=== PATIENT | male | born 1965 | race Caucasian/White ===

== ENCOUNTER 2021-11-17 08:30 | Outpatient (REF) | payer OTHER, SELFPAY ==
--- NOTE | ~2021-11-17 | XR_ITS ---
EXAMINATION: XR SHOULDER, LEFT CLINICAL INFORMATION: Pain in left shoulder COMPARISON: Chest radiograph 10/10/2017 TECHNIQUE: AP external rotated, transscapular, axillary and Grashey radiographs of the left shoulder. FINDINGS: Partial visualization is made of a left pectoral atrioventricular pacer. Glenohumeral joint spacing and alignment is normal in appearance. The acromioclavicular joint is normal in appearance. Visualized left ribs and lung are normal. No dystrophic soft tissue calcifications associated with the left shoulder. XR/XR shoulder LT min 2V IMPRESSION: *Normal radiographic appearance of the left shoulder.
== END 2021-11-17 08:31 | disposition home or self-care (01) ==
LOC: HO.XRAY 08:30
PROVIDERS: PCP Family Medicine; Visit Provider Family Medicine
DX: M25.512 Pain in left shoulder (principal)
CPT/HCPCS: 73030

== ENCOUNTER 2021-12-09 15:05 | Outpatient (RCR) | payer OTHER, SELFPAY | END 2022-01-15 14:02 | disposition home or self-care (01) | LOC: HO.PT 15:05 | PROVIDERS: PCP Family Medicine; Visit Provider Family Medicine | DX: M25.512 Pain in left shoulder (principal) ==

== ENCOUNTER 2022-01-29 13:22 | Outpatient (REF) | payer OTHER, SELFPAY ==
[2022-01-29 14:10] LABS: Influenza A PCR NEGATIVE (Negative); Influenza B PCR NEGATIVE (Negative); Resp Syncy Virus RNA Qual PCR NEGATIVE (Negative); SARS COV2 PCR INHOUSE NEGATIVE (Negative)
== END 2022-01-29 13:23 | disposition home or self-care (01) ==
LOC: HO.LNP 13:22
PROVIDERS: Visit Provider Family Medicine
DX: Z20.822 Contact with and (suspected) exposure to COVID-19 (principal); B34.9 Viral infection, unspecified
CPT/HCPCS: 0241U

== ENCOUNTER 2022-11-03 12:11 | Outpatient (REF) | payer OTHER, SELFPAY ==
[2022-11-03 14:18] LABS: MANUAL DIFF FLAG NO
[2022-11-03 14:30] LABS: Basophils Absolute Auto 0.1 X10*3/uL (0.0-0.2); Eosinophils Absolute Auto 0.1 X10*3/uL (0.0-0.4); Hematocrit 43.8 % (42.0-52.0); Hemoglobin 15.5 g/dl (14.0-18.0); Imm Gran Abs Auto 0.02 X10*3/uL (0.00-0.03); Imm Gran Pct Auto 0.3 % (0.0-0.4); Lymphocytes Absolute Auto 1.9 X10*3/uL (1.2-4.9); Lymphocytes Percent Auto 26.6 % (20-40); Mean Corpuscular HGB Conc 35.4 g/dl (31.0-36.0); Mean Corpuscular Hemoglobin 32.8 pg (27.0-33.0); Mean Corpuscular Volume 92.6 fL (80.0-98.0); Mean Platelet Volume 9.1 fL (9.4-12.4); Monocytes Absolute Auto 0.6 X10*3/uL (0.1-1.2); Neutrophils Absolute Auto 4.3 x10*3/uL (2.0-8.3); Neutrophils Percent Auto 61.1 % (45-73); Platelet Count 241 X10*3/uL (160-400); Red Blood Count 4.73 X10*6/uL (4.60-5.80); Red Cell Distribution Width 12.2 % (11.0-16.0)
[2022-11-03 14:41] LABS: Estimated Average Glucose 108 mg/dL; Hemoglobin A1c % 5.4 %
[2022-11-03 15:16] LABS: Appearance Urine Clear; Color Urine Yellow; Glucose Urine UA Negative (Negative); Leukocyte Esterase Urine Negative (Negative); Nitrite Urine Negative (Negative); Specific Gravity - Urine <= 1.005 (1.005-1.025); Urine Blood Negative (Negative); Urine Ketones Negative (Negative); Urine Protein Negative (Neg-Trace)
[2022-11-03 15:35] LABS: Alanine Aminotransferase 41 U/L (0-40); Albumin Level 4.7 g/dL (3.5-5.0); Alkaline Phosphatase 91 U/L (39-117); Anion Gap 13 (12-20); Aspartate Amino Transferase 27 U/L (5-37); Bilirubin Total 0.6 mg/dL (0.0-1.0); Blood Urea Nitrogen 14 mg/dL (9-16); Calcium 9.9 mg/dL (8.4-10.2); Carbon Dioxide 24 mmol/L (22-29); Chloride 105 mmol/L (96-108); Estimated Glomerular Filt Rate > 60; Glucose Random 91 mg/dL (60-115); Potassium 4.2 mmol/L (3.3-5.1); Sodium 138 mmol/L (135-145); TSH reflex Free T4 0.71 uIU/mL (0.32-4.0); Total Protein 7.2 g/dL (6.5-8.0)
== END 2022-11-03 12:12 | disposition home or self-care (01) ==
LOC: HO.WFDLDS 12:11
PROVIDERS: Visit Provider Family Medicine
DX: Z00.00 Encounter for general adult medical examination without abnormal findings (principal); Z13.1 Encounter for screening for diabetes mellitus; M79.672 Pain in left foot; M79.671 Pain in right foot
CPT/HCPCS: 36415; 80053; 81003; 83036; 84443; 85025

== ENCOUNTER 2022-12-27 09:37 | Outpatient (REF) | payer OTHER, SELFPAY ==
--- NOTE | ~2022-12-27 | XR_ITS ---
EXAMINATION: XR SHOULDER, RIGHT CLINICAL INFORMATION: Right shoulder sprain. COMPARISON: None TECHNIQUE: Three views of the right shoulder. FINDINGS: Mild degenerative changes of the acromioclavicular joint. The bones and soft tissues otherwise appear unremarkable. No fracture appreciated. Glenohumeral and acromioclavicular alignment is anatomic with normal appearance of the glenohumeral joint space. No abnormal soft tissue calcification appreciated. Partially imaged left subclavian pulse generator device leads, the tip of one of which projects over the right atrium. XR/XR shoulder RT min 2V IMPRESSION: No acute finding.
== END 2022-12-27 09:38 | disposition home or self-care (01) ==
LOC: HO.HMGCX 09:37
PROVIDERS: PCP Family Medicine; Visit Provider Internal Medicine
DX: S43.401A Unspecified sprain of right shoulder joint, initial encounter (principal); X58.XXXA Exposure to other specified factors, initial encounter; Y93.9 Activity, unspecified; Y92.9 Unspecified place or not applicable; Y99.9 Unspecified external cause status
CPT/HCPCS: 73030

== ENCOUNTER → 2023-01-03 13:49 | Outpatient (BNVA) | payer OTHER, SELFPAY | PROVIDERS: PCP Family Medicine; Visit Provider Orthopaedic Surgery | DX: Z13.89 Encounter for screening for other disorder (principal) ==

== ENCOUNTER 2023-06-16 09:40 | Outpatient (AMB) | payer OTHER, SELFPAY ==
[2023-06-16 10:00] VITALS: BP 146/82; PULSE 60; RESP 12; TEMP 36.6; O2SAT 98; BMI 27.2
--- NOTE | 2023-06-16 10:00 | MHC.OFFWIV ---
Intake Vital Signs 06/16/23 10:00 Height 5 ft 11 in Weight 195 lb 4 oz BMI 27.2 BP 146/82 H Blood Pressure Location Rt brachial Position Sitting Respiration 12 Pulse 60 Pulse Source Pulse Oximeter Temp 98 F Temp Source Temporal Artery Scan Pulse Oximetry (%) 98 Oxygen Delivery Method Room Air Intake Visit Reasons: right sided back / shoulder pain [phone] Intake Note: Patient states the pain started a couple weeks ago while he was at work. Patient states it feels like someone has their knee in his back. 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 Patient states the pain started a couple weeks ago while he was at work. He has not been using anything for relief. [facility]LY [facility], [facility] Surgical History Deficient knowledge of valve replacement History of open reduction and internal fixation (ORIF) procedure History of pacemaker Family History Father CVD (cardiovascular disease) Myocardial infarction Mother Cancer Sister Breast cancer Son No problems noted. Daughter No problems noted. Social History Housing: House Alcohol intake: current Alcohol intake frequency: 0-2 drinks per day Patient Tobacco Use Status: Current someday Tobacco user Tobacco use type: Cigarette e-Cigarette/Vaping Use: Never Used Second Hand Smoke Exposure: No service: No Current occupational status: employed Current occupational exposures/hazards: No Cognitive needs: No Hearing needs: No Vision needs: No Review of Systems Musc Details: Shoulder week Reports back pain Physical Exam Vital Signs: Last Vital Signs Temp 98 F 06/16/23 10:00 Pulse 60 06/16/23 10:00 Resp 12 06/16/23 10:00 BP 146/82 H 06/16/23 10:00 Pulse Ox 98 06/16/23 10:00 Oxygen Delivery Method Room Air 06/16/23 10:00 BMI result Body Mass Index 27.2 Skin Other: 1 cm in diameter melanotic lesion at R thigh Assessment & Plan Assessment & Plan (1) Back pain: Code(s): M54.9 - Dorsalgia, unspecified Plan: Likely muscle sprain/strain Will give him meloxicam and a 10 day course of muscle relaxant Also encouraged ice/heat Relative rest If not improving should start physical therapy (2) Neoplasm of uncertain behavior of skin: Code(s): D48.5 - Neoplasm of uncertain behavior of skin Plan: 1 cm in diameter melanotic lesion at right thigh No other abnormal features but given its size, will refer him to Dermatology Orders: Referrals Dermatology Referral D48.5 - Neoplasm of uncertain behavior of skin Medications: New meloxicam 15 mg PO DAILY 14 tabs 0RF 14 days Refilled cyclobenzaprine 10 mg PO TID PRN 30 tabs 0RF muscle spasm 10 days Coding Level of Care Code Est Pt Level 3 (75378) Diagnoses Back pain M54.9 Neoplasm of uncertain behavior of skin D48.5
== END 2023-06-16 11:13 | disposition home or self-care (01) ==
PROVIDERS: PCP Family Medicine; Visit Provider Family Medicine
DX: M54.9 Dorsalgia, unspecified (principal); D48.5 Neoplasm of uncertain behavior of skin
CPT/HCPCS: 99213

== ENCOUNTER 2023-06-16 12:41 | Outpatient (REF) | payer OTHER, SELFPAY ==
[2023-06-16 15:39] LABS: Prostate Specific Antigen Scr 1.69 ng/mL (<0.05-4.0)
[2023-06-16 16:29] LABS: Alanine Aminotransferase 39 U/L (0-40); Albumin Level 4.4 g/dL (3.5-5.0); Alkaline Phosphatase 77 U/L (39-117); Anion Gap 16 (12-20); Aspartate Amino Transferase 23 U/L (5-37); Bilirubin Total 0.7 mg/dL (0.0-1.0); Blood Urea Nitrogen 14 mg/dL (9-16); Carbon Dioxide 20 mmol/L (22-29); Chloride 105 mmol/L (96-108); Cholesterol 234 mg/dL; Estimated Glomerular Filt Rate > 60; Glucose Fasting 110 mg/dL (60-99); HDL Cholesterol 62 mg/dL; LDL Cholesterol Calculated 146 mg/dl; Potassium 4.4 mmol/L (3.3-5.1); Sodium 137 mmol/L (135-145); Total Protein 7.3 g/dL (6.5-8.0); Triglycerides 131 mg/dL
== END 2023-06-16 12:42 | disposition home or self-care (01) ==
LOC: HO.LAB 12:41
PROVIDERS: PCP Family Medicine; Visit Provider Family Medicine
DX: Z00.00 Encounter for general adult medical examination without abnormal findings (principal); Z12.5 Encounter for screening for malignant neoplasm of prostate
CPT/HCPCS: 36415; 80053; 80061; 84153

== ENCOUNTER 2023-09-29 13:35 | Outpatient (AMB) | payer OTHER, SELFPAY ==
--- NOTE | 2023-09-29 13:44 | MHC.PC.OV ---
Vital Signs 09/29/23 13:45 Height 5 ft 11 in Weight 203 lb BMI 28.3 BP 104/68 Blood Pressure Location Lt brachial Position Sitting Respiration 13 Pulse 71 Pulse Source Pulse Oximeter Temp 97.9 F Temp Source Temporal Artery Scan Pulse Oximetry (%) 97 Oxygen Delivery Method Room Air Intake Visit Reasons: right foot swelling Intake Note: Patient reports he has right foot pain and swelling. Patient denies injury nor increased activity. Patient reports feet become extremely hot and sweaty as well. 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 He reports associated intermittent hot sensation to the right foot. His symptoms have been ongoing for the past 3 months. Ibuprofen provides minimal relief. He states that his symptoms intensify with prolonged standing. 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 He reports history of fracture of the right leg. He denies fall, injury, or trauma. Denies pain or swelling. [facility] Surgical History Deficient knowledge of valve replacement History of open reduction and internal fixation (ORIF) procedure History of pacemaker Family History Father CVD (cardiovascular disease) Myocardial infarction Mother Cancer Sister Breast cancer Son No problems noted. Daughter No problems noted. Social History Housing: House Alcohol intake: current Alcohol intake frequency: 0-2 drinks per day Patient Tobacco Use Status: Current someday Tobacco user Tobacco use type: Cigarette e-Cigarette/Vaping Use: Never Used Second Hand Smoke Exposure: No service: No Current occupational status: employed Current occupational exposures/hazards: No Cognitive needs: No Hearing needs: No Vision needs: No Questionnaire Thrive Questionnaire Date Thrive assessed: 11/03/22 CANDY-7 AMB Questionnaire CANDY-7 Date CANDY - 7 assessed: 11/03/22 Source: Developed by Drs. Coleman Huerta, Marisela Rachel, Feng Carmichael and colleagues, with an educational tree from [employer]). Review of Systems Const Details: Const Denies chills, Denies fatigue, Denies fever(s), Denies headache(s) and Denies weakness ENT Denies dizziness and Denies headache(s) Card Denies chest pain, Denies lightheadedness, Denies dyspnea and Denies other (Palpitations) Resp Denies cough, Denies dyspnea, Denies wheezing and Denies other ( shortness of breath) GI Denies abdominal pain, Denies melena, Denies hematochezia, Denies change in bowel habits, Denies dyspepsia and Denies nausea Denies hematuria and Denies dysuria Musc Reports as per HPI Skin/Breast Denies rash, Denies unusual bruising and Denies wounds Neuro Denies abnormal gait, Denies dizziness, Denies headache(s), Denies memory loss, Denies numbness, Denies Sensory deficit (Neuro), Denies tingling and Denies weakness Psych Denies anxiety, Denies depression, Denies memory loss Endo Denies cold intolerance, Denies fatigue, Denies heat intolerance, Denies polydipsia and Denies polyuria Aller/Immun Denies wheezing Physical exam (Primary Care) Vital Signs: Last Vital Signs Temp 97.9 F 09/29/23 13:45 Pulse 71 09/29/23 13:45 Resp 13 09/29/23 13:45 BP 104/68 09/29/23 13:45 Pulse Ox 97 09/29/23 13:45 Oxygen Delivery Method Room Air 09/29/23 13:45 BMI result Body Mass Index 28.3 Tobacco/Smoking Status: Tobacco use Status Tobacco use date assessed 01/21/23 09/29/23 13:54 Patient Tobacco Use Status Current someday Tobacco 09/29/23 13:54 Tobacco use type Cigarette 09/29/23 13:54 e-Cigarette/Vaping Use Never Used 09/29/23 13:54 Thrive Assessment: Date of Thrive Assessment Date Thrive assessed 11/03/22 09/29/23 13:54 Const Other: General: no acute distress and well developed Nutritional Appearance: well nourished Orientation/consciousness: patient oriented x3 HENMT Head: Yes normocephalic and Yes atraumatic Eyes General: appearance normal, both eyes and all related structures Pupils: Equal, round and reactive pupils present EOM: EOMs intact bilaterally Resp Effort & Inspection: normal respiratory effort Auscultation: clear to auscultation bilaterally Cardio Rate: regular rate Rhythm: regular rhythm Heart sounds: S1 normal heart sound present, S2 normal heart sound present, no gallops, no murmurs and no rubs GI Palpation (GI): No Abdominal aortic bruit present, Soft to palpation, nontender, No hepatosplenomegaly present and No Rebound tenderness present Auscultation: normal bowel sounds General: Yes no CVA tenderness Back/Spine/Pelvis Back: no CVA tenderness Cervical Spine: cervical ROM normal and No Cervical spine tenderness Thoracic/Lumbar Spine: thoraco-lumbar ROM normal, No pain with thoraco-lumbar ROM, No thoracic spinal tenderness and No lumbar spinal tenderness Extrem General: Yes normal to inspection, No edema and No calf tenderness Skin General: warm and dry. Normal skin color. Normal skin turgor Lesions: no lesions Rashes: no rashes Trauma: no lacerations or abrasions Wounds: no wounds Nails: normal Neuro General: patient oriented x3, gait normal and no focal neuro deficit Cranial nerves: Yes Equal, round and reactive pupils present Cognition (Neuro): normal cognition Gait exam (Neuro): Normal gait present Sensory Exam: No Sensory deficit (Neuro) Psych Appearance: grossly normal Affect: normal affect Attitude: cooperative Thought process: Normal thought process present Assessment and Plan Assessment & Plan (1) Paresthesia of right foot: Code(s): R20.2 - Paresthesia of skin Plan: Reports tingling or numbness of the 2nd to 5th toes of the right foot for the past 3 months. He reports associated intermittent hot sensation to the right foot. 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 Take as prescribed. Informed that the medication may make him drowsy and sleepy and therefore should be avoided during the day, especially if he has to work Continue to take ibuprofen as needed Advised to avoid prolonged standing Follow-up with PCP or return with new or worsening symptoms Verbalized understanding and agreed with treatment plan. Medications: New gabapentin 300 mg PO BEDTIME 30 caps 0RF 30 days Coding Level of Care Code Est Pt Level 3 (95934) Diagnoses Paresthesia of right foot R20.2
[2023-09-29 13:45] VITALS: BP 104/68; PULSE 71; RESP 13; TEMP 36.6; O2SAT 97; BMI 28.3
== END 2023-09-29 14:13 | disposition home or self-care (01) ==
PROVIDERS: PCP Family Medicine; Visit Provider Nurse Practitioner Family
DX: R20.2 Paresthesia of skin (principal)
CPT/HCPCS: 99213

== ENCOUNTER 2023-10-31 11:29 | Outpatient (AMB) | payer OTHER, SELFPAY ==
[2023-10-31 11:31] VITALS: BP 130/76; PULSE 68; TEMP 36.4; O2SAT 96; BMI 28.9
--- NOTE | 2023-10-31 11:31 | A.OFFPC_ITS ---
Vital Signs 10/31/23 11:31 Height 5 ft 11 in Weight 207 lb BMI 28.9 BP 130/76 Blood Pressure Location Lt brachial Position Sitting Pulse 68 Pulse Source Pulse Oximeter Temp 97.6 F Temp Source Oral Pulse Oximetry (%) 96 Intake Visit Reasons: Pulled back while tying his shoes this morning Intake Note: Patient pulled back while tying his shoes this morning. Allergies No Known Allergies Allergy (Verified 10/31/23 11:44) Medication List - Last Reconciled 10/31/23 by Nadir Reveles CNP lisinopril 10 mg PO DAILY Tobacco use date assessed: 10/31/23 Dental Screening Did you have a dental visit in the last 12 months?: Yes Did you have a dental problem in the last 6 months where you did not have access to dental care?: No Was dental information given to patient?: Patient has dentist HPI HPI Comments History of Present Illness Details 57-year-old male presents with complaint s of low back pain He notes that he pulled his back while tying his shoe this morning He reports dull and sharp pain which intensifies with lifting objects with his left hand. No tingling, numbness, or loss of sensation. No fall, injury, or trauma He took 600 mg of ibuprofen this morning without relief He reports history of diskectomy to his lumbar spine several years ago He notes that his work requires heavy lifting [facility] Surgical History Deficient knowledge of valve replacement History of open reduction and internal fixation (ORIF) procedure History of pacemaker Family History Father CVD (cardiovascular disease) Myocardial infarction Mother Cancer Sister Breast cancer Son No problems noted. Daughter No problems noted. Social History Housing: House Alcohol intake: current Alcohol intake frequency: 0-2 drinks per day Patient Tobacco Use Status: Current someday Tobacco user Tobacco use type: Cigarette e-Cigarette/Vaping Use: Never Used Second Hand Smoke Exposure: No service: No Current occupational status: employed Current occupational exposures/hazards: No Cognitive needs: No Hearing needs: No Vision needs: No Questionnaire Thrive Questionnaire Date Thrive assessed: 11/03/22 CANDY-7 AMB Questionnaire CANDY-7 Date CANDY - 7 assessed: 11/03/22 Source: Developed by Drs. Coleman Huerta, Marisela Rachel, Feng Carmichael and colleagues, with an educational tree from [employer]. Review of Systems Const Details: Const Denies chills, Denies fatigue, Denies fever(s), Denies headache(s) and Denies weakness ENT Denies dizziness and Denies headache(s) Card Denies chest pain, Denies lightheadedness, Denies dyspnea and Denies other (Palpitations) Resp Denies cough, Denies dyspnea, Denies wheezing and Denies other ( shortness of breath) GI Denies abdominal pain, Denies melena, Denies hematochezia, Denies change in bowel habits, Denies dyspepsia and Denies nausea Denies hematuria and Denies dysuria Musc Reports as per HPI Skin/Breast Denies rash, Denies unusual bruising and Denies wounds Neuro Denies abnormal gait, Denies dizziness, Denies headache(s), Denies memory loss, Denies numbness, Denies Sensory deficit (Neuro), Denies tingling and Denies weakness Psych Denies anxiety, Denies depression, Denies memory loss Endo Denies cold intolerance, Denies fatigue, Denies heat intolerance, Denies polydipsia and Denies polyuria Aller/Immun Denies wheezing Physical exam (Primary Care) Vital Signs: Last Vital Signs Temp 97.6 F 10/31/23 11:31 Pulse 68 10/31/23 11:31 BP 130/76 10/31/23 11:31 Pulse Ox 96 10/31/23 11:31 BMI result Body Mass Index 28.9 Tobacco/Smoking Status: Tobacco use Status Tobacco use date assessed 10/31/23 10/31/23 11:36 Patient Tobacco Use Status Current someday Tobacco 10/31/23 11:36 Tobacco use type Cigarette 10/31/23 11:36 e-Cigarette/Vaping Use Never Used 10/31/23 11:36 Thrive Assessment: Date of Thrive Assessment Date Thrive assessed 11/03/22 10/31/23 11:36 Const Other: General: no acute distress and well developed Nutritional Appearance: well nourished Orientation/consciousness: patient oriented x3 HENMT Head: Yes normocephalic and Yes atraumatic Eyes General: appearance normal, both eyes and all related structures Pupils: Equal, round and reactive pupils present EOM: EOMs intact bilaterally Resp Effort & Inspection: normal respiratory effort Auscultation: clear to auscultation bilaterally Cardio Rate: regular rate Rhythm: regular rhythm Heart sounds: S1 normal heart sound present, S2 normal heart sound present, no gallops, no murmurs and no rubs GI Palpation (GI): No Abdominal aortic bruit present, Soft to palpation, nontender, No hepatosplenomegaly present and No Rebound tenderness present Auscultation: normal bowel sounds General: Yes no CVA tenderness Back/Spine/Pelvis Back: no CVA tenderness Cervical Spine: cervical ROM normal and No Cervical spine tenderness Thoracic/Lumbar Spine: thoraco-lumbar ROM normal, No pain with thoraco-lumbar ROM, No thoracic spinal tenderness and No lumbar spinal tenderness Extrem General: Yes normal to inspection, No edema and No calf tenderness Negative straight leg raise bilaterally Skin General: warm and dry. Normal skin color. Normal skin turgor Neuro General: patient oriented x3, gait normal and no focal neuro deficit Cranial nerves: Yes Equal, round and reactive pupils present Cognition (Neuro): normal cognition Gait exam (Neuro): Normal gait present Sensory Exam: No Sensory deficit (Neuro) Psych Appearance: grossly normal Affect: normal affect Attitude: cooperative Thought process: Normal thought process present Assessment and Plan Assessment & Plan (1) Low back pain: Code(s): M54.50 - Low back pain, unspecified Qualifiers: Chronicity: acute Back pain laterality: midline Sciatica presence: without sciatica Qualified Code(s): M54.50 - Low back pain, unspecified Plan: Reports low back pain which suddenly started while tying the laces of his shoelaces this morning No point tenderness Pain is localized to the lumbar spine. Likely muscular pain, although disc deformity is possible Advised to rest and apply as 10-15 minutes on and off Naproxen and cyclobenzaprine as prescribed Work note given to return next Tuesday Follow-up with worsening or new symptoms Verbalized understanding and agreed with treatment plan Medications: New naproxen 500 mg PO BID PRN 60 tabs 1RF pain cyclobenzaprine 10 mg PO TID PRN 60 tabs 1RF muscle spasm Coding Level of Care Code Est Pt Level 3 (57110) Diagnoses Acute midline low back pain without sciatica M54.50 Chronicity: acute Back pain laterality: midline Sciatica presence: without sciatica
== END 2023-10-31 11:57 | disposition home or self-care (01) ==
PROVIDERS: PCP Family Medicine; Visit Provider Nurse Practitioner Family
DX: M54.50 Low back pain, unspecified (principal)
CPT/HCPCS: 99213

== ENCOUNTER 2024-01-31 13:34 | Outpatient (AMB) | payer OTHER, SELFPAY ==
--- NOTE | 2024-01-31 13:37 | A.OFFPC_ITS ---
Vital Signs 01/31/24 13:40 Height 5 ft 11 in Weight 201 lb BMI 28.0 BP 108/70 Blood Pressure Location Rt brachial Position Sitting Respiration 13 Pulse 69 Pulse Source Pulse Oximeter Temp 97.6 F Temp Source Temporal Artery Scan Pulse Oximetry (%) 97 Oxygen Delivery Method Room Air Intake Visit Reasons: Right foot toes swollen Type Copy Examiner Required: No Accompanied by: Self / Same As Patient Allergies No Known Allergies Allergy (Verified 01/31/24 13:51) Medication List - Last Reconciled 01/31/24 by Nadir Reveles CNP lisinopril 10 mg PO DAILY Tobacco use date assessed: 01/31/24 Dental Screening Dental Screen Date: 01/31/24 Did you have a dental visit in the last 12 months?: Yes Did you have a dental problem in the last 6 months where you did not have access to dental care?: No Was dental information given to patient?: Patient has dentist HPI HPI Comments History of Present Illness Details 58-year-old male presents with complaint s of constant tingling and numbness to the 2nd to 4th toe of his right foot. He reports associated warmth and swelling to the toes every afternoon. His symptoms progressively worsened upon waking up in the morning and improves at night. His symptoms have been ongoing for the past 7 months. 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 He denies fall, injury, or trauma.He denies pain, fever, chills, body aches, fatigue, weakness. [facility] Medical History No pertinent past medical history Surgical History History of pacemaker Deficient knowledge of valve replacement History of open reduction and internal fixation (ORIF) procedure Family History Father CVD (cardiovascular disease) Myocardial infarction Mother Cancer Sister Breast cancer Son No problems noted. Daughter No problems noted. Social History Housing: House Alcohol intake: current Alcohol intake frequency: 0-2 drinks per day Patient Tobacco Use Status: Current someday Tobacco user Tobacco use type: Cigarette e-Cigarette/Vaping Use: Never Used Second Hand Smoke Exposure: No service: No Current occupational status: employed Current occupation: [employer] Current occupational exposures/hazards: No Cognitive needs: No Hearing needs: No Vision needs: No Questionnaire Thrive Questionnaire Date Thrive assessed: 11/03/22 CANDY-7 AMB Questionnaire CANDY-7 Date CANDY - 7 assessed: 11/03/22 Source: Developed by Drs. Coleman Huerta, Marisela Rachel, Feng Carmichael and colleagues, with an educational tree from [employer]. Review of Systems Const Details: Const Denies chills, Denies fatigue, Denies fever(s), Denies headache(s) and Denies weakness ENT Denies dizziness and Denies headache(s) Card Denies chest pain, Denies lightheadedness, Denies dyspnea and Denies other (Palpitations) Resp Denies cough, Denies dyspnea, Denies wheezing and Denies other ( shortness of breath) GI Denies abdominal pain, Denies melena, Denies hematochezia, Denies change in bowel habits, Denies dyspepsia and Denies nausea Denies hematuria and Denies dysuria Musc Reports as per HPI Skin/Breast Denies rash, Denies unusual bruising and Denies wounds Neuro Denies abnormal gait, Denies dizziness, Denies headache(s), Denies memory loss, Denies numbness, Denies Sensory deficit (Neuro), Denies tingling and Denies weakness Psych Denies anxiety, Denies depression, Denies memory loss Endo Denies cold intolerance, Denies fatigue, Denies heat intolerance, Denies polydipsia and Denies polyuria Aller/Immun Denies wheezing Physical exam (Primary Care) Vital Signs: Last Vital Signs Temp 97.6 F 01/31/24 13:40 Pulse 69 01/31/24 13:40 Resp 13 01/31/24 13:40 BP 108/70 01/31/24 13:40 Pulse Ox 97 01/31/24 13:40 Oxygen Delivery Method Room Air 01/31/24 13:40 BMI result Body Mass Index 28.0 Tobacco/Smoking Status: Tobacco use Status Tobacco use date assessed 01/31/24 01/31/24 13:46 Patient Tobacco Use Status Current someday Tobacco 01/31/24 13:39 Tobacco use type Cigarette 01/31/24 13:39 e-Cigarette/Vaping Use Never Used 01/31/24 13:39 Thrive Assessment: Date of Thrive Assessment Date Thrive assessed 11/03/22 01/31/24 13:39 Const Other: General: no acute distress and well developed Nutritional Appearance: well nourished Orientation/consciousness: patient oriented x3 [facility] Head: Yes normocephalic and Yes atraumatic Eyes General: appearance normal, both eyes and all related structures Pupils: Equal, round and reactive pupils present EOM: EOMs intact bilaterally Resp Effort & Inspection: normal respiratory effort Auscultation: clear to auscultation bilaterally Cardio Rate: regular rate Rhythm: regular rhythm Heart sounds: S1 normal heart sound present, S2 normal heart sound present, no gallops, no murmurs and no rubs GI Palpation (GI): No Abdominal aortic bruit present, Soft to palpation, nontender, No hepatosplenomegaly present and No Rebound tenderness present Auscultation: normal bowel sounds General: Yes no CVA tenderness Back/Spine/Pelvis Back: no CVA tenderness Cervical Spine: cervical ROM normal and No Cervical spine tenderness Thoracic/Lumbar Spine: thoraco-lumbar ROM normal, No pain with thoraco-lumbar ROM, No thoracic spinal tenderness and No lumbar spinal tenderness Extrem General: Yes normal to inspection, No edema and No calf tenderness. +DP/PT pulse Skin General: warm and dry. Normal skin color. Normal skin turgor Neuro General: patient oriented x3, gait normal and no focal neuro deficit Cranial nerves: Yes Equal, round and reactive pupils present Cognition (Neuro): normal cognition Gait exam (Neuro): Normal gait present Sensory Exam: No Sensory deficit (Neuro) Psych Appearance: grossly normal Affect: normal affect Attitude: cooperative Thought process: Normal thought process present Results AMB Hemoglobin A1c AMB Hemoglobin A1c 5.8 % Last Edit by Verito Roman MA on 01/31/24 14:20 Assessment and Plan Assessment & Plan (1) Paresthesia of right foot: Code(s): R20.2 - Paresthesia of skin Plan: Physical exam is benign Labs ordered to check for inflammatory process or electrolyte imbalances Will also check for diabetes. He has had multiple elevated fasting blood glucose. His last in October 2022 A1c was 5.4 A1c today is 5.8%, prediabetes Naproxen 500 mg twice daily as needed and gabapentin 300 mg daily in the morning ordered. Take as prescribed Encouraged to avoid prolonged standing Warm/cold compresses encouraged Healthy diet, including avoiding high carbs encouraged Advised to get fasting blood work done and follow-up with PCP within 1 month or return sooner with worsening or new symptoms Verbalized understanding and agreed with treatment plan Orders: Orders Erythrocyte Sedimentation Rate Today R20.2 - Paresthesia of skin CRP High Sensitivity Today R20.2 - Paresthesia of skin Complete Blood Count Auto Diff Today R20.2 - Paresthesia of skin Comprehensive [place]. Panel Fast Today R20.2 - Paresthesia of skin AMB Hemoglobin A1c Today Z13.1 - Encounter for screening for diabetes mellitus Medications: Changed From gabapentin 300 mg PO BEDTIME 30 caps 0RF 30 days To gabapentin Daily in the morning 300 mg PO DAILY 30 days 30 caps 1RF Refilled naproxen 500 mg PO BID PRN 60 tabs 1RF pain Coding Level of Care Code Est Pt Level 4 (31415) Diagnoses Paresthesia of right foot R20.2
[2024-01-31 13:40] VITALS: BP 108/70; PULSE 69; RESP 13; TEMP 36.4; O2SAT 97; BMI 28.0
== END 2024-01-31 14:28 | disposition home or self-care (01) ==
PROVIDERS: PCP Family Medicine; Visit Provider Nurse Practitioner Family
DX: Z13.1 Encounter for screening for diabetes mellitus (principal); R20.2 Paresthesia of skin
CPT/HCPCS: 83036; 99214

== ENCOUNTER 2024-02-01 16:31 | Outpatient (REF) | payer OTHER, SELFPAY ==
[2024-02-01 16:49] LABS: MANUAL DIFF FLAG NO
[2024-02-01 17:28] LABS: Basophils Percent Auto 0.7 % (0-2); Eosinophils Absolute Auto 0.1 X10*3/uL (0.0-0.4); Eosinophils Percent Auto 2.2 % (0-4); Hematocrit 46.8 % (42.0-52.0); Hemoglobin 16.7 g/dl (14.0-18.0); Imm Gran Abs Auto 0.01 X10*3/uL (0.00-0.03); Imm Gran Pct Auto 0.2 % (0.0-0.4); Lymphocytes Absolute Auto 2.2 X10*3/uL (1.2-4.9); Mean Corpuscular HGB Conc 35.7 g/dl (31.0-36.0); Mean Corpuscular Hemoglobin 33.1 pg (27.0-33.0); Mean Corpuscular Volume 92.7 fL (80.0-98.0); Mean Platelet Volume 8.7 fL (9.4-12.4); Monocytes Absolute Auto 0.5 X10*3/uL (0.1-1.2); Neutrophils Absolute Auto 3.2 x10*3/uL (2.0-8.3); Neutrophils Percent Auto 52.9 % (45-73); Platelet Count 217 X10*3/uL (160-400); Red Blood Count 5.05 X10*6/uL (4.60-5.80); Red Cell Distribution Width 12.3 % (11.0-16.0)
[2024-02-01 18:07] LABS: Erythrocyte Sedimentation Rate 5 MM/HR (0-15)
[2024-02-01 18:10] LABS: Alanine Aminotransferase 43 U/L (0-40); Albumin Level 4.5 g/dL (3.5-5.0); Alkaline Phosphatase 79 U/L (39-117); Anion Gap 15 (12-20); Aspartate Amino Transferase 24 U/L (5-37); Bilirubin Total 0.7 mg/dL (0.0-1.0); Blood Urea Nitrogen 12 mg/dL (9-16); Calcium 10.1 mg/dL (8.4-10.2); Carbon Dioxide 24 mmol/L (22-29); Chloride 103 mmol/L (96-108); Estimated Glomerular Filt Rate > 60; Glucose Fasting 95 mg/dL (60-99); Potassium 3.9 mmol/L (3.3-5.1); Sodium 138 mmol/L (135-145); Total Protein 7.6 g/dL (6.5-8.0)
[2024-02-02 13:42] LABS: CRP High Sensitivity 1.3 mg/L
== END 2024-02-01 16:32 | disposition home or self-care (01) ==
LOC: HO.LAB 16:31
PROVIDERS: PCP Family Medicine; Visit Provider Nurse Practitioner Family
DX: R20.2 Paresthesia of skin (principal)
CPT/HCPCS: 36415; 80053; 85025; 85652; 86141

== ENCOUNTER 2024-04-23 10:38 | Outpatient (AMB) | payer OTHER, SELFPAY ==
[2024-04-23 10:47] VITALS: BP 138/78; PULSE 71; O2SAT 98; BMI 27.3
--- NOTE | 2024-04-23 10:47 | MHC.PC.OV ---
Vital Signs 04/23/24 10:47 Height 5 ft 11 in Weight 196 lb BMI 27.3 BP 138/78 Blood Pressure Location Lt brachial Position Sitting Pulse 71 Pulse Oximetry (%) 98 Oxygen Delivery Method Room Air Intake Visit Reasons: Sweating issues Intake Note: Patient is here for sweating issues especially of feet, starts early in the morning, and sometimes has to change his socks up to 4 times a day. Patient would like to discuss refill of gabapentin. Allergies No Known Allergies Allergy (Verified 04/23/24 10:50) Medication List - Last Reconciled 04/23/24 by Alan Dowd MD gabapentin 300 mg PO DAILY 30 days lisinopril 10 mg PO DAILY naproxen 500 mg PO BID PRN Tobacco use date assessed: 01/31/24 Dental Screening Dental Screen Date: 01/31/24 HPI Sweating issues HPI Details 58 y/o male presents today with complaints of excessive sweating. He reports sweating issues of his feet that starts early in the morning. He notes he has to change his socks up to 4 times a day. Blood pressure today 138/78. He is on lisinopril 10mg daily. [facility] Medical History No pertinent past medical history Surgical History History of pacemaker Deficient knowledge of valve replacement History of open reduction and internal fixation (ORIF) procedure Family History Father CVD (cardiovascular disease) Myocardial infarction Mother Cancer Sister Breast cancer Son No problems noted. Daughter No problems noted. Social History Housing: House Alcohol intake: current Alcohol intake frequency: 0-2 drinks per day Patient Tobacco Use Status: Current someday Tobacco user Tobacco use type: Cigarette e-Cigarette/Vaping Use: Never Used Second Hand Smoke Exposure: No service: No Current occupational status: employed Current occupation: [employer] Current occupational exposures/hazards: No Cognitive needs: No Hearing needs: No Vision needs: No Questionnaire Thrive Questionnaire Date Thrive assessed: 11/03/22 CANDY-7 AMB Questionnaire CANDY-7 Date CANDY - 7 assessed: 11/03/22 Source: Developed by Drs. Coleman Huerta, Marisela Rachel, Feng Carmichael and colleagues, with an educational tree from [employer]. Review of Systems Const Denies chills, Denies fatigue, Denies fever(s), Denies headache(s) and Denies weakness ENT Denies dizziness and Denies headache(s) Card Denies chest pain, Denies lightheadedness, Denies dyspnea and Denies other (Palpitations) Resp Denies cough, Denies dyspnea, Denies wheezing and Denies other ( shortness of breath) Musc Denies numbness and Denies tingling Neuro Denies dizziness, Denies headache(s), Denies numbness, Denies tingling, Denies paresthesias and Denies weakness Psych Denies anxiety and Denies depression Endo Denies fatigue Aller/Immun Denies wheezing Physical exam (Primary Care) Vital Signs: Last Vital Signs Pulse 71 04/23/24 10:47 BP 138/78 04/23/24 10:47 Pulse Ox 98 04/23/24 10:47 Oxygen Delivery Method Room Air 04/23/24 10:47 BMI result Body Mass Index 27.3 Tobacco/Smoking Status: Tobacco use Status Tobacco use date assessed 01/31/24 04/23/24 10:49 Patient Tobacco Use Status Current someday Tobacco 04/23/24 10:49 Tobacco use type Cigarette 04/23/24 10:49 e-Cigarette/Vaping Use Never Used 04/23/24 10:49 Thrive Assessment: Date of Thrive Assessment Date Thrive assessed 11/03/22 04/23/24 10:49 Const General: no acute distress and well developed Nutritional Appearance: well nourished Orientation/consciousness: [facility] Head: Yes normocephalic and Yes atraumatic Eyes General: appearance normal, both eyes and all related structures Pupils: Equal, round and reactive pupils present EOM: EOMs intact bilaterally Resp Effort & Inspection: normal respiratory effort Auscultation: clear to auscultation bilaterally Cardio Rate: regular rate Rhythm: regular rhythm Heart sounds: S1 normal heart sound present, S2 normal heart sound present, no gallops, no murmurs and no rubs Neuro General: patient oriented x3 and gait normal Cranial nerves: Yes Equal, round and reactive pupils present Psych Affect: normal affect Assessment and Plan Assessment & Plan (1) Excessive sweating: Code(s): R61 - Generalized hyperhidrosis Plan: Excessive?sweating?primarily?at?feet?though?patient?does?note?some?flushing Lab?work?unremarkable No?other?complaints Trial?drysol Can?trial?clonidine?or?flushing If?not?improving?will?investigate?further?and?consider?referral?to?endocrinology or?other?specialist (2) Essential hypertension: Code(s): I10 - Essential (primary) hypertension Plan: Controlled Goal?is?less?than?140/90 (3) Pre-diabetes: Code(s): R73.03 - Prediabetes Plan: Recent?A1c?in?January?was?5.8% Encouraged?diet?lower?in?sugars?and?starches Orders: Orders PT Evaluation and Treatment Today M25.511 - Pain in right shoulder Medications: New clonidine HCl 0.1 mg PO DAILY 30 days PRN 30 tabs 0RF Sweating/flushing aluminum chloride 20% (Drysol) 1 appl topical 2XW 30 days PRN 37.5 mL 2RF excessive sweating Coding Level of Care Code Est Pt Level 4 (53808) Diagnoses Excessive sweating R61 Essential hypertension I10 Pre-diabetes R73.03
== END 2024-04-23 11:30 | disposition home or self-care (01) ==
PROVIDERS: PCP Family Medicine; Visit Provider Family Medicine
DX: R61 Generalized hyperhidrosis (principal); I10 Essential (primary) hypertension; R73.03 Prediabetes
CPT/HCPCS: 99214

== ENCOUNTER 2024-07-17 10:50 | Outpatient (AMB) | payer OTHER, SELFPAY ==
--- NOTE | 2024-07-17 11:03 | AM.OFFWIN_ITS ---
Intake Vital Signs 07/17/24 11:04 07/17/24 11:22 Height 5 ft 11 in Weight 201 lb BMI 28.0 BP 158/96 H 138/90 H Blood Pressure Location Lt brachial Rt brachial Position Sitting Sitting Pulse 63 Pulse Source Pulse Oximeter Temp 98.1 F Temp Source Oral Pulse Oximetry (%) 97 Oxygen Delivery Method Room Air Intake Visit Reasons: EP- Diarrhea, body aches, chills, runny nose Intake Note: pt c/o diarrhea, body aches, chills, runny nose. Started Tuesday Patient Tobacco Use Status: Current someday Tobacco user Allergies No Known Allergies Allergy (Verified 07/17/24 11:03) Do you need a note to return to daycare/school/sports/work: Yes HPI HPI Comments History of Present Illness Details Patient is a 58-year-old male complaining of 3 days of nausea vomiting and diarrhea. He denies any bloody or black stools. He denies any measured fevers but states he does feel hot and then chills. He denies any cough, sore throat, head congestion or other upper respiratory symptoms. He states his closest co-worker was diagnosed with COVID 4 days ago. He states he is able to eat and drink although much less than normal. [facility] Medical History No pertinent past medical history Surgical History History of pacemaker Deficient knowledge of valve replacement History of open reduction and internal fixation (ORIF) procedure Family History Father CVD (cardiovascular disease) Myocardial infarction Mother Cancer Sister Breast cancer Son No problems noted. Daughter No problems noted. Social History Housing: House Alcohol intake: current Alcohol intake frequency: 0-2 drinks per day Patient Tobacco Use Status: Current someday Tobacco user Tobacco use type: Cigarette e-Cigarette/Vaping Use: Never Used Second Hand Smoke Exposure: No service: No Current occupational status: employed Current occupation: [employer] Current occupational exposures/hazards: No Cognitive needs: No Hearing needs: No Vision needs: No Review of Systems Const All systems reviewed & are unremarkable except as noted in HPI and below Physical Exam Vital Signs: Last Vital Signs Temp 98.1 F 07/17/24 11:04 Pulse 63 07/17/24 11:04 BP 158/96 H 07/17/24 11:04 Pulse Ox 97 07/17/24 11:04 Oxygen Delivery Method Room Air 07/17/24 11:04 BMI result Body Mass Index 28.0 Const General: cooperative, healthy appearing, comfortable, no acute distress and well developed Orientation/consciousness: patient oriented x3 Limitations: no limitations HEENT Head: Yes normal to inspection General nose exam: Normal external nose present and Normal nares present Face and sinus: Yes normal facial exam Eyes General: appearance normal, both eyes and all related structures Neck Neck: Yes normal visual inspection, Yes full ROM and Yes no lymphadenopathy Resp Effort & Inspection: normal respiratory effort and able to speak in complete sentences GI Inspection: Yes normal to inspection Palpation (GI): Soft to palpation and Tenderness to palpation present (GI) (Slight tenderness throughout abdomen) Skin General skin exam: no rashes or lesions noted Neuro General: patient oriented x3 Extrem General: Yes normal to inspection Assessment & Plan Assessment & Plan (1) Gastroenteritis: Code(s): K52.9 - Noninfective gastroenteritis and colitis, unspecified Plan: Likely secondary to COVID, [facility], gave red flag warning signs and when to go to the emergency department and where recommended resting and hydrating. Plan see above Orders: Orders SARS-CoV2/FLU/RSV Today J06.9 - Acute upper respiratory infection, unspecified Medications: New ondansetron 4 mg PO Q8H PRN 7 tabs 0RF nausea and vomiting Coding Level of Care Code Est Pt Level 3 (28112) Diagnoses Gastroenteritis K52.9
[2024-07-17 11:04] VITALS: BP 158/96; PULSE 63; TEMP 36.7; O2SAT 97; BMI 28.0
[2024-07-17 11:22] VITALS: BP 138/90
== END 2024-07-17 11:28 | disposition home or self-care (01) ==
PROVIDERS: PCP Family Medicine; Visit Provider Physician Assistant
DX: K52.9 Noninfective gastroenteritis and colitis, unspecified (principal)
CPT/HCPCS: 99213

== ENCOUNTER 2024-07-17 11:29 | Outpatient (REF) | payer OTHER, SELFPAY ==
[2024-07-17 14:08] LABS: Influenza A PCR NEGATIVE (Negative); Influenza B PCR NEGATIVE (Negative); Resp Syncy Virus RNA Qual PCR NEGATIVE (Negative); SARS COV2 PCR INHOUSE NEGATIVE (Negative)
== END 2024-07-17 11:30 | disposition home or self-care (01) ==
LOC: HO.LAB 11:29
PROVIDERS: Visit Provider Physician Assistant
DX: J06.9 Acute upper respiratory infection, unspecified (principal)
CPT/HCPCS: 0241U

== ENCOUNTER 2024-08-10 13:44 | Outpatient (AMB) | payer OTHER, SELFPAY ==
--- NOTE | 2024-08-10 13:48 | MHC.PC.OV ---
Vital Signs 08/10/24 13:54 Weight 197 lb BP 130/80 Blood Pressure Location Lt brachial Position Sitting Respiration 16 Pulse 73 Pulse Source Pulse Oximeter Temp 98.5 F Temp Source Oral Pulse Oximetry (%) 95 Oxygen Delivery Method Room Air Oxygen Flow Rate 95 Intake Visit Reasons: Testicle pain sick visit Intake Note: patient here c/o testicle pain [employer]oples[employer] Developer Required: No Allergies No Known Allergies Allergy (Verified 08/10/24 14:43) Tobacco use date assessed: 08/10/24 Dental Screening Dental Screen Date: 01/31/24 HPI HPI Comments History of Present Illness Details 58-year-old male presents with complaints of constant suprapubic and right testicular pain since yesterday. He notes his symptoms started gradually and progressively worsened. His pain is currently 10/10. He denies trauma or injury. He endorses frequent urination. No other urinary symptoms. No constitutional symptoms. No n/v/d. PFSH Medical History No pertinent past medical history Surgical History History of pacemaker Deficient knowledge of valve replacement History of open reduction and internal fixation (ORIF) procedure Family History Father CVD (cardiovascular disease) Myocardial infarction Mother Cancer Sister Breast cancer Son No problems noted. Daughter No problems noted. Social History Housing: House Alcohol intake: current Alcohol intake frequency: 0-2 drinks per day Patient Tobacco Use Status: Current someday Tobacco user Tobacco use type: Cigarette e-Cigarette/Vaping Use: Never Used Second Hand Smoke Exposure: No service: No Current occupational status: employed Current occupation: [employer] Work Current occupational exposures/hazards: No Cognitive needs: No Hearing needs: No Vision needs: No Questionnaire Thrive Questionnaire Date Thrive assessed: 11/03/22 CANDY-7 AMB Questionnaire CANDY-7 Date CANDY - 7 assessed: 11/03/22 Source: Developed by Drs. Coleman Huerta, Marisela Rachel, Feng Carmichael and colleagues, with an educational tree from [employer]. Review of Systems Const Details: Const Denies chills, Denies fatigue, Denies fever(s), Denies headache(s) and Denies weakness ENT Denies dizziness and Denies headache(s) Card Denies chest pain, Denies lightheadedness, Denies dyspnea and Denies other (Palpitations) Resp Denies cough, Denies dyspnea, Denies wheezing and Denies other ( shortness of breath) GI Denies abdominal pain, Denies melena, Denies hematochezia, Denies change in bowel habits, Denies dyspepsia and Denies nausea Reports as per HPI Skin/Breast Denies rash, Denies unusual bruising and Denies wounds Neuro Denies Reports abnormal gait, Denies dizziness, Denies headache(s), Denies memory loss, Denies numbness, Denies Sensory deficit (Neuro), Denies tingling and Denies weakness Endo Denies cold intolerance, Denies fatigue, Denies heat intolerance, Denies polydipsia and Denies polyuria Aller/Immun Denies wheezing Physical exam (Primary Care) Vital Signs: Last Vital Signs Temp 98.5 F 08/10/24 13:54 Pulse 73 08/10/24 13:54 Resp 16 08/10/24 13:54 BP 130/80 08/10/24 13:54 Pulse Ox 73 L 08/10/24 13:54 Oxygen Delivery Method Room Air 08/10/24 13:54 Oxygen Flow Rate 95 08/10/24 13:54 Tobacco/Smoking Status: Tobacco use Status Tobacco use date assessed 08/10/24 08/10/24 13:57 Patient Tobacco Use Status Current someday Tobacco 08/10/24 13:53 Tobacco use type Cigarette 08/10/24 13:53 e-Cigarette/Vaping Use Never Used 08/10/24 13:53 Thrive Assessment: Date of Thrive Assessment Date Thrive assessed 11/03/22 08/10/24 13:53 Const Other: General: no acute distress and well developed Nutritional Appearance: well nourished Orientation/consciousness: patient oriented x3 [facility] Head: Yes normocephalic and Yes atraumatic Eyes General: appearance normal, both eyes and all related structures Pupils: Equal, round and reactive pupils present EOM: EOMs intact bilaterally Resp Effort & Inspection: normal respiratory effort Auscultation: clear to auscultation bilaterally Cardio Rate: regular rate Rhythm: regular rhythm Heart sounds: S1 normal heart sound present, S2 normal heart sound present, no gallops, no murmurs and no rubs GI Palpation (GI): Abdomen is soft, tender suprapubic region, nondistended, hyperactive bowel sounds x4 Right testicle with significant erythema and edema, approximately the size of a tennis ball; right testicle is higher than the left and tender to palpation; grimacing; unsteady gait due to pain Back/Spine/Pelvis Back: no CVA tenderness Cervical Spine: cervical ROM normal and No Cervical spine tenderness Thoracic/Lumbar Spine: thoraco-lumbar ROM normal, No pain with thoraco-lumbar ROM, No thoracic spinal tenderness and No lumbar spinal tenderness Extrem General: Yes normal to inspection, No edema and No calf tenderness Skin General: warm and dry. Normal skin color. Normal skin turgor Neuro General: patient oriented x3, unsteady gait and no focal neuro deficit Cranial nerves: Yes Equal, round and reactive pupils present Cognition (Neuro): normal cognition Gait exam (Neuro): Normal gait present Sensory Exam: No Sensory deficit (Neuro) Psych Appearance: grossly normal Affect: normal affect Attitude: cooperative Thought process: Normal thought process present Assessment and Plan Assessment & Plan (1) Testicular pain, right: Code(s): N50.811 - Right testicular pain Plan: Patient presents with gradual onset of suprapubic pain and right testicular pain since yesterday. His symptoms progressively worsened. His pain is currently 10/10. He notes associated frequent urination. No injury or trauma. Right testicle with significant erythema and edema, approximately the size of a tennis ball; right testicle is higher than the left and tender to palpation; grimacing; unsteady gait due to pain Suprapubic tenderness to palpation Likely testicular torsion although orchitis or epididymitis is possible Patient informed that his condition is an emergency. He declined for EMS to be activated so that he can be transported via ambulance to the emergency department. He notes that he will drive himself to [facility] Report given to the office nurse to contact [facility] and give report before the patient's arrival (2) Suprapubic pain, acute: Code(s): R10.2 - Pelvic and perineal pain Plan: Plan as above Coding Level of Care Code Est Pt Level 4 (99151) Diagnoses Testicular pain, right N50.811 Suprapubic pain, acute R10.2
[2024-08-10 13:54] VITALS: BP 130/80; PULSE 73; RESP 16; TEMP 36.9; O2SAT 95
== END 2024-08-10 14:51 | disposition home or self-care (01) ==
PROVIDERS: PCP Family Medicine; Visit Provider Nurse Practitioner Family
DX: N50.811 Right testicular pain (principal); R10.2 Pelvic and perineal pain

== ENCOUNTER → 2024-08-10 13:44 | Outpatient (BNVA) | payer OTHER, SELFPAY | PROVIDERS: PCP Family Medicine; Visit Provider Nurse Practitioner Family | DX: N50.811 Right testicular pain (principal) ==

== ENCOUNTER 2024-08-10 14:37 | Emergency (ER) | payer OTHER, SELFPAY ==
--- NOTE | ~2024-08-10 | US_ITS ---
EXAMINATION: US SCROTUM CLINICAL INFORMATION: Right-sided testicular pain. COMPARISON: CT abdomen/pelvis 09/03/2015. TECHNIQUE: A sonogram of the scrotum was performed assessing abad-scale appearance and color Doppler flow. Spectral Doppler analysis of the arterial and venous flow were performed in the testes bilaterally. FINDINGS: RIGHT: Right testicle measures 5.3 x 3.5 x 3.4 cm, volume 33.2 mL. No focal testicular parenchymal lesions are visualized. Spectral Doppler analysis of the arterial and venous flow is increased in the right testis. Right epididymal head is increased in size and hyperemic. There is a small simple appearing cyst in the epididymal head measuring 0.7 cm. Moderate size complex hydrocele with multiple septations. No varicocele. Right epididymal Doppler flow is increased. LEFT: Left testicle measures 4.8 x 2.7 x 2.9 cm, volume 19 mL. No focal testicular parenchymal lesions are visualized. Spectral Doppler analysis of the arterial and venous flow is normal in the left testis. Left epididymal head is normal in size. Small simple appearing hydrocele. No varicocele. Left epididymal Doppler flow is normal. US/US scrotum doppler IMPRESSION: Findings are most consistent with right-sided epididymoorchitis with a moderate-sized complex right-sided hydrocele possible pyocele. Recommend clinical correlation and short-term follow-up imaging. Electronically signed by: Yu Truong MD 08/10/2024 04:21 PM EDT
--- NOTE | ~2024-08-10 | US_ITS ---
EXAMINATION: US SCROTUM CLINICAL INFORMATION: Right-sided testicular pain. COMPARISON: CT abdomen/pelvis 09/03/2015. TECHNIQUE: A sonogram of the scrotum was performed assessing abad-scale appearance and color Doppler flow. Spectral Doppler analysis of the arterial and venous flow were performed in the testes bilaterally. FINDINGS: RIGHT: Right testicle measures 5.3 x 3.5 x 3.4 cm, volume 33.2 mL. No focal testicular parenchymal lesions are visualized. Spectral Doppler analysis of the arterial and venous flow is increased in the right testis. Right epididymal head is increased in size and hyperemic. There is a small simple appearing cyst in the epididymal head measuring 0.7 cm. Moderate size complex hydrocele with multiple septations. No varicocele. Right epididymal Doppler flow is increased. LEFT: Left testicle measures 4.8 x 2.7 x 2.9 cm, volume 19 mL. No focal testicular parenchymal lesions are visualized. Spectral Doppler analysis of the arterial and venous flow is normal in the left testis. Left epididymal head is normal in size. Small simple appearing hydrocele. No varicocele. Left epididymal Doppler flow is normal. US/US scrotum IMPRESSION: Findings are most consistent with right-sided epididymoorchitis with a moderate-sized complex right-sided hydrocele possible pyocele. Recommend clinical correlation and short-term follow-up imaging. Electronically signed by: Yu Truong MD 08/10/2024 04:21 PM EDT
[2024-08-10 14:39] VITALS: BP 122/92; PULSE 74; RESP 17; TEMP 36.8; O2SAT 98; BMI 27.5
--- NOTE | 2024-08-10 14:42 | ED_ITS ---
HPI - Male Genitourinary General Chief complaint: Abdominal Pain Stated complaint: Abd pain Time Seen by Provider: 08/10/24 14:47 Source: patient Mode of arrival: ambulatory Limitations: no limitations History of Present Illness ED Provider: ADELFO CHAVEZ Narrative: 58 yo male with PMH of low back pain, HTN, PPM s/p syncope and sinus arrest, notes he has severe R sided testicular pain, redness, swelling, that was atraumatic. It started out of nowhere yesterday and has worsened. He states he is not sexually active. Does not have diabetes and only takes lisinopril. He states his testicle is huge the size of a grapefruit. He hasn't eaten as he doesn't feel good. Saw PCP who sent him over here. MD Complaint: testicle pain and testicle swelling Onset (ago): day(s) (1) Duration: progressively worsening Location: right testicle Radiation: right inguinal region Severity: severe Quality: other (throbbing) Relieving factors: none Exacerbating factors: palpation and movement Associated symptoms: Reports swelling and nausea/vomiting Related Data Home Medications ?Medication ?Instructions ?Recorded ?Confirmed lisinopril 10 mg tablet 10 mg PO DAILY 09/29/23 04/23/24 Previous Rx's ?Medication ?Instructions ?Recorded levofloxacin 750 mg tablet 750 mg PO DAILY #10 tabs 08/10/24 morphine 15 mg immediate release 15 mg PO Q4-6H PRN pain #18 tabs 08/10/24 tablet tamsulosin 0.4 mg capsule 0.4 mg PO DAILY 10 days #10 caps 08/10/24 Allergies Allergy/AdvReac Type Severity Reaction Status Date / Time No Known Allergies Allergy Verified 08/10/24 14:43 Review of Systems 2 Review of Systems: Constitutional : No Fever, pos Chills, No Fatigue ENT/Mouth : No sore throat, No Rhinorrhea Eyes: No Eye Pain, No Swelling, No Redness Cardiovascular : No Chest Pain, No SOB, No Dyspnea on Exertion Respiratory : No Cough, No Sputum Gastrointestinal : pos Nausea, No Vomiting, No Diarrhea, No abdominal Pain Genitourinary : No Dysuria, No Urinary Frequency, No Hematuria, pos testicular pain, pos testicular swelling Musculoskeletal : No joint pain, No Myalgias, No Joint Swelling Skin : No Skin Lesions, No rash Neuro : No Weakness, No Numbness, No Dizziness, no Headache Psych : No Anxiety/Panic, No Depression All other systems reviewed and are negative [facility] Past Medical History Attestation statement: The following information was validated with the patient. Source: old records reviewed Medical History Sinus arrest Essential hypertension Surgical History History of pacemaker Deficient knowledge of valve replacement History of open reduction and internal fixation (ORIF) procedure Family History Family History Father CVD (cardiovascular disease) Myocardial infarction Mother Cancer Sister Breast cancer Son No problems noted. Daughter No problems noted. Social History Social History Housing: House Alcohol intake: current Alcohol intake frequency: 0-2 drinks per day Patient Tobacco Use Status: Current someday Tobacco user Tobacco use type: Cigarette e-Cigarette/Vaping Use: Never Used Second Hand Smoke Exposure: No Advance Directives: No Advance Directives Information Provided: No service: No Current occupational status: employed Current occupation: [employer] Current occupational exposures/hazards: No Cognitive needs: No Hearing needs: No Vision needs: No Physical Exam 2 Vital Signs: Vital Signs: Last Vital Signs Temp 98.3 F 08/10/24 14:39 Pulse 74 08/10/24 14:39 Resp 17 08/10/24 14:39 BP 122/92 H 08/10/24 14:39 Pulse Ox 98 08/10/24 14:39 O2 Del Method Room Air 08/10/24 14:39 BMI result Body Mass Index 27.5 Appearance: Alert. Oriented X3. No acute distress. Eyes: Pupils equal, round and reactive to light. ENT: Pharynx normal. Neck: Normal inspection. Neck supple. CVS: Normal heart rate and rhythm. Pulses normal. Respiratory: No respiratory distress. Breath sounds normal. Abdomen: Soft and nontender. : R testicle red and swollen with ttp no crepitus and no abscess felt Skin: Skin warm and dry. Normal skin color. Normal skin turgor. Extremities: No lower extremity edema. No calf ttp Neuro: Oriented X 3. No motor deficit. No sensory deficit. Course Course Course Narrative: This is a Rapid Medical Examination (RME) performed by Rula Flowers PA-C in triage. Full HPI, ROS, assessment and treatment plan per primary provider in the Main ED. 58 yo male here for eval of acute onset suprapubic and right testicular pain x24 hours. admit to painful, swollen right testicle. seen at PCP this morning, sent to ED for eval. no trauma/ injury. no N/V, fevers. 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 no hx of hernia. + groaning in pain. abd distended, soft, nontender. no palpable hernia in triage. scrotal exam deferred to primary provider. Plan: labs, scrotal US. will defer further imaging to primary ED provider. Medications Administered Discontinued Medications Generic Name Dose Route Start Last Admin Trade Name Freq PRN Reason Stop Dose Admin Hydromorphone HCl 1 mg 08/10/24 14:52 08/10/24 15:10 Hydromorphone Hcl 1 Mg/Ml Syringe IVPUSH 08/10/24 14:53 1 mg ONCE ONE Administration Protocol Sodium Chloride 1,000 mls @ 999 mls/hr 08/10/24 14:53 08/10/24 15:09 Ns IV 08/10/24 15:53 999 mls/hr .Q1H1M ONE Administration Piperacillin Sod/Tazobactam 50 mls @ 100 mls/hr 08/10/24 15:34 08/10/24 16:53 Sod 3.375 gm/ Sodium Chloride IV 08/10/24 16:03 100 mls/hr ONCE ONE Administration Ondansetron HCl 4 mg 08/10/24 14:52 08/10/24 15:10 Ondansetron Hcl 4 Mg/2 Ml Vial IVPUSH 08/10/24 14:53 4 mg ONCE ONE Administration Medical Decision Making Medical Decision Making MDM Narrative: 58 yo male with PMH of low back pain, HTN, PPM s/p syncope and sinus arrest here with c/o R swollen painful testicle at this time will need basic labs, cultures, UA, US to evaluate for torsion though I suspect epididymitis/orchitis. I have ordered IV dilaudid for pain, IV zosyn and levofloxacin, pending US will consult urology if needed Differential Diagnosis Differential Diagnoses: The differential diagnosis associated with the presentation includes epididymitis, orchitis Admission/Observation Consideration of admission/observation: Escalation of care including admission/observation considered normal lactic acid, seen by urology ramo with oral antibiotics pain control flomax return for fevers Consult Healthcare Provider Management of the patient was discussed with: [employer] Operator (Dr. Bunch has seen the patient in the ED - levofloxacin 750mg daily then follow up in office also flomax return for fever) Lab Data MDM Lab Attestation statement: I reviewed the patient's lab results. 08/10/24 15:03 08/10/24 15:03 Labs: Lab Results 08/10/24 08/10/24 Range/Units 15:02 15:03 WBC 15.4 H (4.8-10.8) X10*3/uL RBC 4.63 (4.60-5.80) X10*6/uL Hgb 15.6 (14.0-18.0) g/dl Hct 42.8 (42.0-52.0) % MCV 92.4 (80.0-98.0) fL MCH 33.7 H (27.0-33.0) pg MCHC 36.4 H (31.0-36.0) g/dl RDW 12.6 (11.0-16.0) % Plt Count 178 (160-400) X10*3/uL MPV 8.4 L (9.4-12.4) fL Immature Gran % (Auto) 0.4 (0.0-0.4) % Neut % (Auto) 81.4 H (45-73) % Lymph % (Auto) 11.5 L (20-40) % [place] % (Auto) 6.2 (2-11) % Eos % (Auto) 0.2 (0-4) % Baso % (Auto) 0.3 (0-2) % Lymph # (Auto) 1.8 (1.2-4.9) X10*3/uL [place] # (Auto) 1.0 (0.1-1.2) X10*3/uL Eos # (Auto) 0.0 (0.0-0.4) X10*3/uL Baso # (Auto) 0.0 (0.0-0.2) X10*3/uL Abs Immat Gran (auto) 0.06 H (0.00-0.03) X10*3/uL Absolute Neuts (auto) 12.5 H (2.0-8.3) x10*3/uL Absolute Nucleated RBC 0.000 (0.0-0.012) X10*3/uL Nucleated RBC % (auto) 0.0 (0.0-0.2) /100WBC ESR 11 (0-15) MM/HR Sodium 135 (135-145) mmol/L Potassium 3.9 (3.3-5.1) mmol/L Chloride 105 (96-108) mmol/L Carbon Dioxide 22 (22-29) mmol/L Anion Gap 12 (12-20) BUN 9 (9-16) mg/dL Creatinine 0.85 (0.5-1.4) mg/dL Estim Creat Clear Calc 98.4 Estimated GFR > 60 Random Glucose 114 (60-115) mg/dL Lactic Acid 0.9 (0.5-2.0) mmol/L Calcium 9.8 (8.4-10.2) mg/dL Magnesium 2.1 (1.6-2.6) mg/dL Total Bilirubin 1.4 H (0.0-1.0) mg/dL AST 20 (5-37) U/L ALT 48 H (0-40) U/L Alkaline Phosphatase 72 (39-117) U/L C-Reactive Protein 15.15 H (< or = 0.50) mg/dL Total Protein 7.4 (6.5-8.0) g/dL Albumin 4.3 (3.5-5.0) g/dL Lipase 19 (8-78) U/L Independent Interpretation I performed an independent interpretation of an: Ultrasound (no torsion) Radiology Impression Discussion of test interpretation with radiology: I have reviewed the radiologist's reading. External Record Review External record reviewed: Office record Prescription Management I considered prescription management with: Pain Medication, Antibiotic and Other Critical Care Time Critical Care Time Critical Care Time: Yes Total Critical Care Time: 45 Attestation: repeat IV dilaudid for pain, IVF, consult, review of records I attest to this time spent taking care of the patient Discharge Plan Discharge Clinical Impression: Orchitis and epididymitis Patient Disposition: Home, Self-Care Instructions: Epididymo-Orchitis (ED) Additional Instructions: return for fevers, vomiting, worsening symptoms or pain take all medications you cannot exercise while on levofloxacin it can injure your tendons wear snug tight fitting underwear follow up with Dr. Bunch Prescriptions: New tamsulosin 0.4 mg capsule 0.4 mg PO DAILY 10 Days Qty: 10 0RF levofloxacin 750 mg tablet 750 mg PO DAILY Qty: 10 0RF morphine 15 mg tablet 15 mg PO Q4-6H PRN (Reason: pain) Qty: 18 0RF Rx Instructions: partial fill okay; Partial Fill upon patient request. No Action lisinopril 10 mg tablet 10 mg PO DAILY Referrals: [facility] [Provider Group] Stand Alone Forms: Work/School Release Print Language: [place]
[2024-08-10 15:08] LABS: MANUAL DIFF FLAG NO
[2024-08-10] MEDS: 0.9 % Sodium Chloride 1,000 ML 999 ML IV (15:09)
[2024-08-10 15:10] LABS: Basophils Percent Auto 0.3 % (0-2); Eosinophils Percent Auto 0.2 % (0-4); Hematocrit 42.8 % (42.0-52.0); Hemoglobin 15.6 g/dl (14.0-18.0); Imm Gran Abs Auto 0.06 X10*3/uL (0.00-0.03); Imm Gran Pct Auto 0.4 % (0.0-0.4); Lymphocytes Absolute Auto 1.8 X10*3/uL (1.2-4.9); Lymphocytes Percent Auto 11.5 % (20-40); Mean Corpuscular HGB Conc 36.4 g/dl (31.0-36.0); Mean Corpuscular Hemoglobin 33.7 pg (27.0-33.0); Mean Corpuscular Volume 92.4 fL (80.0-98.0); Mean Platelet Volume 8.4 fL (9.4-12.4); Monocytes Percent Auto 6.2 % (2-11); Neutrophils Absolute Auto 12.5 x10*3/uL (2.0-8.3); Neutrophils Percent Auto 81.4 % (45-73); Platelet Count 178 X10*3/uL (160-400); Red Blood Count 4.63 X10*6/uL (4.60-5.80); Red Cell Distribution Width 12.6 % (11.0-16.0); White Blood Count 15.4 X10*3/uL (4.8-10.8)
[2024-08-10] MEDS: HYDROmorphone HCl 1 MG/ML SYRINGE IVPUSH ×2 (15:10→16:58)
[2024-08-10] MEDS: ondansetron HCL 4 MG/2 ML VIAL IVPUSH (15:10)
[2024-08-10 15:18] LABS: Lactic Acid 0.9 mmol/L (0.5-2.0)
[2024-08-10 15:23] LABS: Alanine Aminotransferase 48 U/L (0-40); Albumin Level 4.3 g/dL (3.5-5.0); Alkaline Phosphatase 72 U/L (39-117); Anion Gap 12 (12-20); Aspartate Amino Transferase 20 U/L (5-37); Bilirubin Total 1.4 mg/dL (0.0-1.0); Blood Urea Nitrogen 9 mg/dL (9-16); C Reactive Protein 15.15 mg/dL (< or = 0.50); Calcium 9.8 mg/dL (8.4-10.2); Carbon Dioxide 22 mmol/L (22-29); Chloride 105 mmol/L (96-108); Creatinine Clr Calc Pharmacy 98.4; Estimated Glomerular Filt Rate > 60; Glucose Random 114 mg/dL (60-115); Lipase 19 U/L (8-78); Magnesium 2.1 mg/dL (1.6-2.6); Potassium 3.9 mmol/L (3.3-5.1); Sodium 135 mmol/L (135-145); Total Protein 7.4 g/dL (6.5-8.0)
[2024-08-10 15:56] LABS: Erythrocyte Sedimentation Rate 11 MM/HR (0-15)
[2024-08-10] MEDS: Piperacillin Sodium/Tazobactam 3.375 GM in 0.9 % Sodium Chloride 50 ML IV (16:53)
[2024-08-10 17:04] VITALS: BP 133/87; PULSE 74; RESP 20; TEMP 37.1; O2SAT 94
[2024-08-10] MEDS: levoFLOXacin/D5W 750 MG/150 ML PIGGYBACK 100 MG IV (17:55)
--- NOTE | 2024-08-10 18:27 | PC.NURSE ---
patient provided with apple juice and sandwich, awaiting completion of antibiotics and discharge home. patient aware of plan.
[2024-08-10 19:28] VITALS: BP 126/87; PULSE 69; RESP 18; TEMP 37.3; O2SAT 94
[2024-08-10 19:39] VITALS: BP 126/87; PULSE 69; RESP 18; TEMP 37.3; O2SAT 94
--- NOTE | 2024-08-13 08:23 | P.CNUR_ITS ---
History of Present Illness Consult details Consult date: 08/10/24 Narrative: Mike is a 58 yo male with PMH of low back pain, HTN, PPM s/p syncope and sinus arrest, being seen in the emergency room due to right testicular pain, redness, swelling, that was atraumatic. Scrotal ultrasound done -findings consistent with right testicle epididymo-orchitis no evidence of abscess. He states that prior to the testicular swelling he did notice some changes in urination with a weak stream. Denies blood in the urine. Review of Systems 2 Review of Systems: Yes all other systems are reviewed and are negative Constitutional: Constitutional: Reports no additional constitutional complaints Eyes: Eyes: Reports no additional eye complaints ENT: Reports system reviewed and no additional complaints, except as documented Cardiovascular: Cardiovascular: Reports no additional cardiovascular complaints Respiratory: Respiratory: Reports no additional respiratory complaints Gastrointestinal: Gastrointestinal: Reports no additional gastrointestinal complaints Genitourinary: Genitourinary: Reports as per HPI Musculoskeletal: Musculoskeletal: Reports no additional musculoskeletal complaints Integumentary/Breasts: Skin/Breast: Reports system reviewed and no additional complaints, except as docu Neurologic: Reports system reviewed and no additional complaints, except as documented Psychiatric: Psychiatric: Reports no additional psychiatric complaints Endocrine: Endocrine: Reports no additional endocrine complaints Hematologic/Lymphatic: Hematologic/Lymphatic: Reports no additional hematologic/lymphatic complaints Allergic/Immunologic: Allergic/Immunologic: Reports no additional allergic/immunologic complaints PMFSH Past Medical History Medical History Sinus arrest Essential hypertension Family History Family History Father CVD (cardiovascular disease) Myocardial infarction Mother Cancer Sister Breast cancer Son No problems noted. Daughter No problems noted. Surgical History Surgical History History of pacemaker Deficient knowledge of valve replacement History of open reduction and internal fixation (ORIF) procedure Social History Social History Housing: House Alcohol intake: current Alcohol intake frequency: 0-2 drinks per day Patient Tobacco Use Status: Current someday Tobacco user Tobacco use type: Cigarette e-Cigarette/Vaping Use: Never Used Second Hand Smoke Exposure: No service: No Current occupational status: employed Current occupation: [employer] Current occupational exposures/hazards: No Cognitive needs: No Hearing needs: No Vision needs: No Meds Allergies Allergy/AdvReac Type Severity Reaction Status Date / Time No Known Allergies Allergy Verified 08/13/24 13:21 Home Medications ?Medication ?Instructions ?Recorded ?Confirmed ?Last Taken ?Type lisinopril 10 mg tablet 10 mg PO DAILY 09/29/23 08/13/24 Unknown History Physical Exam 2 Vital Signs: Vital Signs: Last Vital Signs Temp 99.1 F 08/10/24 19:39 Pulse 69 08/10/24 19:39 Resp 18 08/10/24 19:39 BP 126/87 08/10/24 19:39 Pulse Ox 94 08/10/24 19:39 O2 Del Method Room Air 08/10/24 19:39 BMI result Body Mass Index 27.5 Const: General: healthy appearing, no acute distress and well developed O rientation/consciousness: patient oriented x3 HEENT: Head: Yes normocephalic and Yes atraumatic Eyes: Conjunctivae: conjunctivae normal Neck: Neck: Yes normal visual inspection Chest: Chest palpation & inspection: normal inspection of the chest Resp: Effort & Inspection: normal respiratory effort Cardio: Rate: regular rate GI: Inspection: Yes normal to inspection Palpation (GI): Soft to palpation : Other: Swelling of right hemiscrotum, with cellulitis, no fluctuance, tender to palpation. Penis: normal penis Neuro: General: patient oriented x3 Extrem: General: No pedal edema Psych: Appearance: grossly normal Affect: normal affect Results Labs 08/10/24 15:03 08/10/24 15:03 Imaging Additional studies: Date of Service: 08/10/24 US SCROTUM CLINICAL INFORMATION: Right-sided testicular pain. COMPARISON: CT abdomen/pelvis 09/03/2015. TECHNIQUE: A sonogram of the scrotum was performed assessing abad-scale appearance and color Doppler flow. Spectral Doppler analysis of the arterial and venous flow were performed in the testes bilaterally. FINDINGS: RIGHT: Right testicle measures 5.3 x 3.5 x 3.4 cm, volume 33.2 mL. No focal testicular parenchymal lesions are visualized. Spectral Doppler analysis of the arterial and venous flow is increased in the right testis. Right epididymal head is increased in size and hyperemic. There is a small simple appearing cyst in the epididymal head measuring 0.7 cm. Moderate size complex hydrocele with multiple septations. No varicocele. Right epididymal Doppler flow is increased. LEFT: Left testicle measures 4.8 x 2.7 x 2.9 cm, volume 19 mL. No focal testicular parenchymal lesions are visualized. Spectral Doppler analysis of the arterial and venous flow is normal in the left testis. Left epididymal head is normal in size. Small simple appearing hydrocele. No varicocele. Left epididymal Doppler flow is normal. IMPRESSION: Findings are most consistent with right-sided epididymoorchitis with a moderate-sized complex right-sided hydrocele possible pyocele. Recommend clinical correlation and short-term follow-up imaging. Assessment and Plan (1) Testicular pain, right: Status: Acute (2) Orchitis: Status: Acute Plan IV levaquin x one dose PO levaquin 750 mg daily, close fu as out patient Procedures Date of Service Date of Service: 08/13/24
== END 2024-08-10 19:40 | disposition home or self-care (01) ==
PROVIDERS: Emergency Medicine; Physician Assistant Medical; Emergency Provider Emergency Medicine; PCP Family Medicine
DX: N45.2 Orchitis (principal); N50.811 Right testicular pain; N45.1 Epididymitis; R11.2 Nausea with vomiting, unspecified; R10.2 Pelvic and perineal pain; Z79.899 Other long term (current) drug therapy
CPT/HCPCS: 36415; 76870; 80053; 83605; 83690; 83735; 85025; 85652; 86140; 87040; 93975; 96361; 96374; 96375; 99285; J1170; J1956; J2405; J2543

== ENCOUNTER → 2024-08-10 15:04 | Outpatient (BNV) | payer OTHER, SELFPAY | PROVIDERS: Emergency Provider Emergency Medicine; PCP Family Medicine; Visit Provider Urology | DX: N50.811 Right testicular pain (principal); N45.2 Orchitis | CPT/HCPCS: 99283 ==

== ENCOUNTER 2024-08-13 13:17 | Outpatient (AMB) | payer OTHER, SELFPAY ==
--- NOTE | 2024-08-13 13:20 | A.OFFVIS_ITS ---
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 Scrotal ultrasound was consistent with right epididymo- orchitis. He has been on Levaquin 750 mg daily. He states that the swelling has gone down and the testicle is less painful. On examination there is small improvement in evaluation, right hemiscrotum swelling, less erythema. I have discussed no heavy lifting for 1 week. Will keep him out of work for 1 week. The nurse will call the patient later this week to check on symptoms. Continue tamsulosin, Levaquin, will start naproxen 500 mg b.i.d.. Repeat scrotal ultrasound in 1 month follow-up in 6 weeks REPLACED BY [facility] Medical History Sinus arrest Essential hypertension Surgical History History of pacemaker Deficient knowledge of valve replacement History of open reduction and internal fixation (ORIF) procedure Family History Father CVD (cardiovascular disease) Myocardial infarction Mother Cancer Sister Breast cancer Son No problems noted. Daughter No problems noted. Social History Housing: House Alcohol intake: current Alcohol intake frequency: 0-2 drinks per day Patient Tobacco Use Status: Current someday Tobacco user Tobacco use type: Cigarette e-Cigarette/Vaping Use: Never Used Second Hand Smoke Exposure: No service: No Current occupational status: employed Current occupation: [employer] Work Current occupational exposures/hazards: No Cognitive needs: No Hearing needs: No Vision needs: No Review of Systems Const All systems reviewed & are unremarkable except as noted in HPI and below Reports no additional complaints Eyes Reports no additional complaints ENT Reports no additional complaints Card Reports no additional complaints Resp Reports no additional complaints GI Reports no additional complaints Reports as per HPI Musc Reports no additional complaints Skin/Breast Reports system reviewed and no additional complaints, except as documented Neuro Reports no additional complaints Psych Reports no additional complaints Endo Reports no additional complaints Jn/Lymph Reports no additional complaints Aller/Immun Reports no additional complaints Physical Exam Const General: healthy appearing, no acute distress and well developed Orientation/consciousness: patient oriented x3 HEENT Head: Yes normocephalic and Yes atraumatic Eyes Conjunctivae: conjunctivae normal Neck Neck: Yes normal visual inspection Chest Chest palpation & inspection: normal inspection of the chest Resp Effort & Inspection: normal respiratory effort Cardio Rate: regular rate GI Inspection: Yes normal to inspection Palpation (GI): Soft to palpation Other: Enlarged right hemiscrotum with erythema, tenderness to palpation Penis: normal penis Neuro General: patient oriented x3 Extrem General: No pedal edema Psych Appearance: grossly normal Affect: normal affect Results AMB Urinalysis, Automated UA Leukoctes 0 Junaid/uL Last Edit by ERICKA Barrientos on 08/13/24 13:33 UA Nitrite Negative Last Edit by ERICKA Barrientos on 08/13/24 13:33 UA Urobilinogen 0.2 mg/dL Last Edit by ERICKA Barrientos on 08/13/24 13:3 3 UA Protein 15 mg/dL Last Edit by ERICKA Barrientos on 08/13/24 13:33 UA pH 6.0 Last Edit by ERICKA Barrientos on 08/13/24 13:33 UA Blood 0 Will/uL Last Edit by ERICKA Barrientos on 08/13/24 13:33 UA Specific [place] 1.015 Last Edit by ERICKA Barrientos on 08/13/24 13: 33 UA Ketone Negative Last Edit by ERICKA Barrientos on 09/23/24 13:33 UA Bilirubin 0 mg/dL Last Edit by ERICKA Barrientos on 08/13/24 13:33 UA Glucose 0 mg/dL Last Edit by ERICKA Barrientos on 08/13/24 13:33 Results Reviewed Results Reviewed: Laboratory Last Values Urine pH (Auto) 6.0 08/13/24 13:32 Specific [place] (Auto) 1.015 08/13/24 13:32 Urine Protein (Auto) 15 mg/dL 08/13/24 13:32 Glucose (UA)(Auto) 0 mg/dL 08/13/24 13:32 Urine Ketones (Auto) Negative 08/13/24 13:32 Urine Blood (Auto) 0 Will/uL 08/13/24 13:32 Urine Nitrite (Auto) Negative 08/13/24 13:32 Urine Bilirubin (Auto) 0 mg/dL 08/13/24 13:32 Urine Urobilinogen (Auto) 0.2 mg/dL 08/13/24 13:32 Leukocyte Esterase (Auto) 0 Junaid/uL 08/13/24 13:32 Date of Service: 08/10/24 US SCROTUM CLINICAL INFORMATION: Right-sided testicular pain. COMPARISON: CT abdomen/pelvis 09/03/2015. TECHNIQUE: A sonogram of the scrotum was performed assessing abad-scale appearance and color Doppler flow. Spectral Doppler analysis of the arterial and venous flow were performed in the testes bilaterally. FINDINGS: RIGHT: Right testicle measures 5.3 x 3.5 x 3.4 cm, volume 33.2 mL. No focal testicular parenchymal lesions are visualized. Spectral Doppler analysis of the arterial and venous flow is increased in the right testis. Right epididymal head is increased in size and hyperemic. There is a small simple appearing cyst in the epididymal head measuring 0.7 cm. Moderate size complex hydrocele with multiple septations. No varicocele. Right epididymal Doppler flow is increased. LEFT: Left testicle measures 4.8 x 2.7 x 2.9 cm, volume 19 mL. No focal testicular parenchymal lesions are visualized. Spectral Doppler analysis of the arterial and venous flow is normal in the left testis. Left epididymal head is normal in size. Small simple appearing hydrocele. No varicocele. Left epididymal Doppler flow is normal. IMPRESSION: Findings are most consistent with right-sided epididymoorchitis with a moderate-sized complex right-sided hydrocele possible pyocele. Recommend clinical correlation and short-term follow-up imaging. Assessment & Plan Assessment & Plan (1) Testicular pain, right: Code(s): N50.811 - Right testicular pain Category: Medical (2) Orchitis: Code(s): N45.2 - Orchitis Category: Medical (3) BPH loc w urin obs/LUTS: Code(s): N40.1 - Benign prostatic hyperplasia with lower urinary tract symptoms Category: Medical Plan Continue tamsulosin, Levaquin, will start naproxen 500 mg b.i.d.. Repeat scrotal ultrasound in 1 month follow-up in 6 weeks Orders: Orders AMB Urinalysis Automated Today Z13.9 - Encounter for screening, unspecified Medications: New naproxen (EC-Naproxen) take with food 500 mg PO BID 20 tabs 0RF Refilled tamsulosin 0.4 mg PO DAILY 30 caps 3RF 10 days Patient Instructions: The patient had an opportunity to ask questions regarding treatment plan. The patient expressed understanding and agreement with the above treatment plan. The patient is aware they should contact our office by phone for worsening of their current condition or the appearance of new symptoms. Compliance is encouraged with any medications and followup testing that is ordered. It is a privilege to be allowed the opportunity to participate in the urologic care of your patient. If you have any questions or concerns regarding treatment for the above conditions please do not hesitate to contact me. The office telephone contact is [phone]. This note is constructed in part using voice recognition software. While every effort has been made to ensure accuracy middle school principal errors may have been i ncluded. Yours sincerely, Sangeeta Robledo MD Coding Level of Care Code Est Pt Level 4 (78043) Diagnoses Testicular pain, right N50.811 Orchitis N45.2 BPH loc w urin obs/LUTS N40.1
== END 2024-08-13 14:21 | disposition home or self-care (01) ==
PROVIDERS: PCP Family Medicine; Visit Provider Urology
DX: N50.811 Right testicular pain (principal); N45.2 Orchitis; N40.1 Benign prostatic hyperplasia with lower urinary tract symptoms; Z13.9 Encounter for screening, unspecified
CPT/HCPCS: 99214

== ENCOUNTER → 2024-08-13 13:17 | Outpatient (BNVA) | payer OTHER, SELFPAY | PROVIDERS: PCP Family Medicine; Visit Provider Urology | DX: N50.811 Right testicular pain (principal); N45.2 Orchitis; N40.1 Benign prostatic hyperplasia with lower urinary tract symptoms; N13.8 Other obstructive and reflux uropathy; Z79.899 Other long term (current) drug therapy | CPT/HCPCS: 81003 ==

== ENCOUNTER 2024-09-12 13:22 | Outpatient (AMB) | payer OTHER, SELFPAY ==
--- NOTE | 2024-09-12 13:40 | MHC.OFFWIV ---
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 No abdominal pain. No blood in his stools. No nausea or vomiting. He admits to drinking 3-4 cups of coffee daily. [facility] Medical History Sinus arrest Essential hypertension Surgical History History of pacemaker Deficient knowledge of valve replacement History of open reduction and internal fixation (ORIF) procedure Family History Father CVD (cardiovascular disease) Myocardial infarction Mother Cancer Sister Breast cancer Son No problems noted. Daughter No problems noted. Social History Housing: House Alcohol intake: current Alcohol intake frequency: 0-2 drinks per day Patient Tobacco Use Status: Current someday Tobacco user Tobacco use type: Cigarette e-Cigarette/Vaping Use: Never Used Second Hand Smoke Exposure: No service: No Current occupational status: employed Current occupation: [employer] Work Current occupational exposures/hazards: No Cognitive needs: No Hearing needs: No Vision needs: No Review of Systems Const Details: Denies chills, Denies fatigue, Denies fever(s), Denies headache(s) and Denies weakness Cardiac Denies chest pain, Denies claudication, Denies leg edema, Denies lightheadedness, Denies palpitations, Denies dyspnea, Denies dyspnea on exertion, Denies orthopnea and Denies other (Loss of consciousness) Resp Denies cough, Denies excessive phlegm production, Denies dyspnea, Denies dyspnea on exertion, Denies snoring and Denies wheezing GI Reports as per HPI Physical Exam Vital Signs: Last Vital Signs Temp 98.1 F 09/12/24 13:46 Pulse 81 09/12/24 13:46 Resp 16 09/12/24 13:46 BP 100/70 09/12/24 13:46 Pulse Ox 95 09/12/24 13:46 Oxygen Delivery Method Room Air 09/12/24 13:46 BMI result Body Mass Index 27.7 Const Other: General: comfortable and no acute distress Orientation/consciousness: patient oriented x3 Chest Chest palpation & inspection: normal inspection of the chest Resp Auscultation: clear to auscultation bilaterally Cardiac Palpation: normal PMI Heart sounds: S1 normal heart sound present, S2 normal heart sound present, no gallops, no murmur, no rubs GI Abdomen is soft, nontender, nondistended, active bowel sounds x4 Assessment & Plan Assessment & Plan (1) Loose stools: Code(s): R19.5 - Other fecal abnormalities Plan: Reports loose stools twice the past 2 days and once today. No abdominal pain. No nausea or vomiting. No bloody stool Abdomen is soft, nontender, nondistended, active bowel sounds x4 Caffeine or diet may be likely cause Encouraged to cut down on caffeine intake and monitor trigger foods Adequate hydration encouraged Note given for work Return with worsening or new symptoms Verbalized understanding and agreed with the treatment plan Coding Level of Care Code Est Pt Level 3 (23105) Diagnoses Loose stools R19.5
[2024-09-12 13:46] VITALS: BP 100/70; PULSE 81; RESP 16; TEMP 36.7; O2SAT 95; BMI 27.7
== END 2024-09-12 14:11 | disposition home or self-care (01) ==
LOC: HO.HMCWIW 13:22
PROVIDERS: PCP Family Medicine; Visit Provider Family Medicine
DX: R19.5 Other fecal abnormalities (principal)

== ENCOUNTER → 2024-09-12 13:22 | Outpatient (BNVA) | payer OTHER, SELFPAY | PROVIDERS: PCP Family Medicine; Visit Provider Family Medicine ==

== ENCOUNTER 2024-11-22 11:40 | Outpatient (AMB) | payer OTHER, SELFPAY ==
--- NOTE | 2024-11-21 20:16 | A.OFFVIS_ITS ---
Intake Visit Reasons: 6w/US Intake Note: Patient is present for 6W/US Urology Medication:TAMSULOSIN Antibiotic Allergy:NONE Blood Thinner:NONE Accountant Clerk Required: No Allergies No Known Allergies Allergy (Verified 11/22/24 11:44) Medication List - Last Reconciled 11/22/24 by Sangeeta Robledo MD lisinopril 10 mg PO DAILY tamsulosin 0.4 mg PO DAILY HPI Comments Details: 11/22/24--Mike is a 58 year old male who was treated for epididymo-orchitis with levaquin. Here for 6 week fu, he completed course of antibiotics, states scrotal swelling and pain resolved. Will continue on tamsulosin and PSA screening. Follow-up in 6 months. He states he ran out of his lisinopril and requests a refill. I have refilled a 30 day supply but he is to call the PCP's office for further refills. Review of chart: 08/13/24--Mike is a 58 yo male with PMH of low back pain, HTN, PPM s/p syncope and sinus arrest, being seen in the emergency room on 08/10/24 due to right testicular pain, redness, swelling, that was atraumatic. Scrotal ultrasound was consistent with right epididymo- orchitis. He has been on Levaquin 750 mg daily. He states that the swelling has gone down and the testicle is less painful. On examination there is small improvement in evaluation, right hemiscrotum swelling, less erythema. I have discussed no heavy lifting for 1 week. Will keep him out of work for 1 week. The nurse will call the patient later this week to check on symptoms. Continue tamsulosin, Levaquin, will start naproxen 500 mg b.i.d.. Repeat scrotal ultrasound in 1 month follow-up in 6 weeks [facility] Medical History Sinus arrest Essential hypertension Surgical History History of pacemaker Deficient knowledge of valve replacement History of open reduction and internal fixation (ORIF) procedure Family History Father CVD (cardiovascular disease) Myocardial infarction Mother Cancer Sister Breast cancer Son No problems noted. Daughter No problems noted. Social History Housing: House Alcohol intake: current Alcohol intake frequency: 0-2 drinks per day Patient Tobacco Use Status: Current someday Tobacco user Tobacco use type: Cigarette e-Cigarette/Vaping Use: Never Used Second Hand Smoke Exposure: No service: No Current occupational status: employed Current occupation: [employer] Current occupational exposures/hazards: No Cognitive needs: No Hearing needs: No Vision needs: No Review of Systems Const All systems reviewed & are unremarkable except as noted in HPI and below Reports no additional complaints Eyes Reports no additional complaints ENT Reports no additional complaints Card Reports no additional complaints Resp Reports no additional complaints GI Reports no additional complaints Reports as per HPI Musc Reports no additional complaints Skin/Breast Reports system reviewed and no additional complaints, except as documented Neuro Reports no additional complaints Psych Reports no additional complaints Endo Reports no additional complaints Jn/Lymph Reports no additional complaints Aller/Immun Reports no additional complaints Results AMB Urinalysis, Automated UA Leukoctes 0 Junaid/uL Last Edit by ERICKA Barrientos on 11/22/24 11:52 UA Nitrite Negative Last Edit by EIRCKA Barrientos on 11/22/24 11:52 UA Urobilinogen 0.2 mg/dL Last Edit by ERICKA Barrientos on 11/22/24 11:5 2 UA Protein 15 mg/dL Last Edit by ERICKA Barrientos on 11/22/24 11:52 UA pH 6.0 Last Edit by ERICKA Barrientos on 11/22/24 11:52 UA Blood 0 Will/uL Last Edit by ERICKA Barrientos on 11/22/24 11:52 UA Specific [place] 1.025 Last Edit by ERICKA Barrientos on 11/22/24 11: 52 UA Ketone Negative Last Edit by ERICKA Barrientos on 11/22/24 11:52 UA Bilirubin 0 mg/dL Last Edit by ERICKA Barrientos on 11/22/24 11:52 UA Glucose 0 mg/dL Last Edit by ERICKA Barrientos on 11/22/24 11:52 Results Reviewed Results Reviewed: Laboratory Last Values Urine pH (Auto) 6.0 11/22/24 11:52 Specific [place] (Auto) 1.025 11/22/24 11:52 Urine Protein (Auto) 15 mg/dL 11/22/24 11:52 Glucose (UA)(Auto) 0 mg/dL 11/22/24 11:52 Urine Ketones (Auto) Negative 11/22/24 11:52 Urine Blood (Auto) 0 Will/uL 11/22/24 11:52 Urine Nitrite (Auto) Negative 11/22/24 11:52 Urine Bilirubin (Auto) 0 mg/dL 11/22/24 11:52 Urine Urobilinogen (Auto) 0.2 mg/dL 11/22/24 11:52 Leukocyte Esterase (Auto) 0 Junaid/uL 11/22/24 11:52 Assessment & Plan Assessment & Plan (1) Orchitis: Comment: resolved treated with levaquin Code(s): N45.2 - Orchitis Category: Medical (2) BPH loc w urin obs/LUTS: Code(s): N40.1 - Benign prostatic hyperplasia with lower urinary tract symptoms Category: Medical Plan Continue tamsulosin, PSA screening Orders: Orders AMB Urinalysis Automated Today Z13.9 - Encounter for screening, unspecified Medications: New lisinopril 10 mg PO DAILY 30 tabs 0RF Changed From tamsulosin 0.4 mg PO DAILY 10 days 30 caps 1RF To tamsulosin 0.4 mg PO DAILY 1 cap 3RF Patient Instructions: The patient had an opportunity to ask questions regarding treatment plan. The patient expressed understanding and agreement with the above treatment plan. The patient is aware they should contact our office by phone for worsening of their current condition or the appearance of new symptoms. Compliance is encouraged with any medications and followup testing that is ordered. It is a privilege to be allowed the opportunity to participate in the urologic care of your patient. If you have any questions or concerns regarding treatment for the above conditions please do not hesitate to contact me. The office telephone contact is [phone]. This note is constructed in part using voice recognition software. While every effort has been made to ensure accuracy administrative services assistant errors may have been included. Yours sincerely, Sangeeta Robledo MD Coding Level of Care Code Est Pt Level 3 (16405) Diagnoses Orchitis N45.2 BPH loc w urin obs/LUTS N40.1
--- OUTSIDE RECORDS SUMMARY | 2024-11-22 12:51 | XMS_ITS | Data Portability ---
Author Organization [facility], , [facility] Address [address] [place] [address] Assessment No assessment recorded. Plan of Treatment Reminders Order Date Submit Date Provider Last Modified By Organization Details Last Modified Time Details Appointments None record ed. Lab None record ed. Referral None record ed. Procedures None record ed. Surgeries None record ed. Imaging None record ed. Medication Orders None record ed. Patient TargetsNo targets recorded. Patient Instructions Encounter Date Encounter Id Patient Instructions Last Modified By Organization Details Last Modified Time 10/01/2016 [id number] RTC 1 yr CEE or prn jmandile Not available 10/01/2016 14:34:40 Reason for Referral None Reported. Results Created Date Observation Date Name Description Value Unit Range Abnormal Flag Note LastModifiedBy Organization Detail LastModifiedTime Result Notes None recorded. Procedures Surgical History Date Name Laterality Status Provider Name and Address Organization Details Recorded Time Refraction completed Sharon Dennison, OD [address] [place] [address], [phone], [facility] 12/12/2020 15:44:09 8 Refraction completed Deisi Abran [facility] 10/05/2018 15:15:00 6 Refraction completed Rowena Yaaurora [facility] 10/01/2016 13:57:10 Imaging Results None recorded. Procedure Notes None recorded. Medical Equipment None Reported. Allergies No known drug allergies Medications Name Sig Start Date Stop Date Status Note LastModified by Organization Details LastModified Time atorvastatin active Not Available Not Available Not Available Vitals None Recorded Social History None recorded. Functional Status None recorded. Mental Status None recorded. Family History Nothing Reported. Medical History No medical history recorded. Past Encounters Encounter ID Performer Location Encounter Start Date Encounter Closed Date Diagnosis/Indication Diagnosis SNOMED-CT Code Diagnosis ICD10 Code [id number] Sharon Dennison, OD [facility] [address] [place] [address] 10/01/2016 13:28:22 10/01/2016 14:37:30 Nuclear senile cataract 106392522 H25.13 Presbyopia 00797878 H52. 4 Floaters i n visual field 113740861 H43.146 [id number] Sharon Dennison, OD [facility] [address] [place] [address] 10/05/2018 14:56:44 10/05/2018 15:55:53 Nuclear senile cataract 131114728 H25.13 Presbyopia 00710606 H52. 4 [id number] Sharon Dennison, OD [facility] [address] [address] 12/12/2020 14:38:07 12/15/2020 13:44:33 Presbyopia 09030123 H52.4 Nuclear se nile cataract 476267133 H25.13 Health Concerns Section Related Observation LastModified by Organization Detai ls LastModified Time None Recorded Concern Status LastModified by Organization Details LastModified Time None Recorded Advance Directives Directive None Recorded Payers Encounter Date Sequence Insurance Name Policy Number Policy Bethea Covered Member ID Bethea Member ID Guarantor Name 10/01/2016 1 [facility] Mike Newberry [id number] Mike Newberry 10/05/2018 1 [facility] [id number] Mike Newberry [id number] Mike Newberry 12/12/2020 1 [facility] [id number] Mike Newberry [id number] Mike Newberry Notes Date Note Type Note Provider Name and Address Organization Details Recorded Time 10/01/2016 text/html Comprehensive Ey e ExamReported bypatient.Quality:rochelle rred vision near without glasses Location:bilateral Context:currently wears glasses Modifying factors:wears glasses for readers only Associated Symptoms:no redness; no itching; no dryness;floaters bilateral(longstandin g, stable) Sharon Dennison, OD [address] [place] [address], [phone], [facility] 10/01/2016 14:35:04 10/05/2018 text/html CataractReported bypatient.Location:bi lateral Quality:painless Severity:moderate Onset/Timing:gradual Sharon Dennison, OD [address] [facility], [place], [address], [facility] 10/05/2018 15:44:51 12/12/2020 text/html CataractReported bypatient.Location:bi lateral Quality:painless Severity:mild Onset/Timing:gradual Context:driving at night (some glare at night, not too bad.) c/o blurry vision at near without glasses, broke glasses, also needs NVO safety glasses and NVO for reading. doing okay with distance vision [place]. Sharon Dennison, OD [address] [place] [address], [place], [phone], [facility] 12/12/2020 15:46:29
--- OUTSIDE RECORDS SUMMARY | 2024-11-22 12:51 | XMS_ITS | Continuity of Care Document ---
Author Organization [facility] Address [address] [address]- [facility] Name Relationship Address Phone ANTWAN SOTO Other Unknown Unavailab le BRITTANY, TOI former spouse Unknown Unavaila ble BRITTANY, CHRISTELLE child Unknown Unavail able Care Team Providers Care Associate Professor Of Music Name Role Phone Williams Simental DO Primary Care Physician Encounter [facility] [place] Date(s): 11/12/24 - 11/19/[address] [id number] Attending Physician: Vero Hung Admitting Physician: Vero Hung Referring Physician: Vero Hung Encounter Type: One Time OP Allergies, Adverse Reactions, Alerts No Known Allergies Immunizations Given and Recorded Vaccine Date Status Refusal Reason pneumococcal 23-valent vaccine 03/25/17 Given Medications Lipitor 10 mg oral tablet 1 tablet = 10 mg, By Mouth, Daily, # 30 tablet, 0 Refills, Maintenance, 01/13/22 6:13:00 AM EST, Partial fill upon patient request if the prescription is for a schedule II opioid drug. 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) Confirmed Active Dual chamber [facility] [place] 2210 dual chamber 2210 Accent Pacemaker Confirmed 06/22/11 Active Incomplete right bundle branch block Confirmed Active Obstructive sleep apnea Confirmed Active Sick sinus syndrome Confirmed Active Social History Social History Type Response Smoking Status Former smoker entered on: 08/02/17 Sex Sex Representation Male (finding) Patient Care team information Care Team Personnel Name: Williams Simental DO Position: Reference Physician Member Role: PCP Address: [address] [place] [address] [address] [facility] [place] [address]- Telecom: Care Team Related Persons Name: TOI SOTO Name: CHRISTELLE SOTO Insurance Providers Guarantor name: JENA SOTO Health Plan Information #: 1 Payer: [facility] Member Number: [id number] Policy Number: NA Group Number: NA Health Plan Information #: 2 P[facility]: [facility] Member Number: [id number] Policy Number: NA Group Number: NA
== END 2024-11-22 12:24 | disposition home or self-care (01) ==
PROVIDERS: PCP Family Medicine; Visit Provider Urology
DX: N45.2 Orchitis (principal); N40.1 Benign prostatic hyperplasia with lower urinary tract symptoms; Z13.9 Encounter for screening, unspecified
CPT/HCPCS: 99213

== ENCOUNTER → 2024-11-22 11:40 | Outpatient (BNVA) | payer OTHER, SELFPAY | PROVIDERS: PCP Family Medicine; Visit Provider Urology | DX: N40.1 Benign prostatic hyperplasia with lower urinary tract symptoms (principal); N13.8 Other obstructive and reflux uropathy; Z79.899 Other long term (current) drug therapy | CPT/HCPCS: 81003 ==

== ENCOUNTER 2025-01-16 10:14 | Inpatient (IN) | payer OTHER, SELFPAY ==
[2025-01-16] VITALS (7 sets, daily range): BP systolic 105–135; BP diastolic 67–86; PULSE 61–80; RESP 14–20; TEMP 36.7–37.9; O2SAT 93–96; BMI 27.7
--- NOTE | ~2025-01-16 | CT_ITS ---
EXAMINATION: CT ABDOMEN AND PELVIS WITH CONTRAST CLINICAL INFORMATION: Follow-up periappendiceal phlegmonous process/perforated appendicitis. COMPARISON: 01/16/2025 CT exam. TECHNIQUE: Multidetector volumetric images were obtained from the superior aspect of the liver through the pubic symphysis following administration 85 mL of Omnipaque 350 intravenous contrast. Sagittal and coronal reformatted images were obtained on the technologist's workstation. Oral contrast: No This CT examination was performed using dose optimization techniques as appropriate, variously including the following: *Automated exposure control *Adjustment of mA and/or kV according to patient size (this includes techniques or standardized protocols for targeted exams where dose is matched to indication/reason for exam; i.e. extremities or head) *Use of iterative reconstruction technique FINDINGS: LUNG BASES: Atrioventricular pacer leads in place. Heart size is normal. No pericardial effusion. Mild linear scarring or atelectasis in the posterior right lower lobe. Lung bases otherwise clear. There are no effusions. There is a small type I hiatus hernia. LIVER, GALLBLADDER, AND BILIARY TREE: Liver demonstrates mild diffuse fatty infiltration. There is no focal suspicious hepatic lesion. There is focal fatty sparing abutting the gallbladder fossa. Normal hepatic contour. No biliary dilatation. The gallbladder is unremarkable with no evidence of radiopaque gallstones, gallbladder wall thickening, or obvious pericholecystic inflammatory changes. PANCREAS: Unremarkable. SPLEEN: Unremarkable. ADRENAL GLANDS: Unremarkable. KIDNEYS AND URETERS: The kidneys are normal in size, shape, and attenuation. No hydronephrosis, hydroureter, or calculi seen. No perinephric stranding. BLADDER: Distended, and normal in appearance. GASTROINTESTINAL TRACT: Forming periappendiceal abscess medial to the cecum and ileocecal valve, retroperitoneal (i.e. contained within the mesentery), appearing inseparable from the distal terminal ileum, currently measuring approximately 5.7 x 6.2 x 5.0 cm (AP, TRV, CC). On the prior exam this measured 4.8 x 5.6 x 4.7 cm, minimally enlarged. It also appears more organized with thin enhancing walker currently. There is reactive thickening of the terminal ileum and cecum. There is extensive abutting fat infiltration and haziness. There are small abutting reactive appearing ileocolonic lymph nodes. There is no bowel obstruction or small bowel dilatation. Remainder of the colon demonstrates extensive diverticular disease. No additional inflammation or dilatation. No rectal abnormality. Stomach is decompressed and mildly thick-walled, likely underdistention. Duodenum appears normal. PERITONEUM: There is no free intraperitoneal air or gross ascites present. ABDOMINAL WALL: No significant hernia is identified. There are fatty inguinal canals. LYMPH NODES: None enlarged by size criteria. Reactive right lower quadrant ileocolonic nodes. VASCULAR: Moderate atheromatous calcification of the aorta and iliac vessels without aneurysm. There is no venous thrombosis. PELVIC VISCERA: The prostate is enlarged with coarse and posterior calcifications, measuring diameter of approximately 4.7 cm. OSSEOUS STRUCTURES: No suspicious lytic or blastic bone lesions. Mild spinal degenerative changes, most significant at L5-S1. There is also subtle right hip chondrocalcinosis present suggesting CPPD. CT/CT abdomen pelvis w IV con IMPRESSION: 1. Forming periappendiceal abscess medial to the cecum and ileocecal valve, containing gas and fluid, inseparable from the distal terminal ileum, measuring currently 5.7 x 6.2 x 5.0 cm. This appears more organized and slightly larger. 2. Reactive thickening of the involved distal segment of terminal ileum, as well as the base of the cecum. There is no small bowel obstruction or dilatation. 3. Fatty infiltration of the liver. 4. Mild prostate hypertrophy. 5. Small type I hiatus hernia. Electronically signed by: Pawel Ellis MD 01/18/2025 11:49 AM [facility]
--- NOTE | ~2025-01-16 | CT_ITS ---
CLINICAL HISTORY: hypoxia, elevated ddimer CT angiography of the chest with IV contrast. 3D/MIP post processing reconstructions were performed. COMPARISON: None FINDINGS: There are no intraluminal filling defects to suggest pulmonary embolism. No evidence of right heart strain. No supraclavicular or axillary lymphadenopathy. Left-sided cardiac pacemaker leads terminate within the right atrium and right ventricle. Main pulmonary artery is enlarged measuring up to 3.3 cm. This can be associated with pulmonary hypertension. Coronary artery calcifications present within the LAD. Cardiomegaly. No pericardial effusion. Moderate hiatal hernia. No mediastinal or hilar lymphadenopathy. Atelectasis along the posterior lower lobes bilaterally. Trachea and central airways are clear. Mild bronchial wall thickening. No bronchiectasis. Right middle lobe 2 mm pulmonary nodule (series 7, image 69) Left lower lobe 2 mm pulmonary nodule (series 7, image 63). Colonic diverticulosis without evidence of diverticulitis in the visualized portions. Flowing marginal osteophytes present throughout the thoracic spine. No acute fracture identified. IMPRESSION: 1. No evidence of pulmonary embolism. 2. Atelectasis along the posterior lower lobes bilaterally. 3. Moderate hiatal hernia. 4. Cardiomegaly. Enlarged main pulmonary artery can be associated with pulmonary hypertension. This document has been electronically signed by: Alexandre Merritt MD on 01/20/2025 15:34:41
--- NOTE | ~2025-01-16 | CT_ITS ---
EXAMINATION: CT ABDOMEN AND PELVIS WITH CONTRAST CLINICAL INFORMATION: Left lower quadrant abdominal pain. COMPARISON: None available. TECHNIQUE: Multidetector volumetric images were obtained from the superior aspect of the liver through the pubic symphysis following administration 85 mL of Omnipaque 350 intravenous contrast. Sagittal and coronal reformatted images were obtained on the technologist's workstation. Oral contrast: No This CT examination was performed using dose optimization techniques as appropriate, variously including the following: *Automated exposure control *Adjustment of mA and/or kV according to patient size (this includes techniques or standardized protocols for targeted exams where dose is matched to indication/reason for exam; i.e. extremities or head) *Use of iterative reconstruction technique DLP: 520 mGy centimeter. FINDINGS: LUNG BASES: No acute airspace disease or discrete pulmonary nodules. LIVER, GALLBLADDER, AND BILIARY TREE: Liver measures 17 cm. Decreased enhancement pattern. No focal mass. Portal veins, hepatic veins and intrahepatic portions of the IVC are patent. No pericholecystic fluid collection or gallbladder wall thickening. Common bile duct measures 3 mm. PANCREAS: No focal mass. No peripancreatic fluid collection. No main pancreatic ductal dilatation. SPLEEN: 10 cm. No focal lesion. ADRENAL GLANDS: No nodular lesions. KIDNEYS AND URETERS: No hydronephrosis. No gross nephrolithiasis. No focal enhancing mass. BLADDER: Fluid-filled. GASTROINTESTINAL TRACT: There is a 7.5 cm mixed fluid and gas abnormality in the medial aspect of the cecum above the 9 mm appendix and its below the thickened terminal ileum. There are numerous diverticula throughout the large intestine. There is a gas and fluid-filled nondistended large intestine. There is a cast and fluid-filled prominent distal ileal loops with a collapsed appearance of the jejunal loops. There is mesenteric edema pattern involving mostly the mesial cecum. No pneumatosis intestinalis. ABDOMINAL WALL: Small tiny fat-containing umbilical hernia. LYMPH NODES: Prominent mesenteric lymph nodes. VASCULAR: Mixed plaques throughout the abdominal aorta wall and common iliac arteries without aneurysm or dissection. Calcified plaques in the origin of the main renal arteries and the celiac trunk. PELVIC VISCERA: There are dystrophic ossifications in the prostate gland. OSSEOUS STRUCTURES: Sclerosis and vacuum phenomenon and the sacroiliac joints. Incomplete ankylosis L5-S1 with endplate sclerosis. Grade 1 retrolisthesis L2-3. Electrode leads in the right heart chambers. CT/CT abdomen pelvis w IV con IMPRESSION: 7.5 cm phlegmon versus abscess in the mesocecum concerning for a ruptured appendix and less likely ruptured diverticulum. Regional ileus. Hepatomegaly, mild and hepatic steatosis. Discussed with the emergency physician Dr. Yoshi Luciano on January 16, 2025 at 11:48 AM. Fleischner guidelines were followed. Electronically signed by: Richard Marei MD 01/16/2025 12:00 PM [facility]
--- NOTE | ~2025-01-16 | XR_ITS ---
EXAMINATION: XR ABDOMEN KUB CLINICAL INDICATION: postop ileus? COMPARISON: Correlated to CT dated January 18, 2025. TECHNIQUE: AP view of the abdomen. FINDINGS: Gas and fluid-filled distended small bowel loops. There is gas in the left hemicolon. Skin dannie overlapping the sacrum the inferior endplate of L4 and the right mid abdomen. Multilevel spondylosis. XR/XR KUB IMPRESSION: Concerning ileus and less likely mid to distal partial intermittent small bowel obstruction. Electronically signed by: Richard Marie MD 01/24/2025 08:51 AM EST
--- NOTE | ~2025-01-16 | CT_ITS ---
EXAMINATION: CT ABDOMEN AND PELVIS WITH CONTRAST CLINICAL INFORMATION: Postop ileus. COMPARISON: CT abdomen pelvis with IV contrast 01/10/2025 TECHNIQUE: Multidetector volumetric images were obtained from the superior aspect of the liver through the pubic symphysis following administration 85 mL of Omnipaque 350 intravenous contrast. Sagittal and coronal reformatted images were obtained on the technologist's workstation. Oral contrast: No This CT examination was performed using dose optimization techniques as appropriate, variously including the following: *Automated exposure control *Adjustment of mA and/or kV according to patient size (this includes techniques or standardized protocols for targeted exams where dose is matched to indication/reason for exam; i.e. extremities or head) *Use of iterative reconstruction technique DLP 642 mGy/cm. FINDINGS: LUNG BASES: There is bilateral lower lobe atelectasis and underlying pleural effusion. Single right ventricular pacer electrodes noted. LIVER, GALLBLADDER, AND BILIARY TREE: The liver is normal in size, shape, and attenuation. No focal hepatic lesion or biliary ductal dilatation is present. The gallbladder is unremarkable with no evidence of radiopaque gallstones, gallbladder wall thickening, or obvious pericholecystic inflammatory changes. PANCREAS: Unremarkable. SPLEEN: Unremarkable. ADRENAL GLANDS: Unremarkable. KIDNEYS AND URETERS: The kidneys are normal in size, shape, and attenuation. No hydronephrosis, hydroureter, or calculi seen. No perinephric stranding. BLADDER: Unremarkable. GASTROINTESTINAL TRACT: Postsurgical changes following removal of abscess and the phlegmon noted on the previous study. There fracture draining the right lower quadrant. There is a small abscess noted right lower quadrant measuring 3.9 x 2.5 x 4.8 cm, best visualized on axial image 70/3.. Small amount of fluid extends into the right paracolic gutter. There is now moderate dilatation of small bowel loops with air-fluid level suggestive of postop ileus, less likely obstruction. Diffuse colonic diverticulosis especially the sigmoid and the descending colon is noted. This remaining stool in the right colon. No free air seen. There is no free fluid either. ABDOMINAL WALL: There are surgical dannie along the right abdominal wall from intervention with postsurgical gas in fat stranding. LYMPH NODES: Normal. VASCULAR: Unremarkable. PELVIC VISCERA: The prostate gland is mildly enlarged. Scattered phleboliths in pelvis. Punctate air seen in the right inguinal canal but no evidence of hernia. OSSEOUS STRUCTURES: Degenerative changes L5-S1 disc level. No aggressive lytic or sclerotic process seen. CT/CT abdomen pelvis w IV con IMPRESSION: Interim right lower quadrant surgery with resection of phlegmon, periappendiceal abscess, likely distal ileum.. There is a fresh drain the right lower quadrant and a small loculated abscess likely residual. There are small bowel air-fluid level likely postop ileus. Colonic diverticulosis with mild stool in the right colon. Mild prostate enlargement. Fleischner guidelines were followed. Electronically signed by: Gilberto Penaloza MD 01/24/2025 02:24 PM EST
--- NOTE | 2025-01-16 10:23 | ECG_ITS ---
Test Reason : ABD PAIN Blood Pressure : */* mmHG Vent. Rate : 72 BPM Atrial Rate : 72 BPM P-R Int : 142 ms QRS Dur : 86 ms QT Int : 384 ms P-R-T Axes : 63 51 51 degrees QTcB Int : 420 ms Normal sinus rhythm Minimal voltage criteria for LVH, may be normal variant ( Sokolow-Cool ) Borderline ECG When compared with ECG of 28-Jan-2007 11:26, MANUAL COMPARISON REQUIRED PREVIOUS ECG IS INCOMPATIBLE Referred By: Libby Torrez Electronically Signed By: Valentin Biswas
--- NOTE | 2025-01-16 10:25 | ED.ABDPAIN ---
HPI - Abdominal Pain General Chief Complaint: Abdominal Pain Stated Complaint: Abd Pain Time Seen by Provider: 01/16/25 10:37 Related Data Previous Rx's ?Medication ?Instructions ?Recorded lisinopril 10 mg tablet 10 mg PO DAILY #30 tabs 11/22/24 tamsulosin 0.4 mg capsule 0.4 mg PO DAILY 90 days #90 caps 01/11/25 Allergies Allergy/AdvReac Type Severity Reaction Status Date / Time No Known Allergies Allergy Verified 01/16/25 10:28 [facility] Past Medical History Medical History (Updated 01/16/25 @ 12:19 by Tab Hunt MD) Acute phlegmonous appendicitis Sinus arrest Essential hypertension Surgical History History of pacemaker Deficient knowledge of valve replacement History of open reduction and internal fixation (ORIF) procedure Family History Family History Father CVD (cardiovascular disease) Myocardial infarction Mother Cancer Sister Breast cancer Son No problems noted. Daughter No problems noted. Social History Social History Housing: House Alcohol intake: current Alcohol intake frequency: 0-2 drinks per day Patient Tobacco Use Status: Never used Tobacco Tobacco use type: Cigarette Smoked in Last 30 Days: Yes e-Cigarette/Vaping Use: Never Used Second Hand Smoke Exposure: No Use of substances other than those prescribed or required for medical reasons: No Advance Directives: No Advance Directives Information Provided: Yes Nutrition Risks: No Nutritional Risk service: No Current occupational status: employed Current occupation: [employer] Current occupational exposures/hazards: No Cognitive needs: No Hearing needs: No Vision needs: No Physical Exam ED Vital Signs: Vital Signs - 24 hr 01/16/25 10:24 01/16/25 11:07 Temperature 98.0 F 100.2 F Pulse Rate 80 73 Respiratory Rate 16 20 Blood Pressure 116/74 130/86 Pulse Oximetry 96 95 Oxygen Delivery Method Room Air Room Air BMI result Body Mass Index 27.7 Course Course Course Narrative: 59 yo male with PMH of BPH, HTN here with c/o severe lower abdominal pain since last tuesday didn't want to be seen in [place] - he has been constipated. No n/v/d. He has no appetite. No prior surgeries but has hx of diverticulitis. He has had subj fevers and chills. At this time labs, UA and needs CT scan for further evaluation this is a RAPID medical screening exam the rest of the history and physical exam is to be done by the main provider. Medical Decision Making Lab Data 01/17/25 04:50 01/17/25 04:50 Labs: Lab Results 01/16/25 Range/Units 10:57 WBC 11.5 H (4.8-10.8) X10*3/uL RBC 4.53 L (4.60-5.80) X10*6/uL Hgb 14.8 (14.0-18.0) g/dl Hct 42.5 (42.0-52.0) % MCV 93.8 (80.0-98.0) fL MCH 32.7 (27.0-33.0) pg MCHC 34.8 (31.0-36.0) g/dl RDW 12.3 (11.0-16.0) % Plt Count 242 D (160-400) X10*3/uL MPV 8.9 L (9.4-12.4) fL Immature Gran % (Auto) 0.4 (0.0-0.4) % Neut % (Auto) 75.1 H (45-73) % Lymph % (Auto) 9.6 L (20-40) % [place] % (Auto) 13.8 H (2-11) % Eos % (Auto) 0.8 (0-4) % Baso % (Auto) 0.3 (0-2) % Lymph # (Auto) 1.1 L (1.2-4.9) X10*3/uL [place] # (Auto) 1.6 H (0.1-1.2) X10*3/uL Eos # (Auto) 0.1 (0.0-0.4) X10*3/uL Baso # (Auto) 0.0 (0.0-0.2) X10*3/uL Abs Immat Gran (auto) 0.05 H (0.00-0.03) X10*3/uL Absolute Neuts (auto) 8.6 H (2.0-8.3) x10*3/uL Absolute Nucleated RBC 0.000 (0.0-0.012) X10*3/uL Nucleated RBC % (auto) 0.0 (0.0-0.2) /100WBC Smear Tech's Comments VERIFIED Sodium 137 (135-145) mmol/L Potassium 4.7 D (3.3-5.1) mmol/L Chloride 104 (96-108) mmol/L Carbon Dioxide 23 (22-29) mmol/L Anion Gap 15 (12-20) BUN 12 (9-16) mg/dL Creatinine 0.79 (0.5-1.4) mg/dL Estim Creat Clear Calc 104.5 Estimated GFR > 60 Random Glucose 109 (60-115) mg/dL Lactic Acid 1.0 (0.5-2.0) mmol/L Calcium 9.7 (8.4-10.2) mg/dL Magnesium 2.5 (1.6-2.6) mg/dL Total Bilirubin 0.9 (0.0-1.0) mg/dL Direct Bilirubin 0.3 (0.0-0.5) mg/dL AST 38 H (5-37) U/L ALT 40 (0-40) U/L Alkaline Phosphatase 91 (39-117) U/L Troponin I High Sens 5.9 (<3.5-35.0) ng/L Total Protein 8.1 H (6.5-8.0) g/dL Albumin 4.0 (3.5-5.0) g/dL Lipase 24 (8-78) U/L Medications Administered Generic Name Dose Route Start Last Admin Trade Name Freq PRN Reason Stop Dose Admin Lactated Ringer's 1,000 mls @ 100 mls/hr 01/16/25 12:30 01/17/25 08:20 Lr IVCONT 100 mls/hr .Q10H MARKIE Administration Morphine Sulfate 4 mg 01/16/25 16:38 01/17/25 04:12 Morphine Sulfate 4 Mg/Ml Cartridge IVPUSH 4 mg Q3H PRN Administration Pain, Severe (Pain Scale 7-10) Protocol Sodium Chloride 3 ml 01/16/25 16:00 01/17/25 08:21 0.9 % Sodium Chloride Flush 3 Ml Syringe IVFLUSH Not Given QSHIFT MARKIE Discontinued Medications Generic Name Dose Route Start Last Admin Trade Name Freq PRN Reason Stop Dose Admin Hydromorphone HCl 0.5 mg 01/16/25 11:54 01/16/25 12:47 Hydromorphone Hcl 0.5 Mg/0.5 Ml Syringe IVPUSH 01/16/25 11:55 0.5 mg ONCE ONE Administration Protocol Hydromorphone HCl 1 mg 01/17/25 01:27 01/17/25 01:33 Hydromorphone Hcl 1 Mg/Ml Syringe IVPUSH 01/17/25 01:28 1 mg ONCE ONE Administration Protocol Piperacillin Sod/Tazobactam 50 mls @ 100 mls/hr 01/16/25 10:29 01/16/25 12:10 Sod 3.375 gm/ Sodium Chloride IV 01/16/25 10:58 Infused ONCE ONE Infusion Lactated Ringer's 1,000 mls @ 999 mls/hr 01/16/25 10:30 01/16/25 12:54 Lr IV 01/16/25 11:30 Infused .Q1H1M ONE Infusion Acetaminophen 1,000 mg in 100 mls @ 400 mls/hr 01/16/25 16:45 01/17/25 04:26 Ofirmev IV 01/17/25 10:59 Infused Q6H MARKIE Infusion Iohexol 100 ml 01/16/25 11:31 01/16/25 11:31 Iohexol 350 Mg/Ml 100 Ml Infus..Btl IV 01/16/25 11:32 85 ml ONCE ONE Administration Lisinopril 10 mg 01/16/25 12:26 01/16/25 12:47 Lisinopril 10 Mg Tablet PO 01/16/25 12:27 10 mg ONCE ONE Administration Protocol Morphine Sulfate 4 mg 01/16/25 10:40 01/16/25 11:09 Morphine Sulfate 4 Mg/Ml Cartridge IVPUSH 01/16/25 10:41 4 mg ONCE ONE Administration Protocol Morphine Sulfate 3 mg 01/16/25 12:23 01/16/25 15:14 Morphine Sulfate 4 Mg/Ml Cartridge IVPUSH 3 mg Q3H PRN Administration Pain, Severe (Pain Scale 7-10) Protocol Ondansetron HCl 4 mg 01/16/25 10:40 01/16/25 11:09 Ondansetron Hcl 4 Mg/2 Ml Vial IVPUSH 01/16/25 10:41 4 mg ONCE ONE Administration Discharge Plan Discharge Clinical Impression: Abscess of abdominal cavity Patient Disposition: Admitted As Inpatient Interventions: Admission Worksheet (ED) Last Done: 01/17/25 07:52
--- NOTE | 2025-01-16 10:41 | ED.ABDPAIN ---
HPI - Abdominal Pain General Chief Complaint: Abdominal Pain Stated Complaint: Abd Pain Time Seen by Provider: 01/16/25 10:37 Source: patient Mode of arrival: ambulatory Limitations: no limitations History of Present Illness HPI narrative: 59 YEARS OLD THE PATIENT PRESENTED TO EMERGENCY DEPARTMENT WITH A CHIEF COMPLAINT OF LOWER ABDOMINAL PAIN, PAIN STARTED ABOUT A WEEK AGO DENIES ANY FEVER VOMITING HE HAS A HISTORY OF DIVERTICULITIS MD elicited complaint: abdominal pain Pertinent past history: other ( DIVERTICULITIS) Onset (ago): week(s) (1) Pain Consistency: constant Location: RLQ and LLQ Severity: moderate Quality: cramping Radiation: LLQ and RLQ Migration to: no migration Exacerbating factors: nothing Relieving factors: nothing Related Data Previous Rx's ?Medication ?Instructions ?Recorded lisinopril 10 mg tablet 10 mg PO DAILY #30 tabs 11/22/24 tamsulosin 0.4 mg capsule 0.4 mg PO DAILY 90 days #90 caps 01/11/25 Allergies Allergy/AdvReac Type Severity Reaction Status Date / Time No Known Allergies Allergy Verified 01/16/25 10:28 Review of Systems Constitutional: Reports no additional constitutional complaints Reports system reviewed and no additional complaints, except as documented Musculoskeletal: Reports no additional musculoskeletal complaints PMFSH Past Medical History PMFSH Narrative: HISTORY OF DIVERTICULITIS Medical History Sinus arrest Essential hypertension Surgical History History of pacemaker Deficient knowledge of valve replacement History of open reduction and internal fixation (ORIF) procedure Family History Family History Father CVD (cardiovascular disease) Myocardial infarction Mother Cancer Sister Breast cancer Son No problems noted. Daughter No problems noted. Social History Social History Housing: House Alcohol intake: current Alcohol intake frequency: 0-2 drinks per day Patient Tobacco Use Status: Current someday Tobacco user Tobacco use type: Cigarette Smoked in Last 30 Days: Yes e-Cigarette/Vaping Use: Never Used Second Hand Smoke Exposure: No Use of substances other than those prescribed or required for medical reasons: No Advance Directives: No Advance Directives Information Provided: Yes service: No Current occupational status: employed Current occupation: [employer] Current occupational exposures/hazards: No Cognitive needs: No Hearing needs: No Vision needs: No Physical Exam ED Vital Signs: Vital Signs - 24 hr 01/16/25 10:24 01/16/25 11:07 Temperature 98.0 F 100.2 F Pulse Rate 80 73 Respiratory Rate 16 20 Blood Pressure 116/74 130/86 Pulse Oximetry 96 95 Oxygen Delivery Method Room Air Room Air BMI result Body Mass Index 27.7 NO ACUTE DISTRESS Const Nutritional Appearance: average body habitus Orientation/consciousness: patient oriented x3 HENMT Head: Yes normal to inspection Face and sinus: Yes normal facial exam Mouth: Normal oral and palatal mucosa present Throat: Yes posterior oropharynx normal Neck Neck: Yes normal visual inspection Resp Effort & Inspection: normal respiratory effort Auscultation: clear to auscultation bilaterally Cardio Jugular venous distension: no JVD Rate: regular rate Rhythm: regular rhythm GI Other: TENDERNESS IN THE LEFT LOWER QUADRANT AND LOWER QUADRANT Palpation (GI): Soft to palpation, not firm and nontender Skin General skin exam: no rashes or lesions noted Lesions: no lesions Rashes: no rashes Neuro General: patient oriented x3 Course Reevaluation(s) Reevaluation #1: patient was seen in the emergency department by Dr. Hunt, CT scan showed a possible perforated diverticulitis versus perforated appendicitis, antibiotic were ordered Time: 12:15 Medical Decision Making Medical Decision Making [facility] Narrative: PATIENT PRESENTED WITH LOWER ABDOMINAL PAIN WE WILL OBTAIN LABS CT ADMINISTER ANALGESIA ANTIEMETIC Differential Diagnosis Differential Diagnoses: The differential diagnosis associated with the presentation includes DIVERTICULITIS/COLITIS/ PERFORATED BOWEL Admission/Observation Consideration of admission/observation: Escalation of care including admission/observation considered Lab Data [facility] Lab Attestation statement: I reviewed the patient's lab results. 01/16/25 10:57 01/16/25 10:57 Labs: Lab Results 01/16/25 Range/Units 10:57 WBC 11.5 H (4.8-10.8) X10*3/uL RBC 4.53 L (4.60-5.80) X10*6/uL Hgb 14.8 (14.0-18.0) g/dl Hct 42.5 (42.0-52.0) % MCV 93.8 (80.0-98.0) fL MCH 32.7 (27.0-33.0) pg MCHC 34.8 (31.0-36.0) g/dl RDW 12.3 (11.0-16.0) % Plt Count 242 D (160-400) X10*3/uL MPV 8.9 L (9.4-12.4) fL Immature Gran % (Auto) 0.4 (0.0-0.4) % Neut % (Auto) 75.1 H (45-73) % Lymph % (Auto) 9.6 L (20-40) % [place] % (Auto) 13.8 H (2-11) % Eos % (Auto) 0.8 (0-4) % Baso % (Auto) 0.3 (0-2) % Lymph # (Auto) 1.1 L (1.2-4.9) X10*3/uL [place] # (Auto) 1.6 H (0.1-1.2) X10*3/uL Eos # (Auto) 0.1 (0.0-0.4) X10*3/uL Baso # (Auto) 0.0 (0.0-0.2) X10*3/uL Abs Immat Gran (auto) 0.05 H (0.00-0.03) X10*3/uL Absolute Neuts (auto) 8.6 H (2.0-8.3) x10*3/uL Absolute Nucleated RBC 0.000 (0.0-0.012) X10*3/uL Nucleated RBC % (auto) 0.0 (0.0-0.2) /100WBC Smear Tech's Comments VERIFIED Sodium 137 (135-145) mmol/L Potassium 4.7 D (3.3-5.1) mmol/L Chloride 104 (96-108) mmol/L Carbon Dioxide 23 (22-29) mmol/L Anion Gap 15 (12-20) BUN 12 (9-16) mg/dL Creatinine 0.79 (0.5-1.4) mg/dL Estim Creat Clear Calc 104.5 Estimated GFR > 60 Random Glucose 109 (60-115) mg/dL Lactic Acid 1.0 (0.5-2.0) mmol/L Calcium 9.7 (8.4-10.2) mg/dL Magnesium 2.5 (1.6-2.6) mg/dL Total Bilirubin 0.9 (0.0-1.0) mg/dL Direct Bilirubin 0.3 (0.0-0.5) mg/dL AST 38 H (5-37) U/L ALT 40 (0-40) U/L Alkaline Phosphatase 91 (39-117) U/L Troponin I High Sens 5.9 (<3.5-35.0) ng/L Total Protein 8.1 H (6.5-8.0) g/dL Albumin 4.0 (3.5-5.0) g/dL Lipase 24 (8-78) U/L Independent Interpretation I performed an independent interpretation of an: CT Scan Radiology Impression Discussion of test interpretation with radiology: I have reviewed the radiologist's reading. 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 OSSEOUS STRUCTURES: Sclerosis and vacuum phenomenon and the sacroiliac joints. Incomplete ankylosis L5-S1 with endplate sclerosis. Grade 1 retrolisthesis L2-3. Electrode leads in the right heart chambers. CT/CT abdomen pelvis w IV con IMPRESSION: 7.5 cm phlegmon versus abscess in the mesocecum concerning for a ruptured appendix and less likely ruptured diverticulum. Regional ileus. Hepatomegaly, mild and hepatic steatosis. Discussed with the emergency physician Dr. Yoshi Luciano on January 16, 2025 at 11:48 AM. Fleischner guidelines were followed. Electronically signed by: Richard Marie MD 01/16/2025 12:00 PM [facility] Medications Administered Discontinued Medications Generic Name Dose Route Start Last Admin Trade Name Freq PRN Reason Stop Dose Admin Piperacillin Sod/Tazobactam 50 mls @ 100 mls/hr 01/16/25 10:29 01/16/25 11:34 Sod 3.375 gm/ Sodium Chloride IV 01/16/25 10:58 100 mls/hr ONCE ONE Administration Lactated Ringer's 1,000 mls @ 999 mls/hr 01/16/25 10:30 01/16/25 11:09 Lr IV 01/16/25 11:30 999 mls/hr .Q1H1M ONE Administration Iohexol 100 ml 01/16/25 11:31 01/16/25 11:31 Iohexol 350 Mg/Ml 100 Ml Infus..Btl IV 01/16/25 11:32 85 ml ONCE ONE Administration Morphine Sulfate 4 mg 01/16/25 10:40 01/16/25 11:09 Morphine Sulfate 4 Mg/Ml Cartridge IVPUSH 01/16/25 10:41 4 mg ONCE ONE Administration Protocol Ondansetron HCl 4 mg 01/16/25 10:40 01/16/25 11:09 Ondansetron Hcl 4 Mg/2 Ml Vial IVPUSH 01/16/25 10:41 4 mg ONCE ONE Administration Discharge Plan Discharge Clinical Impression: Abscess of abdominal cavity Patient Disposition: Admitted As Inpatient Print Language: Frisian
--- NOTE | 2025-01-16 11:00 | PC.NURSE ---
pt is alert and oriented, skin pwd, respirations even and unlabored, pt reports lower abd pain x2 days, hypoactive bowel sounds in all 4 quadrants very tender on the right lower and left lower, denies nausea, was constipated few days ago
[2025-01-16 11:08] LABS: Basophils Percent Auto 0.3 % (0-2); Eosinophils Absolute Auto 0.1 X10*3/uL (0.0-0.4); Eosinophils Percent Auto 0.8 % (0-4); Hematocrit 42.5 % (42.0-52.0); Hemoglobin 14.8 g/dl (14.0-18.0); Imm Gran Abs Auto 0.05 X10*3/uL (0.00-0.03); Imm Gran Pct Auto 0.4 % (0.0-0.4); Lymphocytes Absolute Auto 1.1 X10*3/uL (1.2-4.9); Lymphocytes Percent Auto 9.6 % (20-40); MANUAL DIFF FLAG SCAN; Mean Corpuscular HGB Conc 34.8 g/dl (31.0-36.0); Mean Corpuscular Hemoglobin 32.7 pg (27.0-33.0); Mean Corpuscular Volume 93.8 fL (80.0-98.0); Mean Platelet Volume 8.9 fL (9.4-12.4); Monocytes Absolute Auto 1.6 X10*3/uL (0.1-1.2); Monocytes Percent Auto 13.8 % (2-11); Neutrophils Absolute Auto 8.6 x10*3/uL (2.0-8.3); Neutrophils Percent Auto 75.1 % (45-73); Platelet Count 242 X10*3/uL (160-400); Red Blood Count 4.53 X10*6/uL (4.60-5.80); Red Cell Distribution Width 12.3 % (11.0-16.0); SCAN SMEAR FLAG 1; White Blood Count 11.5 X10*3/uL (4.8-10.8)
[2025-01-16] MEDS: Morphine Sulfate 4 MG/ML CARTRIDGE IVPUSH ×2 (11:09→21:46)
[2025-01-16] MEDS: ondansetron HCL 4 MG/2 ML VIAL IVPUSH (11:09)
[2025-01-16] MEDS: Lactated Ringers 1,000 ML 999 ML IV (11:09)
[2025-01-16 11:22] LABS: Alanine Aminotransferase 40 U/L (0-40); Alkaline Phosphatase 91 U/L (39-117); Anion Gap 15 (12-20); Aspartate Amino Transferase 38 U/L (5-37); Bilirubin Direct 0.3 mg/dL (0.0-0.5); Bilirubin Total 0.9 mg/dL (0.0-1.0); Blood Urea Nitrogen 12 mg/dL (9-16); Calcium 9.7 mg/dL (8.4-10.2); Carbon Dioxide 23 mmol/L (22-29); Chloride 104 mmol/L (96-108); Creatinine Clr Calc Pharmacy 104.5; Estimated Glomerular Filt Rate > 60; Glucose Random 109 mg/dL (60-115); Lipase 24 U/L (8-78); Magnesium 2.5 mg/dL (1.6-2.6); Potassium 4.7 mmol/L (3.3-5.1); Sodium 137 mmol/L (135-145); Total Protein 8.1 g/dL (6.5-8.0)
[2025-01-16 11:25] LABS: SLIDE REVIEW VERIFIED
[2025-01-16 11:27] LABS: Troponin-I High Sensitivity 5.9 ng/L (<3.5-35.0)
[2025-01-16] MEDS: iohexoL 350 MG/ML 100 ML INFUS..BTL IV (11:31)
[2025-01-16] MEDS: Piperacillin Sodium/Tazobactam 3.375 GM in 0.9 % Sodium Chloride 50 ML IV (11:34)
--- NOTE | 2025-01-16 12:15 | PM.HPGS ---
History of Present Illness History of Present Illness Date of Service: 01/18/25 Chief complaint: Phlegmon in the right lower quadrant Narrative: Mike Newberry is a 59 year old male here in the ED for abdominal pain. He describes having lower abdominal pain and right lower quadrant pain for over a week now. He said he was in [place] when this started. He was there to visit a newly born granddaughter. He never saw a doctor there as he was planning to come back here to be re-evaluated and did not want to miss his flight. He says that the pain has been constant for the past week . He flew in last night and came to the emergency room this morning. He said he does not have any fever but did have some chills 5 days ago. He has not been eating much for the past several days now. He does have bowel movements. He denies any vomiting. He has a history of heart surgery as a 1-year-old. He also has a pacemaker in place. Review of Systems Constitutional: Constitutional: Denies chills and Denies fever(s) Cardiovascular: Cardiovascular: Denies chest pain, Denies dyspnea and Denies dyspnea on exertion Respiratory: Respiratory: Denies cough, Denies dyspnea and Denies dyspnea on exertion Gastrointestinal: Gastrointestinal: Denies hematochezia and Denies change in bowel habits Genitourinary: Genitourinary: Denies hematuria and Denies difficulty urinating Musculoskeletal: Musculoskeletal: Denies back pain and Denies limited range of motion Neurologic: Denies focal weakness and Denies convulsions Psychiatric: Psychiatric: Denies depression and Denies mood swings PMFSH Past Medical History Medical History (Updated 01/16/25 @ 12:19 by Tab Hunt MD) Acute phlegmonous appendicitis Sinus arrest Essential hypertension Family History Family History Father CVD (cardiovascular disease) Myocardial infarction Mother Cancer Sister Breast cancer Son No problems noted. Daughter No problems noted. Surgical History Surgical History History of pacemaker Deficient knowledge of valve replacement History of open reduction and internal fixation (ORIF) procedure Social History Social History Household Members: None Housing: House Do you presently have visiting nurse or other home services: No Alcohol intake: current Alcohol intake frequency: 0-2 drinks per day Patient Tobacco Use Status: Current someday Tobacco user Tobacco use type: Cigarette e-Cigarette/Vaping Use: Never Used Second Hand Smoke Exposure: No Substance Use Type: Marijuana service: No Current occupational status: employed Current occupation: [employer] Current occupational exposures/hazards: No Cognitive needs: No Hearing needs: No Vision needs: No Meds Allergies Allergy/AdvReac Type Severity Reaction Status Date / Time No Known Allergies Allergy Verified 01/16/25 10:28 Physical Exam Vital Signs: Vital Signs: Last Vital Signs Temp 100.2 F 01/16/25 11:07 Pulse 73 01/16/25 11:07 Resp 20 01/16/25 11:07 BP 130/86 01/16/25 11:07 Pulse Ox 95 01/16/25 11:07 O2 Del Method Room Air 01/16/25 11:07 BMI result Body Mass Index 27.7 Const: General: comfortable and no acute distress Orientation/consciousness: patient oriented x3 Neck: Neck: Yes no lymphadenopathy Resp: Auscultation: clear to auscultation bilaterally Cardio: Rhythm: regular rhythm GI: Other: Tender mostly in the right lower quadrant Palpation (GI): Soft to palpation, not firm, Tenderness to palpation present (GI), no guarding and not rigid Neuro: General: patient oriented x3 Results Results Labs: Short CBC 01/16/25 Range/Units 10:57 WBC 11.5 H (4.8-10.8) X10*3/uL Hgb 14.8 (14.0-18.0) g/dl Hct 42.5 (42.0-52.0) % Plt Count 242 D (160-400) X10*3/uL BMP 01/16/25 10:57 Sodium 137 Potassium 4.7 D Chloride 104 Carbon Dioxide 23 BUN 12 Creatinine 0.79 Calcium 9.7 Liver Function 01/16/25 Range/Units 10:57 Total Bilirubin 0.9 (0.0-1.0) mg/dL Direct Bilirubin 0.3 (0.0-0.5) mg/dL AST 38 H (5-37) U/L ALT 40 (0-40) U/L Alkaline Phosphatase 91 (39-117) U/L Albumin 4.0 (3.5-5.0) g/dL CT/CT abdomen pelvis w IV con IMPRESSION: 7.5 cm phlegmon versus abscess in the mesocecum concerning for a ruptured appendix and less likely ruptured diverticulum. Regional ileus. Hepatomegaly, mild and hepatic steatosis. Discussed with the emergency physician Dr. Yoshi Luciano on January 16, 2025 at 11:[address] scan report/results: report reviewed and image reviewed CT scan - pelvis: report reviewed and image reviewed Assessment and Plan (1) Acute phlegmonous appendicitis: Status: Acute He has had abdominal pain for over a week now. I have reviewed his CAT scan and this shows a large phlegmonous process adjacent to the cecum likely from perforated appendicitis. There seems to be very little drainable fluid at this time His WBCs 11. This has significant tenderness but his exam is otherwise benign. I told him that he will be admitted for IV antibiotics. We will follow him closely with serial exams. I explained to him that the he may require resection of the right colon if this does not improve. We may repeat his CT scan down the line as well He is hemodynamically stable and does not appear to be septic. I have consulted the interventional radiologist as well. I will consult the hospitalist in view of his pacemaker. Quality Stroke Does the patient have a stroke diagnosis?: No VTE Prior VTE?: No VTE Risk Level:: Medical - moderate - high VTE Device Contraindication: N/A - Device Ordered VTE Drug Contraindication: N/A - Med Ordered Procedures Date of Service Date of Service: 01/18/25
[2025-01-16] MEDS: lisinopriL 10 MG TABLET PO (12:47)
[2025-01-16] MEDS: HYDROmorphone HCl 0.5 MG/0.5 ML SYRINGE IVPUSH (12:47)
[2025-01-16] MEDS: Lactated Ringers 1,000 ML 100 ML IVCONT ×2 (12:52→23:01)
--- NOTE | 2025-01-16 13:08 | PHA.MEDREC ---
Addendum entered by Lucian Lambert RPh 01/16/25 13:21: Med rec was reviewed by SCHUYLER. Original Note: Pharmacy Consult ? Medication Reconciliation Pharmacy has completed the medication reconciliation. Spoke with patient and he confirmed he is taking Tamsulosin 0.4mg tabs once a day and he stated he was still taking Lisionpril 10mg tabs once a day but ran out of those a few weeks ago and never went to refill them. He confirmed he took the Tamsulosin yesterday.
--- NOTE | 2025-01-16 13:39 | P.CONHOSP_ITS ---
History of Present Illness Data of Consult Service Date: 01/16/25 Primary Care Provider: Alan Dowd MD HPI 59-year-old man admitted to ER with abdominal pain for over 1 week while he was on vacation. He denied fever, nausea, vomiting, diarrhea. Did report chills and poor appetite. Abdominal CT showed large phlegmonous process adjacent to the cecum likely from perforated appendicitis with very little drainable fluid. He was admitted by general surgery for possible surgical procedure of phlegmonous appendicitis. Review of Systems 2 Review of Systems: Denies any recent fever chills or decrease in appetite respiratory denies any shortness of breath or cough cardiovascular denied chest pain gastrointestinal denies any dysphagia abdominal pain nausea vomiting or diarrhea genitourinary denies any dysuria frequency or hematuria musculoskeletal denies any joint pain or swelling neuropsych denies any weakness or seizures all other systems reviewed are negative [facility] Medical History (Updated 01/16/25 @ 12:19 by Tab Hunt MD) Acute phlegmonous appendicitis Sinus arrest Essential hypertension Family History Father CVD (cardiovascular disease) Myocardial infarction Mother Cancer Sister Breast cancer Son No problems noted. Daughter No problems noted. Surgical History History of pacemaker Deficient knowledge of valve replacement History of open reduction and internal fixation (ORIF) procedure Social History Housing: House Alcohol intake: current Alcohol intake frequency: 0-2 drinks per day Patient Tobacco Use Status: Current someday Tobacco user Tobacco use type: Cigarette Smoked in Last 30 Days: Yes e-Cigarette/Vaping Use: Never Used Second Hand Smoke Exposure: No Use of substances other than those prescribed or required for medical reasons: No Advance Directives: No Advance Directives Information Provided: Yes service: No Current occupational status: employed Current occupation: [employer] Current occupational exposures/hazards: No Cognitive needs: No Hearing needs: No Vision needs: No Meds Allergies Allergy/AdvReac Type Severity Reaction Status Date / Time No Known Allergies Allergy Verified 01/16/25 10:28 Active Medications: Current Medications Acetaminophen (Acetaminophen 325 Mg Tablet) 650 mg PO Q6H PRN PRN Reason: Pain, Mild 1-3,fever,headache Calcium Carbonate (Calcium Carbonate 750 Mg Tab.Chew) 750 mg PO Q4H PRN PRN Reason: Heartburn Heparin Sodium (Porcine) (Heparin Sodium,Porcine 5,000 Unit/Ml Vial) 5,000 unit SUBCUT Q8H [facility] Lactated Ringer's (Lr) 1,000 mls @ 100 mls/hr IVCONT .Q10H [facility] Last Admin: 01/16/25 12:52 Dose: 100 mls/hr Lisinopril (Lisinopril 10 Mg Tablet) 10 mg PO DAILY [facility]; Protocol Melatonin (Melatonin 3 Mg Tablet) 6 mg PO BEDTIME PRN PRN Reason: Insomnia Morphine Sulfate (Morphine Sulfate 4 Mg/Ml Cartridge) 3 mg IVPUSH Q3H PRN; Protocol PRN Reason: Pain, Severe (Pain Scale 7-10) Ondansetron HCl (Ondansetron Hcl 4 Mg/2 Ml Vial) 4 mg IVPUSH Q6H PRN PRN Reason: nausea Sodium Chloride (0.9 % Sodium Chloride Flush 3 Ml Syringe) 3 ml IVFLUSH QSHIFT [facility] Tamsulosin HCl (Tamsulosin Hcl 0.4 Mg Capsule) 0.4 mg PO DAILY [facility] Physical Exam 2 Vital Signs and Narrative: Vital Signs: Last Vital Signs Temp 100.2 F 01/16/25 11:07 Pulse 73 01/16/25 11:07 Resp 20 01/16/25 11:07 BP 130/86 01/16/25 11:07 Pulse Ox 95 01/16/25 11:07 O2 Del Method Room Air 01/16/25 11:07 BMI result Body Mass Index 27.7 Appearing in no acute distress head is normocephalic atraumatic eyes pupils are PERRLA sclera is anicteric mouth throat mucous membranes are intact and moist neck is supple no lymphadenopathy, no JVD noted lung sounds are clear to auscultation heart regular rate rhythm, clear S1, S2 positive bowel sounds, abdomen is soft, nontender neuro patient is alert x3, no focal deficits Results Labs 01/16/25 10:57 01/16/25 10:57 Labs: Laboratory Results - last 24 hr 01/16/25 10:57 MCV 93.8 MCH 32.7 MCHC 34.8 RDW 12.3 Plt Count 242 D MPV 8.9 L Immature Gran % (Auto) 0.4 Neut % (Auto) 75.1 H Lymph % (Auto) 9.6 L [place] % (Auto) 13.8 H Eos % (Auto) 0.8 Baso % (Auto) 0.3 Lymph # (Auto) 1.1 L [place] # (Auto) 1.6 H Eos # (Auto) 0.1 Baso # (Auto) 0.0 Abs Immat Gran (auto) 0.05 H Absolute Neuts (auto) 8.6 H Absolute Nucleated RBC 0.000 Nucleated RBC % (auto) 0.0 Smear Tech's Comments VERIFIED Anion Gap 15 Estim Creat Clear Calc 104.5 Estimated GFR > 60 Random Glucose 109 Lactic Acid 1.0 Calcium 9.7 Magnesium 2.5 Total Bilirubin 0.9 Direct Bilirubin 0.3 AST 38 H ALT 40 Alkaline Phosphatase 91 Total Protein 8.1 H Albumin 4.0 Lipase 24 Imaging Radiologist's Impressions: Impressions Abdomen/Pelvis CT 01/16/25 11:26 IMPRESSION: 7.5 cm phlegmon versus abscess in the mesocecum concerning for a ruptured appendix and less likely ruptured diverticulum. Regional ileus. Hepatomegaly, mild and hepatic steatosis. Discussed with the emergency physician Dr. Yoshi Luciano on January 16, 2025 at 11:48 AM. Fleischner guidelines were followed. Electronically signed by: Richard Marie MD 01/16/2025 12:00 PM [facility] Assessment and Plan (1) Acute phlegmonous appendicitis: Status: Acute Plan 59-year-old man admitted by general surgery for lower abdominal pain Phlegmon CT abdomen showing large phlegmon to right lower quadrant, RR provider unable to access Management as per surgical team Pain management Hypertension Continue lisinopril BPH Continue tamsulosin History of pacemaker placement DVT prophylaxis with heparin Full code
--- OUTSIDE RECORDS SUMMARY | 2025-01-16 13:46 | XMS_ITS | Data Portability ---
Author Organization [facility], , [facility] Address [address] [place] [address] Assessment No assessment recorded. Plan of Treatment [...] By Organization Details Last Modified Time 10/01/2016 [id number] RTC 1 yr CEE or prn [email or web address] Not available 10/01/2016 14:34:40 Reason for Referral None Reported. Results Created Date Observation Date Name Description Value Unit Range Abnormal Flag Note LastModifiedBy Organization Detail LastModifiedTime Result Notes None recorded. Procedures Surgical History Date Name Laterality Status Provider Name and Address Organization Details Recorded Time Refraction completed Sharon Dennison, [address], [address], [facility] 12/12/2020 15:44:09 8 Refraction completed Deisi Osullivan [facility] 10/05/2018 15:15:00 6 Refraction completed Rowena Yaaurora [facility] 10/01/2016 13:57:10 Imaging Results None recorded. Procedure [...] Diagnosis/Indication Diagnosis SNOMED-CT Code Diagnosis ICD10 Code Diagnosis Note [id number] Sharon Dennison, [facility], [address] [address] 10/01/2016 13:28:22 10/01/2016 14:37:30 Nuclear senile cataract 763935943 H25.13 mild OU, pt ed, monitor q1-2 yrs. Presbyopia [id number] H52. 4 Floaters i n visual field 902011320 H43.393 pt ed on floaters. RTC DIVINA if increase in floaters or if flashes or loss of vision. [id number] Sharon Dennison, OD [facility], [facility] [address] [place] [address] 10/05/2018 14:56:44 10/05/2018 15:55:53 Nuclear senile cataract [id number] H25.13 mild OU, pt ed, monitor q1-2 yrs. Presbyopia [id number] H52. 4 [id number] Sharon Dennison, OD [facility], [address] [address] 12/12/2020 14:38:07 12/15/2020 13:44:33 Presbyopia 44407178 H52.4 Nuclear se nile cataract [id number] H25.13 mild OU, c/w glare at night, pt reports not too bothersome . I recommende d wearing prescripti on glasses while driving, but patient does not want to. pt ed, monitor q1-2 yrs. Health Concerns Section Related Observation LastModified by Organization Detai ls LastModified Time None Recorded Concern Status LastModified by Organization Details LastModified Time None Recorded Advance Directives Directive None Recorded Payers Encounter Date Sequence Insurance Name Policy Number Policy Bethea Covered Member ID Bethea Member ID Guarantor Name 10/01/2016 1 [facility] Mike Newberry [id number] Mike Newberry 10/05/2018 1 [facility] [id number] Mike Newberry [id number] Mike Newberry 12/12/2020 1 [facility] [id number] Mike Newberry [id number] Mike Jasienowski Notes Date Note Type Note Provider Name and Address Organization Details Recorded Time 10/01/2016 text/html Comprehensive Ey e ExamReported bypatient.Quality:rochelle rred vision near without glasses Location:bilateral Context:currently wears glasses Modifying factors:wears glasses for readers only Associated Symptoms:no redness; no itching; no dryness;floaters bilateral(longstandin g, stable) Sharon Dennison, OD [address] [place], [address], [facility] 10/01/2016 14:35:04 10/05/2018 text/html CataractReported bypatient.Location:bi lateral Quality:painless Severity:moderate Onset/Timing:gradual Sharon Dennison, OD [address] [place], [address], [facility] 10/05/2018 15:44:51 12/12/2020 text/html CataractReported bypatient.Location:bi lateral Quality:painless Severity:mild Onset/Timing:gradual Context:driving at night (some glare at night, not too bad.) c/o blurry vision at near without glasses, broke glasses, also needs NVO safety glasses and NVO for reading. doing okay with distance vision [place]. Sharon Dennison, OD [address] [place], [address], [facility] 12/12/2020 15:46:29
--- NOTE | 2025-01-16 14:25 | PM.EVENT ---
Event Note Date of Service: 01/16/25 Event Note: Ct abdomen/pelvis reviewed with Dr. Hunt. There is a large phlegmon in the RLQ with some fluid and gas medially that likely represents an organizing abscess. At this time, the collection is not accessible for percutaneous drainage. Recommend repeat CT scan in 72 hr to assess for further abscess formation that may be amenable to percutaneous drainage. Imaging reviewed with Dr. Patrick who agrees with plan. Time Spent With Patient Time: Total time managing care of this patient today ____ minutes.
[2025-01-16] MEDS: Morphine Sulfate 4 MG/ML CARTRIDGE 3 MG IVPUSH (15:14)
[2025-01-16 15:28] LABS: Color Urine Yellow
[2025-01-16 15:29] LABS: Appearance Urine Clear; Glucose Urine UA Negative (Negative); Leukocyte Esterase Urine Negative (Negative); Nitrite Urine Negative (Negative); Specific Gravity - Urine >= 1.030 (1.005-1.025); UMIC TRIGGER UACC YES; Urine Blood Negative (Negative); Urine Ketones 15 mg/dL (Negative); Urine Protein 30 (1+) mg/dL (Neg-Trace)
[2025-01-16 15:33] LABS: Bacteria Urine None Seen (None Seen); Hyaline Casts Urine 0-2 /LPF (0-2); RBC Urine 0-2 /HPF (0-2); Squamous Epithelial Cell Urine 0-2 /HPF (0-2); WBC Urine 0-5 /HPF (0-5)
--- NOTE | 2025-01-16 16:38 | PM.EVENT ---
Event Note Date of Service: 01/17/25 Event Note: Seen on follow-up rounds He complains of pain in the right lower quadrant Stable vital signs Does not appear toxic Tender in the right lower quadrant but soft and no peritoneal signs Continue IV antibiotics He is okay to have ice chips I told him that if he continues to have significant pain and tenderness with no improvement, he may benefit from resection We will re-evaluate in the morning Pain management for now Time Spent With Patient Time: Total time managing care of this patient today ____ minutes.
[2025-01-16] MEDS: Acetaminophen 1,000 MG/100 ML PIGGYBACK 400 MG IV ×2 (18:09→23:01)
--- NOTE | 2025-01-16 22:00 | PC.NURSE ---
pt ambulatory to bathroom with steady gait. pt medicated per jan for 7/10 abdominal pain.
--- NOTE | 2025-01-16 23:59 | PC.NURSE ---
pt placed into hospital bed for comfort at this time
[2025-01-17] VITALS (9 sets, daily range): BP systolic 122–140; BP diastolic 73–84; PULSE 61–67; RESP 12–18; TEMP 36.6–37.4; O2SAT 94–97; BMI 28.0
[2025-01-17] MEDS: HYDROmorphone HCl 1 MG/ML SYRINGE IVPUSH (01:33)
[2025-01-17] MEDS: Acetaminophen 1,000 MG/100 ML PIGGYBACK 400 MG IV ×2 (04:11→10:53)
[2025-01-17] MEDS: Morphine Sulfate 4 MG/ML CARTRIDGE IVPUSH ×5 (04:12→20:32)
[2025-01-17 04:57] LABS: Hematocrit 38.4 % (42.0-52.0); Hemoglobin 13.6 g/dl (14.0-18.0); Mean Corpuscular HGB Conc 35.4 g/dl (31.0-36.0); Mean Corpuscular Hemoglobin 32.9 pg (27.0-33.0); Mean Platelet Volume 8.6 fL (9.4-12.4); Platelet Count 210 X10*3/uL (160-400); Red Blood Count 4.13 X10*6/uL (4.60-5.80); Red Cell Distribution Width 12.4 % (11.0-16.0); White Blood Count 10.1 X10*3/uL (4.8-10.8)
[2025-01-17 05:11] LABS: Anion Gap 13 (12-20); Blood Urea Nitrogen 11 mg/dL (9-16); Calcium 8.8 mg/dL (8.4-10.2); Carbon Dioxide 22 mmol/L (22-29); Chloride 105 mmol/L (96-108); Estimated Glomerular Filt Rate > 60; Glucose Random 92 mg/dL (60-115); Potassium 4.4 mmol/L (3.3-5.1); Sodium 136 mmol/L (135-145)
--- NOTE | 2025-01-17 06:12 | PC.NURSE ---
pt awake at this time, stating 5/10 abdominal pain,provider aware. pt given urinal at this time.
--- NOTE | 2025-01-17 08:09 | PM.PNGS ---
Subjective Subjective Date of Service: 01/17/25 Interval history: He says he feels a little better compared to yesterday Does get pain medications No fever No nausea or vomiting Physical Exam Vital Signs: Vital Signs: Last Vital Signs Temp 98.3 F 01/17/25 06:07 Pulse 61 01/17/25 06:07 Resp 16 01/17/25 06:07 BP 135/84 01/17/25 06:07 Pulse Ox 97 01/17/25 06:07 O2 Del Method Room Air 01/17/25 06:07 BMI result Body Mass Index 27.7 Const: General: no acute distress Resp: Effort & Inspection: normal respiratory effort Cardio: Rate: regular rate GI: Palpation (GI): Soft to palpation, not firm, Tenderness to palpation present (GI) (Tender on the right lower quadrant) and no guarding Objective Data Active Medications Acetaminophen (Acetaminophen 325 Mg Tablet) 650 mg PO Q6H PRN PRN Reason: Pain, Mild 1-3,fever,headache Calcium Carbonate (Calcium Carbonate 750 Mg Tab.Chew) 750 mg PO Q4H PRN PRN Reason: Heartburn Heparin Sodium (Porcine) (Heparin Sodium,Porcine 5,000 Unit/Ml Vial) 5,000 unit SUBCUT Q8H MARKIE Lactated Ringer's (Lr) 1,000 mls @ 100 mls/hr IVCONT .Q10H [facility] Last Admin: 01/16/25 23:01 Dose: 100 mls/hr Documented By: SHERIF Acetaminophen (Ofirmev) 1,000 mg in 100 mls @ 400 mls/hr IV Q6H MARKIE Stop: 01/17/25 10:59 Last Infusion: 01/17/25 04:26 Dose: Infused Documented By: SHERIF Lisinopril (Lisinopril 10 Mg Tablet) 10 mg PO DAILY [facility]; Protocol Melatonin (Melatonin 3 Mg Tablet) 6 mg PO BEDTIME PRN PRN Reason: Insomnia Morphine Sulfate (Morphine Sulfate 4 Mg/Ml Cartridge) 4 mg IVPUSH Q3H PRN; Protocol PRN Reason: Pain, Severe (Pain Scale 7-10) Last Admin: 01/17/25 04:12 Dose: 4 mg Documented By: SHERIF Ondansetron HCl (Ondansetron Hcl 4 Mg/2 Ml Vial) 4 mg IVPUSH Q6H PRN PRN Reason: nausea Sodium Chloride (0.9 % Sodium Chloride Flush 3 Ml Syringe) 3 ml IVFLUSH QSHIFT [facility] Last Admin: 01/17/25 00:01 Dose: Not Given Documented By: SHERIF Non-Admin Reason: IV Running Tamsulosin HCl (Tamsulosin Hcl 0.4 Mg Capsule) 0.4 mg PO DAILY [facility] Labs 01/17/25 04:50 01/17/25 04:50 Labs: Laboratory Results - last 24 hr 01/16/25 01/16/25 01/16/25 10:57 14:09 15:17 MCV 93.8 MCH 32.7 MCHC 34.8 RDW 12.3 Plt Count 242 D MPV 8.9 L Immature Gran % (Auto) 0.4 Neut % (Auto) 75.1 H Lymph % (Auto) 9.6 L [place] % (Auto) 13.8 H Eos % (Auto) 0.8 Baso % (Auto) 0.3 Lymph # (Auto) 1.1 L [place] # (Auto) 1.6 H Eos # (Auto) 0.1 Baso # (Auto) 0.0 Abs Immat Gran (auto) 0.05 H Absolute Neuts (auto) 8.6 H Absolute Nucleated RBC 0.000 Nucleated RBC % (auto) 0.0 Smear Tech's Comments VERIFIED Anion Gap 15 Estim Creat Clear Calc 104.5 Estimated GFR > 60 Random Glucose 109 Lactic Acid 1.0 Calcium 9.7 Magnesium 2.5 Total Bilirubin 0.9 Direct Bilirubin 0.3 AST 38 H ALT 40 Alkaline Phosphatase 91 Total Protein 8.1 H Albumin 4.0 Lipase 24 Urine Color Yellow Urine Appearance Clear Urine pH 8.0 Ur Specific [place] >= 1.030 H Urine Protein 30 (1+) H Urine Glucose (UA) Negative Urine Ketones 15 Urine Blood Negative Urine Nitrite Negative Ur Leukocyte Esterase Negative Urine RBC 0-2 Urine WBC 0-5 Ur Squamous Epith Cells 0-2 Urine Bacteria None Seen Hyaline Casts 0-2 Blood Type B Positive Antibody Screen NEGATIVE 01/17/25 04:50 MCV 93.0 MCH 32.9 MCHC 35.4 RDW 12.4 Plt Count 210 MPV 8.6 L Immature Gran % (Auto) Neut % (Auto) Lymph % (Auto) [place] % (Auto) Eos % (Auto) Baso % (Auto) Lymph # (Auto) [place] # (Auto) Eos # (Auto) Baso # (Auto) Abs Immat Gran (auto) Absolute Neuts (auto) Absolute Nucleated RBC 0.000 Nucleated RBC % (auto) 0.0 Smear Tech's Comments Anion Gap 13 Estim Creat Clear Calc 118.0 Estimated GFR > 60 Random Glucose 92 Lactic Acid Calcium 8.8 D Magnesium Total Bilirubin Direct Bilirubin AST ALT Alkaline Phosphatase Total Protein Albumin Lipase Urine Color Urine Appearance Urine pH Ur Specific [place] Urine Protein Urine Glucose (UA) Urine Ketones Urine Blood Urine Nitrite Ur Leukocyte Esterase Urine RBC Urine WBC Ur Squamous Epith Cells Urine Bacteria Hyaline Casts Blood Type Antibody Screen Procedures Date of Service Date of Service: 01/17/25 Progress Note: A&P Assessment and plan (1) Acute phlegmonous appendicitis: Status: Acute Assessment and Plan: He has had pain for over a week WBC down He remains tender although states that he feels better compared to yesterday Abdomen remained soft and benign No fever We will hold off on surgical intervention for now and re-evaluate tomorrow Continue IV antibiotics Nontoxic looking Time Spent With Patient Time: Total time managing care of this patient today ____ minutes. Quality Stroke Does the patient have a stroke diagnosis?: No VTE Prior VTE?: No VTE Risk Level:: Medical - moderate - high VTE Device Contraindication: N/A - Device Ordered VTE Drug Contraindication: N/A - Med Ordered
[2025-01-17] MEDS: Lactated Ringers 1,000 ML 100 ML IVCONT ×2 (08:20→18:31)
[2025-01-17] MEDS: lisinopriL 10 MG TABLET PO (09:42)
[2025-01-17] MEDS: Tamsulosin HCL 0.4 MG CAPSULE PO (09:42)
[2025-01-17] MEDS: Piperacillin Sodium/Tazobactam 3.375 GM in 0.9 % Sodium Chloride 50 ML IV ×3 (10:47→21:35)
--- NOTE | 2025-01-17 15:03 | PM.EVENT ---
Event Note Date of Service: 01/17/25 Event Note: Seen on afternoon rounds He states he still has pain but this seems to have improved significantly since this morning He describes pain down to about 4.5/10 on the right lower quadrant No fever reported He denies any nausea or vomiting Abdomen is soft and benign He looks well and is not toxic looking We will continue with IV antibiotics for now Re-evaluate in the morning He understands that at some point, if we do not feel that he is improving significantly, he may require resection the phlegmonous cecum. Time Spent With Patient Time: Total time managing care of this patient today ____ minutes.
[2025-01-17] MEDS: Heparin Sodium,Porcine 5,000 UNIT/ML VIAL 5000 UNIT SUBCUT ×2 (15:12→21:35)
[2025-01-17] MEDS: 0.9 % Sodium Chloride Flush 3 ML SYRINGE IVFLUSH ×2 (15:13→21:36)
--- NOTE | 2025-01-17 16:22 | MHC.CM.PN ---
PT REPORTS HE LIVES ALONE AND IS INDEPENDENT WITH CARE HE HAS NO DME AND NO SERVICES COPY OF HCP REQUESTED PCP; KIRK KEENE DCP: HOME NO SERVICES VIA SELF TRANSPORT
--- NOTE | 2025-01-17 18:29 | PC.NURSE ---
Patient is taking Morphine for pain q 3 hrs but reporting his pain is getting worse,Dr. Cano notified.
--- NOTE | 2025-01-17 18:49 | PC.NURSE ---
FRANKLIN Parsons will evaluate patient regarding worsening pain
[2025-01-17] MEDS: Melatonin 3 MG TABLET 6 MG PO (21:42)
[2025-01-18] VITALS (23 sets, daily range): BP systolic 103–147; BP diastolic 65–97; PULSE 62–82; RESP 10–20; TEMP 36.1–37.2; O2SAT 2–100
[2025-01-18] MEDS: Morphine Sulfate 4 MG/ML CARTRIDGE IVPUSH ×6 (03:20→23:55)
[2025-01-18] MEDS: Lactated Ringers 1,000 ML 100 ML IVCONT (03:21)
[2025-01-18] MEDS: Piperacillin Sodium/Tazobactam 3.375 GM in 0.9 % Sodium Chloride 50 ML IV ×4 (03:21→21:48)
[2025-01-18] MEDS: Heparin Sodium,Porcine 5,000 UNIT/ML VIAL 5000 UNIT SUBCUT (06:00)
[2025-01-18 07:18] LABS: Hematocrit 37.6 % (42.0-52.0); Hemoglobin 13.3 g/dl (14.0-18.0); Mean Corpuscular HGB Conc 35.4 g/dl (31.0-36.0); Mean Corpuscular Hemoglobin 33.1 pg (27.0-33.0); Mean Corpuscular Volume 93.5 fL (80.0-98.0); Mean Platelet Volume 8.7 fL (9.4-12.4); Platelet Count 233 X10*3/uL (160-400); Red Blood Count 4.02 X10*6/uL (4.60-5.80); White Blood Count 8.3 X10*3/uL (4.8-10.8)
[2025-01-18 07:29] LABS: Anion Gap 13 (12-20); Blood Urea Nitrogen 10 mg/dL (9-16); Calcium 9.2 mg/dL (8.4-10.2); Carbon Dioxide 22 mmol/L (22-29); Chloride 104 mmol/L (96-108); Creatinine Clr Calc Pharmacy 122.7; Estimated Glomerular Filt Rate > 60; Glucose Random 84 mg/dL (60-115); Potassium 4.3 mmol/L (3.3-5.1); Sodium 135 mmol/L (135-145)
[2025-01-18] MEDS: Tamsulosin HCL 0.4 MG CAPSULE PO (07:34)
[2025-01-18] MEDS: lisinopriL 10 MG TABLET PO (07:34)
[2025-01-18] MEDS: 0.9 % Sodium Chloride Flush 3 ML SYRINGE IVFLUSH ×2 (07:35→18:28)
--- NOTE | 2025-01-18 08:32 | PM.PNGS ---
Subjective Subjective Date of Service: 01/18/25 Interval history: States he feels better this morning No fever Denies nausea or vomiting Less pain Physical Exam Vital Signs: Vital Signs: Last Vital Signs Temp 97.7 F 01/18/25 07:30 Pulse 62 01/18/25 07:30 Resp 16 01/18/25 07:30 BP 147/92 H 01/18/25 07:30 Pulse Ox 94 01/18/25 07:30 O2 Del Method Room Air 01/18/25 07:30 BMI result Body Mass Index 28.0 Const: General: comfortable and no acute distress Resp: Effort & Inspection: normal respiratory effort Cardio: Rate: regular rate GI: Palpation (GI): Soft to palpation, not firm, Tenderness to palpation present (GI) (Some tenderness right lower quadrant although this seems improved) and no guarding Objective Data Active Medications Acetaminophen (Acetaminophen 325 Mg Tablet) 650 mg PO Q6H PRN PRN Reason: Pain, Mild 1-3,fever,headache Calcium Carbonate (Calcium Carbonate 750 Mg Tab.Chew) 750 mg PO Q4H PRN PRN Reason: Heartburn Heparin Sodium (Porcine) (Heparin Sodium,Porcine 5,000 Unit/Ml Vial) 5,000 unit SUBCUT Q8H [facility] Last Admin: 01/18/25 06:00 Dose: 5,000 unit Documented By: LUTHER Lactated Ringer's (Lr) 1,000 mls @ 100 mls/hr IVCONT .Q10H [facility] Last Admin: 01/18/25 03:21 Dose: 100 mls/hr Documented By: LUTHER Piperacillin Sod/Tazobactam (Sod 3.375 gm/ Sodium Chloride) 50 mls @ 100 mls/hr IV Q6H [facility] Last Infusion: 01/18/25 03:55 Dose: Infused Documented By: LUTHER Lisinopril (Lisinopril 10 Mg Tablet) 10 mg PO DAILY [facility]; Protocol Last Admin: 01/18/25 07:34 Dose: 10 mg Documented By: CROW Melatonin (Melatonin 3 Mg Tablet) 6 mg PO BEDTIME PRN PRN Reason: Insomnia Last Admin: 01/17/25 21:42 Dose: 6 mg Documented By: LUTHER Morphine Sulfate (Morphine Sulfate 4 Mg/Ml Cartridge) 4 mg IVPUSH Q2H PRN; Protocol PRN Reason: Pain, Severe (Pain Scale 7-10) Last Admin: 01/18/25 07:33 Dose: 4 mg Documented By: CROW Ondansetron HCl (Ondansetron Hcl 4 Mg/2 Ml Vial) 4 mg IVPUSH Q6H PRN PRN Reason: nausea Sodium Chloride (0.9 % Sodium Chloride Flush 3 Ml Syringe) 3 ml IVFLUSH QSHIFT [facility] Last Admin: 01/18/25 07:35 Dose: 3 ml Documented By: CROW Tamsulosin HCl (Tamsulosin Hcl 0.4 Mg Capsule) 0.4 mg PO DAILY [facility] Last Admin: 01/18/25 07:34 Dose: 0.4 mg Documented By: CROW Labs 01/18/25 06:53 01/18/25 06:53 Labs: Laboratory Results - last 24 hr 01/18/25 06:53 MCV 93.5 MCH 33.1 H MCHC 35.4 RDW 12.0 Plt Count 233 MPV 8.7 L Absolute Nucleated RBC 0.000 Nucleated RBC % (auto) 0.0 Anion Gap 13 Estim Creat Clear Calc 122.7 Estimated GFR > 60 Random Glucose 84 Calcium 9.2 Microbiology Microbiology Results: Microbiology 01/16/25 11:22 Blood Culture - Preliminary Blood - Venous No growth after 24 hours. 01/16/25 10:57 Blood Culture - Preliminary Blood - Venous No growth after 24 hours. Procedures Date of Service Date of Service: 01/18/25 Progress Note: A&P Assessment and plan (1) Acute phlegmonous appendicitis: Status: Acute Assessment and Plan: Clinically improved Abdomen remained soft, benign, less tender No fever WBC down Repeat CT scan today to see if there is any drainable abscess Looks well overall Time Spent With Patient Time: Total time managing care of this patient today ____ minutes. Quality Stroke Does the patient have a stroke diagnosis?: No VTE Prior VTE?: No VTE Risk Level:: Medical - moderate - high VTE Device Contraindication: N/A - Device Ordered VTE Drug Contraindication: N/A - Med Ordered
[2025-01-18] MEDS: iohexoL 350 MG/ML 100 ML INFUS..BTL 85 ML IV (10:59)
--- NOTE | 2025-01-18 11:31 | P.EN_ITS ---
Event Note Date of Service: 01/18/25 Event Note: CT scan delayed but has got done I have reviewed this - phlegmonous mass and abscess appears to be bigger Not drainable according to IR The patient does state that he still has periods of severe pain and had been asking for IV pain meds last night chips screen tender on right lower quadrant I told him that because of this overall history including a CT scan images, it may be best to proceed with right colon resection to remove this phlegmon I explained the technique of hand assisted laparoscopic right colon resection possible open I reviewed with him the risks including but not limited to bleeding, infections, staple line leak, injury to other organs including the urinary tract, blood clots, pneumonia, postop pain, ileus as well as benefits and alternatives He understands and agrees to proceed I have left a message with his daughter Elda [phone] Time Spent With Patient Time: Total time managing care of this patient today ____ minutes.
[2025-01-18] MEDS: Lactated Ringers 1,000 ML 80 ML IVCONT (12:22)
--- NOTE | 2025-01-18 13:05 | P.CONAN_ITS ---
HPI - Anesthesia Eval Consult details Narrative: 59yo male patient for hand-assisted laparoscopic right colon resection, possible open PMFSH Active Problems Active Problems: All Active Problems Acute phlegmonous appendicitis (Acute) Abscess of abdominal cavity (Acute) Loose stools (Acute) BPH loc w urin obs/LUTS (Acute) Orchitis (Acute) Suprapubic pain, acute (Acute) Testicular pain, right (Acute) Right shoulder pain (Acute) Pre-diabetes (Acute) Excessive sweating (Acute) Low back pain (Acute) Paresthesia of right foot (Acute) Neoplasm of uncertain behavior of skin (Acute) Shoulder pain (Acute) Back pain (Acute) Biceps tendon rupture (Acute) Sprain of right shoulder (Acute) Athlete's foot (Acute) Encounter for screening examination for intermediate hyperglycemia and diabetes mellitus (Acute) Foot pain, bilateral (Acute) Buttock pain (Acute) Right low back pain (Acute) Left shoulder pain (Acute) Gastroenteritis (Acute) Chambers's neuroma (Acute) YOSEF. Occasionally uses CPAP H/o pacemaker insertion 2011. Battery change and lead change since Past Medical History Medical History Acute phlegmonous appendicitis Sinus arrest Essential hypertension Family History Family History Father CVD (cardiovascular disease) Myocardial infarction Mother Cancer Sister Breast cancer Son No problems noted. Daughter No problems noted. Family history of problems with anesthesia: No Surgical History Surgical History (Updated 01/18/25 @ 13:20 by Carlota Leiva MD) History of pacemaker Deficient knowledge of valve replacement History of open reduction and internal fixation (ORIF) procedure History of Problems with Anesthesia: No Social History Social History Household Members: None Housing: House Are you a primary youth care worker to a significant other at home: No Do you presently have visiting nurse or other home services: No Alcohol intake: current Alcohol intake frequency: holidays/special occasions only Patient Tobacco Use Status: Current someday Tobacco user Tobacco use type: Cigarette e-Cigarette/Vaping Use: Never Used Second Hand Smoke Exposure: No Substance Use Type: Marijuana service: No Current occupational status: employed Current occupation: [employer] Current occupational exposures/hazards: No Cognitive needs: No Hearing needs: No Vision needs: No Meds Allergies Allergy/AdvReac Type Severity Reaction Status Date / Time No Known Allergies Allergy Verified 01/16/25 10:28 Active Medications: Current Medications Acetaminophen (Acetaminophen 325 Mg Tablet) 650 mg PO Q6H PRN PRN Reason: Pain, Mild 1-3,fever,headache Calcium Carbonate (Calcium Carbonate 750 Mg Tab.Chew) 750 mg PO Q4H PRN PRN Reason: Heartburn Heparin Sodium (Porcine) (Heparin Sodium,Porcine 5,000 Unit/Ml Vial) 5,000 unit SUBCUT Q8H [facility] Last Admin: 01/18/25 12:00 Dose: Not Given Piperacillin Sod/Tazobactam (Sod 3.375 gm/ Sodium Chloride) 50 mls @ 100 mls/hr IV Q6H [facility] Last Infusion: 01/18/25 12:00 Dose: Infused Lactated Ringer's (Lr) 1,000 mls @ 80 mls/hr IVCONT .[id number] [facility] Last Admin: 01/18/25 12:22 Dose: 80 mls/hr Lisinopril (Lisinopril 10 Mg Tablet) 10 mg PO DAILY [facility]; Protocol Last Admin: 01/18/25 07:34 Dose: 10 mg Melatonin (Melatonin 3 Mg Tablet) 6 mg PO BEDTIME PRN PRN Reason: Insomnia Last Admin: 01/17/25 21:42 Dose: 6 mg Morphine Sulfate (Morphine Sulfate 4 Mg/Ml Cartridge) 4 mg IVPUSH Q2H PRN; Protocol PRN Reason: Pain, Severe (Pain Scale 7-10) Last Admin: 01/18/25 11:05 Dose: 4 mg Ondansetron HCl (Ondansetron Hcl 4 Mg/2 Ml Vial) 4 mg IVPUSH Q6H PRN PRN Reason: nausea Sodium Chloride (0.9 % Sodium Chloride Flush 3 Ml Syringe) 3 ml IVFLUSH QSHIFT [facility] Last Admin: 01/18/25 07:35 Dose: 3 ml Tamsulosin HCl (Tamsulosin Hcl 0.4 Mg Capsule) 0.4 mg PO DAILY [facility] Last Admin: 01/18/25 07:34 Dose: 0.4 mg Exam Height,Weight and Vital Signs: Height 5 ft 11 in Weight 91.2 kg Last Vital Signs Temp 98.9 F 01/18/25 12:13 Pulse 64 01/18/25 12:13 Resp 16 01/18/25 12:13 BP 133/97 H 01/18/25 12:13 Pulse Ox 96 01/18/25 12:13 O2 Del Method Room Air 01/18/25 12:13 Pertinent Lab Results Pertinent Lab Results: Laboratory Tests 01/16/25 01/16/25 01/16/25 10:57 14:09 15:17 WBC 11.5 H RBC 4.53 L Hgb 14.8 Hct 42.5 MCV 93.8 MCH 32.7 MCHC 34.8 RDW 12.3 Plt Count 242 D MPV 8.9 L Immature Gran % (Auto) 0.4 Neut % (Auto) 75.1 H Lymph % (Auto) 9.6 L [place] % (Auto) 13.8 H Eos % (Auto) 0.8 Baso % (Auto) 0.3 Lymph # (Auto) 1.1 L [place] # (Auto) 1.6 H Eos # (Auto) 0.1 Baso # (Auto) 0.0 Abs Immat Gran (auto) 0.05 H Absolute Neuts (auto) 8.6 H Absolute Nucleated RBC 0.000 Nucleated RBC % (auto) 0.0 Smear Tech's Comments VERIFIED Sodium 137 Potassium 4.7 D Chloride 104 Carbon Dioxide 23 Anion Gap 15 BUN 12 Creatinine 0.79 Estim Creat Clear Calc 104.5 Estimated GFR > 60 Random Glucose 109 Lactic Acid 1.0 Calcium 9.7 Magnesium 2.5 Total Bilirubin 0.9 Direct Bilirubin 0.3 AST 38 H ALT 40 Alkaline Phosphatase 91 Troponin I High Sens 5.9 Total Protein 8.1 H Albumin 4.0 Lipase 24 Urine Color Yellow Urine Appearance Clear Urine pH 8.0 Ur Specific [place] >= 1.030 H Urine Protein 30 (1+) H Urine Glucose (UA) Negative Urine Ketones 15 Urine Blood Negative Urine Nitrite Negative Ur Leukocyte Esterase Negative Urine RBC 0-2 Urine WBC 0-5 Ur Squamous Epith Cells 0-2 Urine Bacteria None Seen Hyaline Casts 0-2 Blood Type B Positive Antibody Screen NEGATIVE 01/17/25 01/18/25 04:50 06:53 WBC 10.1 8.3 RBC 4.13 L 4.02 L Hgb 13.6 L 13.3 L Hct 38.4 L 37.6 L MCV 93.0 93.5 MCH 32.9 33.1 H MCHC 35.4 35.4 RDW 12.4 12.0 Plt Count 210 233 MPV 8.6 L 8.7 L Immature Gran % (Auto) Neut % (Auto) Lymph % (Auto) [place] % (Auto) Eos % (Auto) Baso % (Auto) Lymph # (Auto) [place] # (Auto) Eos # (Auto) Baso # (Auto) Abs Immat Gran (auto) Absolute Neuts (auto) Absolute Nucleated RBC 0.000 0.000 Nucleated RBC % (auto) 0.0 0.0 Smear Tech's Comments Sodium 136 135 Potassium 4.4 4.3 Chloride 105 104 Carbon Dioxide 22 22 Anion Gap 13 13 BUN 11 10 Creatinine 0.70 0.73 Estim Creat Clear Calc 118.0 122.7 Estimated GFR > 60 > 60 Random Glucose 92 84 Lactic Acid Calcium 8.8 D 9.2 Magnesium Total Bilirubin Direct Bilirubin AST ALT Alkaline Phosphatase Troponin I High Sens Total Protein Albumin Lipase Urine Color Urine Appearance Urine pH Ur Specific [place] Urine Protein Urine Glucose (UA) Urine Ketones Urine Blood Urine Nitrite Ur Leukocyte Esterase Urine RBC Urine WBC Ur Squamous Epith Cells Urine Bacteria Hyaline Casts Blood Type Antibody Screen Airway Mallampati Class: III TM Dist: >3cm Neck ROM: Full Loose/Missing/Broken Teeth: No (Denies broken, loose, missing teeth) Heart: RRR Lungs: CTAB Assessment and Plan Assessment Anesthesia Assessment: Anesthesia Plan Discussed and Chart Reviewed Final Anesthetic Review Family History of Problems with Anesthesia: No History of Problems with Anesthesia: No NPO: Yes ASA Class: III and Emergency Final Preanesthetic Review: No Changes in Pt Med Stat, Meds/Allgs Chart Reviewed, Consent Obtained/Reviewed and Anes Risks/Benef Reviewed Patient Risk: Intermediate Procedure Risk: Intermediate Assessment/Block/Sedation in SS: Assess/Block/Sedation- Anesthetic Plan Anesthetic Plan: GA Disposition: Standard PACU and Inp. Admit - Standard Bed
--- NOTE | 2025-01-18 15:23 | MHC.CM.PN ---
pt remains acute is a surgical pt no dcat this time
--- NOTE | 2025-01-18 15:38 | W.PM.OPN ---
Operative Note Operative Note Date of Service: 01/18/25 Narrative: Preop diagnosis: Phlegmon and abscess, near the cecum likely from perforated appendicitis Postop diagnosis: The same Procedure: Hand assisted laparoscopic limited right colon resection Surgeon: Tab Hunt MD assistant financial accountant: FRANKLIN Peña The patient is a 59-year-old male who was admitted because of the large phlegmon and abscess in the area of the cecum. He had pain for over a week while in [place] and did not want to be seen there. The area of the abscess was not amenable to drainage as discussed with IR. He was on IV antibiotics but follow-up CT scan today showed no improvement at all. He also had significant tenderness and was asking for higher doses of narcotics. Despite improvement he had his WBC, I told him it may be best to proceed with resection in view of his persistent symptoms and the large phlegmon and abscess. He understood the technique of the planned procedure and had given consent. He was brought to the operating room. He was placed supine under general anesthesia via endotracheal tube. A Bowling catheter was inserted. The abdomen was prepped and draped in the usual sterile fashion. A surgical time-out was done. The patient was receiving scheduled IV antibiotics. I made a short periumbilical incision in the midline with a blade 15. This was carried down through the full-thickness of the skin subcutaneous fat with electrocautery down to the fascia. The fascia incised. The peritoneum was entered. The Hugo wound retractor was positioned. The GelPort was attached to this along with the insufflating port. We insufflated with a pressure of 15 mm Hg. We used the 10 mm 30 degree scope and with laparoscopic visualization I inserted a 5/12 mm port in the epigastric area as well as in the left upper quadrant. I removed the insufflating port. I inserted my hand into the abdomen through the GelPort. The patient was placed in a [id number] position to reflect the bowel loops away from the right side. Immediately, we noted this large phlegmonous area of the cecum in the proximal right colon. I proceeded to therefore gently divide the ligamentous attachments along the distal right colon with the LigaSure. I proceeded to then mobilize the hepatic flexure by dividing the hepatocolic ligaments with the LigaSure as well. Note of a lot of omental fat adherent to this hepatic flexure which we had to divide with the LigaSure. I mobilize the right colon until I was able to visualize the duodenum. I then made more attention to the cecal area. The cecum as well as the proximal right colon was very indurated with note of poor planes within the mesentery as well as in the retrocecal side. There was a lot of inflammatory changes in the mesentery. This was a large phlegmonous process and I could identify the cecum. While mobilizing the cecum to achieve better definition, entered a large abscess cavity which appeared to be retrocecal and in the mesentery. The appendix could not be identified at this time. Pus was drained and suctioned out. I therefore decided it was best to resect this cecum because of this large phlegmonous process. This allowed me to see the mesentery in the cecum better. I was able to visualize therefore the terminal ileum and followed the mesentery all the way to the distal right colon. I created a mesenteric window in the terminal ileum and divided this with a SINGH 60 mm stapler intracorporeally. We attempted to then bring up cecum, terminal ileum as well as the proximal right colon through the incision but this could not be achieved because of what seemed to be in adequate mobilization. I therefore reinserted the ports and laparoscopic examination of the distal right colon was done. We had to mobilize more of this by dividing additional attachments to the fracture as well as to the omentum. I then created a mesenteric window at the proximal right colon and used the Endo-SINGH 60 mm stapler to divide this. We had to do this this twice as the right colon was very wide. I then proceeded to divide the attached mesentery laparoscopically using the LigaSure until was able to see the pedicle. I divided more of the mesentery proximal and distal to thin out the pedicle. I then used the vascular stapler to divide the ileocolic pedicle. I then was able to bring out this entire specimen through the incision I brought up the ileal stump as well as the right colon stump through the incision. I aligned the anti mesenteric border. I opened up the apex of the staple line. I positioned each arm of the SINGH 60 mm stapler through the lumen and positioned this at the anti mesenteric border. I fired the stapler to create our [id number] anastomosis, making sure that there were no bowel loops or mesentery caught by the staplers. I completed the anastomosis by closing the enterotomy with the TA 60 mm stapler. I applied seromuscular sutures on the crotch of the staple line with a Polysorb 3-0 to release any tension I examined the staple lines and these all appeared to be intact. The lumen appeared to be patent. The anastomotic side did not appear ischemic at all. I therefore replaced this back into the peritoneal cavity I examined laparoscopically and irrigated copiously. Once it appeared that we had good hemostasis, I examined all 4 quadrants. There was no evidence of any bowel injury. I position the omentum to overlie the area of the anastomosis. I positioned a TINO 10 drain along the right gutter and this was brought out through a stab incision in the right lower quadrant. This was secured to the skin with nylon 3-0 anchoring sutures. After irrigation, I suctioned out the irrigant fluid. I closed the fascia with a running Maxon 1 stitch. I examined the fascial closure laparoscopically and this appeared intact without any bowel caught by the sutures I therefore removed all the ports I irrigated all incisions and closed all incisions with skin dannie. All incisions were infiltrated with Marcaine 0.5% for postop analgesia. Dressings were applied. The procedure was completed The patient tolerated the procedure well. There were no immediate complications. Initial and final counts of sponges and instruments were correct. Estimated blood loss was about 100 cc. The patient was extubated without difficulty and transferred to recovery room with stable vital signs. I re-attempted to bring out this cecum through the incision and this time we were able to achieve this with adequate length. I expose the
[2025-01-18] MEDS: fentaNYL citrate/PF 100 MCG/2 ML VIAL 25 MCG IVPUSH (16:00)
[2025-01-18] MEDS: fentaNYL citrate/PF 100 MCG/2 ML VIAL 50 MCG IVPUSH (16:09)
[2025-01-18] MEDS: HYDROmorphone HCl 1 MG/ML SYRINGE IVPUSH (16:19)
--- NOTE | 2025-01-18 16:36 | PM.EVENT ---
Event Note Date of Service: 01/18/25 Event Note: Seen postop Underwent limited right colon resection for phlegmonous appendicitis (?) Stable vital signs Adequate pain control Good urine output Pain management TINO drain in place Labs ordered for the morning Family updated - daughter Elda [phone] Discussed with the hospitalist service Time Spent With Patient Time: Total time managing care of this patient today ____ minutes.
[2025-01-18] MEDS: HYDROmorphone HCl 0.5 MG/0.5 ML SYRINGE 1 MG IVPUSH ×3 (16:40→17:25)
[2025-01-18] MEDS: Ketamine HCl/NS 50 MG/5 ML SYRINGE 10 MG IVPUSH ×2 (16:52→17:04)
[2025-01-18] MEDS: Acetaminophen 1,000 MG/100 ML PIGGYBACK 400 MG IV (19:59)
[2025-01-18] MEDS: Lactated Ringers 1,000 ML 125 ML IVCONT (20:02)
[2025-01-18] MEDS: Melatonin 3 MG TABLET 6 MG PO (21:47)
[2025-01-19] MEDS: Acetaminophen 1,000 MG/100 ML PIGGYBACK 400 MG IV ×3 (01:55→15:10)
[2025-01-19] MEDS: Morphine Sulfate 4 MG/ML CARTRIDGE IVPUSH ×2 (02:55→05:55)
[2025-01-19 03:24] VITALS: BP 118/70; PULSE 71; RESP 18; TEMP 36.5; O2SAT 96
[2025-01-19] MEDS: Lactated Ringers 1,000 ML 125 ML IVCONT (03:43)
[2025-01-19] MEDS: Piperacillin Sodium/Tazobactam 3.375 GM in 0.9 % Sodium Chloride 50 ML IV ×4 (03:43→21:36)
[2025-01-19] MEDS: Heparin Sodium,Porcine 5,000 UNIT/ML VIAL 5000 UNIT SUBCUT ×3 (05:55→21:37)
[2025-01-19 07:05] VITALS: BP 125/83; PULSE 73; RESP 16; TEMP 36.8; O2SAT 95
[2025-01-19 07:06] LABS: Hematocrit 38.9 % (42.0-52.0); Mean Corpuscular Volume 91.7 fL (80.0-98.0); Mean Platelet Volume 8.8 fL (9.4-12.4); Platelet Count 266 X10*3/uL (160-400); Red Blood Count 4.24 X10*6/uL (4.60-5.80); Red Cell Distribution Width 12.2 % (11.0-16.0); White Blood Count 8.7 X10*3/uL (4.8-10.8)
[2025-01-19 07:11] LABS: Anion Gap 14 (12-20); Blood Urea Nitrogen 9 mg/dL (9-16); Carbon Dioxide 22 mmol/L (22-29); Chloride 103 mmol/L (96-108); Creatinine Clr Calc Pharmacy 137.8; Estimated Glomerular Filt Rate > 60; Glucose Random 143 mg/dL (60-115); Potassium 4.6 mmol/L (3.3-5.1); Sodium 134 mmol/L (135-145)
--- NOTE | 2025-01-19 07:45 | PM.PNGS ---
Subjective Subjective Date of Service: 01/19/25 Interval history: Reported severe incisional pain overnight not improved with morphine. He was switch this morning to Dilaudid which seems to be helping. Pain is still 06/30. Reviewed the OR findings with the patient. Physical Exam Vital Signs: Vital Signs: Last Vital Signs Temp 98.2 F 01/19/25 07:05 Pulse 73 01/19/25 07:05 Resp 16 01/19/25 07:05 BP 125/83 01/19/25 07:05 Pulse Ox 95 01/19/25 07:05 O2 Del Method Nasal Cannula 01/19/25 07:05 O2 Flow Rate 2 01/19/25 07:05 BMI result Body Mass Index 28.0 Const: General: tired appearing Nutritional Appearance: well nourished Orientation/consciousness: patient oriented x3 Resp: Effort & Inspection: normal respiratory effort Auscultation: clear to auscultation bilaterally GI: Other: Dressings clean, dry, and intact, appropriate incisional tenderness Skin: Other: Warm, dry, no rashes Neuro: General: patient oriented x3 Extrem: Other: No pedal edema Objective Data Active Medications Acetaminophen (Acetaminophen 325 Mg Tablet) 650 mg PO Q6H PRN PRN Reason: Pain, Mild 1-3,fever,headache Albuterol Sulfate (Albuterol Sulfate (0.083%) 2.5 Mg/3 Ml Vial.Neb) 2.5 mg INHALE ONCE PRN PRN Reason: Shortness of Breath/Wheezing Calcium Carbonate (Calcium Carbonate 750 Mg Tab.Chew) 750 mg PO Q4H PRN PRN Reason: Heartburn Heparin Sodium (Porcine) (Heparin Sodium,Porcine 5,000 Unit/Ml Vial) 5,000 unit SUBCUT Q8H [facility] Last Admin: 01/19/25 05:55 Dose: 5,000 unit Documented By: NICOLE Hydromorphone HCl (Hydromorphone Hcl 0.5 Mg/0.5 Ml Syringe) 0.5 mg IVPUSH Q3H PRN; Protocol PRN Reason: Pain, Severe (Pain Scale 7-10) Piperacillin Sod/Tazobactam (Sod 3.375 gm/ Sodium Chloride) 50 mls @ 100 mls/hr IV Q6H [facility] Last Infusion: 01/19/25 04:20 Dose: Infused Documented By: NICOLE Lactated Ringer's (Lr) 1,000 mls @ 125 mls/hr IVCONT .Q8H [facility] Last Admin: 01/19/25 03:43 Dose: 125 mls/hr Documented By: NICOLE Acetaminophen (Ofirmev) 1,000 mg in 100 mls @ 400 mls/hr IV Q6H [facility] Stop: 01/19/25 14:14 Last Infusion: 01/19/25 02:12 Dose: Infused Documented By: NICOLE Lisinopril (Lisinopril 10 Mg Tablet) 10 mg PO DAILY [facility]; Protocol Last Admin: 01/18/25 07:34 Dose: 10 mg Documented By: CROW Melatonin (Melatonin 3 Mg Tablet) 6 mg PO BEDTIME PRN PRN Reason: Insomnia Last Admin: 01/18/25 21:47 Dose: 6 mg Documented By: NICOLE Naloxone HCl (Naloxone Hcl 0.4 Mg/Ml Vial) 0.04 mg IVPUSH Q5M PRN PRN Reason: Excessive sedation or RR < 8 Ondansetron HCl (Ondansetron Hcl 4 Mg/2 Ml Vial) 4 mg IVPUSH Q6H PRN PRN Reason: nausea Oxycodone HCl (Oxycodone Hcl Immed Release 5 Mg Tablet) 10 mg PO Q4H PRN PRN Reason: Pain, Moderate(Pain Scale 4-6) Sodium Chloride (0.9 % Sodium Chloride Flush 3 Ml Syringe) 3 ml IVFLUSH QSHIFT [facility] Last Admin: 01/19/25 00:06 Dose: Not Given Documented By: NICOLE Non-Admin Reason: IV Running Tamsulosin HCl (Tamsulosin Hcl 0.4 Mg Capsule) 0.4 mg PO DAILY [facility] Last Admin: 01/18/25 07:34 Dose: 0.4 mg Documented By: CROW Labs 01/19/25 06:39 01/19/25 06:39 Labs: Laboratory Results - last 24 hr 01/19/25 06:39 MCV 91.7 MCH 33.0 MCHC 36.0 RDW 12.2 Plt Count 266 MPV 8.8 L Absolute Nucleated RBC 0.000 Nucleated RBC % (auto) 0.0 Anion Gap 14 Estim Creat Clear Calc 137.8 Estimated GFR > 60 Random Glucose 143 H Calcium 9.0 Microbiology Microbiology Results: Microbiology 01/16/25 11:22 Blood Culture - Preliminary Blood - Venous No growth after 48 hours. 01/16/25 10:57 Blood Culture - Preliminary Blood - Venous No growth after 48 hours. Procedures Date of Service Date of Service: 01/19/25 Progress Note: A&P Assessment and plan (1) Acute phlegmonous appendicitis: Status: Acute (2) Abscess of abdominal cavity: Status: Acute Plan Pod 1 following hand assisted laparoscopic limited right colon resection for a phlegmon and abscess near the cecum likely from perforated appendicitis. Patient mainly complains of incisional pain this morning which seems to be improved with the medication change. Exam reveals patient's dressings are clean and intact. Laboratories revealed normal WBC and stable H&H. Encouraged out of bed, ambulation, incentive spirometry. We will continue clear liquid diet today. Continue IV antibiotics. Time Spent With Patient Time: Total time managing care of this patient today ____ minutes. Quality Stroke Does the patient have a stroke diagnosis?: No VTE Prior VTE?: No VTE Risk Level:: Medical - moderate - high VTE Device Contraindication: N/A - Device Ordered VTE Drug Contraindication: N/A - Med Ordered
[2025-01-19] MEDS: HYDROmorphone HCl 0.5 MG/0.5 ML SYRINGE IVPUSH ×5 (07:49→22:48)
[2025-01-19] MEDS: Tamsulosin HCL 0.4 MG CAPSULE PO (07:49)
[2025-01-19] MEDS: lisinopriL 10 MG TABLET PO (07:49)
[2025-01-19] MEDS: 0.9 % Sodium Chloride Flush 3 ML SYRINGE IVFLUSH ×3 (07:55→19:45)
[2025-01-19] MEDS: oxyCODONE HCl Immed Release 5 MG TABLET 10 MG PO ×2 (08:29→13:29)
--- NOTE | 2025-01-19 09:34 | PC.NURSE ---
Indwelling urinary catheter removed at 0920. Device intact, ximena-care provided, patient tolerated well. Patient due to void by 1520. Patient voided in urinal at 0925 for 150mL of light colton urine. Additional 150mL drained from knott bag after removal. Large abdominal dressing present- bladder scan able to be obtained. PVR of 25mL. Output documented in I&O.
--- NOTE | 2025-01-19 10:42 | PC.NURSE ---
IV Zosyn infusion accidentally charted as completed with a waste amount in JAN. Action undone in order history flowsheet. IV infusion continuing as ordered. Pharmacy made aware.
[2025-01-19 12:00] VITALS: BP 134/88; PULSE 77; RESP 18; TEMP 36.9; O2SAT 91
--- NOTE | 2025-01-19 12:07 | HO.POSTANES ---
Post Anesthesia Evaluation Post Anesthesia Evaluation Date of Service: 01/19/25 Vital Signs: Vital Signs Temp Pulse Resp BP Pulse Ox O2 Del Method O2 Flow Rate 01/19/25 07:05 98.2 F 73 16 125/83 95 Nasal Cannula 2 01/19/25 03:24 97.7 F 71 18 118/70 96 Nasal Cannula 2 Anesthesia: General Endotracheal-GETA Mental Status: Awake Pain Control: Satisfactory Nausea/Vomiting: None Hydration: Adequate Anesthesia-Related Issues: No Anes. Related Issues
[2025-01-19] MEDS: ondansetron HCL 4 MG/2 ML VIAL IVPUSH ×2 (13:51→20:00)
--- NOTE | 2025-01-19 15:02 | HO.PM.IMPN ---
Subjective Subjective Date of Service: 01/19/25 Review of Systems Follow up Colon resection Physical Exam Vital Signs: Vital Signs: Last Vital Signs Temp 98.5 F 01/19/25 12:00 Pulse 77 01/19/25 12:00 Resp 18 01/19/25 12:00 BP 134/88 01/19/25 12:00 Pulse Ox 91 L 01/19/25 12:00 O2 Del Method Room Air 01/19/25 12:00 O2 Flow Rate 2 01/19/25 07:05 BMI result Body Mass Index 28.0 Appearing in no acute distress head is normocephalic atraumatic eyes pupils are PERRLA sclera is anicteric mouth throat mucous membranes are intact and moist neck is supple no lymphadenopathy, no JVD noted lung sounds are clear to auscultation heart regular rate rhythm, clear S1, S2 positive bowel sounds neuro patient is alert x3, no focal deficits Objective Data Active Medications Acetaminophen (Acetaminophen 325 Mg Tablet) 650 mg PO Q6H PRN PRN Reason: Pain, Mild 1-3,fever,headache Albuterol Sulfate (Albuterol Sulfate (0.083%) 2.5 Mg/3 Ml Vial.Neb) 2.5 mg INHALE ONCE PRN PRN Reason: Shortness of Breath/Wheezing Calcium Carbonate (Calcium Carbonate 750 Mg Tab.Chew) 750 mg PO Q4H PRN PRN Reason: Heartburn Heparin Sodium (Porcine) (Heparin Sodium,Porcine 5,000 Unit/Ml Vial) 5,000 unit SUBCUT Q8H [facility] Last Admin: 01/19/25 05:55 Dose: 5,000 unit Documented By: NICOLE Hydromorphone HCl (Hydromorphone Hcl 0.5 Mg/0.5 Ml Syringe) 0.5 mg IVPUSH Q3H PRN; Protocol PRN Reason: Pain, Severe (Pain Scale 7-10) Last Admin: 01/19/25 13:55 Dose: 0.5 mg Documented By: TWIN Piperacillin Sod/Tazobactam (Sod 3.375 gm/ Sodium Chloride) 50 mls @ 100 mls/hr IV Q6H [facility] Last Infusion: 01/19/25 11:21 Dose: Infused Documented By: BOBBY Lisinopril (Lisinopril 10 Mg Tablet) 10 mg PO DAILY [facility]; Protocol Last Admin: 01/19/25 07:49 Dose: 10 mg Documented By: BOBBY Melatonin (Melatonin 3 Mg Tablet) 6 mg PO BEDTIME PRN PRN Reason: Insomnia Last Admin: 01/18/25 21:47 Dose: 6 mg Documented By: ODRISKay Naloxone HCl (Naloxone Hcl 0.4 Mg/Ml Vial) 0.04 mg IVPUSH Q5M PRN PRN Reason: Excessive sedation or RR < 8 Ondansetron HCl (Ondansetron Hcl 4 Mg/2 Ml Vial) 4 mg IVPUSH Q6H PRN PRN Reason: nausea Last Admin: 01/19/25 13:51 Dose: 4 mg Documented By: TWIN Oxycodone HCl (Oxycodone Hcl Immed Release 5 Mg Tablet) 10 mg PO Q4H PRN PRN Reason: Pain, Moderate(Pain Scale 4-6) Last Admin: 01/19/25 13:29 Dose: 10 mg Documented By: BOBBY Sodium Chloride (0.9 % Sodium Chloride Flush 3 Ml Syringe) 3 ml IVFLUSH QSHIFT [facility] Last Admin: 01/19/25 07:55 Dose: 3 ml Documented By: BOBBY Tamsulosin HCl (Tamsulosin Hcl 0.4 Mg Capsule) 0.4 mg PO DAILY [facility] Last Admin: 01/19/25 07:49 Dose: 0.4 mg Documented By: BOBBY Labs 01/19/25 06:39 01/19/25 06:39 Labs: Laboratory Results - last 24 hr 01/19/25 06:39 MCV 91.7 MCH 33.0 MCHC 36.0 RDW 12.2 Plt Count 266 MPV 8.8 L Absolute Nucleated RBC 0.000 Nucleated RBC % (auto) 0.0 Anion Gap 14 Estim Creat Clear Calc 137.8 Estimated GFR > 60 Random Glucose 143 H Calcium 9.0 Microbiology Microbiology Results: Microbiology 01/16/25 11:22 Blood Culture - Preliminary Blood - Venous No growth after 48 hours. 01/16/25 10:57 Blood Culture - Preliminary Blood - Venous No growth after 48 hours. Assessment and Plan (1) Acute phlegmonous appendicitis: Status: Acute Plan 59-year-old man admitted by general surgery for lower abdominal pain POD #1 Colon resection 01/18 Hand assisted laparoscopic limited right colon resection clear diet pain management Phlegmon CT abdomen showing large phlegmon to right lower quadrant, RR provider unable to access Management as per surgical team Pain management Hypertension stable BP Continue lisinopril BPH Continue tamsulosin History of pacemaker placement DVT prophylaxis with heparin Full code Quality Stroke Does the patient have a stroke diagnosis?: No VTE Prior VTE?: No VTE Risk Level:: Medical - moderate - high VTE Device Contraindication: N/A - Device Ordered VTE Drug Contraindication: N/A - Med Ordered
--- NOTE | 2025-01-19 15:03 | PC.NURSE ---
Daughter Elda Newberry phone number [phone]. Daughter not currently listed in patient contacts. Patient verbalized permission to release information to this contact.
[2025-01-19 15:17] VITALS: BP 143/92; PULSE 90; RESP 18; TEMP 36.2; O2SAT 93
[2025-01-19 19:30] VITALS: BP 146/96; PULSE 92; RESP 17; TEMP 36.4; O2SAT 94
[2025-01-19] MEDS: Melatonin 3 MG TABLET 6 MG PO (20:00)
[2025-01-19 23:21] VITALS: BP 134/91; PULSE 94; RESP 18; TEMP 36.4; O2SAT 94
[2025-01-20] VITALS (7 sets, daily range): BP systolic 92–158; BP diastolic 58–88; PULSE 83–113; RESP 16–18; TEMP 36.7–37.1; O2SAT 92–94
--- NOTE | 2025-01-20 | ECG_ITS ---
Test Reason : tachycardia Blood Pressure : */* mmHG Vent. Rate : 104 BPM Atrial Rate : 104 BPM P-R Int : 138 ms QRS Dur : 84 ms QT Int : 318 ms P-R-T Axes : 61 57 90 degrees QTcB Int : 418 ms Sinus tachycardia Nonspecific T wave abnormality Abnormal ECG When compared with ECG of 16-Jan-2025 10:58, Nonspecific T wave abnormality now evident in Inferior leads Nonspecific T wave abnormality now evident in Lateral leads Referred By: Erum Beatty Electronically Signed By: ALIS VANCE MD
[2025-01-20] MEDS: HYDROmorphone HCl 0.5 MG/0.5 ML SYRINGE IVPUSH ×2 (02:02→04:58)
[2025-01-20] MEDS: Piperacillin Sodium/Tazobactam 3.375 GM in 0.9 % Sodium Chloride 50 ML IV ×4 (03:51→22:32)
[2025-01-20] MEDS: Heparin Sodium,Porcine 5,000 UNIT/ML VIAL 5000 UNIT SUBCUT ×3 (04:58→22:32)
[2025-01-20] MEDS: ondansetron HCL 4 MG/2 ML VIAL IVPUSH ×2 (08:49→21:43)
[2025-01-20] MEDS: Dextrose 5 % and Lactated Ring 1,000 ML 100 ML IVCONT ×2 (08:52→19:41)
--- NOTE | 2025-01-20 08:59 | PM.PNGS ---
Subjective Subjective Date of Service: 01/20/25 Interval history: Patient had an episode of vomiting this morning. Appears very agitated and requesting transfer to another hospital. He is unable to verbalize why he wishes transfer. In the end he agrees to stay here. Physical Exam Vital Signs: Vital Signs: Last Vital Signs Temp 98.4 F 01/20/25 08:51 Pulse 113 H 01/20/25 08:51 Resp 18 01/20/25 08:51 BP 128/88 01/20/25 08:51 Pulse Ox 93 01/20/25 08:51 O2 Del Method Nasal Cannula 01/20/25 08:51 O2 Flow Rate 3.0 01/20/25 08:51 BMI result Body Mass Index 28.0 Const: General: anxious Nutritional Appearance: average body habitus Resp: Other: Normal respirations, no respiratory distress GI: Other: Incision dressings clean and intact Extrem: General: No edema Objective Data Active Medications Acetaminophen (Acetaminophen 325 Mg Tablet) 650 mg PO Q6H PRN PRN Reason: Pain, Mild 1-3,fever,headache Albuterol Sulfate (Albuterol Sulfate (0.083%) 2.5 Mg/3 Ml Vial.Neb) 2.5 mg INHALE ONCE PRN PRN Reason: Shortness of Breath/Wheezing Calcium Carbonate (Calcium Carbonate 750 Mg Tab.Chew) 750 mg PO Q4H PRN PRN Reason: Heartburn Heparin Sodium (Porcine) (Heparin Sodium,Porcine 5,000 Unit/Ml Vial) 5,000 unit SUBCUT Q8H [facility] Last Admin: 01/20/25 04:58 Dose: 5,000 unit Documented By: NICOLE Hydromorphone HCl (Hydromorphone Hcl 0.5 Mg/0.5 Ml Syringe) 0.5 mg IVPUSH Q3H PRN; Protocol PRN Reason: Pain, Severe (Pain Scale 7-10) Last Admin: 01/20/25 04:58 Dose: 0.5 mg Documented By: NICOLE Piperacillin Sod/Tazobactam (Sod 3.375 gm/ Sodium Chloride) 50 mls @ 100 mls/hr IV Q6H [facility] Last Infusion: 01/20/25 04:21 Dose: Infused Documented By: NICOLE Dextrose/Lactated Ringer's (D5lr) 1,000 mls @ 100 mls/hr IVCONT .Q10H [facility] Last Admin: 01/20/25 08:52 Dose: 100 mls/hr Documented By: BOBBY Lisinopril (Lisinopril 10 Mg Tablet) 10 mg PO DAILY [facility]; Protocol Last Admin: 01/19/25 07:49 Dose: 10 mg Documented By: BOBBY Melatonin (Melatonin 3 Mg Tablet) 6 mg PO BEDTIME PRN PRN Reason: Insomnia Last Admin: 01/19/25 20:00 Dose: 6 mg Documented By: ODRISKay Naloxone HCl (Naloxone Hcl 0.4 Mg/Ml Vial) 0.04 mg IVPUSH Q5M PRN PRN Reason: Excessive sedation or RR < 8 Ondansetron HCl (Ondansetron Hcl 4 Mg/2 Ml Vial) 4 mg IVPUSH Q6H PRN PRN Reason: nausea Last Admin: 01/20/25 08:49 Dose: 4 mg Documented By: BOBBY Oxycodone HCl (Oxycodone Hcl Immed Release 5 Mg Tablet) 10 mg PO Q4H PRN PRN Reason: Pain, Moderate(Pain Scale 4-6) Last Admin: 01/19/25 13:29 Dose: 10 mg Documented By: BOBBY Sodium Chloride (0.9 % Sodium Chloride Flush 3 Ml Syringe) 3 ml IVFLUSH QSHIFT [facility] Last Admin: 01/20/25 08:13 Dose: Not Given Documented By: BOBBY Non-Admin Reason: Previously Administered Tamsulosin HCl (Tamsulosin Hcl 0.4 Mg Capsule) 0.4 mg PO DAILY [facility] Last Admin: 01/19/25 07:49 Dose: 0.4 mg Documented By: BOBBY Labs 01/19/25 06:39 01/19/25 06:39 Procedures Date of Service Date of Service: 01/20/25 Progress Note: A&P Assessment and plan (1) Acute phlegmonous appendicitis: Status: Acute Plan 59-year-old male patient with phlegmonous appendicitis with abscess status post limited right colectomy, postoperative day 2. Patient had an episode of vomiting this morning therefore will back off on the liquid and restart the IV fluids. Patient appeared more agitated this morning, discussed with hospitalist team. Assured patient that there can be episodes of nausea and vomiting after this type of surgery. He expressed understanding but does appear upset. We will continue to monitor. Time Spent With Patient Time: Total time managing care of this patient today ____ minutes. Quality Stroke Does the patient have a stroke diagnosis?: No VTE Prior VTE?: No VTE Risk Level:: Medical - moderate - high VTE Device Contraindication: N/A - Device Ordered VTE Drug Contraindication: N/A - Med Ordered
[2025-01-20 09:23] LABS: Ammonia 57 umol/L (13-55)
[2025-01-20 09:29] LABS: Anion Gap 13 (12-20); Blood Urea Nitrogen 23 mg/dL (9-16); Calcium 9.3 mg/dL (8.4-10.2); Carbon Dioxide 26 mmol/L (22-29); Chloride 101 mmol/L (96-108); Creatinine Clr Calc Pharmacy 122.7; Estimated Glomerular Filt Rate > 60; Glucose Random 179 mg/dL (60-115); Potassium 4.4 mmol/L (3.3-5.1); Sodium 136 mmol/L (135-145)
[2025-01-20] MEDS: lisinopriL 10 MG TABLET PO (09:42)
[2025-01-20] MEDS: Tamsulosin HCL 0.4 MG CAPSULE PO (09:42)
[2025-01-20] MEDS: Acetaminophen 325 MG TABLET 650 MG PO ×3 (10:31→22:30)
[2025-01-20 10:40] LABS: Appearance Urine Clear; Color Urine Dark Yellow; Glucose Urine UA Negative (Negative); Leukocyte Esterase Urine Negative (Negative); Nitrite Urine Negative (Negative); Specific Gravity - Urine >= 1.030 (1.005-1.025); UMIC TRIGGER UACC YES; Urine Blood Trace (Negative); Urine Ketones 15 mg/dL (Negative); Urine Protein 100 (2+) mg/dL (Neg-Trace)
[2025-01-20 10:44] LABS: Bacteria Urine None Seen (None Seen); Hyaline Casts Urine 0-2 /LPF (0-2); RBC Urine 0-2 /HPF (0-2); Squamous Epithelial Cell Urine 0-2 /HPF (0-2); WBC Urine 0-5 /HPF (0-5)
--- NOTE | 2025-01-20 12:00 | PC.NURSE ---
Patient reports continued nausea with vomiting overnight. Coffee ground emesis noted in phil-bag during morning assessment. Nausea present upon assessment without vomiting. Dr. Abel Harrington notified and met with patient at bedside. Diet changed to NPO with ice chips and sips of clear liquids, and IV fluid infusion initiated. Anti-emetic medication administered with +effect. See MAR for details. No further nausea reported. No further emesis present. Patient tolerating ice chips and sips of water without issue. Per Dr. Harrington, morning coffee ground emesis may be old blood, plan is to continue monitoring at this time.
[2025-01-20] MEDS: LORazepam 2 MG/ML VIAL 1 MG IVPUSH ×2 (12:18→16:32)
[2025-01-20 12:30] LABS: D Dimer High Sensitivity 3633 NG/ML
--- NOTE | 2025-01-20 13:19 | P.PNIM_ITS ---
Subjective Subjective Date of Service: 01/20/25 Review of Systems Follow up Colon resection consultation Physical Exam 2 Vital Signs: Vital Signs: Last Vital Signs Temp 98.0 F 01/20/25 11:54 Pulse 97 01/20/25 12:54 Resp 16 01/20/25 12:54 BP 92/58 L 01/20/25 12:54 Pulse Ox 94 01/20/25 12:54 O2 Del Method Room Air 01/20/25 12:54 O2 Flow Rate 3.0 01/20/25 08:51 BMI result Body Mass Index 28.0 Appearing in no acute distress lung sounds are clear to auscultation heart regular rate rhythm, clear S1, S2 positive bowel sounds, abdomen is soft, nontender neuro patient is alert x3, no focal deficits Objective Data Active Medications Acetaminophen (Acetaminophen 325 Mg Tablet) 650 mg PO Q6H PRN PRN Reason: Pain, Mild 1-3,fever,headache Last Admin: 01/20/25 10:31 Dose: 650 mg Documented By: BOBBY Albuterol Sulfate (Albuterol Sulfate (0.083%) 2.5 Mg/3 Ml Vial.Neb) 2.5 mg INHALE ONCE PRN PRN Reason: Shortness of Breath/Wheezing Calcium Carbonate (Calcium Carbonate 750 Mg Tab.Chew) 750 mg PO Q4H PRN PRN Reason: Heartburn Heparin Sodium (Porcine) (Heparin Sodium,Porcine 5,000 Unit/Ml Vial) 5,000 unit SUBCUT Q8H [facility] Last Admin: 01/20/25 04:58 Dose: 5,000 unit Documented By: NICOLE Hydromorphone HCl (Hydromorphone Hcl 0.5 Mg/0.5 Ml Syringe) 0.5 mg IVPUSH Q3H PRN; Protocol PRN Reason: Pain, Severe (Pain Scale 7-10) Last Admin: 01/20/25 04:58 Dose: 0.5 mg Documented By: NICOLE Piperacillin Sod/Tazobactam (Sod 3.375 gm/ Sodium Chloride) 50 mls @ 100 mls/hr IV Q6H [facility] Last Infusion: 01/20/25 11:06 Dose: Infused Documented By: BOBBY Dextrose/Lactated Ringer's (D5lr) 1,000 mls @ 100 mls/hr IVCONT .Q10H [facility] Last Admin: 01/20/25 08:52 Dose: 100 mls/hr Documented By: BOBBY Lisinopril (Lisinopril 10 Mg Tablet) 10 mg PO DAILY [facility]; Protocol Last Admin: 01/20/25 09:42 Dose: 10 mg Documented By: BOBBY Lorazepam (Lorazepam 2 Mg/Ml Vial) 1 mg IVPUSH Q4H PRN PRN Reason: anxiety/restlessness Last Admin: 01/20/25 12:18 Dose: 1 mg Documented By: BOBBY Melatonin (Melatonin 3 Mg Tablet) 6 mg PO BEDTIME PRN PRN Reason: Insomnia Last Admin: 01/19/25 20:00 Dose: 6 mg Documented By: ODRISKay Naloxone HCl (Naloxone Hcl 0.4 Mg/Ml Vial) 0.04 mg IVPUSH Q5M PRN PRN Reason: Excessive sedation or RR < 8 Ondansetron HCl (Ondansetron Hcl 4 Mg/2 Ml Vial) 4 mg IVPUSH Q6H PRN PRN Reason: nausea Last Admin: 01/20/25 08:49 Dose: 4 mg Documented By: BOBBY Oxycodone HCl (Oxycodone Hcl Immed Release 5 Mg Tablet) 10 mg PO Q4H PRN PRN Reason: Pain, Moderate(Pain Scale 4-6) Last Admin: 01/19/25 13:29 Dose: 10 mg Documented By: BOBBY Sodium Chloride (0.9 % Sodium Chloride Flush 3 Ml Syringe) 3 ml IVFLUSH QSHIFT [facility] Last Admin: 01/20/25 08:13 Dose: Not Given Documented By: BOBBY Non-Admin Reason: Previously Administered Tamsulosin HCl (Tamsulosin Hcl 0.4 Mg Capsule) 0.4 mg PO DAILY [facility] Last Admin: 01/20/25 09:42 Dose: 0.4 mg Documented By: BOBBY Labs 01/19/25 06:39 01/20/25 08:58 Labs: Laboratory Results - last 24 hr 01/20/25 01/20/25 01/20/25 08:58 09:48 12:16 D-Dimer High Sensitivty 3633 Anion Gap 13 Estim Creat Clear Calc 122.7 Estimated GFR > 60 Random Glucose 179 H Calcium 9.3 Ammonia 57 H Urine Color Dark Yellow Urine Appearance Clear Urine pH 6.0 Ur Specific [place] >= 1.030 H Urine Protein 100 (2+) H Urine Glucose (UA) Negative Urine Ketones 15 Urine Blood Trace H Urine Nitrite Negative Ur Leukocyte Esterase Negative Urine RBC 0-2 Urine WBC 0-5 Ur Squamous Epith Cells 0-2 Urine Bacteria None Seen Hyaline Casts 0-2 Assessment and Plan (1) Acute phlegmonous appendicitis: Status: Acute Plan 59-year-old man admitted by general surgery for lower abdominal pain Tachycardia ST on EKG elevated ddimer check CTA to r/o PE in light of recent surgery Anxiety/delirium no hx of dementia ua neg, normal ammonia possible hospital delirium with some anxiety lorazepam has helped POD #2 Colon resection 2/ Hand assisted laparoscopic limited right colon resection had vomiting for surgeon made NPO pain management Phlegmon CT abdomen showing large phlegmon to right lower quadrant, RR provider unable to access Management as per surgical team Pain management Hypertension stable BP Continue lisinopril BPH Continue tamsulosin History of pacemaker placement DVT prophylaxis with heparin Full code Quality Stroke Does the patient have a stroke diagnosis?: No VTE Prior VTE?: No VTE Risk Level:: Medical - moderate - high VTE Device Contraindication: N/A - Device Ordered VTE Drug Contraindication: N/A - Med Ordered
--- NOTE | 2025-01-20 14:16 | PC.NURSE ---
IV contrast signed, in chart, Number 18G IV slightly above the wrist
[2025-01-20] MEDS: iohexoL 350 MG/ML 100 ML INFUS..BTL IV (14:48)
[2025-01-20] MEDS: 0.9 % Sodium Chloride Flush 3 ML SYRINGE IVFLUSH (16:27)
[2025-01-20] MEDS: Melatonin 3 MG TABLET 6 MG PO (22:43)
[2025-01-21] VITALS (8 sets, daily range): BP systolic 96–150; BP diastolic 68–96; PULSE 84–94; RESP 12–18; TEMP 36.2–36.6; O2SAT 92–96; BMI 28.0
[2025-01-21] MEDS: LORazepam 2 MG/ML VIAL 1 MG IVPUSH ×2 (02:27→22:41)
[2025-01-21] MEDS: Piperacillin Sodium/Tazobactam 3.375 GM in 0.9 % Sodium Chloride 50 ML IV ×4 (05:00→21:31)
[2025-01-21] MEDS: Heparin Sodium,Porcine 5,000 UNIT/ML VIAL 5000 UNIT SUBCUT ×3 (05:03→21:16)
[2025-01-21] MEDS: lisinopriL 10 MG TABLET PO (07:18)
[2025-01-21] MEDS: oxyCODONE HCl Immed Release 5 MG TABLET 10 MG PO ×2 (07:18→11:02)
[2025-01-21] MEDS: Dextrose 5 % and Lactated Ring 1,000 ML 100 ML IVCONT ×2 (07:18→17:19)
[2025-01-21] MEDS: Tamsulosin HCL 0.4 MG CAPSULE PO (07:19)
--- NOTE | 2025-01-21 07:55 | PM.PNGS ---
Subjective Subjective Date of Service: 01/22/25 Interval history: States that he has had no significant pain Says he has not been asking for narcotic pain medications Has been burping a lot Says he has had a little bit of flatus Physical Exam Vital Signs: Vital Signs: Last Vital Signs Temp 97.9 F 01/21/25 07:54 Pulse 87 01/21/25 07:54 Resp 18 01/21/25 07:54 BP 118/79 01/21/25 07:54 Pulse Ox 93 01/21/25 07:54 O2 Del Method Room Air 01/21/25 07:54 O2 Flow Rate 3.0 01/20/25 08:51 BMI result Body Mass Index 28.0 Const: General: no acute distress Resp: Effort & Inspection: normal respiratory effort GI: Other: Distended but soft, incisions clean and dry, TINO drain very scanty Objective Data Active Medications Acetaminophen (Acetaminophen 325 Mg Tablet) 650 mg PO Q6H PRN PRN Reason: Pain, Mild 1-3,fever,headache Last Admin: 01/20/25 22:30 Dose: 650 mg Documented By: ROB Albuterol Sulfate (Albuterol Sulfate (0.083%) 2.5 Mg/3 Ml Vial.Neb) 2.5 mg INHALE ONCE PRN PRN Reason: Shortness of Breath/Wheezing Calcium Carbonate (Calcium Carbonate 750 Mg Tab.Chew) 750 mg PO Q4H PRN PRN Reason: Heartburn Heparin Sodium (Porcine) (Heparin Sodium,Porcine 5,000 Unit/Ml Vial) 5,000 unit SUBCUT Q8H [facility] Last Admin: 01/21/25 05:03 Dose: 5,000 unit Documented By: YOSELIN Hydromorphone HCl (Hydromorphone Hcl 0.5 Mg/0.5 Ml Syringe) 0.5 mg IVPUSH Q3H PRN; Protocol PRN Reason: Pain, Severe (Pain Scale 7-10) Last Admin: 01/20/25 04:58 Dose: 0.5 mg Documented By: NICOLE Piperacillin Sod/Tazobactam (Sod 3.375 gm/ Sodium Chloride) 50 mls @ 100 mls/hr IV Q6H [facility] Last Infusion: 01/21/25 06:50 Dose: Infused Documented By: YOSELIN Dextrose/Lactated Ringer's (D5lr) 1,000 mls @ 100 mls/hr IVCONT .Q10H [facility] Last Admin: 01/21/25 07:18 Dose: 100 mls/hr Documented By: PARVIZ Lisinopril (Lisinopril 10 Mg Tablet) 10 mg PO DAILY [facility]; Protocol Last Admin: 01/21/25 07:18 Dose: 10 mg Documented By: PARVIZ Lorazepam (Lorazepam 2 Mg/Ml Vial) 1 mg IVPUSH Q4H PRN PRN Reason: anxiety/restlessness Last Admin: 01/21/25 02:27 Dose: 1 mg Documented By: YOSELIN Melatonin (Melatonin 3 Mg Tablet) 6 mg PO BEDTIME PRN PRN Reason: Insomnia Last Admin: 01/20/25 22:43 Dose: 6 mg Documented By: ROB Naloxone HCl (Naloxone Hcl 0.4 Mg/Ml Vial) 0.04 mg IVPUSH Q5M PRN PRN Reason: Excessive sedation or RR < 8 Ondansetron HCl (Ondansetron Hcl 4 Mg/2 Ml Vial) 4 mg IVPUSH Q6H PRN PRN Reason: nausea Last Admin: 01/20/25 21:43 Dose: 4 mg Documented By: ROB Oxycodone HCl (Oxycodone Hcl Immed Release 5 Mg Tablet) 10 mg PO Q4H PRN PRN Reason: Pain, Moderate(Pain Scale 4-6) Last Admin: 01/21/25 07:18 Dose: 10 mg Documented By: PARVIZ Sodium Chloride (0.9 % Sodium Chloride Flush 3 Ml Syringe) 3 ml IVFLUSH QSHIFT [facility] Last Admin: 01/21/25 07:19 Dose: Not Given Documented By: PARVIZ Non-Admin Reason: IV Running Tamsulosin HCl (Tamsulosin Hcl 0.4 Mg Capsule) 0.4 mg PO DAILY [facility] Last Admin: 01/21/25 07:19 Dose: 0.4 mg Documented By: PARVIZ Labs 01/19/25 06:39 01/22/25 05:56 Labs: Laboratory Results - last 24 hr 01/20/25 01/20/25 01/20/25 08:58 09:48 12:16 D-Dimer High Sensitivty 3633 Anion Gap 13 Estim Creat Clear Calc 122.7 Estimated GFR > 60 Random Glucose 179 H Calcium 9.3 Ammonia 57 H Urine Color Dark Yellow Urine Appearance Clear Urine pH 6.0 Ur Specific [place] >= 1.030 H Urine Protein 100 (2+) H Urine Glucose (UA) Negative Urine Ketones 15 Urine Blood Trace H Urine Nitrite Negative Ur Leukocyte Esterase Negative Urine RBC 0-2 Urine WBC 0-5 Ur Squamous Epith Cells 0-2 Urine Bacteria None Seen Hyaline Casts 0-2 Procedures Date of Service Date of Service: 01/22/25 Progress Note: A&P Assessment and plan (1) Acute phlegmonous appendicitis: Status: Acute Assessment and Plan: Status post limited right colon resection Feels better However, distended although soft Would keep on ice chips and sips only for now Encouraged ambulation Await full return of GI function Looks well overall Continue IV fluids Time Spent With Patient Time: Total time managing care of this patient today ____ minutes. Quality Stroke Does the patient have a stroke diagnosis?: No VTE Prior VTE?: No VTE Risk Level:: Medical - moderate - high VTE Device Contraindication: N/A - Device Ordered VTE Drug Contraindication: N/A - Med Ordered
[2025-01-21] MEDS: Acetaminophen 325 MG TABLET 650 MG PO ×3 (09:13→21:17)
[2025-01-21] MEDS: Docusate Sodium 100 MG CAPSULE PO ×2 (11:02→19:51)
--- NOTE | 2025-01-21 12:11 | MHC.CLN ---
NUTRITION NPO WITH LIMITED PO INTAKE X 6 DAYS. PER PROVIDER, START PPN. RECOMMEND PPN AT 40 ML PER HOUR TO PROVIDE 41 G PROTEIN, 96 G DEXTROSE, 490 KCALS. REPLETE LYTES NEEDED. CHECK LABS/TRIGLYCERIDES. FOLLOW FOR PPN TOLERANCE AND DIET ADVANCEMENT. SEE CLINICAL NUTRITION ASSESSMENT 01/21/25.
[2025-01-21 13:56] LABS: Triglycerides 173 mg/dL (<150)
[2025-01-21 13:59] LABS: Anion Gap 9 (12-20); Blood Urea Nitrogen 18 mg/dL (9-16); Calcium 8.6 mg/dL (8.4-10.2); Carbon Dioxide 26 mmol/L (22-29); Chloride 109 mmol/L (96-108); Creatinine Clr Calc Pharmacy 146.8; Estimated Glomerular Filt Rate > 60; Glucose Random 144 mg/dL (60-115); Potassium 4.1 mmol/L (3.3-5.1); Sodium 140 mmol/L (135-145)
--- NOTE | 2025-01-21 14:52 | PM.EVENT ---
Event Note Date of Service: 01/21/25 Event Note: Seen on afternoon rounds He has been ambulating a lot Feels comfortable Denies any nausea Passing more flatus Abdomen distended but much softer He looks well We will retry on clear liquids Continue to ambulate more Time Spent With Patient Time: Total time managing care of this patient today ____ minutes.
[2025-01-21] MEDS: 0.9 % Sodium Chloride Flush 3 ML SYRINGE IVFLUSH ×2 (15:18→22:33)
--- NOTE | 2025-01-21 18:39 | PC.NURSE ---
Assumed care at 1400, patient alert and oriented, RA sat's above 96%, VSS. Patient c/o abdominal pain, requesting only Tylenol , does not want to take any other pain meds. Voiding in urinal, no BM, patient's diet advanced to clear liquids. Abdomen distended and tender, TINO drain to RUQ draining small amount of red fluid, emptied for 40ml at 1800.
[2025-01-21] MEDS: Melatonin 3 MG TABLET 6 MG PO (19:50)
[2025-01-21] MEDS: Parenteral Nutrition 960 ML 40 ML IV (19:51)
[2025-01-21] MEDS: HYDROmorphone HCl 0.5 MG/0.5 ML SYRINGE IVPUSH (22:29)
[2025-01-22] MEDS: Acetaminophen 325 MG TABLET 650 MG PO (03:27)
[2025-01-22] MEDS: Piperacillin Sodium/Tazobactam 3.375 GM in 0.9 % Sodium Chloride 50 ML IV ×4 (03:29→22:23)
[2025-01-22 03:44] VITALS: BP 117/76; PULSE 89; RESP 18; TEMP 36.3; O2SAT 94
[2025-01-22] MEDS: Dextrose 5 % and Lactated Ring 1,000 ML 100 ML IVCONT (03:57)
[2025-01-22] MEDS: Throat Lozenge, Medicated LOZENGE 1 LOZENGE MUCOUS MEM ×4 (05:58→19:11)
[2025-01-22] MEDS: Heparin Sodium,Porcine 5,000 UNIT/ML VIAL 5000 UNIT SUBCUT ×3 (06:00→22:23)
[2025-01-22] MEDS: HYDROmorphone HCl 0.5 MG/0.5 ML SYRINGE IVPUSH ×5 (06:14→22:32)
[2025-01-22] MEDS: ondansetron HCL 4 MG/2 ML VIAL IVPUSH (06:14)
--- NOTE | 2025-01-22 06:54 | PC.NURSE ---
pt reports that he vomited into his water cup, appears to be black (coffee ground) emesis estimated to be 50ml, mixed into cup of water, Pt's umbilical dannie appears to have some redness around it and a bit warmth to touch marked with skin marker. [place] drain dressing intact and has drained about 100ml over the night. Afebrile at 97.6 orally, HR: 89 BP: 117/66, RR; 18: O2: 94 RA, Dr. Fong made aware, no new orders at this time.
[2025-01-22 07:22] VITALS: BP 129/80; PULSE 78; RESP 18; TEMP 36.2; O2SAT 96
[2025-01-22 07:23] LABS: Albumin Level 2.6 g/dL (3.5-5.0); Anion Gap 9 (12-20); Blood Urea Nitrogen 21 mg/dL (9-16); Calcium 8.5 mg/dL (8.4-10.2); Carbon Dioxide 25 mmol/L (22-29); Chloride 110 mmol/L (96-108); Creatinine Clr Calc Pharmacy 144.5; Estimated Glomerular Filt Rate > 60; Glucose Fasting 136 mg/dL (60-99); Magnesium 2.3 mg/dL (1.6-2.6); Phosphorus 2.5 mg/dL (2.7-4.5); Potassium 4.4 mmol/L (3.3-5.1); Sodium 140 mmol/L (135-145)
--- NOTE | 2025-01-22 07:32 | P.PNGS_ITS ---
Subjective Subjective Date of Service: 01/22/25 Interval history: Feels well this morning As per nursing staff, how when episode of small emesis last night of clear liquid Patient says he is okay this morning Passing flatus Physical Exam 2 Vital Signs: Vital Signs: Last Vital Signs Temp 97.1 F 01/22/25 07:22 Pulse 78 01/22/25 07:22 Resp 18 01/22/25 07:22 BP 129/80 01/22/25 07:22 Pulse Ox 96 01/22/25 07:22 O2 Del Method Room Air 01/22/25 03:44 O2 Flow Rate 3.0 01/20/25 08:51 BMI result Body Mass Index 28.0 Const: General: comfortable and no acute distress Resp: Effort & Inspection: normal respiratory effort Cardio: Rate: regular rate GI: Other: Mildly distended but soft Palpation (GI): Soft to palpation, not firm, nontender and no guarding Objective Data Active Medications Acetaminophen (Acetaminophen 325 Mg Tablet) 650 mg PO Q6H PRN PRN Reason: Pain, Mild 1-3,fever,headache Last Admin: 01/22/25 03:27 Dose: 650 mg Documented By: MARY Albuterol Sulfate (Albuterol Sulfate (0.083%) 2.5 Mg/3 Ml Vial.Neb) 2.5 mg INHALE ONCE PRN PRN Reason: Shortness of Breath/Wheezing Benzocaine (Throat Lozenge, Medicated Lozenge) 1 lozenge MUCOUS MEM Q2H PRN PRN Reason: Sore Throat Last Admin: 01/22/25 05:58 Dose: 1 lozenge Documented By: MARY Calcium Carbonate (Calcium Carbonate 750 Mg Tab.Chew) 750 mg PO Q4H PRN PRN Reason: Heartburn Docusate Sodium (Docusate Sodium 100 Mg Capsule) 100 mg PO BID [facility] Last Admin: 01/21/25 19:51 Dose: 100 mg Documented By: MARY Heparin Sodium (Porcine) (Heparin Sodium,Porcine 5,000 Unit/Ml Vial) 5,000 unit SUBCUT Q8H [facility] Last Admin: 01/22/25 06:00 Dose: 5,000 unit Documented By: MARY Hydromorphone HCl (Hydromorphone Hcl 0.5 Mg/0.5 Ml Syringe) 0.5 mg IVPUSH Q3H PRN; Protocol PRN Reason: Pain, Severe (Pain Scale 7-10) Last Admin: 01/22/25 06:14 Dose: 0.5 mg Documented By: MARY Piperacillin Sod/Tazobactam (Sod 3.375 gm/ Sodium Chloride) 50 mls @ 100 mls/hr IV Q6H [facility] Last Infusion: 01/22/25 03:58 Dose: Infused Documented By: MARY Dextrose/Lactated Ringer's (D5lr) 1,000 mls @ 100 mls/hr IVCONT .Q10H [facility] Last Admin: 01/22/25 03:57 Dose: 100 mls/hr Documented By: MARY Nutrition (Parenteral) (Parenteral Nutrition) 960 mls @ 40 mls/hr IV .Q24H [facility]; Protocol Stop: 01/22/25 20:59 Last Admin: 01/21/25 19:51 Dose: 40 mls/hr Documented By: MARY Lisinopril (Lisinopril 10 Mg Tablet) 10 mg PO DAILY [facility]; Protocol Last Admin: 01/21/25 07:18 Dose: 10 mg Documented By: PARVIZ Lorazepam (Lorazepam 2 Mg/Ml Vial) 1 mg IVPUSH Q4H PRN PRN Reason: anxiety/restlessness Last Admin: 01/21/25 22:41 Dose: 1 mg Documented By: MARY Melatonin (Melatonin 3 Mg Tablet) 6 mg PO BEDTIME PRN PRN Reason: Insomnia Last Admin: 01/21/25 19:50 Dose: 6 mg Documented By: MARY Comments: early per pt request Naloxone HCl (Naloxone Hcl 0.4 Mg/Ml Vial) 0.04 mg IVPUSH Q5M PRN PRN Reason: Excessive sedation or RR < 8 Ondansetron HCl (Ondansetron Hcl 4 Mg/2 Ml Vial) 4 mg IVPUSH Q6H PRN PRN Reason: nausea Last Admin: 01/22/25 06:14 Dose: 4 mg Documented By: MARY Oxycodone HCl (Oxycodone Hcl Immed Release 5 Mg Tablet) 10 mg PO Q4H PRN PRN Reason: Pain, Moderate(Pain Scale 4-6) Last Admin: 01/21/25 11:02 Dose: 10 mg Documented By: PARVIZ Pharmacy Consult (Consult Rx Parenteral Nutrition Ordering) 1 each MISCELLANE DAILY PRN PRN Reason: Consult order Sodium Chloride (0.9 % Sodium Chloride Flush 3 Ml Syringe) 3 ml IVFLUSH QSHIFT [facility] Last Admin: 01/21/25 22:33 Dose: 3 ml Documented By: MARY Tamsulosin HCl (Tamsulosin Hcl 0.4 Mg Capsule) 0.4 mg PO DAILY [facility] Last Admin: 01/21/25 07:19 Dose: 0.4 mg Documented By: PARVIZ Labs 01/19/25 06:39 01/22/25 05:56 Labs: Laboratory Results - last 24 hr 01/21/25 01/22/25 13:21 05:56 Anion Gap 9 L 9 L Estim Creat Clear Calc 146.8 144.5 Estimated GFR > 60 > 60 Random Glucose 144 H Fasting Glucose 136 H Calcium 8.6 D 8.5 Phosphorus 2.5 L Magnesium 2.3 Albumin 2.6 L Triglycerides 173 H Microbiology Microbiology Results: Microbiology 01/16/25 11:22 Blood Culture - Final Blood - Venous No growth after 5 days. 01/16/25 10:57 Blood Culture - Final Blood - Venous No growth after 5 days. Procedures Date of Service Date of Service: 01/22/25 Progress Note: A&P Assessment and plan (1) Acute phlegmonous appendicitis: Status: Acute Assessment and Plan: Status post limited right colon resection Clinically doing well Had small episode of emesis last will therefore clear on clear liquids Encouraged ambulation Abdomen is soft and benign although mildly distended Looks well Started on PPN - lytes okay this morning Await full return of GI functions Time Spent With Patient Time: Total time managing care of this patient today ____ minutes. Quality Stroke Does the patient have a stroke diagnosis?: No VTE Prior VTE?: No VTE Risk Level:: Medical - moderate - high VTE Device Contraindication: N/A - Device Ordered VTE Drug Contraindication: N/A - Med Ordered
[2025-01-22] MEDS: Tamsulosin HCL 0.4 MG CAPSULE PO (09:05)
[2025-01-22] MEDS: lisinopriL 10 MG TABLET PO (09:05)
[2025-01-22] MEDS: Docusate Sodium 100 MG CAPSULE PO ×2 (09:05→20:05)
--- NOTE | 2025-01-22 10:32 | MHC.CLN ---
F/U DIET ADVANCED TO CLEAR LIQUIDS REVIEWED LABS DISCUSSED WITH PHARMACY RECOMMEND INCREASING PPN TO 60 ML PER HOUR TO PROVIDE 734KCALS, 61G PROTEIN, 144G DEXTROSE REPLETE LYTES NEEDED. REPEAT TRIGS
[2025-01-22 11:07] LABS: Triglycerides 143 mg/dL (<150)
[2025-01-22 12:00] VITALS: BP 127/83; PULSE 93; RESP 16; TEMP 36.4; O2SAT 95
[2025-01-22] MEDS: Calcium Carbonate 750 MG TAB.CHEW PO (13:09)
[2025-01-22] MEDS: LORazepam 2 MG/ML VIAL 1 MG IVPUSH ×2 (13:15→18:08)
--- NOTE | 2025-01-22 15:03 | PM.EVENT ---
Event Note Date of Service: 01/23/25 Event Note: Seen afternoon rounds He has been ambulating Says he feels much better this afternoon No nausea or vomiting Passing good amounts of flatus Abdomen is soft, mildly distended, no guarding, no rebound He says he wants to try advancing diet I will start him on full liquids Continue to ambulate Looks well clinically Time Spent With Patient Time: Total time managing care of this patient today ____ minutes.
[2025-01-22 15:14] VITALS: BP 125/74; PULSE 68; RESP 20; TEMP 36.5; O2SAT 94
--- NOTE | 2025-01-22 16:34 | HO.WOUND ---
Wound consult: Initial 59yr old Male admitted 01/16/25 - Surgery performed by Dr. Hunt on 01/18/25. Wound consult placed for Redness around incision - Spoke to direct care nurse - Dr. Hunt aware of midline erythema and recent serous oozing. Will defer topical recommendations to Luis Hunt at this time.
[2025-01-22] MEDS: oxyCODONE HCl Immed Release 5 MG TABLET 10 MG PO (19:20)
[2025-01-22 19:27] VITALS: BP 126/77; PULSE 92; RESP 20; TEMP 36; O2SAT 95
[2025-01-22] MEDS: Melatonin 3 MG TABLET 6 MG PO (20:05)
[2025-01-22] MEDS: 0.9 % Sodium Chloride Flush 3 ML SYRINGE IVFLUSH (20:06)
[2025-01-22] MEDS: Parenteral Nutrition 1,440 ML 60 ML IV (20:56)
[2025-01-22 23:24] VITALS: BP 112/66; PULSE 88; RESP 16; TEMP 36.3; O2SAT 95
[2025-01-23] MEDS: HYDROmorphone HCl 0.5 MG/0.5 ML SYRINGE IVPUSH ×2 (02:34→06:25)
[2025-01-23 03:16] VITALS: BP 116/69; PULSE 85; RESP 16; TEMP 36.5; O2SAT 94
[2025-01-23] MEDS: Piperacillin Sodium/Tazobactam 3.375 GM in 0.9 % Sodium Chloride 50 ML IV ×4 (03:49→21:57)
[2025-01-23] MEDS: Heparin Sodium,Porcine 5,000 UNIT/ML VIAL 5000 UNIT SUBCUT ×3 (06:19→21:57)
[2025-01-23 07:14] VITALS: BP 112/74; PULSE 77; RESP 16; TEMP 37.2; O2SAT 96
[2025-01-23 07:15] LABS: Albumin Level 2.6 g/dL (3.5-5.0); Anion Gap 10 (12-20); Blood Urea Nitrogen 15 mg/dL (9-16); Calcium 8.7 mg/dL (8.4-10.2); Carbon Dioxide 25 mmol/L (22-29); Chloride 106 mmol/L (96-108); Creatinine Clr Calc Pharmacy 146.8; Estimated Glomerular Filt Rate > 60; Glucose Fasting 121 mg/dL (60-99); Magnesium 2.1 mg/dL (1.6-2.6); Phosphorus 3.7 mg/dL (2.7-4.5); Potassium 4.2 mmol/L (3.3-5.1); Sodium 137 mmol/L (135-145)
--- NOTE | 2025-01-23 07:59 | P.PNGS_ITS ---
Subjective Subjective Date of Service: 01/23/25 Interval history: Has hiccups Passing flatus although he says this is not a lot Says he comfortable with this morning but as per nursing staff did ask for narcotics overnight No vomiting Physical Exam 2 Vital Signs: Vital Signs: Last Vital Signs Temp 98.9 F 01/23/25 07:14 Pulse 77 01/23/25 07:14 Resp 16 01/23/25 07:14 BP 112/74 01/23/25 07:14 Pulse Ox 96 01/23/25 07:14 O2 Del Method Room Air 01/23/25 07:14 O2 Flow Rate 3.0 01/20/25 08:51 BMI result Body Mass Index 28.0 Const: Other: Was sleeping, anxious when awoken General: comfortable and no acute distress Resp: Effort & Inspection: normal respiratory effort Cardio: Rate: regular rate GI: Other: Distended but soft , incision with some redness on the lower part scanty drainage TINO drain very scanty serosanguineous output Palpation (GI): Soft to palpation, not firm and no guarding Objective Data Active Medications Acetaminophen (Acetaminophen 325 Mg Tablet) 650 mg PO Q6H PRN PRN Reason: Pain, Mild 1-3,fever,headache Last Admin: 01/22/25 03:27 Dose: 650 mg Documented By: MARY Albuterol Sulfate (Albuterol Sulfate (0.083%) 2.5 Mg/3 Ml Vial.Neb) 2.5 mg INHALE ONCE PRN PRN Reason: Shortness of Breath/Wheezing Benzocaine (Throat Lozenge, Medicated Lozenge) 1 lozenge MUCOUS MEM Q2H PRN PRN Reason: Sore Throat Last Admin: 01/22/25 19:11 Dose: 1 lozenge Documented By: NICOLE Calcium Carbonate (Calcium Carbonate 750 Mg Tab.Chew) 750 mg PO Q4H PRN PRN Reason: Heartburn Last Admin: 01/22/25 13:09 Dose: 750 mg Documented By: ANDREIA Docusate Sodium (Docusate Sodium 100 Mg Capsule) 100 mg PO BID [facility] Last Admin: 01/22/25 20:05 Dose: 100 mg Documented By: NICOLE Heparin Sodium (Porcine) (Heparin Sodium,Porcine 5,000 Unit/Ml Vial) 5,000 unit SUBCUT Q8H [facility] Last Admin: 01/23/25 06:19 Dose: 5,000 unit Documented By: NICOLE Hydromorphone HCl (Hydromorphone Hcl 0.5 Mg/0.5 Ml Syringe) 0.5 mg IVPUSH Q3H PRN; Protocol PRN Reason: Pain, Severe (Pain Scale 7-10) Last Admin: 01/23/25 06:25 Dose: 0.5 mg Documented By: NICOLE Piperacillin Sod/Tazobactam (Sod 3.375 gm/ Sodium Chloride) 50 mls @ 100 mls/hr IV Q6H [facility] Last Infusion: 01/23/25 04:24 Dose: Infused Documented By: NICOLE Nutrition (Parenteral) (Parenteral Nutrition) 1,440 mls @ 60 mls/hr IV .Q24H [facility]; Protocol Stop: 01/23/25 20:59 Last Admin: 01/22/25 20:56 Dose: 60 mls/hr Documented By: NICOLE Lisinopril (Lisinopril 10 Mg Tablet) 10 mg PO DAILY [facility]; Protocol Last Admin: 01/22/25 09:05 Dose: 10 mg Documented By: ANDREIA Lorazepam (Lorazepam 2 Mg/Ml Vial) 1 mg IVPUSH Q4H PRN PRN Reason: anxiety/restlessness Last Admin: 01/22/25 18:08 Dose: 1 mg Documented By: ANDREIA Melatonin (Melatonin 3 Mg Tablet) 6 mg PO BEDTIME PRN PRN Reason: Insomnia Last Admin: 01/22/25 20:05 Dose: 6 mg Documented By: NICOLE Naloxone HCl (Naloxone Hcl 0.4 Mg/Ml Vial) 0.04 mg IVPUSH Q5M PRN PRN Reason: Excessive sedation or RR < 8 Ondansetron HCl (Ondansetron Hcl 4 Mg/2 Ml Vial) 4 mg IVPUSH Q6H PRN PRN Reason: nausea Last Admin: 01/22/25 06:14 Dose: 4 mg Documented By: MARY Oxycodone HCl (Oxycodone Hcl Immed Release 5 Mg Tablet) 10 mg PO Q4H PRN PRN Reason: Pain, Moderate(Pain Scale 4-6) Last Admin: 01/22/25 19:20 Dose: 10 mg Documented By: NICOLE Pharmacy Consult (Consult Rx Parenteral Nutrition Ordering) 1 each MISCELLANE DAILY PRN PRN Reason: Consult order Sodium Chloride (0.9 % Sodium Chloride Flush 3 Ml Syringe) 3 ml IVFLUSH QSHIFT [facility] Last Admin: 01/22/25 20:06 Dose: 3 ml Documented By: NICOLE Tamsulosin HCl (Tamsulosin Hcl 0.4 Mg Capsule) 0.4 mg PO DAILY [facility] Last Admin: 01/22/25 09:05 Dose: 0.4 mg Documented By: ANDREIA Labs 01/19/25 06:39 01/23/25 05:56 Labs: Laboratory Results - last 24 hr 01/22/25 01/23/25 05:56 05:56 Hold Purple Top SEE NOTE Anion Gap 10 L Estim Creat Clear Calc 146.8 Estimated GFR > 60 Fasting Glucose 121 H Calcium 8.7 Phosphorus 3.7 Magnesium 2.1 Albumin 2.6 L Triglycerides 143 Procedures Date of Service Date of Service: 01/23/25 Progress Note: A&P Assessment and plan (1) Acute phlegmonous appendicitis: Status: Acute Assessment and Plan: Status post limited right colon resection Still having hiccups We will give promethazine Will put back on clear liquids until flatus more consistent Abdomen remains very soft and benign Encouraged more ambulation Try to avoid narcotics Stable vital sign on PPN Time Spent With Patient Time: Total time managing care of this patient today ____ minutes. Quality Stroke Does the patient have a stroke diagnosis?: No VTE Prior VTE?: No VTE Risk Level:: Medical - moderate - high VTE Device Contraindication: N/A - Device Ordered VTE Drug Contraindication: N/A - Med Ordered
[2025-01-23] MEDS: Tamsulosin HCL 0.4 MG CAPSULE PO (08:15)
[2025-01-23] MEDS: Docusate Sodium 100 MG CAPSULE PO ×2 (08:15→20:05)
[2025-01-23] MEDS: lisinopriL 10 MG TABLET PO (08:15)
[2025-01-23] MEDS: Acetaminophen 1,000 MG/100 ML PIGGYBACK 400 MG IV ×3 (08:15→20:05)
[2025-01-23] MEDS: 0.9 % Sodium Chloride Flush 3 ML SYRINGE IVFLUSH ×3 (08:16→20:11)
[2025-01-23] MEDS: LORazepam 2 MG/ML VIAL 1 MG IVPUSH ×3 (09:26→21:57)
--- NOTE | 2025-01-23 10:53 | MHC.CLN ---
F/U PO INTAKE VARIABLE WITH CLEARS RANGING FROM 0-100% DIET RX: CLEAR LIQUIDS REVIEWED LABS-UNREMARKABLE DISCUSSED WITH PHARMACY RECOMMEND INCREASING PPN TO MAX GOAL RATE 80ML/HR WITH 98G LIPIDS TO PROVIDE 1959 TOTAL KCALS (25KCALS/KG), 82G PROTEIN (1.0G/KG), 192G DEXTROSE REPLETE LYTES NEEDED WILL DECREASE PPN PO INTAKE IMPROVES
[2025-01-23] MEDS: oxyCODONE HCl Immed Release 5 MG TABLET 10 MG PO ×3 (11:15→20:05)
[2025-01-23 11:35] VITALS: BP 115/58; PULSE 86; RESP 16; TEMP 37.2; O2SAT 95
--- NOTE | 2025-01-23 14:40 | PM.EVENT ---
Event Note Date of Service: 01/23/25 Event Note: Feels much better this afternoon Says he is passing more flatus Denies significant pain Abdomen is soft and benign I had released to dannie on the lower part of his incision earlier because of some drainage consistent with subcutaneous fat necrosis Continue more ambulation Hope to advance diet tomorrow Doing well clinically Time Spent With Patient Time: Total time managing care of this patient today ____ minutes.
[2025-01-23 15:10] VITALS: BP 120/83; PULSE 86; RESP 20; TEMP 36.4; O2SAT 95
[2025-01-23 19:17] VITALS: BP 120/75; PULSE 90; RESP 20; TEMP 36.4; O2SAT 95
[2025-01-23] MEDS: Promethazine HCL 25 MG TABLET PO (20:05)
[2025-01-23] MEDS: Throat Lozenge, Medicated LOZENGE 1 LOZENGE MUCOUS MEM (20:14)
[2025-01-23] MEDS: Parenteral Nutrition 1,920 ML 80 ML IV (21:46)
[2025-01-23 23:19] VITALS: BP 112/76; PULSE 84; RESP 16; TEMP 36.8; O2SAT 96
[2025-01-24] VITALS (9 sets, daily range): BP systolic 104–129; BP diastolic 66–84; PULSE 80–89; RESP 16–25; TEMP 36.4–37.2; O2SAT 93–96
[2025-01-24] MEDS: oxyCODONE HCl Immed Release 5 MG TABLET 10 MG PO ×3 (00:21→14:47)
[2025-01-24] MEDS: Acetaminophen 1,000 MG/100 ML PIGGYBACK 400 MG IV ×3 (02:02→18:01)
[2025-01-24] MEDS: Piperacillin Sodium/Tazobactam 3.375 GM in 0.9 % Sodium Chloride 50 ML IV ×4 (03:55→21:27)
[2025-01-24] MEDS: Heparin Sodium,Porcine 5,000 UNIT/ML VIAL 5000 UNIT SUBCUT ×3 (06:00→21:26)
[2025-01-24 06:56] LABS: Albumin Level 2.7 g/dL (3.5-5.0); Anion Gap 10 (12-20); Blood Urea Nitrogen 13 mg/dL (9-16); Calcium 8.5 mg/dL (8.4-10.2); Carbon Dioxide 25 mmol/L (22-29); Chloride 103 mmol/L (96-108); Creatinine Clr Calc Pharmacy 139.9; Estimated Glomerular Filt Rate > 60; Glucose Fasting 122 mg/dL (60-99); Magnesium 2.2 mg/dL (1.6-2.6); Phosphorus 3.7 mg/dL (2.7-4.5); Potassium 4.1 mmol/L (3.3-5.1); Sodium 134 mmol/L (135-145)
[2025-01-24] MEDS: Acetaminophen 325 MG TABLET 650 MG PO (07:31)
[2025-01-24] MEDS: Tamsulosin HCL 0.4 MG CAPSULE PO (07:32)
[2025-01-24] MEDS: Promethazine HCL 25 MG TABLET PO (07:32)
[2025-01-24] MEDS: lisinopriL 10 MG TABLET PO (07:32)
[2025-01-24] MEDS: Docusate Sodium 100 MG CAPSULE PO ×2 (07:32→21:26)
[2025-01-24] MEDS: LORazepam 2 MG/ML VIAL 1 MG IVPUSH ×2 (07:33→12:50)
[2025-01-24] MEDS: 0.9 % Sodium Chloride Flush 3 ML SYRINGE IVFLUSH ×2 (07:33→14:51)
--- NOTE | 2025-01-24 07:38 | PM.PNGS ---
Subjective Subjective Date of Service: 01/24/25 <Nkechi Peña PA-C - Last Filed: 01/24/25 07:43> 01/24/25 <Tab Hunt MD - Last Filed: 01/24/25 15:03> Interval history: [place] well yesterday afternoon/night however has hiccuping this morning. Reports passing continuous flatus overnight. <Nkechi Peña PA-C - Last Filed: 01/24/25 07:43> Physical Exam Vital Signs: Vital Signs: Last Vital Signs Temp 98.4 F 01/24/25 03:34 Pulse 83 01/24/25 03:34 Resp 16 01/24/25 03:34 BP 114/69 01/24/25 03:34 Pulse Ox 94 01/24/25 03:34 O2 Del Method Room Air 01/24/25 03:34 O2 Flow Rate 3.0 01/20/25 08:51 BMI result Body Mass Index 28.0 <Nkechi Peña PA-C - Last Filed: 01/24/25 07:43> Const: General: alert <Nkechi Peña PA-C - Last Filed: 01/24/25 07:43> Orientation/consciousness: patient oriented x3 <LEONOR Calderón Last Filed: 01/24/25 07:43> Resp: Effort & Inspection: normal respiratory effort <LEONOR Calderón Last Filed: 01/24/25 07:43> GI: Other: TINO with serosanguineous drainage <Nkechi Peña PA-C - Last Filed: 01/24/25 07:43> Inspection: Yes distended and Yes incision (clean, small wound opening at inferior aspect with serosanguineous drainage) <LEONOR Calderón Last Filed: 01/24/25 07:43> Palpation (GI): Soft to palpation, Tenderness to palpation present (GI) (mild incisional, drain site ) and no guarding <LEONOR Calderón Last Filed: 01/24/25 07:43> Percussion: Yes tympanic to percussion <LEONOR Calderón Last Filed: 01/24/25 07:43> Skin: General skin exam: no rashes or lesions noted <Nkechi Peña PA-C - Last Filed: 01/24/25 07:43> Neuro: General: patient oriented x3 and moves all extremities <Nkechi Peña PA-C - Last Filed: 01/24/25 07:43> Objective Data Active Medications Acetaminophen (Acetaminophen 325 Mg Tablet) 650 mg PO Q6H PRN PRN Reason: Pain, Mild 1-3,fever,headache Last Admin: 01/24/25 07:31 Dose: 650 mg Documented By: ANDREIA Albuterol Sulfate (Albuterol Sulfate (0.083%) 2.5 Mg/3 Ml Vial.Neb) 2.5 mg INHALE ONCE PRN PRN Reason: Shortness of Breath/Wheezing Benzocaine (Throat Lozenge, Medicated Lozenge) 1 lozenge MUCOUS MEM Q2H PRN PRN Reason: Sore Throat Last Admin: 01/23/25 20:14 Dose: 1 lozenge Documented By: NICOLE Calcium Carbonate (Calcium Carbonate 750 Mg Tab.Chew) 750 mg PO Q4H PRN PRN Reason: Heartburn Last Admin: 01/22/25 13:09 Dose: 750 mg Documented By: ANDREIA Docusate Sodium (Docusate Sodium 100 Mg Capsule) 100 mg PO BID [facility] Last Admin: 01/24/25 07:32 Dose: 100 mg Documented By: ANDREIA Heparin Sodium (Porcine) (Heparin Sodium,Porcine 5,000 Unit/Ml Vial) 5,000 unit SUBCUT Q8H [facility] Last Admin: 01/24/25 06:00 Dose: 5,000 unit Documented By: NICOLE Piperacillin Sod/Tazobactam (Sod 3.375 gm/ Sodium Chloride) 50 mls @ 100 mls/hr IV Q6H [facility] Last Infusion: 01/24/25 04:25 Dose: Infused Documented By: NICOLE Nutrition (Parenteral) (Parenteral Nutrition) 1,920 mls @ 80 mls/hr IV .Q24H [facility]; Protocol Stop: 01/24/25 20:59 Last Admin: 01/23/25 21:46 Dose: 80 mls/hr Documented By: HO.ODRISM Nutrition (Parenteral) (Parenteral Nutrition) 1,920 mls @ 80 mls/hr IV .Q24H [facility]; Protocol Stop: 01/25/25 20:59 Lisinopril (Lisinopril 10 Mg Tablet) 10 mg PO DAILY [facility]; Protocol Last Admin: 01/24/25 07:32 Dose: 10 mg Documented By: ANDREIA Lorazepam (Lorazepam 2 Mg/Ml Vial) 1 mg IVPUSH Q4H PRN PRN Reason: anxiety/restlessness Last Admin: 01/24/25 07:33 Dose: 1 mg Documented By: ANDREIA Melatonin (Melatonin 3 Mg Tablet) 6 mg PO BEDTIME PRN PRN Reason: Insomnia Last Admin: 01/22/25 20:05 Dose: 6 mg Documented By: NICOLE Naloxone HCl (Naloxone Hcl 0.4 Mg/Ml Vial) 0.04 mg IVPUSH Q5M PRN PRN Reason: Excessive sedation or RR < 8 Ondansetron HCl (Ondansetron Hcl 4 Mg/2 Ml Vial) 4 mg IVPUSH Q6H PRN PRN Reason: nausea Last Admin: 01/22/25 06:14 Dose: 4 mg Documented By: MARY Oxycodone HCl (Oxycodone Hcl Immed Release 5 Mg Tablet) 10 mg PO Q4H PRN PRN Reason: Pain, Moderate(Pain Scale 4-6) Last Admin: 01/24/25 00:21 Dose: 10 mg Documented By: NICOLE Pharmacy Consult (Consult Rx Parenteral Nutrition Ordering) 1 each MISCELLANE DAILY PRN PRN Reason: Consult order Promethazine HCl (Promethazine Hcl 25 Mg Tablet) 25 mg PO Q8H PRN PRN Reason: Hiccups Last Admin: 01/24/25 07:32 Dose: 25 mg Documented By: ANDREIA Sodium Chloride (0.9 % Sodium Chloride Flush 3 Ml Syringe) [facility] Last Admin: 01/24/25 07:33 Dose: 3 ml Documented By: ANDREIA Tamsulosin HCl (Tamsulosin Hcl 0.4 Mg Capsule) 0.4 mg PO DAILY [facility] Last Admin: 01/24/25 07:32 Dose: 0.4 mg Documented By: ANDREIA Peña PA-C - Last Filed: 01/24/25 07:43> Labs CBC & Chem 7: 01/19/25 06:39 01/24/25 05:29 <Nkechi Peña PA-C - Last Filed: 01/24/25 07:43> Labs: Laboratory Results - last 24 hr 01/24/25 05:29 Anion Gap 10 L Estim Creat Clear Calc 139.9 Estimated GFR > 60 Fasting Glucose 122 H Calcium 8.5 Phosphorus 3.7 Magnesium 2.2 Albumin 2.7 L <Nkechi Peña PA-C - Last Filed: 01/24/25 07:43> Procedures Date of Service Date of Service: 01/24/25 <Nkechi Peña PA-C - Last Filed: 01/24/25 07:43> 01/24/25 <Tab Hunt MD - Last Filed: 01/24/25 15:03> Progress Note: A&P Assessment and plan (1) Acute phlegmonous appendicitis: Status: Acute <Nkechi Peña PA-C - Last Filed: 01/24/25 07:43> (2) S/P right colectomy: Status: Acute <Nkechi Peña PA-C - Last Filed: 01/24/25 07:43> Assessment and Plan: States he had a good night However appears to be coping Passing good amounts of flatus Abdomen soft although with some distention Check KUB Tolerating liquids and has had no nausea or vomiting Hope to advance diet later Seen and examined independently <Tab Hunt MD - Last Filed: 01/24/25 15:03> Assessment and Plan: POD #6 s/p hand assisted laparoscopic limited right colon resection. Intermittently with hiccups and distention but passing flatus. VSS. Abd is distended this morning and tympanitic. Will obtain KUB to assess. ?Reglan ATC as prokinetic. Again educated to avoid narcotics, increase activity and ambulation. Cont clear liquids for now, IV abx, PPN. <LEONOR Calderón Last Filed: 01/24/25 07:43> Time Spent With Patient Time: Total time managing care of this patient today ____ minutes. <Nkechi Peña PA-C - Last Filed: 01/24/25 07:43> Quality Stroke Does the patient have a stroke diagnosis?: No <Nkechi Peña PA-C - Last Filed: 01/24/25 07:43> VTE Prior VTE?: No <Nkechi Peña PA-C - Last Filed: 01/24/25 07:43> VTE Risk Level:: Medical - moderate - high <LEONOR Calderón Last Filed: 01/24/25 07:43> VTE Device Contraindication: N/A - Device Ordered <Nkechi Peña PA-C - Last Filed: 01/24/25 07:43> VTE Drug Contraindication: N/A - Med Ordered <LEONOR Calderón Last Filed: 01/24/25 07:43>
[2025-01-24] MEDS: Calcium Carbonate 750 MG TAB.CHEW PO (10:28)
[2025-01-24] MEDS: ondansetron HCL 4 MG/2 ML VIAL IVPUSH (10:28)
--- NOTE | 2025-01-24 10:36 | MHC.CLN ---
F/U PO INTAKE IMPROVING WITH CLEARS DIET RX: CLEAR LIQUIDS REVIEWED LABS-WATCH NA DISCUSSED WITH PHARMACY CONTINUE PPN AT MAX GOAL RATE 80ML/HR WITH 98G LIPIDS PROVIDES 1959 TOTAL KCALS (25KCALS/KG), 82G PROTEIN (1.0G/KG), 192G DEXTROSE REPLETE LYTES NEEDED WILL DECREASE PPN PO INTAKE IMPROVES
[2025-01-24] MEDS: iohexoL 350 MG/ML 100 ML INFUS..BTL 85 ML IV (13:52)
--- NOTE | 2025-01-24 15:02 | PM.EVENT ---
Event Note Date of Service: 01/24/25 Event Note: Seen multiple times today I had order for a CT scan in view of his delayed return of GI function I have reviewed the images - suggestive of ileus, no obstruction, small residual abscess in the area of the phlegmon , drain in place I explained to him the findings Encouraged to continue to ambulate We will keep on clear liquids Continue IV antibiotics He says he uses CPAP at home - I have discussed this with respiratory [facility], try to avoid narcotic Time Spent With Patient Time: Total time managing care of this patient today ____ minutes.
[2025-01-24] MEDS: Melatonin 3 MG TABLET 6 MG PO (21:26)
[2025-01-24] MEDS: Parenteral Nutrition 1,920 ML 80 ML IV (21:27)
[2025-01-25] VITALS (7 sets, daily range): BP systolic 105–116; BP diastolic 60–75; PULSE 79–100; RESP 16–21; TEMP 36–37.8; O2SAT 93–95
[2025-01-25] MEDS: Acetaminophen 1,000 MG/100 ML PIGGYBACK 400 MG IV ×2 (00:13→06:35)
[2025-01-25] MEDS: 0.9 % Sodium Chloride Flush 3 ML SYRINGE IVFLUSH ×2 (00:17→20:42)
[2025-01-25] MEDS: Piperacillin Sodium/Tazobactam 3.375 GM in 0.9 % Sodium Chloride 50 ML IV ×4 (03:29→20:41)
[2025-01-25] MEDS: Promethazine HCL 25 MG TABLET PO ×2 (04:07→14:56)
[2025-01-25] MEDS: LORazepam 2 MG/ML VIAL 1 MG IVPUSH ×2 (05:23→22:01)
[2025-01-25] MEDS: Heparin Sodium,Porcine 5,000 UNIT/ML VIAL 5000 UNIT SUBCUT ×3 (05:24→20:41)
--- NOTE | 2025-01-25 07:20 | P.PNGS_ITS ---
Subjective Subjective Date of Service: 01/25/25 Interval history: Says he feels well this morning Had a good night - started on CPAP Passing good amounts of flatus Denies pain No nausea or vomiting Physical Exam 2 Vital Signs: Vital Signs: Last Vital Signs Temp 96.8 F 01/25/25 02:29 Pulse 79 01/25/25 02:29 Resp 18 01/25/25 02:29 BP 116/64 01/25/25 02:29 Pulse Ox 95 01/25/25 02:29 O2 Del Method Room Air 01/25/25 02:29 O2 Flow Rate 3.0 01/20/25 08:51 BMI result Body Mass Index 28.0 Const: General: comfortable and no acute distress Resp: Effort & Inspection: normal respiratory effort Cardio: Rate: regular rate GI: Other: Lower most part of the incision with some scanty drainage Palpation (GI): Soft to palpation, not firm, nontender and no guarding Objective Data Active Medications Acetaminophen (Acetaminophen 325 Mg Tablet) 650 mg PO Q6H PRN PRN Reason: Pain, Mild 1-3,fever,headache Last Admin: 01/24/25 07:31 Dose: 650 mg Documented By: ANDREIA Albuterol Sulfate (Albuterol Sulfate (0.083%) 2.5 Mg/3 Ml Vial.Neb) 2.5 mg INHALE ONCE PRN PRN Reason: Shortness of Breath/Wheezing Benzocaine (Throat Lozenge, Medicated Lozenge) 1 lozenge MUCOUS MEM Q2H PRN PRN Reason: Sore Throat Last Admin: 01/23/25 20:14 Dose: 1 lozenge Documented By: ODRISM Calcium Carbonate (Calcium Carbonate 750 Mg Tab.Chew) 750 mg PO Q4H PRN PRN Reason: Heartburn Last Admin: 01/24/25 10:28 Dose: 750 mg Documented By: ANDREIA Docusate Sodium (Docusate Sodium 100 Mg Capsule) 100 mg PO BID [facility] Last Admin: 01/24/25 21:26 Dose: 100 mg Documented By: LEOBARDO Heparin Sodium (Porcine) (Heparin Sodium,Porcine 5,000 Unit/Ml Vial) 5,000 unit SUBCUT Q8H [facility] Last Admin: 01/25/25 05:24 Dose: 5,000 unit Documented By: LEOBARDO Piperacillin Sod/Tazobactam (Sod 3.375 gm/ Sodium Chloride) 50 mls @ 100 mls/hr IV Q6H [facility] Last Infusion: 01/25/25 04:04 Dose: Infused Documented By: LEOBARDO Nutrition (Parenteral) (Parenteral Nutrition) 1,920 mls @ 80 mls/hr IV .Q24H [facility]; Protocol Stop: 01/25/25 20:59 Last Admin: 01/24/25 21:27 Dose: 80 mls/hr Documented By: LEOBARDO Lisinopril (Lisinopril 10 Mg Tablet) 10 mg PO DAILY [facility]; Protocol Last Admin: 01/24/25 07:32 Dose: 10 mg Documented By: ANDREIA Lorazepam (Lorazepam 2 Mg/Ml Vial) 1 mg IVPUSH Q4H PRN PRN Reason: anxiety/restlessness Last Admin: 01/25/25 05:23 Dose: 1 mg Documented By: LEOBARDO Melatonin (Melatonin 3 Mg Tablet) 6 mg PO BEDTIME PRN PRN Reason: Insomnia Last Admin: 01/24/25 21:26 Dose: 6 mg Documented By: LEOBARDO Naloxone HCl (Naloxone Hcl 0.4 Mg/Ml Vial) 0.04 mg IVPUSH Q5M PRN PRN Reason: Excessive sedation or RR < 8 Ondansetron HCl (Ondansetron Hcl 4 Mg/2 Ml Vial) 4 mg IVPUSH Q6H PRN PRN Reason: nausea Last Admin: 01/24/25 10:28 Dose: 4 mg Documented By: ANDREIA Oxycodone HCl (Oxycodone Hcl Immed Release 5 Mg Tablet) 10 mg PO Q4H PRN PRN Reason: Pain, Moderate(Pain Scale 4-6) Last Admin: 01/24/25 14:47 Dose: 10 mg Documented By: ANDREIA Pharmacy Consult (Consult Rx Parenteral Nutrition Ordering) 1 each MISCELLANE DAILY PRN PRN Reason: Consult order Promethazine HCl (Promethazine Hcl 25 Mg Tablet) 25 mg PO Q8H PRN PRN Reason: Hiccups Last Admin: 01/25/25 04:07 Dose: 25 mg Documented By: LEOBARDO Sodium Chloride (0.9 % Sodium Chloride Flush 3 Ml Syringe) [facility] Last Admin: 01/25/25 00:17 Dose: 3 ml Documented By: LEOBARDO Tamsulosin HCl (Tamsulosin Hcl 0.4 Mg Capsule) 0.4 mg PO DAILY [facility] Last Admin: 01/24/25 07:32 Dose: 0.4 mg Documented By: ANDREIA Labs 01/19/25 06:39 01/25/25 07:54 Procedures Date of Service Date of Service: 01/25/25 Progress Note: A&P Assessment and plan (1) Acute phlegmonous appendicitis: Status: Acute Assessment and Plan: Status post limited right colon resection CT done yesterday - likely ileus with small bowel dilatation, question of small residual abscess next to drain TINO drain with scanty serosanguineous output Feels better this morning Abdomen is soft and benign He states he is ready to try regular food Ambulate Clinically looks well Time Spent With Patient Time: Total time managing care of this patient today ____ minutes. Quality Stroke Does the patient have a stroke diagnosis?: No VTE Prior VTE?: No VTE Risk Level:: Medical - moderate - high VTE Device Contraindication: N/A - Device Ordered VTE Drug Contraindication: N/A - Med Ordered
[2025-01-25] MEDS: oxyCODONE HCl Immed Release 5 MG TABLET 10 MG PO ×4 (07:53→22:08)
[2025-01-25] MEDS: Tamsulosin HCL 0.4 MG CAPSULE PO (07:54)
[2025-01-25] MEDS: lisinopriL 10 MG TABLET PO (07:54)
[2025-01-25] MEDS: Docusate Sodium 100 MG CAPSULE PO (07:54)
[2025-01-25 09:00] LABS: Albumin Level 2.7 g/dL (3.5-5.0); Anion Gap 10 (12-20); Blood Urea Nitrogen 12 mg/dL (9-16); Calcium 8.4 mg/dL (8.4-10.2); Carbon Dioxide 24 mmol/L (22-29); Chloride 105 mmol/L (96-108); Creatinine Clr Calc Pharmacy 129.8; Estimated Glomerular Filt Rate > 60; Glucose Fasting 130 mg/dL (60-99); Magnesium 2.3 mg/dL (1.6-2.6); Phosphorus 3.4 mg/dL (2.7-4.5); Potassium 4.3 mmol/L (3.3-5.1); Sodium 135 mmol/L (135-145)
--- NOTE | 2025-01-25 10:57 | MHC.CLN ---
F/U DIET ADVANCED THIS MORNING TO REGULAR, BLAND. REVIEWED LABS. COMMUNICATED WITH PHARMACY. CONTINUE PPN AT MAX GOAL RATE 80ML/HR WITH 98G LIPIDS PROVIDES 1959 TOTAL KCALS (25KCALS/KG), 82G PROTEIN (1.0G/KG), 192G DEXTROSE. REPLETE LYTES NEEDED. WILL DECREASE PPN PO INTAKE IMPROVES.
[2025-01-25] MEDS: ondansetron HCL 4 MG/2 ML VIAL IVPUSH (11:00)
[2025-01-25] MEDS: Acetaminophen 325 MG TABLET 650 MG PO ×2 (14:28→20:39)
--- NOTE | 2025-01-25 14:42 | PM.EVENT ---
Event Note Date of Service: 01/28/25 Event Note: seen on afternoon rounds says he has tolerated regular diet today passing good amounts of flatus says he had to BMs TINO drain with thin serosanguineous output, scanty I therefore removed the TINO drain I changed the dressing on the lowermost part of the incision - he has drainage on this area along with subcutaneous fat necrosis encouraged to ambulate he says that he does not take narcotics anymore I told him that if he continues to tolerate his diet well, he may be able to go home over the weekend he looks well overall although he does appear to have low threshold for pain path report shows likely created appendicitis, benign, without signs of malignancy Time Spent With Patient Time: Total time managing care of this patient today ____ minutes.
--- NOTE | 2025-01-25 14:59 | MHC.CM.PN ---
per surgical note pts will start on a reg diet and ambulate dc plan remins home n/s
--- NOTE | 2025-01-25 15:00 | MHC.CM.PN ---
nancie crouch pt is hypoxic and not medically stable for dc plan remains home
[2025-01-25] MEDS: Calcium Carbonate 750 MG TAB.CHEW PO (16:53)
[2025-01-25] MEDS: Parenteral Nutrition 1,920 ML 80 ML IV (20:42)
[2025-01-26] VITALS (7 sets, daily range): BP systolic 108–121; BP diastolic 61–73; PULSE 74–85; RESP 16–20; TEMP 36.4–37.4; O2SAT 95–98
[2025-01-26] MEDS: HYDROmorphone HCl 0.5 MG/0.5 ML SYRINGE IVPUSH (00:16)
--- NOTE | 2025-01-26 00:49 | PC.NURSE ---
Patient reported increase of pain in RLQ where TINO drain was. Drain was removed yesterday, dressing is intact and dry. Mid abdominal incision with visible dannie and dressing to lower portion with some drainage. Abdomen is distended, hypoactive BS. Patient has been ambulating in hallway earlier and had a large BM on previous shift. Has been taking Tylenol and Oxycodone for pain but at midnight pain was already 7/10 , patient asking for pain meds and Oxycodone not due until 0200. Dr Fregoso telephone appointment clerk and notified. Ordered one dose of Dilaudid , patient medicated and asleep at this time. CPAP on, also patient medicated earlier with Ativan for anxiety with good effect. Will continue to monitor.
[2025-01-26] MEDS: Piperacillin Sodium/Tazobactam 3.375 GM in 0.9 % Sodium Chloride 50 ML IV ×4 (03:56→21:08)
[2025-01-26] MEDS: Acetaminophen 325 MG TABLET 650 MG PO ×3 (05:29→18:33)
[2025-01-26] MEDS: Heparin Sodium,Porcine 5,000 UNIT/ML VIAL 5000 UNIT SUBCUT ×3 (05:30→21:07)
[2025-01-26 07:04] LABS: Albumin Level 2.8 g/dL (3.5-5.0); Anion Gap 10 (12-20); Blood Urea Nitrogen 12 mg/dL (9-16); Calcium 8.6 mg/dL (8.4-10.2); Carbon Dioxide 22 mmol/L (22-29); Chloride 104 mmol/L (96-108); Creatinine Clr Calc Pharmacy 137.8; Estimated Glomerular Filt Rate > 60; Glucose Fasting 131 mg/dL (60-99); Magnesium 2.2 mg/dL (1.6-2.6); Phosphorus 3.1 mg/dL (2.7-4.5); Potassium 4.4 mmol/L (3.3-5.1); Sodium 132 mmol/L (135-145)
[2025-01-26] MEDS: Tamsulosin HCL 0.4 MG CAPSULE PO (08:41)
[2025-01-26] MEDS: lisinopriL 10 MG TABLET PO (08:41)
--- NOTE | 2025-01-26 12:33 | P.PNGS_ITS ---
Subjective Subjective Date of Service: 01/26/25 Interval history: Patient feeling good said he ate full breakfast walking around passing gas and stool. His abdomen those moderately distended Physical Exam 2 Vital Signs: Vital Signs: Last Vital Signs Temp 98.5 F 01/26/25 12:00 Pulse 80 01/26/25 12:00 Resp 16 01/26/25 12:00 BP 115/72 01/26/25 12:00 Pulse Ox 98 01/26/25 12:00 O2 Del Method Room Air 01/26/25 12:00 O2 Flow Rate 3.0 01/20/25 08:51 BMI result Body Mass Index 28.0 Const: General: cooperative, healthy appearing, comfortable and no acute distress Orientation/consciousness: patient oriented x3 Resp: Auscultation: clear to auscultation bilaterally Cardio: Rate: regular rate Rhythm: regular rhythm GI: Other: Abdomen is distended and his bowel sounds sounds little more sluggish with some higher pitch sounds. Midline incision area is less erythematous and the inferior aspect still has some drainage of some foul smelling material which was probed and cleaned out little bit covered back up. Generally not very tender abdomen Neuro: General: patient oriented x3 Objective Data Active Medications Acetaminophen (Acetaminophen 325 Mg Tablet) 650 mg PO Q6H PRN PRN Reason: Pain, Mild 1-3,fever,headache Last Admin: 01/26/25 05:29 Dose: 650 mg Documented By: LEOBARDO Benzocaine (Throat Lozenge, Medicated Lozenge) 1 lozenge MUCOUS MEM Q2H PRN PRN Reason: Sore Throat Last Admin: 01/23/25 20:14 Dose: 1 lozenge Documented By: NICOLE Calcium Carbonate (Calcium Carbonate 750 Mg Tab.Chew) 750 mg PO Q4H PRN PRN Reason: Heartburn Last Admin: 01/25/25 16:53 Dose: 750 mg Documented By: KI Docusate Sodium (Docusate Sodium 100 Mg Capsule) 100 mg PO BID [facility] Last Admin: 01/26/25 08:42 Dose: Not Given Documented By: TOMY Non-Admin Reason: Patient Refused Heparin Sodium (Porcine) (Heparin Sodium,Porcine 5,000 Unit/Ml Vial) 5,000 unit SUBCUT Q8H [facility] Last Admin: 01/26/25 05:30 Dose: 5,000 unit Documented By: LEOBARDO Piperacillin Sod/Tazobactam (Sod 3.375 gm/ Sodium Chloride) 50 mls @ 100 mls/hr IV Q6H [facility] Last Infusion: 01/26/25 10:10 Dose: Infused Documented By: JUNE Nutrition (Parenteral) (Parenteral Nutrition) 1,920 mls @ 80 mls/hr IV .Q24H [facility]; Protocol Stop: 01/26/25 20:59 Last Admin: 01/25/25 20:42 Dose: 80 mls/hr Documented By: LEOBARDO Nutrition (Parenteral) (Parenteral Nutrition) 1,920 mls @ 80 mls/hr IV .Q24H [facility]; Protocol Stop: 01/27/25 20:59 Lisinopril (Lisinopril 10 Mg Tablet) 10 mg PO DAILY [facility]; Protocol Last Admin: 01/26/25 08:41 Dose: 10 mg Documented By: TOMY Lorazepam (Lorazepam 2 Mg/Ml Vial) 1 mg IVPUSH Q4H PRN PRN Reason: Anxiety Melatonin (Melatonin 3 Mg Tablet) 6 mg PO BEDTIME PRN PRN Reason: Insomnia Last Admin: 01/24/25 21:26 Dose: 6 mg Documented By: LEOBARDO Naloxone HCl (Naloxone Hcl 0.4 Mg/Ml Vial) 0.04 mg IVPUSH Q5M PRN PRN Reason: Excessive sedation or RR < 8 Ondansetron HCl (Ondansetron Hcl 4 Mg/2 Ml Vial) 4 mg IVPUSH Q6H PRN PRN Reason: nausea Last Admin: 01/25/25 11:00 Dose: 4 mg Documented By: KI Oxycodone HCl (Oxycodone Hcl Immed Release 5 Mg Tablet) 10 mg PO Q4H PRN PRN Reason: Pain, Moderate(Pain Scale 4-6) Last Admin: 01/25/25 22:08 Dose: 10 mg Documented By: LEOBARDO Pharmacy Consult (Consult Rx Parenteral Nutrition Ordering) 1 each MISCELLANE DAILY PRN PRN Reason: Consult order Promethazine HCl (Promethazine Hcl 25 Mg Tablet) 25 mg PO Q8H PRN PRN Reason: Hiccups Last Admin: 01/25/25 14:56 Dose: 25 mg Documented By: KI Sodium Chloride (0.9 % Sodium Chloride Flush 3 Ml Syringe) 3 ml IVFLUSH QSHIFT [facility] Last Admin: 01/26/25 08:45 Dose: Not Given Documented By: TOMY Non-Admin Reason: IV Running Tamsulosin HCl (Tamsulosin Hcl 0.4 Mg Capsule) 0.4 mg PO DAILY [facility] Last Admin: 01/26/25 08:41 Dose: 0.4 mg Documented By: TOMY Labs 01/19/25 06:39 01/26/25 06:37 Labs: Laboratory Results - last 24 hr 01/26/25 06:37 Anion Gap 10 L Estim Creat Clear Calc 137.8 Estimated GFR > 60 Fasting Glucose 131 H Calcium 8.6 Phosphorus 3.1 Magnesium 2.2 Albumin 2.8 L Procedures Date of Service Date of Service: 01/26/25 Progress Note: A&P Assessment and plan (1) Acute phlegmonous appendicitis: Status: Acute Assessment and Plan: Patient is a week status post right limited colectomy for acute phlegmon as appendicitis doing well. Generally afebrile white count is normal draining a little bit of material from the midline but less erythema surrounding. Little concerned about potential advancement of diet to quickly and ileus worsening. So far doing okay. I have encouraged him to continue with p.o. diet but the slow it down a little bit. He is going to try. He has been doing well with walking and moving around. Continue with IV antibiotics. Time Spent With Patient Time: Total time managing care of this patient today ____ minutes. Quality Stroke Does the patient have a stroke diagnosis?: No VTE Prior VTE?: No VTE Risk Level:: Medical - moderate - high VTE Device Contraindication: N/A - Device Ordered VTE Drug Contraindication: N/A - Med Ordered
[2025-01-26] MEDS: oxyCODONE HCl Immed Release 5 MG TABLET 10 MG PO ×2 (14:34→19:40)
[2025-01-26] MEDS: 0.9 % Sodium Chloride Flush 3 ML SYRINGE IVFLUSH ×2 (14:37→21:08)
[2025-01-26] MEDS: Docusate Sodium 100 MG CAPSULE PO (21:08)
[2025-01-26] MEDS: Parenteral Nutrition 1,920 ML 80 ML IV (21:08)
[2025-01-26] MEDS: LORazepam 2 MG/ML VIAL 1 MG IVPUSH (21:08)
[2025-01-27] VITALS (9 sets, daily range): BP systolic 93–120; BP diastolic 50–69; PULSE 76–88; RESP 16–20; TEMP 36.5–37.6; O2SAT 94–98
[2025-01-27] MEDS: Acetaminophen 325 MG TABLET 650 MG PO ×4 (00:49→20:16)
[2025-01-27] MEDS: Piperacillin Sodium/Tazobactam 3.375 GM in 0.9 % Sodium Chloride 50 ML IV ×4 (04:12→22:22)
[2025-01-27] MEDS: oxyCODONE HCl Immed Release 5 MG TABLET 10 MG PO ×4 (04:18→22:12)
[2025-01-27] MEDS: Heparin Sodium,Porcine 5,000 UNIT/ML VIAL 5000 UNIT SUBCUT ×3 (05:40→22:12)
[2025-01-27 08:00] LABS: Albumin Level 2.8 g/dL (3.5-5.0); Anion Gap 12 (12-20); Blood Urea Nitrogen 13 mg/dL (9-16); Calcium 8.7 mg/dL (8.4-10.2); Carbon Dioxide 22 mmol/L (22-29); Chloride 105 mmol/L (96-108); Creatinine Clr Calc Pharmacy 137.8; Estimated Glomerular Filt Rate > 60; Glucose Fasting 124 mg/dL (60-99); Magnesium 2.3 mg/dL (1.6-2.6); Phosphorus 3.3 mg/dL (2.7-4.5); Potassium 4.8 mmol/L (3.3-5.1); Sodium 134 mmol/L (135-145)
[2025-01-27] MEDS: Docusate Sodium 100 MG CAPSULE PO ×2 (08:07→20:17)
[2025-01-27] MEDS: Tamsulosin HCL 0.4 MG CAPSULE PO (08:07)
[2025-01-27] MEDS: 0.9 % Sodium Chloride Flush 3 ML SYRINGE IVFLUSH ×2 (08:08→15:49)
[2025-01-27] MEDS: lisinopriL 10 MG TABLET PO (08:11)
--- NOTE | 2025-01-27 14:55 | PM.PNGS ---
Subjective Subjective Date of Service: 01/27/25 Interval history: Patient feeling a little uncomfortable he has had a bowel movement yesterday and today he says he is passing some gas but he is eating more regular diet and feeling a little bloated. Physical Exam Vital Signs: Vital Signs: Last Vital Signs Temp 98.8 F 01/27/25 11:38 Pulse 76 01/27/25 11:38 Resp 16 01/27/25 11:38 BP 108/62 01/27/25 11:38 Pulse Ox 98 01/27/25 11:38 O2 Del Method Room Air 01/27/25 11:38 O2 Flow Rate 3.0 01/20/25 08:51 BMI result Body Mass Index 28.0 Const: General: cooperative, healthy appearing, comfortable and no acute distress GI: Other: Abdomen is distended a little tight some hypoactive bowel sounds which are little more worrisome to me. Still draining some purulent material from the lower midline dressing Objective Data Active Medications Acetaminophen (Acetaminophen 325 Mg Tablet) 650 mg PO Q6H PRN PRN Reason: Pain, Mild 1-3,fever,headache Last Admin: 01/27/25 14:00 Dose: 650 mg Documented By: JUNE Benzocaine (Throat Lozenge, Medicated Lozenge) 1 lozenge MUCOUS MEM Q2H PRN PRN Reason: Sore Throat Last Admin: 01/23/25 20:14 Dose: 1 lozenge Documented By: NICOLE Calcium Carbonate (Calcium Carbonate 750 Mg Tab.Chew) 750 mg PO Q4H PRN PRN Reason: Heartburn Last Admin: 01/25/25 16:53 Dose: 750 mg Documented By: KI Docusate Sodium (Docusate Sodium 100 Mg Capsule) 100 mg PO BID [facility] Last Admin: 01/27/25 08:07 Dose: 100 mg Documented By: JUNE Heparin Sodium (Porcine) (Heparin Sodium,Porcine 5,000 Unit/Ml Vial) 5,000 unit SUBCUT Q8H [facility] Last Admin: 01/27/25 14:00 Dose: 5,000 unit Documented By: JUNE Piperacillin Sod/Tazobactam (Sod 3.375 gm/ Sodium Chloride) 50 mls @ 100 mls/hr IV Q6H [facility] Last Infusion: 01/27/25 11:04 Dose: Infused Documented By: JUNE Nutrition (Parenteral) (Parenteral Nutrition) 1,920 mls @ 80 mls/hr IV .Q24H [facility]; Protocol Stop: 01/28/25 20:59 Lisinopril (Lisinopril 10 Mg Tablet) 10 mg PO DAILY [facility]; Protocol Last Admin: 01/27/25 08:11 Dose: 10 mg Documented By: JUNE Lorazepam (Lorazepam 2 Mg/Ml Vial) 1 mg IVPUSH Q4H PRN PRN Reason: Anxiety Last Admin: 01/26/25 21:08 Dose: 1 mg Documented By: LEOBARDO Melatonin (Melatonin 3 Mg Tablet) 6 mg PO BEDTIME PRN PRN Reason: Insomnia Last Admin: 01/24/25 21:26 Dose: 6 mg Documented By: LEOBARDO Naloxone HCl (Naloxone Hcl 0.4 Mg/Ml Vial) 0.04 mg IVPUSH Q5M PRN PRN Reason: Excessive sedation or RR < 8 Ondansetron HCl (Ondansetron Hcl 4 Mg/2 Ml Vial) 4 mg IVPUSH Q6H PRN PRN Reason: nausea Last Admin: 01/25/25 11:00 Dose: 4 mg Documented By: KI Oxycodone HCl (Oxycodone Hcl Immed Release 5 Mg Tablet) 10 mg PO Q4H PRN PRN Reason: Pain, Moderate(Pain Scale 4-6) Last Admin: 01/27/25 11:07 Dose: 10 mg Documented By: JUNE Pharmacy Consult (Consult Rx Parenteral Nutrition Ordering) 1 each MISCELLANE DAILY PRN PRN Reason: Consult order Promethazine HCl (Promethazine Hcl 25 Mg Tablet) 25 mg PO Q8H PRN PRN Reason: Hiccups Last Admin: 01/25/25 14:56 Dose: 25 mg Documented By: KI Sodium Chloride (0.9 % Sodium Chloride Flush 3 Ml Syringe) 3 ml IVFLUSH QSHIFT [facility] Last Admin: 01/27/25 08:08 Dose: 3 ml Documented By: JUNE Tamsulosin HCl (Tamsulosin Hcl 0.4 Mg Capsule) 0.4 mg PO DAILY [facility] Last Admin: 01/27/25 08:07 Dose: 0.4 mg Documented By: JUNE Labs 01/19/25 06:39 01/27/25 07:26 Labs: Laboratory Results - last 24 hr 01/27/25 07:26 Anion Gap 12 Estim Creat Clear Calc 137.8 Estimated GFR > 60 Fasting Glucose 124 H Calcium 8.7 Phosphorus 3.3 Magnesium 2.3 Albumin 2.8 L Procedures Date of Service Date of Service: 01/27/25 Progress Note: A&P Assessment and plan (1) S/P right colectomy: Status: Acute Assessment and Plan: Overall doing better from the right colectomy in regards to tolerating p.o. diet passing some gas and stool but his exam is still worrisome to me so would prefer to keep him here for at least another day. I talked to him about going slow with a p.o. diet eating solid food but multiple smaller meals versus 3 larger meals. Continue with the Zosyn for the midline drainage can stop the parenteral nutrition encouraged to ambulate p.o. pain meds as needed Time Spent With Patient Time: Total time managing care of this patient today ____ minutes. Quality Stroke Does the patient have a stroke diagnosis?: No VTE Prior VTE?: No VTE Risk Level:: Medical - moderate - high VTE Device Contraindication: N/A - Device Ordered VTE Drug Contraindication: N/A - Med Ordered
[2025-01-27] MEDS: LORazepam 2 MG/ML VIAL 1 MG IVPUSH ×2 (17:08→22:18)
[2025-01-27] MEDS: Melatonin 3 MG TABLET 6 MG PO (20:17)
[2025-01-28 01:03] VITALS: BP 102/65
[2025-01-28 04:00] VITALS: BP 116/64; PULSE 86; RESP 18; TEMP 37.6; O2SAT 94
[2025-01-28] MEDS: Heparin Sodium,Porcine 5,000 UNIT/ML VIAL 5000 UNIT SUBCUT (05:05)
[2025-01-28] MEDS: Piperacillin Sodium/Tazobactam 3.375 GM in 0.9 % Sodium Chloride 50 ML IV (05:08)
[2025-01-28] MEDS: oxyCODONE HCl Immed Release 5 MG TABLET 10 MG PO (06:05)
[2025-01-28 06:47] LABS: Albumin Level 2.8 g/dL (3.5-5.0); Anion Gap 11 (12-20); Blood Urea Nitrogen 14 mg/dL (9-16); Calcium 8.7 mg/dL (8.4-10.2); Carbon Dioxide 23 mmol/L (22-29); Chloride 104 mmol/L (96-108); Creatinine Clr Calc Pharmacy 131.7; Estimated Glomerular Filt Rate > 60; Glucose Fasting 104 mg/dL (60-99); Magnesium 2.1 mg/dL (1.6-2.6); Phosphorus 3.1 mg/dL (2.7-4.5); Potassium 4.4 mmol/L (3.3-5.1); Sodium 134 mmol/L (135-145)
[2025-01-28 07:31] VITALS: BP 105/63; PULSE 78; RESP 16; TEMP 37.6; O2SAT 94
[2025-01-28] MEDS: Docusate Sodium 100 MG CAPSULE PO (08:03)
[2025-01-28] MEDS: lisinopriL 10 MG TABLET PO (08:03)
[2025-01-28] MEDS: Tamsulosin HCL 0.4 MG CAPSULE PO (08:03)
[2025-01-28] MEDS: 0.9 % Sodium Chloride Flush 3 ML SYRINGE IVFLUSH (08:03)
--- NOTE | 2025-01-28 08:06 | P.PNGS_ITS ---
Subjective Subjective Date of Service: 01/28/25 Interval history: He feels well Tolerating diet Passing good flatus and BMs No nausea or vomiting States he is ready to be discharged Physical Exam 2 Vital Signs: Vital Signs: Last Vital Signs Temp 99.6 F 01/28/25 07:31 Pulse 78 01/28/25 07:31 Resp 16 01/28/25 07:31 BP 105/63 01/28/25 07:31 Pulse Ox 94 01/28/25 07:31 O2 Del Method Room Air 01/28/25 07:31 O2 Flow Rate 3.0 01/20/25 08:51 BMI result Body Mass Index 28.0 Const: General: comfortable and no acute distress Resp: Effort & Inspection: normal respiratory effort GI: Other: Incisions well healing, drainage from the lower part of the midline incision is much less Palpation (GI): Soft to palpation, not firm, nontender and no guarding Objective Data Active Medications Acetaminophen (Acetaminophen 325 Mg Tablet) 650 mg PO Q6H PRN PRN Reason: Pain, Mild 1-3,fever,headache Last Admin: 01/27/25 20:16 Dose: 650 mg Documented By: MARCIE Comments: per pt request for 03/30 pain Benzocaine (Throat Lozenge, Medicated Lozenge) 1 lozenge MUCOUS MEM Q2H PRN PRN Reason: Sore Throat Last Admin: 01/23/25 20:14 Dose: 1 lozenge Documented By: NICOLE Calcium Carbonate (Calcium Carbonate 750 Mg Tab.Chew) 750 mg PO Q4H PRN PRN Reason: Heartburn Last Admin: 01/25/25 16:53 Dose: 750 mg Documented By: KI Docusate Sodium (Docusate Sodium 100 Mg Capsule) 100 mg PO BID [facility] Last Admin: 01/28/25 08:03 Dose: 100 mg Documented By: JUNE Heparin Sodium (Porcine) (Heparin Sodium,Porcine 5,000 Unit/Ml Vial) 5,000 unit SUBCUT Q8H [facility] Last Admin: 01/28/25 05:05 Dose: 5,000 unit Documented By: MARCIE Piperacillin Sod/Tazobactam (Sod 3.375 gm/ Sodium Chloride) 50 mls @ 100 mls/hr IV Q6H [facility] Last Infusion: 01/28/25 05:39 Dose: Infused Documented By: MARCIE Lisinopril (Lisinopril 10 Mg Tablet) 10 mg PO DAILY [facility]; Protocol Last Admin: 01/28/25 08:03 Dose: 10 mg Documented By: JUNE Lorazepam (Lorazepam 2 Mg/Ml Vial) 1 mg IVPUSH Q4H PRN PRN Reason: Anxiety Last Admin: 01/27/25 22:18 Dose: 1 mg Documented By: MARCIE Comments: pt feels anxious Melatonin (Melatonin 3 Mg Tablet) 6 mg PO BEDTIME PRN PRN Reason: Insomnia Last Admin: 01/27/25 20:17 Dose: 6 mg Documented By: MARCIE Naloxone HCl (Naloxone Hcl 0.4 Mg/Ml Vial) 0.04 mg IVPUSH Q5M PRN PRN Reason: Excessive sedation or RR < 8 Ondansetron HCl (Ondansetron Hcl 4 Mg/2 Ml Vial) 4 mg IVPUSH Q6H PRN PRN Reason: nausea Last Admin: 01/25/25 11:00 Dose: 4 mg Documented By: KI Oxycodone HCl (Oxycodone Hcl Immed Release 5 Mg Tablet) 10 mg PO Q6H PRN PRN Reason: Pain, Moderate(Pain Scale 4-6) Last Admin: 01/28/25 06:05 Dose: 10 mg Documented By: PARVIZ Pharmacy Consult (Consult Rx Parenteral Nutrition Ordering) 1 each MISCELLANE DAILY PRN PRN Reason: Consult order Promethazine HCl (Promethazine Hcl 25 Mg Tablet) 25 mg PO Q8H PRN PRN Reason: Hiccups Last Admin: 01/25/25 14:56 Dose: 25 mg Documented By: KI Sodium Chloride (0.9 % Sodium Chloride Flush 3 Ml Syringe) 3 ml IVFLUSH QSHIFT [facility] Last Admin: 01/28/25 08:03 Dose: 3 ml Documented By: JUNE Tamsulosin HCl (Tamsulosin Hcl 0.4 Mg Capsule) 0.4 mg PO DAILY [facility] Last Admin: 01/28/25 08:03 Dose: 0.4 mg Documented By: JUNE Labs 01/19/25 06:39 01/28/25 06:21 Labs: Laboratory Results - last 24 hr 01/28/25 06:21 Anion Gap 11 L Estim Creat Clear Calc 131.7 Estimated GFR > 60 Fasting Glucose 104 H Calcium 8.7 Phosphorus 3.1 Magnesium 2.1 Albumin 2.8 L Procedures Date of Service Date of Service: 01/28/25 Progress Note: A&P Assessment and plan (1) Acute phlegmonous appendicitis: Status: Acute Assessment and Plan: Doing much better Good GI functions Abdomen is soft and benign Incision healing well Dressings changed Okay to DC home Instructed on dressing changes We will see in the office for a follow-up Path report suggests perforated appendicitis with phlegmon and abscess Time Spent With Patient Time: Total time managing care of this patient today ____ minutes. Quality Stroke Does the patient have a stroke diagnosis?: No VTE Prior VTE?: No VTE Risk Level:: Medical - moderate - high VTE Device Contraindication: N/A - Device Ordered VTE Drug Contraindication: N/A - Med Ordered
[2025-01-28] MEDS: Acetaminophen 325 MG TABLET 650 MG PO (08:13)
--- NOTE | 2025-01-28 09:07 | MHC.CM.PN ---
pt dcd home self care
[2025-01-28 10:12] VITALS: BP 107/61; PULSE 83; RESP 18; TEMP 37.2; O2SAT 94
--- NOTE | 2025-02-04 12:23 | PM.DS ---
DS: Providers Provider Date of Service: 01/28/25 Date of admission: 01/16/25 12:43 Date of discharge: 01/28/25 Primary care physician: Alan Dowd MD Consults: 01/16/25 12:24 Consult to Hospitalist Routine Comment: Consulting Provider: [facility] Reason For Exam: pacemaker 01/22/25 04:01 Consult to Wound Care Routine Reason for consultation: redness to umbilical dannie DS: Diagnosis Discharge Diagnosis (1) Acute phlegmonous appendicitis: Status: Acute DS: Summary Hospital Course Hospital Course: 59-year-old male with BPH, chronic back pain, prediabetic, admitted on 01/16/2025 because of right lower quadrant pain. His CAT scan had shown a large phlegmonous mass consistent with a perforated appendicitis. He was admitted for IV antibiotics. He had this low-grade intensity pain. However, a follow-up CT scan on January 18, 2025 did not show any improvement of the large phlegmonous mass along with what appeared to be a non drainable abscess. He therefore underwent hand assisted laparoscopic limited resection of the right colon. Intraoperatively, there was note of a large phlegmonous mass along with an abscess. He was transferred to the [facility] surge unit postoperatively. He was kept on IV antibiotics. He remained afebrile. However he had periods of some abdominal distention consistent with delayed return of GI function. I had him started on peripheral parenteral nutrition. He did not require an NG tube placement. He continued to have passage of flatus. However, his periodic distention lingerede for several days. He never really had any significant vomiting. He had a follow up CT scan on January 24, which suggested ileus. Eventually, he was able to tolerate advancement of diet. He was tolerating regular food and did not have any significant fever or chills. He had consistent passage of flatus. He would BMs as well so he was discharged on January 28, 2025. He had an area of drainage on the lower part of the incision and I had released to dannie on this part to allow adequate drainage. Time Attestation Discharge Coordination Time (in mins): 30 min Quality: Safe Use of Opioids Does Pt have an Active Cancer Diagnosis on the Problem List?: No Quality: Stroke Does the patient have a stroke diagnosis?: No Physical Exam Vital Signs: Vital Signs: Last Vital Signs Temp 98.9 F 01/28/25 10:12 Pulse 83 01/28/25 10:12 Resp 18 01/28/25 10:12 BP 107/61 01/28/25 10:12 Pulse Ox 94 01/28/25 10:12 O2 Del Method Room Air 01/28/25 10:12 O2 Flow Rate 3.0 01/20/25 08:51 BMI result Body Mass Index 28.0 Const: General: comfortable and no acute distress Orientation/consciousness: patient oriented x3 Neck: Neck: Yes no lymphadenopathy Resp: Auscultation: clear to auscultation bilaterally Cardio: Rhythm: regular rhythm GI: Other: Incision healing well, with scanty drainage on the lower most part Palpation (GI): Soft to palpation, nontender and no guarding Neuro: General: patient oriented x3 DS: Data Data Completed and Pending Completed studies during hospitalization [Text1]: Pending at discharge 01/18/25 15:03 Surgical [PTH] Routine Discharge Plan Discharge Anticipated Discharge Date/Time: 01/24/25 15:51 Patient Disposition: Home, Self-Care Discharge Diagnosis: s/p right colon resection for perforated appendicitis with abscess/phlegmon Referrals: Alan Dowd MD [Primary Care Provider] - 1 Week Tab Hunt MD [Physician] - 1 Week Discharge Medications: New oxycodone 5 mg tablet 5 mg PO Q4H PRN (Reason: pain (scale score 7-10)) Qty: 26 0RF Rx Instructions: Partial Fill upon patient request. docusate sodium [Colace] 100 mg capsule 100 mg PO BID Qty: 30 0RF Continued tamsulosin 0.4 mg capsule 0.4 mg PO DAILY 90 Days Qty: 90 1RF lisinopril 10 mg tablet 10 mg PO DAILY Qty: 30 0RF No Action amoxicillin-pot clavulanate 875-125 mg tablet 1 tab PO BID Qty: 6 0RF Discharge Orders: Discharge Order (Routine); Ordered 01/28/25 Ordered By: aTb Hunt Diet: Advance to usual diet Activity on Discharge: No heavy lifting Stand Alone Forms: Patient Portal Discharge page, Work/School Release Print Language: Polish Activity Restrictions/Additional Instructions: Okay to apply dry dressings daily to lower most part of midline incision with gauze or large Band-Aid If the incision area is tender, you may apply an ice pack for short intervals (No more than 20 minutes on, followed by at least 20 minutes off). Do not apply heat. Do not use creams, lotions, or topical antibiotics. These can cause infection or allergic reaction. Ok to shower. You have dannie closing your incision and these will be removed approximately 10-14 days after surgery. Keep incision covered while area remains open and draining. NO HEAVY LIFTING (>10lbs) or strenuous activity. Follow up in office. ([phone]) Call Your Doctor If: -Your temperature exceeds 101.5? F -You experience excessive pain or swelling -You have an unexpected reaction to medication -You have excessive bleeding -You experience continued vomiting/nausea -Your incision begins to separate -Your incision shows signs of infection such as increased redness, swelling, or heat Care Plan Goals: Return to baseline health and resume normal activities following recovery period. Health Concerns: perforated appendicitis with large abscess Plan of Treatment: s/p right colon resection IV transitioned to oral antibiotics F/u in office in 1 week Assessment: Doing well post op. Patient Instructions: Bowel Resection (DC) Discharge Date/Time: 01/28/25 10:50
== END 2025-01-28 10:50 | disposition home or self-care (01) | DRG 330 ==
LOC: HO.ED 12:14 → HO.EDOVER 12:44 → HO.S3 01-17 07:31
PROVIDERS: Emergency Medicine; Nurse Practitioner Acute Care; Student in an Organized Health Care Education/Training Program; Admitting Provider Surgery; Emergency Provider Emergency Medicine; PCP Family Medicine; Visit Provider Surgery
PROC: 0DTE0ZZ Resection of Large Intestine, Open Approach (ICD-10-PCS; principal; 2025-01-18 13:20)
DX: K35.33 Acute appendicitis with perforation, localized peritonitis, and gangrene, with abscess (principal); F05 Delirium due to known physiological condition; K56.7 Ileus, unspecified; I10 Essential (primary) hypertension; F41.9 Anxiety disorder, unspecified; N40.0 Benign prostatic hyperplasia without lower urinary tract symptoms; Z95.0 Presence of cardiac pacemaker; F17.210 Nicotine dependence, cigarettes, uncomplicated; Z71.6 Tobacco abuse counseling; Z79.899 Other long term (current) drug therapy
CPT/HCPCS: 36415; 71275; 74018; 74177; 80048; 80076; 81001; 82040; 82140; 83605; 83690; 83735; 84100; 84478; 84484; 85025; 85027; 85379; 86850; 86900; 86901; 87040; 88307; 93005; 94660; 99285; J0131; J1100; J1171; J1644; J2003; J2060; J2270; J2371; J2405; J2543; J2704; J2795; J3010; J7120; Q9967

== ENCOUNTER → 2025-01-16 10:23 | Outpatient (BNV) | payer OTHER, SELFPAY | PROVIDERS: Admitting Provider Surgery; Emergency Provider Emergency Medicine; PCP Family Medicine; Visit Provider Internal Medicine Cardiovascular Disease | DX: R10.9 Unspecified abdominal pain (principal) | CPT/HCPCS: 93010 ==

== ENCOUNTER → 2025-01-16 10:27 | Outpatient (BNV) | payer OTHER, SELFPAY | PROVIDERS: Admitting Provider Surgery; Emergency Provider Emergency Medicine; PCP Family Medicine; Visit Provider Radiology Diagnostic Radiology | DX: K35.32 Acute appendicitis with perforation, localized peritonitis, and gangrene, without abscess (principal); K76.0 Fatty (change of) liver, not elsewhere classified; N40.2 Nodular prostate without lower urinary tract symptoms | CPT/HCPCS: 74177 ==

== ENCOUNTER 2025-01-16 12:43 | Outpatient (BNV) | payer OTHER, SELFPAY | END 2025-01-20 11:37 | PROVIDERS: Admitting Provider Surgery; Emergency Provider Emergency Medicine; PCP Family Medicine; Visit Provider Internal Medicine Cardiovascular Disease | DX: R00.0 Tachycardia, unspecified (principal) | CPT/HCPCS: 93010 ==

== ENCOUNTER 2025-01-16 12:43 | Outpatient (BNV) | payer OTHER, SELFPAY | END 2025-01-20 14:35 | PROVIDERS: Admitting Provider Surgery; Emergency Provider Emergency Medicine; PCP Family Medicine; Visit Provider Radiology Diagnostic Radiology | DX: J98.11 Atelectasis (principal); R91.1 Solitary pulmonary nodule; I51.7 Cardiomegaly | CPT/HCPCS: 71275 ==

== ENCOUNTER 2025-01-16 12:43 | Outpatient (BNV) | payer OTHER, SELFPAY | END 2025-01-18 08:00 | PROVIDERS: Admitting Provider Surgery; Emergency Provider Emergency Medicine; PCP Family Medicine; Visit Provider Radiology Diagnostic Radiology | DX: K35.33 Acute appendicitis with perforation, localized peritonitis, and gangrene, with abscess (principal) | CPT/HCPCS: 74177 ==

== ENCOUNTER 2025-01-16 12:43 | Outpatient (BNV) | payer OTHER, SELFPAY | END 2025-01-24 08:00 | PROVIDERS: Admitting Provider Surgery; Emergency Provider Emergency Medicine; PCP Family Medicine; Visit Provider Radiology Diagnostic Radiology | DX: K65.1 Peritoneal abscess (principal); R14.0 Abdominal distension (gaseous) | CPT/HCPCS: 74018; 74177 ==

== ENCOUNTER → 2025-01-16 12:43 | Outpatient (BNV) | payer OTHER, SELFPAY | PROVIDERS: Admitting Provider Surgery; Emergency Provider Emergency Medicine; PCP Family Medicine; Visit Provider Nurse Practitioner Acute Care | DX: K35.890 Other acute appendicitis without perforation or gangrene (principal) | CPT/HCPCS: 99222 ==

== ENCOUNTER → 2025-01-16 12:43 | Outpatient (BNV) | payer OTHER, SELFPAY | PROVIDERS: Admitting Provider Surgery; Emergency Provider Emergency Medicine; PCP Family Medicine; Visit Provider Surgery | DX: K35.32 Acute appendicitis with perforation, localized peritonitis, and gangrene, without abscess (principal); Z90.49 Acquired absence of other specified parts of digestive tract | CPT/HCPCS: 44204; 99024; 99222; 99232; 99499 ==

== ENCOUNTER 2025-02-04 10:49 | Outpatient (AMB) | payer OTHER, SELFPAY ==
--- NOTE | 2025-02-04 11:13 | A.OFFPC_ITS ---
Vital Signs 02/04/25 11:18 Height 5 ft 11 in Weight 192 lb 4 oz BMI 26.8 BP 110/68 Blood Pressure Location Rt brachial Position Sitting Respiration 14 Pulse 68 Pulse Source Pulse Oximeter Temp 98.1 F Temp Source Oral Pulse Oximetry (%) 97 Oxygen Delivery Method Room Air Intake Visit Reasons: HDF from [facility] on 01/28 diagnosed for Appendix Intake Note: patient is schedule for a tcm follow up with pcp from admission for appendectomy at [facility] patient also states he has radha having night sweats constantly to the point that he is changing is shirt multiple times through out the night. Customer Professional Required: No Allergies No Known Allergies Allergy (Verified 02/04/25 11:16) Medication List - Last Reconciled 02/04/25 by Alan Dowd MD amoxicillin-pot clavulanate 875-125 mg 1 tab PO BID docusate sodium (Colace) 100 mg PO BID lisinopril 10 mg PO DAILY oxycodone 5 mg PO Q4H PRN tamsulosin 0.4 mg PO DAILY 90 days Tobacco use date assessed: 08/10/24 Dental Screening Dental Screen Date: 01/31/24 HPI HDF from [facility] on 01/28 diagnosed for Appendix HPI Details 59 y/o male presents to f/u hospital dis charge visit for appendectomy. Patient?had?had?abdominal?pain?starting?in?mid?December. With?to?ED?01/16?and?CT?and?exam?were?consistent?with?abscess?or?appendicitis. He notes he has an appt. with his surgeon this week Tuesday. He reports night sweats/chills to the point where he feels he has to change his shirt multiple times throughout the night. Eating/drinking normally. He is stooling/passing gas. TCM TCM Information Date of Discharge 01/28/25 Discharged From [facility] Interactive Contact Date (Reference documentation from this date) 02/04/25 HPI Comments History of Present Illness Details Documentation assistance for Alan Dowd MD, was provided by Jona Tan,? Medical Billing Supervisor on 02/04/2025 at 11:30 AM EST. I, Dr. Dowd, have read, observed, and verified documentation. [facility] Medical History Acute phlegmonous appendicitis Sinus arrest Essential hypertension Surgical History (Updated 02/04/25 @ 11:36 by Jona Tan) S/P right colectomy (~01/18/25) History of pacemaker Deficient knowledge of valve replacement History of open reduction and internal fixation (ORIF) procedure Family History Father CVD (cardiovascular disease) Myocardial infarction Mother Cancer Sister Breast cancer Son No problems noted. Daughter No problems noted. Social History Household Members: None Housing: House Are you a primary geriatric care manager to a significant other at home: No Do you presently have visiting nurse or other home services: No Alcohol intake: current Alcohol intake frequency: holidays/special occasions only Comment: counts correct Patient Tobacco Use Status: Current someday Tobacco user Tobacco use type: Cigarette e-Cigarette/Vaping Use: Never Used Second Hand Smoke Exposure: No Substance Use Type: Marijuana service: No Current occupational status: employed Current occupation: [employer] Current occupational exposures/hazards: No Cognitive needs: No Hearing needs: No Vision needs: No Questionnaire PHQ-9 Over the last 2 weeks, how often have you been bothered by any of the following problems? 1. Little interest or pleasure in doing things: not at all 2. Feeling down, depressed, or hopeless: more than half the days 3. Trouble falling or staying asleep, or sleeping too much: nearly every day 4. Feeling tired or having little energy: more than half the days 5. Poor appetite or overeating: more than half the days 6. Feeling bad about yourself - or that you are a failure or have let yourself or your family down: not at all 7. Trouble concentrating on things, such as reading the newspaper or watching television: not at all 8. Moving or speaking so slowly that other people could have noticed. Or the opposite - being so fidgety or restless that you have been moving around a lot more than usual: not at all 9. Thoughts that you would be better off or of hurting yourself in some way: not at all Total score: 9 Source: Developed by Drs. Coleman LMarisela Herring Kurt Kroenke and colleagues, with an educational tree from [employer]. Thrive Questionnaire Date Thrive assessed: 01/17/25 I am a: Patient What is your living situation today?: I have a steady place to live Within the past 12 months, did the food you bought not last and you didn't have the money to get more?: I choose not to answer this question Within the past 12 months, did you worry whether your food would run out before you got money to buy more?: Sometimes True Do you have trouble paying for medicines?: I choose not to answer this question Do you have trouble getting transportation to medical appointments?: No Do you have trouble paying your heating and electricity bill?: I choose not to answer this question Do you have trouble taking care of your child, family member or friend?: No Do you have trouble with day-to-day activities such as bathing, preparing meals, shopping, managing finances, etc.?: No Are you currently unemployed and looking for a job?: Yes Are you interested in more education?: I choose not to answer this question Please select the resources that you would like help with: None Currently or been in a relationship where the following occur: I choose not to answer THRIVE Score: 1 AUDIT C Alcohol Use Questionnaire (AUDIT-C) 1. How often do you have a drink containing alcohol?: 2-3 times a week 2. How many drinks containing alcohol do you have on a typical day when you are drinking?: 1 or 2 3. How often do you have six or more drinks on one occasion?: Never Total Score: 3 CANDY-7 AMB Questionnaire CANDY-7 Date CANDY - 7 assessed: 11/03/22 Feeling nervous, anxious, or on edge: 2 = More than half the days Not being able to stop or control worryin = More than half the days Worrying too much about different things: 2 = More than half the days Trouble relaxin = More than half the days Being so restless that it is hard to sit still: 0 = Not at all Becoming easily annoyed or irritable: 0 = Not at all Feeling afraid as if something awful might happen: 0 = Not at all Total CANDY-7 score (0-4 normal; 5-9 mild; 10-14 moderate; 15-21 severe): 8 Source: Developed by Drs. Coleman Huerta, Marisela Rachel, Feng Carmichael and colleagues, with an educational tree from [employer]. Review of Systems Const Denies chills, Denies fatigue, Denies fever(s), Denies headache(s), Reports night sweats and Denies weakness ENT Denies dizziness and Denies headache(s) Card Denies dyspnea Resp Denies cough, Denies dyspnea, Denies wheezing and Denies other (shortness of breath) Musc Denies numbness and Denies tingling Neuro Denies dizziness, Denies headache(s), Denies numbness, Denies tingling and Denies weakness Psych Denies anxiety and Denies depression Endo Denies fatigue Aller/Immun Denies wheezing Physical exam (Primary Care) Vital Signs: Last Vital Signs Temp 98.1 F 02/04/25 11:18 Pulse 68 02/04/25 11:18 Resp 14 02/04/25 11:18 BP 110/68 02/04/25 11:18 Pulse Ox 97 02/04/25 11:18 Oxygen Delivery Method Room Air 02/04/25 11:18 BMI result Body Mass Index 26.8 Tobacco/Smoking Status: Tobacco use Status Tobacco use date assessed 08/10/24 02/04/25 11:20 Patient Tobacco Use Status Current someday Tobacco 02/04/25 11:20 Tobacco use type Cigarette 02/04/25 11:20 e-Cigarette/Vaping Use Never Used 02/04/25 11:20 PHQ-9: PHQ-9 Score PHQ-9: Total score 9 02/04/25 11:33 Thrive Assessment: Date of Thrive Assessment Date Thrive assessed 01/17/25 02/04/25 11:20 Currently or been in a relationship where the following occur: I choose not to answer Const General: well developed; No acute distress Nutritional Appearance: well nourished Orientation/consciousness: patient oriented x3 HENMT Head: Yes normocephalic and Yes atraumatic Eyes General: appearance normal, both eyes and all related structures Pupils: Equal, round and reactive pupils present EOM: EOMs intact bilaterally Resp Effort & Inspection: normal respiratory effort Neuro General: patient oriented x3 and gait normal Cranial nerves: Yes Equal, round and reactive pupils present Psych Affect: normal affect Coding Level of Care Code Est Pt Level 3 (56579) Diagnoses Status post appendectomy Z90.49 Assessment & Plan Assessment & Plan (1) Status post appendectomy: Code(s): Z90.49 - Acquired absence of other specified parts of digestive tract Category: Surgical Plan Patient?had?had?abdominal?pain?starting?in?mid?December. With?to?ED?02/13?and?CT?and?exam?were?consistent?with?abscess?or?appendicitis Also had local ileus Was?started?antibiotics Patient?underwent appendectomy and began to improve. Currently?patient?is?eating?and?drinking?normally.??He?is?stooling?and?passing?g as. Abdomen?mildly?distended?but?no?rebound?tenderness Mild?drainage?at?wound?bandage, without?surrounding?erythema. Patient?notes?so?sweats?the?last?2?days. Will?check?CMP?and?CBC Sending?a?script?for?Augmentin?patient?advised?to?Check?temperatures. If?temperature?rising?or?increase?pain?or?decrease?in?appetite?or?bowel?function s,?start?antibiotic?follow-up?with?surgeon?as?recommended. Go?to?ED?for?severe pain her?new,?concerning?problems. Orders: Orders Complete Blood Count Auto Diff Today Z00.00 - Encounter for general adult medical examination without abnormal findings, Z90.49 - Acquired absence of other specified parts of digestive tract Comprehensive Met. Panel Today Z90.49 - Acquired absence of other specified parts of digestive tract Medications: Refilled amoxicillin-pot clavulanate 875-125 mg 1 tab PO BID 6 tabs 0RF Z90.49 - Acquired absence of other specified parts of digestive tract
[2025-02-04 11:18] VITALS: BP 110/68; PULSE 68; RESP 14; TEMP 36.7; O2SAT 97; BMI 26.8
--- OUTSIDE RECORDS SUMMARY | 2025-02-04 12:26 | XMS_ITS | Data Portability ---
Author Organization [facility], , [facility] Address [address] [place] [address] Assessment No assessment recorded. Plan of Treatment [...] By Organization Details Last Modified Time 10/01/2016 [id number] RTC 1 yr CEE or prn jmandile Not available 10/01/2016 14:34:40 Reason for Referral None Reported. Results Created Date Observation Date Name Description Value Unit Range Abnormal Flag Note LastModifiedBy Organization Detail LastModifiedTime Result Notes None recorded. Procedures Surgical History Date Name Laterality Status Provider Name and Address Organization Details Recorded Time Refraction completed Sharon Dennison, [address], [address], [facility] 12/12/2020 15:44:09 8 Refraction completed Deisi Osullivan [facility] 10/05/2018 15:15:00 6 Refraction completed Rowena Yaaurora [facility] 10/01/2016 13:57:10 Imaging Results None [...] SNOMED-CT Code Diagnosis ICD10 Code Diagnosis Note [id number] Sharon Dennison, OD [facility], [address] [address] 10/01/2016 13:28:22 10/01/2016 14:37:30 Nuclear senile cataract 515824398 H25.13 mild OU, pt ed, monitor q1-2 yrs. Presbyopia [id number] H52. 4 Floaters i n visual field 266911605 H43.393 pt ed on floaters. RTC DIVINA if increase in floaters or if flashes or loss of vision. [id number] Sharon Dennison, OD [facility], [facility] [address] [place] [address] 10/05/2018 14:56:44 10/05/2018 15:55:53 Nuclear senile cataract [id number] H25.13 mild OU, pt ed, monitor q1-2 yrs. Presbyopia [id number] H52. 4 [id number] Sharon Dennison, OD [facility], [address] [address] 12/12/2020 14:38:07 12/15/2020 13:44:33 Presbyopia 92893554 H52.4 Nuclear se nile cataract [id number] H25.13 mild OU, c/w glare at night, [...] Guarantor Name 10/01/2016 1 [facility] Mike Newberry [id number] Mike Newberry 10/05/2018 1 [facility] [id number] Mike Newberry [id number] Mike Newberry 12/12/2020 1 [facility] [id number] Mike Newberry [id number] Mike Newberry Notes Date Note Type Note Provider Name and Address Organization Details Recorded Time 10/01/2016 text/html Comprehensive Ey e ExamReported bypatient.Quality:rochelle rred vision near without glasses Location:bilateral Context:currently wears glasses Modifying factors:wears glasses for readers only Associated Symptoms:no redness; no itching; no dryness;floaters bilateral(longstandin g, stable) Sharon Dennison, OD [address] [place] [address], [address], [facility] 10/01/2016 14:35:04 10/05/2018 text/html CataractReported bypatient.Location:bi lateral Quality:painless Severity:moderate Onset/Timing:gradual Sharon Dennison, OD [address] [place], [address], [facility] 10/05/2018 15:44:51 12/12/2020 text/html CataractReported bypatient.Location:bi lateral Quality:painless Severity:mild Onset/Timing:gradual Context:driving at night (some glare at night, not too bad.) c/o blurry vision at near without glasses, broke glasses, also needs NVO safety glasses and NVO for reading. doing okay with distance vision [place]. Sharon Dennison, OD [address] [place], [address], [facility] 12/12/2020 15:46:29
== END 2025-02-04 11:57 | disposition home or self-care (01) ==
PROVIDERS: PCP Family Medicine; Visit Provider Family Medicine
DX: Z90.49 Acquired absence of other specified parts of digestive tract (principal)

== ENCOUNTER 2025-02-05 09:40 | Outpatient (AMB) | payer OTHER, SELFPAY ==
[2025-02-05 09:55] VITALS: BMI 26.8
--- NOTE | 2025-02-05 09:55 | A.OFFVIS_ITS ---
Vital Signs 02/05/25 09:55 Height 5 ft 11 in Weight 192 lb 3.995 oz BMI 26.8 Intake Visit Reasons: s/p Abscess of abdominal cavity Intake Note: This patient presents for post-op assessment status post Hand assisted laparoscopic limited right colon resection. Pt c/o; reports good appetite, reports night sweats, reports overall he feels well. 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 He had undergone limited right colon resection, laparoscopic hand assisted, last 01/18/2025 because of phlegmonous appendicitis. He tolerated procedure well. He was discharged on postop day number 10 as he had delayed return of GI function He continues to do well at home. He has good oral intake. He has good bowel movements. He denies significant pain. [facility] Medical History Acute phlegmonous appendicitis Sinus arrest Essential hypertension Surgical History S/P right colectomy (~01/18/25) History of pacemaker Deficient knowledge of valve replacement History of open reduction and internal fixation (ORIF) procedure Family History Father CVD (cardiovascular disease) Myocardial infarction Mother Cancer Sister Breast cancer Son No problems noted. Daughter No problems noted. Social History Household Members: None Housing: House Are you a primary pulmonary care nurse to a significant other at home: No Do you presently have visiting nurse or other home services: No Alcohol intake: current Alcohol intake frequency: holidays/special occasions only Comment: counts correct Patient Tobacco Use Status: Current someday Tobacco user Tobacco use type: Cigarette e-Cigarette/Vaping Use: Never Used Second Hand Smoke Exposure: No Substance Use Type: Marijuana service: No Current occupational status: employed Current occupation: [employer] Current occupational exposures/hazards: No Cognitive needs: No Hearing needs: No Vision needs: No Review of Systems Const Denies chills and Denies fever(s) Card Denies chest pain, Denies dyspnea and Denies dyspnea on exertion Resp Denies cough, Denies dyspnea and Denies dyspnea on exertion GI Denies hematochezia and Denies change in bowel habits Denies hematuria and Denies difficulty urinating Musc Denies back pain and Denies limited range of motion Neuro Denies focal weakness and Denies convulsions Psych Denies depression and Denies mood swings Physical Exam Vital Signs: BMI result Body Mass Index 26.8 Const General: comfortable and no acute distress Resp Effort & Inspection: normal respiratory effort GI Other: Incisions well healing, dannie in place, no evidence of infection, 1 small area of hypergranulation on the lower most margin of the midline incision Palpation (GI): Soft to palpation, not firm and nontender Assessment & Plan Assessment & Plan (1) S/P right colectomy: Onset Date: ~01/18/25 Comment: Hand assisted laparoscopic limited right colon resection-Dr. Gilbert MD FACS Code(s): Z90.49 - Acquired absence of other specified parts of digestive tract Category: Surgical Plan: He is doing very well. He has good GI functions. Incisions are well healing . I removed all his skin dannie His path report shows findings consistent with phlegmonous appendicitis with abscess I advised him to avoid lifting anything more than 20 lb for at least 3 more weeks. I will see him in the office then. Coding Level of Care Code Global (40532) Diagnoses S/P right colectomy Z90.49
== END 2025-02-05 10:32 | disposition home or self-care (01) ==
LOC: HO.HGS 09:40
PROVIDERS: PCP Family Medicine; Visit Provider Surgery
DX: Z90.49 Acquired absence of other specified parts of digestive tract (principal)
CPT/HCPCS: 99024

== ENCOUNTER → 2025-02-05 09:40 | Outpatient (BNVA) | payer OTHER, SELFPAY | PROVIDERS: PCP Family Medicine; Visit Provider Surgery ==

== ENCOUNTER 2025-02-12 13:44 | Outpatient (AMB) | payer OTHER, SELFPAY ==
--- NOTE | 2025-02-12 13:59 | A.OFFPC_ITS ---
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 He notes symptoms started after his most recent surgery, s/p R colectomy. Denies any other weakness. [facility] Medical History Acute phlegmonous appendicitis Sinus arrest Essential hypertension Surgical History S/P right colectomy (~01/18/25) History of pacemaker Deficient knowledge of valve replacement History of open reduction and internal fixation (ORIF) procedure Family History Father CVD (cardiovascular disease) Myocardial infarction Mother Cancer Sister Breast cancer Son No problems noted. Daughter No problems noted. Social History Household Members: None Housing: House Are you a primary career development coordinator to a significant other at home: No Do you presently have visiting nurse or other home services: No Alcohol intake: current Alcohol intake frequency: holidays/special occasions only Comment: counts correct Patient Tobacco Use Status: Current someday Tobacco user Tobacco use type: Cigarette e-Cigarette/Vaping Use: Never Used Second Hand Smoke Exposure: No Substance Use Type: Marijuana service: No Current occupational status: employed Current occupation: [employer] Work Current occupational exposures/hazards: No Cognitive needs: No Hearing needs: No Vision needs: No Questionnaire Thrive Questionnaire Date Thrive assessed: 02/04/25 I am a: Patient What is your living situation today?: I have a steady place to live Within the past 12 months, did the food you bought not last and you didn't have the money to get more?: I choose not to answer this question Within the past 12 months, did you worry whether your food would run out before you got money to buy more?: Sometimes True Do you have trouble paying for medicines?: I choose not to answer this question Do you have trouble getting transportation to medical appointments?: No Do you have trouble paying your heating and electricity bill?: I choose not to answer this question Do you have trouble taking care of your child, family member or friend?: No Do you have trouble with day-to-day activities such as bathing, preparing meals, shopping, managing finances, etc.?: No Are you currently unemployed and looking for a job?: Yes Are you interested in more education?: I choose not to answer this question Please select the resources that you would like help with: None Currently or been in a relationship where the following occur: I choose not to answer THRIVE Score: 1 CANDY-7 AMB Questionnaire CANDY-7 Date CANDY - 7 assessed: 11/03/22 Source: Developed by Drs. Coleman Huerta, Marisela Rachel, Feng Carmichael and colleagues, with an educational tree from [email or web address]. Review of Systems Const Denies chills, Denies fatigue, Denies fever(s), Denies headache(s) and Denies weakness ENT Denies dizziness and Denies headache(s) Card Denies dyspnea Resp Denies cough, Denies dyspnea, Denies wheezing and Denies other (shortness of breath) Musc Denies numbness and Denies tingling Neuro Denies dizziness, Denies headache(s), Denies numbness, Denies tingling and Denies weakness Psych Denies anxiety and Denies depression Endo Denies fatigue Aller/Immun Denies wheezing Physical exam (Primary Care) Vital Signs: Last Vital Signs Temp 99.1 F 02/12/25 14:03 Pulse 75 02/12/25 14:03 Resp 14 02/12/25 14:03 BP 96/60 02/12/25 14:03 Pulse Ox 97 02/12/25 14:03 Oxygen Delivery Method Room Air 02/12/25 14:03 BMI result Body Mass Index 26.3 Tobacco/Smoking Status: Tobacco use Status Tobacco use date assessed 08/10/24 02/12/25 14:01 Patient Tobacco Use Status Current someday Tobacco 02/12/25 14:01 Tobacco use type Cigarette 02/12/25 14:01 e-Cigarette/Vaping Use Never Used 02/12/25 14:01 Thrive Assessment: Date of Thrive Assessment Date Thrive assessed 02/04/25 02/12/25 14:01 Currently or been in a relationship where the following occur: I choose not to answer Const General: well developed; No acute distress Nutritional Appearance: well nourished Orientation/consciousness: patient oriented x3 [facility] Head: Yes normocephalic and Yes atraumatic Eyes General: appearance normal, both eyes and all related structures Pupils: Equal, round and reactive pupils present EOM: EOMs intact bilaterally Resp Effort & Inspection: normal respiratory effort Neuro Other: CN 2-12 intact General: patient oriented x3 and gait normal Cranial nerves: Yes Equal, round and reactive pupils present Psych Affect: normal affect Coding Level of Care Code Est Pt Level 3 (65106) Diagnoses Left arm numbness R20.0 S/P right colectomy Z90.49 Assessment & Plan Assessment & Plan (1) Left arm numbness: Code(s): R20.0 - Anesthesia of skin Category: Medical Plan: Patient?has?left?arm?and?hand?numbness?in radial?nerve?distribution extend ing?into?left?hand's 5th,?4th?and?part?of?3rd?finger. Patient?notes?that?this?has?been ongoing?since?his?surgery He?has?had?no?facial?weakness,?speech?changes?or?changes?in?cognition. Is?cranial?nerves?2-12?are?intact?and he?has?no?other?focal?neurologic?deficits. 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 Will?refer?to?Neurology?to?rule?out?other?causes. (2) S/P right colectomy: Onset Date: ~01/18/25 Comment: Hand assisted laparoscopic limited right colon resection-Dr. Gilbert MD FACS Code(s): Z90.49 - Acquired absence of other specified parts of digestive tract Category: Surgical Plan: S/p?ileocecal?ectomy?after?acute?appendicitis No?new?complaints?regarding?this. Eating?and?stooling?normally Orders: Referrals Neurology Referral R20.0 - Anesthesia of skin Medications: New mecobalamin (vitamin B12) place tablet under tongue and allow to dissolve for at least30 secs before swallowing 1,000 mcg sublingual DAILY 90 days 90 tabs 3RF
[2025-02-12 14:03] VITALS: BP 96/60; PULSE 75; RESP 14; TEMP 37.3; O2SAT 97; BMI 26.3
--- OUTSIDE RECORDS SUMMARY | 2025-02-12 17:02 | XMS_ITS | Data Portability ---
Author Organization [facility], , [facility] Address [address] [place] [address] Assessment No assessment recorded. Plan of Treatment [...] By Organization Details Last Modified Time 10/01/2016 [id number] RTC 1 yr CEE or prn jmandile Not available 10/01/2016 14:34:40 Reason for Referral None Reported. Results Created Date Observation Date Name Description Value Unit Range Abnormal Flag Note LastModifiedBy Organization Detail LastModifiedTime Result Notes None recorded. Procedures Surgical History Date Name Laterality Status Provider Name and Address Organization Details Recorded Time Refraction completed Sharon Dennison, [address], [address], [facility] 12/12/2020 15:44:09 8 Refraction completed Deisi Osullivan [facility] 10/05/2018 15:15:00 6 Refraction completed Rowena Yaaurora [facility] 10/01/2016 13:57:10 Imaging Results None recorded. Procedure [...] SNOMED-CT Code Diagnosis ICD10 Code Diagnosis Note [id number] Shraon Dennison, OD [facility], [address] [address] 10/01/2016 13:28:22 10/01/2016 14:37:30 Nuclear senile cataract [id number] H25.13 mild OU, pt ed, monitor q1-2 yrs. Presbyopia 34173619 H52. 4 Floaters i n visual field 871130230 H43.393 pt ed on floaters. RTC DIVINA if increase in floaters or if flashes or loss of vision. [id number] Sharon Dennison, OD [facility], [facility] [address] [place] [address] 10/05/2018 14:56:44 10/05/2018 15:55:53 Nuclear senile cataract 985296173 H25.13 mild OU, pt ed, monitor q1-2 yrs. Presbyopia 16937809 H52. 4 [id number] Sharon Dennison, OD [facility], [address] [address] 12/12/2020 14:38:07 12/15/2020 13:44:33 Presbyopia 99792777 H52.4 Nuclear se nile cataract 724595887 H25.13 mild OU, c/w glare at night, [...] Bethea Member ID Guarantor Name 10/01/2016 1 [facility] Mike Newberry [id number] Mike Newberry 10/05/2018 1 [facility] [id number] Mike Newberry [id number] Mike Newberry 12/12/2020 1 [facility] [id number] Mike Newberry [id number] Mike Newberry Notes Date Note Type Note Provider Name and Address Organization Details Recorded Time 10/01/2016 text/html Comprehensive Ey e ExamReported bypatient.Quality:rochelle rred vision near without glasses Location:bilateral Context:currently wears glasses Modifying factors:wears glasses for readers only Associated Symptoms:no redness; no itching; no dryness;floaters bilateral(longstandin g, stable) Sharon Dennison, OD [address] [place] [address], [address], [facility] 10/01/2016 14:35:04 10/05/2018 text/html CataractReported bypatient.Location:bi lateral Quality:painless Severity:moderate Onset/Timing:gradual Sharon Dennison, OD [address] [place], [address], [facility] 10/05/2018 15:44:51 12/12/2020 text/html CataractReported bypatient.Location:bi lateral Quality:painless Severity:mild Onset/Timing:gradual Context:driving at night (some glare at night, not too bad.) c/o blurry vision at near without glasses, broke glasses, also needs NVO safety glasses and NVO for reading. doing okay with distance vision [place]. Sharon Dennison, OD [address] [place], [address], [facility] 12/12/2020 15:46:29
== END 2025-02-12 14:25 | disposition home or self-care (01) ==
LOC: HO.HMCFM 13:45
PROVIDERS: PCP Family Medicine; Visit Provider Family Medicine
DX: R20.0 Anesthesia of skin (principal); Z90.49 Acquired absence of other specified parts of digestive tract

== ENCOUNTER → 2025-02-12 13:44 | Outpatient (BNVA) | payer OTHER, SELFPAY | PROVIDERS: PCP Family Medicine; Visit Provider Family Medicine ==

== ENCOUNTER 2025-02-28 13:45 | Outpatient (AMB) | payer OTHER, SELFPAY ==
--- NOTE | 2025-02-28 14:05 | A.OFFVIS_ITS ---
Vital Signs 02/28/25 14:11 Height 5 ft 11 in Weight 198 lb BMI 27.6 BP 129/86 Blood Pressure Location Rt brachial Position Sitting Pulse 72 Intake Visit Reasons: 2 wks follow up, abscess of abdominal cavity Intake Note: Patient here for 2wk s/p right colectomy. Reports incisions healing well. Patient c/o: no longer taking rx pain meds. Vb Developer Required: No Accompanied by: Self / Same As Patient Allergies No Known Allergies Allergy (Verified 02/28/25 14:11) HPI HPI 2 wks follow up, abscess of abdominal cavity: Details: He is here for follow-up after right colon resection last January 18, 2025 for a phlegmon. He continues to do well. He denies GI complaints. He had has good bowel movements. [facility] Medical History Acute phlegmonous appendicitis Sinus arrest Essential hypertension Surgical History S/P right colectomy (~01/18/25) History of pacemaker Deficient knowledge of valve replacement History of open reduction and internal fixation (ORIF) procedure Family History Father CVD (cardiovascular disease) Myocardial infarction Mother Cancer Sister Breast cancer Son No problems noted. Daughter No problems noted. Social History Household Members: None Housing: House Are you a primary resident care aide to a significant other at home: No Do you presently have visiting nurse or other home services: No Alcohol intake: current Alcohol intake frequency: holidays/special occasions only Comment: counts correct Patient Tobacco Use Status: Current someday Tobacco user Tobacco use type: Cigarette e-Cigarette/Vaping Use: Never Used Second Hand Smoke Exposure: No Substance Use Type: Marijuana service: No Current occupational status: employed Current occupation: [employer] Work Current occupational exposures/hazards: No Cognitive needs: No Hearing needs: No Vision needs: No Review of Systems Const Denies chills and Denies fever(s) Card Denies chest pain Resp Denies cough GI Denies abdominal pain Physical Exam Vital Signs: Last Vital Signs Pulse 72 02/28/25 14:11 BP 129/86 02/28/25 14:11 BMI result Body Mass Index 27.6 Assessment & Plan Assessment & Plan (1) S/P right colectomy: Onset Date: ~01/18/25 Comment: Hand assisted laparoscopic limited right colon resection-Dr. Gilbert MD FACS Code(s): Z90.49 - Acquired absence of other specified parts of digestive tract Category: Surgical Plan: He continues to do well. All incisions are well healed. There were no incisional hernias. He is cleared to return to work without restrictions. He can follow up on a p.r.n. basis. Coding Level of Care Code Global (14543) Diagnoses S/P right colectomy Z90.49
[2025-02-28 14:11] VITALS: BP 129/86; PULSE 72; BMI 27.6
== END 2025-02-28 14:28 | disposition home or self-care (01) ==
LOC: HO.HGS 13:46
PROVIDERS: PCP Family Medicine; Visit Provider Surgery
DX: Z90.49 Acquired absence of other specified parts of digestive tract (principal)
CPT/HCPCS: 99024

== ENCOUNTER 2025-03-29 10:10 | Outpatient (REF) | payer OTHER, SELFPAY ==
--- NOTE | ~2025-03-29 | XR_ITS ---
EXAMINATION: XR LUMBOSACRAL SPINE CLINICAL INFORMATION: M54.16 - Radiculopathy, lumbar region COMPARISON: None available. TECHNIQUE: Three views of the lumbosacral spine. FINDINGS: Endplate sclerosis decreased intervertebral disc height and likely incomplete ankylosis L5-S1. Marginal osteophyte formation and syndesmophyte formation at L2-3. No acute cortical disruption or malalignment. No lytic or blastic lesions. Vascular calcifications, aorta. XR/XR lumbar spine 2-3V IMPRESSION: Multilevel spondylosis more pronounced at L5-S1 and L2-3. Electronically signed by: Richard Marie MD 03/29/2025 12:00 PM EDT
== END 2025-03-29 10:11 | disposition home or self-care (01) ==
LOC: HO.HMGCX 10:10
PROVIDERS: PCP Family Medicine; Visit Provider Internal Medicine
DX: M54.16 Radiculopathy, lumbar region (principal)
CPT/HCPCS: 72100

== ENCOUNTER 2025-03-29 10:10 | Outpatient (AMB) | payer OTHER, SELFPAY ==
--- NOTE | 2025-03-29 10:37 | AM.OFFWIN_ITS ---
Intake Vital Signs 03/29/25 10:40 Height 5 ft 11 in Weight 198 lb BMI 27.6 BP 136/80 Blood Pressure Location Lt brachial Position Sitting Pulse 89 Pulse Source Pulse Oximeter Temp 98.0 F Temp Source Oral Pulse Oximetry (%) 97 Intake Visit Reasons: EP Threw back out Patient Tobacco Use Status: Current someday Tobacco user Allergies No Known Allergies Allergy (Verified 03/29/25 10:40) Medication List - Last Reconciled 03/29/25 by Kayy Madrid MD lisinopril 10 mg PO DAILY mecobalamin (vitamin B12) 1,000 mcg sublingual DAILY 90 days tamsulosin 0.4 mg PO DAILY 90 days Do you need a note to return to daycare/school/sports/work: No HPI EP Threw back out HPI Details History - The patient is a 59-year-old male pres enting with back pain. - The back pain onset occurred when the patient coughed while in the shower, which led to acute back strain reported two days prior to this visit. - The pain is located in the right lower back region. - The patient has been applying patches for pain management, which have resulted in slight improvement, though not substantial relief. - The pain does not radiate down the leg , but it does radiate to right hip in the back - The patient reports no bowel or bladde r issues since the onset of pain. 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 Problem List - lumbar radiculitis right Patient Instructions - Take prescribed medication with food, 12 hours apart, to help with inflammation and pain. - Use a muscle relaxer at night due to i ts sedative effects. - Wear a back belt for support. When li fting heavy at work - Undergo a back X-ray as ordered to fur ther assess back pain. - production support developer prescribed medications from [facility]. - Rest and avoid heavy lifting until the pain subsides. Your lumbar spine x-ray shows multilevel arthritic changes Review of Systems - General: No fever no chills - Neurological: No headaches no dizziness - Ear nose throat: No sore throat no hearing difficulty no ear pain - Cardiovascular: No syncope, no chest pain, no palpitations - Gastrointestinal: No nausea vomiting or diarrhea Physical Exam General: No acute distress HEENT: No acute findings Neck: Supple Respiratory system: Able to talk in full sentences Gastrointestinal: No pain Back exam negative for pain with percussion over lumbar spine, straight leg slightly positive right side Extremities: Stiffness in both legs AGRICULTURAL SPECIALIST: Alert awake oriented x3 motor sensory intact Skin: Normal turgor PFSH Medical History Acute phlegmonous appendicitis Sinus arrest Essential hypertension Surgical History S/P right colectomy (~01/18/25) History of pacemaker Deficient knowledge of valve replacement History of open reduction and internal fixation (ORIF) procedure Family History Father CVD (cardiovascular disease) Myocardial infarction Mother Cancer Sister Breast cancer Son No problems noted. Daughter No problems noted. Social History Household Members: None Housing: House Are you a primary career center director to a significant other at home: No Do you presently have visiting nurse or other home services: No Alcohol intake: current Alcohol intake frequency: holidays/special occasions only Comment: counts correct Patient Tobacco Use Status: Current someday Tobacco user Tobacco use type: Cigarette e-Cigarette/Vaping Use: Never Used Second Hand Smoke Exposure: No Substance Use Type: Marijuana service: No Current occupational status: employed Current occupation: [employer] Work Current occupational exposures/hazards: No Cognitive needs: No Hearing needs: No Vision needs: No Physical Exam Vital Signs: Last Vital Signs Temp 98.0 F 03/29/25 10:40 Pulse 89 03/29/25 10:40 BP 136/80 03/29/25 10:40 Pulse Ox 97 03/29/25 10:40 BMI result Body Mass Index 27.6 Assessment & Plan Assessment & Plan (1) Right lumbar radiculitis: Code(s): M54.16 - Radiculopathy, lumbar region Plan History - The patient is a 59-year-old male presenting with back pain. - The back pain onset occurred when the patient coughed while in the shower, which led to acute back strain reported two days prior to this visit. - The pain is located in the right lower back region. - The patient has been applying patches for pain management, which have resulted in slight improvement, though not substantial relief. - The pain does not radiate down the leg , but it does radiate to right hip in the back - The patient reports no bowel or bladder issues since the onset of pain. 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 Problem List - lumbar radiculitis right Patient Instructions - Take prescribed medication with food, 12 hours apart, to help with inflammation and pain. - Use a muscle relaxer at night due to its sedative effects. - Wear a back belt for support. When lifting heavy at work - Undergo a back X-ray as ordered to further assess back pain. - production support developer prescribed medications from the pharmacy. - Rest and avoid heavy lifting until the pain subsides. Your lumbar spine x-ray shows multilevel arthritic changes Orders: Orders XR lumbar spine 2-3V Today M54.16 - Radiculopathy, lumbar region Medications: New diclofenac sodium 75 mg PO BID 10 days 20 tabs 0RF pain cyclobenzaprine 10 mg PO BEDTIME PRN 10 tabs 0RF muscle spasm Coding Level of Care Code Est Pt Level 3 (40998) Diagnoses Right lumbar radiculitis M54.16
[2025-03-29 10:40] VITALS: BP 136/80; PULSE 89; TEMP 36.7; O2SAT 97; BMI 27.6
== END 2025-03-29 10:50 | disposition home or self-care (01) ==
PROVIDERS: PCP Family Medicine; Visit Provider Internal Medicine
DX: M54.16 Radiculopathy, lumbar region (principal)

== ENCOUNTER → 2025-03-29 11:05 | Outpatient (BNV) | payer OTHER, SELFPAY | PROVIDERS: PCP Family Medicine; Visit Provider Radiology Diagnostic Radiology | DX: M47.817 Spondylosis without myelopathy or radiculopathy, lumbosacral region (principal) | CPT/HCPCS: 72100 ==

== ENCOUNTER 2025-04-29 12:24 | Outpatient (REF) | payer OTHER, SELFPAY ==
[2025-04-29 12:39] LABS: MANUAL DIFF FLAG NO
[2025-04-29 13:11] LABS: Basophils Absolute Auto 0.1 X10*3/uL (0.0-0.2); Basophils Percent Auto 1.1 % (0-2); Eosinophils Absolute Auto 0.1 X10*3/uL (0.0-0.4); Eosinophils Percent Auto 2.4 % (0-4); Hematocrit 40.9 % (42.0-52.0); Hemoglobin 13.6 g/dl (14.0-18.0); Imm Gran Abs Auto 0.01 X10*3/uL (0.00-0.03); Imm Gran Pct Auto 0.2 % (0.0-0.4); Lymphocytes Absolute Auto 1.6 X10*3/uL (1.2-4.9); Lymphocytes Percent Auto 29.7 % (20-40); Mean Corpuscular HGB Conc 33.3 g/dl (31.0-36.0); Mean Corpuscular Hemoglobin 29.2 pg (27.0-33.0); Mean Corpuscular Volume 87.8 fL (80.0-98.0); Mean Platelet Volume 8.9 fL (9.4-12.4); Monocytes Absolute Auto 0.4 X10*3/uL (0.1-1.2); Monocytes Percent Auto 7.7 % (2-11); Neutrophils Absolute Auto 3.2 x10*3/uL (2.0-8.3); Neutrophils Percent Auto 58.9 % (45-73); Platelet Count 256 X10*3/uL (160-400); Red Blood Count 4.66 X10*6/uL (4.60-5.80); White Blood Count 5.5 X10*3/uL (4.8-10.8)
[2025-04-29 13:33] LABS: Alanine Aminotransferase 23 U/L (0-40); Albumin Level 4.4 g/dL (3.5-5.0); Alkaline Phosphatase 81 U/L (39-117); Anion Gap 13 (12-20); Aspartate Amino Transferase 19 U/L (5-37); Bilirubin Total 0.3 mg/dL (0.0-1.0); Blood Urea Nitrogen 9 mg/dL (9-16); Calcium 9.4 mg/dL (8.4-10.2); Carbon Dioxide 22 mmol/L (22-29); Chloride 105 mmol/L (96-108); Estimated Glomerular Filt Rate > 60; Glucose Random 190 mg/dL (60-115); Potassium 3.4 mmol/L (3.3-5.1); Sodium 137 mmol/L (135-145)
== END 2025-04-29 12:25 | disposition home or self-care (01) ==
LOC: HO.LAB 12:24
PROVIDERS: PCP Family Medicine; Visit Provider Family Medicine
DX: Z00.00 Encounter for general adult medical examination without abnormal findings (principal); Z90.49 Acquired absence of other specified parts of digestive tract
CPT/HCPCS: 36415; 80053; 85025

== ENCOUNTER 2025-04-30 09:16 | Outpatient (AMB) | payer OTHER, SELFPAY ==
--- NOTE | 2025-04-30 09:31 | MHC.PC.OV ---
Vital Signs 04/30/25 09:35 Height 5 ft 11 in Weight 200 lb BMI 27.9 BP 130/70 Blood Pressure Location Rt brachial Position Sitting Respiration 14 Pulse 61 Pulse Source Pulse Oximeter Temp 98.1 F Temp Source Oral Pulse Oximetry (%) 96 Oxygen Delivery Method Room Air Intake Visit Reasons: bilateral burning swelling legs Intake Note: bilateral feet swelling and sweating Guest Service Supervisor Required: No Allergies No Known Allergies Allergy (Verified 04/30/25 09:34) Medication List - Last Reconciled 04/30/25 by Alan Dowd MD aluminum chloride 20% (Drysol) 1 appl topical 2XW PRN 30 days diclofenac sodium 75 mg PO BID 10 days lisinopril 10 mg PO DAILY mecobalamin (vitamin B12) 1,000 mcg sublingual DAILY 90 days tamsulosin 0.4 mg PO DAILY 90 days Tobacco use date assessed: 08/10/24 Dental Screening Dental Screen Date: 01/31/24 HPI bilateral burning swelling legs HPI Details 59 y/o male presents today with complaints of bilateral burning of lower extremities. Pt also reports excessive sweating of his feet, bilateral. Reports ongoing L arm numbness. [facility] Medical History Acute phlegmonous appendicitis Sinus arrest Essential hypertension Surgical History S/P right colectomy (~01/18/25) History of pacemaker Deficient knowledge of valve replacement History of open reduction and internal fixation (ORIF) procedure Family History Father CVD (cardiovascular disease) Myocardial infarction Mother Cancer Sister Breast cancer Son No problems noted. Daughter No problems noted. Social History Household Members: None Housing: House Are you a primary hiv/aids care nurse to a significant other at home: No Do you presently have visiting nurse or other home services: No Alcohol intake: current Alcohol intake frequency: holidays/special occasions only Comment: counts correct Patient Tobacco Use Status: Current someday Tobacco user Tobacco use type: Cigarette e-Cigarette/Vaping Use: Never Used Second Hand Smoke Exposure: No Substance Use Type: Marijuana service: No Current occupational status: employed Current occupation: [employer] Work Current occupational exposures/hazards: No Cognitive needs: No Hearing needs: No Vision needs: No Questionnaire Thrive Questionnaire Date Thrive assessed: 02/04/25 I am a: Patient What is your living situation today?: I have a steady place to live Within the past 12 months, did the food you bought not last and you didn't have the money to get more?: I choose not to answer this question Within the past 12 months, did you worry whether your food would run out before you got money to buy more?: Sometimes True Do you have trouble paying for medicines?: I choose not to answer this question Do you have trouble getting transportation to medical appointments?: No Do you have trouble paying your heating and electricity bill?: I choose not to answer this question Do you have trouble taking care of your child, family member or friend?: No Do you have trouble with day-to-day activities such as bathing, preparing meals, shopping, managing finances, etc.?: No Are you currently unemployed and looking for a job?: Yes Are you interested in more education?: I choose not to answer this question Please select the resources that you would like help with: None Currently or been in a relationship where the following occur: I choose not to answer THRIVE Score: 1 CANDY-7 AMB Questionnaire CANDY-7 Date CANDY - 7 assessed: 11/03/22 Source: Developed by Drs. Coleman Huerta, Marisela Rachel, Feng Carmichael and colleagues, with an educational tree from [employer]. Review of Systems Const Denies chills, Denies fatigue, Denies fever(s), Denies headache(s) and Denies weakness ENT Denies dizziness and Denies headache(s) Card Denies chest pain, Denies lightheadedness, Denies dyspnea and Denies other (Palpitations) Resp Denies cough, Denies dyspnea, Denies wheezing and Denies other ( shortness of breath) Musc Denies numbness and Denies tingling Neuro Denies dizziness, Denies headache(s), Denies numbness, Denies tingling, Denies paresthesias and Denies weakness Psych Denies anxiety and Denies depression Endo Denies fatigue Aller/Immun Denies wheezing Physical exam (Primary Care) Vital Signs: Last Vital Signs Temp 98.1 F 04/30/25 09:35 Pulse 61 04/30/25 09:35 Resp 14 04/30/25 09:35 BP 130/70 04/30/25 09:35 Pulse Ox 96 04/30/25 09:35 Oxygen Delivery Method Room Air 04/30/25 09:35 BMI result Body Mass Index 27.9 Tobacco/Smoking Status: Tobacco use Status Tobacco use date assessed 08/10/24 04/30/25 09:32 Patient Tobacco Use Status Current someday Tobacco 04/30/25 09:32 Tobacco use type Cigarette 04/30/25 09:32 e-Cigarette/Vaping Use Never Used 04/30/25 09:32 Thrive Assessment: Date of Thrive Assessment Date Thrive assessed 02/04/25 04/30/25 09:32 Currently or been in a relationship where the following occur: I choose not to answer Const General: no acute distress and well developed Nutritional Appearance: well nourished Orientation/consciousness: patient oriented x3 HENMT Head: Yes normocephalic and Yes atraumatic Eyes General: appearance normal, both eyes and all related structures Pupils: Equal, round and reactive pupils present EOM: EOMs intact bilaterally Resp Effort & Inspection: normal respiratory effort Auscultation: clear to auscultation bilaterally Cardio Rate: regular rate Rhythm: regular rhythm Heart sounds: S1 normal heart sound present, S2 normal heart sound present, no gallops, no murmurs and no rubs Neuro General: patient oriented x3 and gait normal Cranial nerves: Yes Equal, round and reactive pupils present Psych Affect: normal affect Coding Level of Care Code Est Pt Level 4 (36539) Diagnoses Paresthesia of bilateral legs R20.2 Left arm numbness R20.0 Excessive sweating R61 Swelling of lower extremity M79.89 Assessment & Plan Assessment & Plan (1) Paresthesia of bilateral legs: Code(s): R20.2 - Paresthesia of skin Category: Medical (2) Left arm numbness: Code(s): R20.0 - Anesthesia of skin Category: Medical (3) Excessive sweating: Code(s): R61 - Generalized hyperhidrosis Category: Medical (4) Swelling of lower extremity: Code(s): M79.89 - Other specified soft tissue disorders Category: Medical Plan Profuse?sweating?bilateral?feet He?can?try?Drysol?and?I?advised?he?changes?socks twice?a?day Referred?to?Podiatry Can?also?try?some?gabapentin - make?sure?you?know?this?makes?you?feel?before?you?operate?machinery Still?has?ongoing?left?arm?and?hand?numbness?in?ulnar?distribution?including?left?5th?4th?and?part?of?3rd?finger He?has?an?appointment?with?Neurology?in?June Orders: Referrals Podiatry Referral R61 - Generalized hyperhidrosis Medications: New aluminum chloride 20% (Drysol) 1 appl topical 2XW 30 days PRN 37.5 mL 1RF excessive sweating gabapentin 100 mg PO DAILY 30 days 30 caps 2RF
[2025-04-30 09:35] VITALS: BP 130/70; PULSE 61; RESP 14; TEMP 36.7; O2SAT 96; BMI 27.9
== END 2025-04-30 10:20 | disposition home or self-care (01) ==
LOC: HO.HMCFM 09:17
PROVIDERS: PCP Family Medicine; Visit Provider Family Medicine
DX: R20.2 Paresthesia of skin (principal); R20.0 Anesthesia of skin; R61 Generalized hyperhidrosis; M79.89 Other specified soft tissue disorders

== ENCOUNTER → 2025-04-30 09:16 | Outpatient (BNVA) | payer OTHER, SELFPAY | PROVIDERS: PCP Family Medicine; Visit Provider Family Medicine | DX: Z13.89 Encounter for screening for other disorder (principal) ==

== ENCOUNTER 2025-06-12 12:49 | Outpatient (REF) | payer OTHER, SELFPAY ==
--- OUTSIDE RECORDS SUMMARY | 2025-06-12 13:10 | XMS_ITS | Clinical Summary ---
Author Organization [facility] Address [address] [place] [id number] Phone Care Team Providers Care Marine Driller Name Role Phone Alan Dowd MD Primary Care Provider Allergies No known active allergies Medications lisinopril (PRINIVIL,ZESTRI L) 20 MG tablet Take 20 mg by mouth daily. 11/18/2020 Active Active Problems Problem Noted Date Diagnosed Date Fatty liver, alcoholic 12/25/2022 Incomplete right bundle branch block 12/25/2022 Obstructive sleep apnea 12/25/2022 Sick sinus syndrome 12/25/2022 Pes cavus 12/05/2020 Neuroma of left lower extremity 12/05/2020 Electrocardiography findings indicative of cardiac pacemaker activity 06/22/2011 Immunizations Immunization Administration Dates Next Due Tdap 03/13/2024,06/20/2018 Social History Tobacco Use Types Packs/Day Years Used Date Smoking Tobacco: Former Smokeless Tobacco: Never Alcohol Use Standard Drinks/Week Comments Yes 0 (1 standard drink = 0.6 oz pur e alcohol) 1 beer per day Education Answer Date Recorded Are you interested in more education? Not on betzy e 03/18/2023 Are you concerned about learning? Not on file 03/18/2023 No 03/18/2023 No 03/18/2023 Digital Access Answer Date Recorded No 04/16/2023 No 04/16/2023 Reliable internet access at home? Not on file 04/16/2023 Device with a working camera? Not on file Intimate Partner Violence Answer Date R ecorded Are you denied basic needs s uch as food, clothing, or medical care? No 10/02/2023 In the past 12 months have y ou been in a relationship with a person who hurts, threatens, or tries to control you? No 10/02/2023 Are you denied basic needs s uch as food, clothing, or medical care? No 10/02/2023 In the past 12 months have y ou been in a relationship with a person who hurts, threatens, or tries to control you? No 10/02/2023 Sex and Gender Information Value Date Recorded Sex Assigned at Male 06/20/2018 6:12 PM EDT Legal Sex Male 9:43 PM EDT Gender Identity Male 06/20/2018 6:12 PM EDT Sexual Orientation Not on file Last Filed Vital Signs Vital Sign Reading Time Taken Comments Blood Pressure 128/77 03/22/2024 2:47 PM EDT Pulse 69 03/22/2024 2:47 PM EDT Temperature 36.6 C (97.8 F) 03/22/2024 2:47 PM EDT Respiratory Rate 17 03/22/2024 2:47 PM EDT Oxygen Saturation 97% 03/22/2024 2:47 PM EDT Inhaled Oxygen Concentration - - Weight 95.3 kg (210 lb) 03/22/2024 2:47 PM EDT Height 180.3 cm (5' 11 ) 03/22/2024 2:47 PM EDT Body Mass Index 29.29 03/22/2024 2:47 PM EDT Plan of Treatment Health Maintenance Due Date Last Done Comments CREATININE LEVEL 1965 LIPID PANEL 1965 POTASSIUM LEVEL 1965 DEPRESSION SCREENING 1975 SMOKING Hx and SMOKELESS TOBACCO SCREENING 1976 HEPATITIS C SCREENING 1981 HIV ONE-TIME SCREENING (18-6 5 YEARS) 1981 HEPATITIS A VACCINES (1 of 2 - Risk 2-dose series) 1982 SCREENING FOR DIABETES 1998 COLOGUARD 2008 FIT TEST 2008 FOBT 2008 SIGMOIDOSCOPY 2008 VIRTUAL COLONOSCOPY 2008 ZOSTER VACCINES (1 of 2) 2013 PNEUMOCOCCAL VACCINES (50+ years) (2 of 2 - PCV) 03/25/2018 03/25/2017 RSV VACCINE (1 - Risk 60-74 years 1-dose series) 2023 COVID-19 VACCINE (3 2023-2 5 season) 2024 04/08/2021, 03/11/2021 COLONOSCOPY 09/22/2028 09/22/2018 COLORECTAL CANCER SCREENING 09/22/2028 Adult Td,Tdap Booster 03/13/2034 03/13/2024 , 06/20/2018, 03/01/2017 HIB VACCINES Aged Out No longer eligi ble based on patient's age to complete this topic MENINGOCOCCAL VACCINES (ACWY) Aged Out No longer eligible based on patient's age to complete this topic MENINGOCOCCAL VACCINES (B) Aged Out N o longer eligible based on patient's age to complete this topic Medical Devices Implanted Type Area Spin Table Operator Device Identifier Shelf Expiration Date Model / Serial / Lot Pacemaker Description:Left chest Procedures Procedure Name Priority Date/Time Associated Diagnosis Comments ENDOSCOPY, COLON 09/22/2018 8:18 AM EDT from Last 3 Months or Most Recently Relevant to Health Maintenance Results * ENDOSCOPY, COLON (09/22/2018 8:18 AM EDT) Narrative Transcriptions Lyndsey Lewis MD - 09/22/2018 8:18 AM EDT Patient Name: Mike Rohith Attending MD:: LYNDSEY LEWIS MD Procedure Date: 09/22/2018 8:18 AM Date of : 1965 Age: 52 Admit Type: Outpatient Gender: Male Room: [place] [address] Referring MD: Williams Simental MD Exam Type: Colonoscopy Indications: Screening for colorectal malignant neoplasm, Last colonoscopy: May 2008 Medications: Propofol per Anesthesia Procedure: Informed consent was obtained from the patient after discussion of the indications, limitations,alternatives, benefits, and risks of the procedure. Risksspecifically discussed include but are not limited to medication reactions, missed lesions, bleeding, perforation, orthe need for emergent surgery. Throughout the procedure, the patient's blood pressure, pulse, end-tidal CO2, and oxygen saturations were monitored continuously. The Olympus pediatric variable colonoscope [id number] was introduced through the anus and advanced to the terminal ileum, with identification of the appendiceal orifice and IC valve. The terminal ileum, ileocecalvalve, appendiceal orifice, and rectum were photographed. The colonoscopy was performed without difficulty. Thepatient tolerated the procedure well. The quality of the bowel preparation was good. The bowel preparation used was GoLYTELY. Complications: No immediate complications. Estimated blood loss:None. Findings: The digital rectal exam was normal. Pertinent negatives include normal prostate (size, shape, andconsistency). External hemorrhoids were found during perianal exam.The hemorrhoids were small. The retroflexed view of the distal rectum and analverge was normal and showed no anal or rectalabnormalities. Multiple medium-mouthed diverticula were found in the entire colon. Retroflexion in the right colon was performed. A 10 mm polyp was found at the base of the ileocecal valve. The polyp was pedunculated with a very shortstalk. The polyp was removed with a hot snare. Resection and retrieval were complete. The terminal ileum appeared normal. Impression: - External hemorrhoids. - The distal rectum and anal verge are normal on retroflexion view. - Moderate diverticulosis in the entire examinedcolon. - One 10 mm polyp at the ileocecal valve, removed witha hot snare. Resected and retrieved. - The examined portion of the ileum was normal. Recommendation: - No aspirin, ibuprofen, naproxen, or othernon-steroidal anti-inflammatory drugs for 2 weeks after polypremoval. - If the pathology report reveals adenomatous tissue,then repeat the colonoscopy for surveillance in 3 years. LYNDSEY LEWIS MD 09/22/2018 8:51:23 AM This report has been signed electronically. Number of Addenda: 0 Note Initiated On: 09/22/2018 8:18 AM Procedure Code(s): --- Professional --- 09446, Colonoscopy, flexible; with removal of tumor(s), polyp(s), or other lesion(s) by snare technique --- Technical --- 52568, Colonoscopy, flexible; with removal of tumor(s), polyp(s), or other lesion(s) by snare technique Diagnosis Code(s): --- Professional --- Z12.11, Encounter for screening for malignant neoplasm of colon K64.4, Residual hemorrhoidal skin tags D12.0, Benign neoplasm of cecum K57.30, Diverticulosis of large intestine without perforation orabscess without bleeding --- Technical --- Z12.11, Encounter for screening for malignant neoplasm of colon K64.4, Residual hemorrhoidal skin tags D12.0, Benign neoplasm of cecum K57.30, Diverticulosis of large intestine without perforation orabscess without bleeding CPT copyright 2016 [employer]. All rights reserved. The codes documented in this report are preliminary and upon electric vehicle electrician reviewmay be revised to meet current compliance requirements. [address] [place] [address] Williams Simental DO GI PROCEDURE ORDERABLES Fi nal Result from Last 3 Months or Most Recently Relevant to Health Maintenance Insurance [employer] PPO CIGNA PPO CIG[employer] PPO CIGNA PPO [employer]IG[employer] PPO [employer] PPO WORKERS COMPENSATION Care Teams Marine Driller Relationship Specialty Start Date End Date Alan Dowd MD [address] [place] [address] PCP - General 12/31/19 Additional Source Comments The information contained in this document represents components of the legal health record. It is not the complete legal health record.[facility]
[2025-06-12 14:50] LABS: Prostate Specific Antigen 2.07 ng/mL (<0.05-4.0)
== END 2025-06-12 12:50 | disposition home or self-care (01) ==
LOC: HO.LAB 12:49
PROVIDERS: PCP Family Medicine; Visit Provider Urology
DX: N40.1 Benign prostatic hyperplasia with lower urinary tract symptoms (principal)
CPT/HCPCS: 36415; 84153

== ENCOUNTER 2025-06-13 14:58 | Outpatient (AMB) | payer OTHER, SELFPAY ==
--- NOTE | 2025-06-13 15:04 | A.OFFPC_ITS ---
Vital Signs 06/13/25 15:09 Height 5 ft 11 in Weight 200 lb 6 oz BMI 27.9 BP 118/76 Blood Pressure Location Lt brachial Position Sitting Respiration 12 Pulse 74 Pulse Source Pulse Oximeter Temp 98.7 F Temp Source Oral Pulse Oximetry (%) 96 Oxygen Delivery Method Room Air Intake Visit Reasons: not feeling well for 2days Intake Note: Stomach ache and diarrhea since Tuesday. Had appendix out in December 2024. Requesting refill on Lisionopril Concrete Grinder Operator Required: No Allergies No Known Allergies Allergy (Verified 06/13/25 15:05) Medication List - Last Reconciled 06/13/25 by Leighann Stone PA-C aluminum chloride 20% (Drysol) 1 appl topical 2XW PRN 30 days gabapentin 100 mg PO DAILY 30 days lisinopril 10 mg PO DAILY mecobalamin (vitamin B12) 1,000 mcg sublingual DAILY 90 days tamsulosin 0.4 mg PO DAILY 90 days Tobacco use date assessed: 08/10/24 Dental Screening Dental Screen Date: 06/13/25 Did you have a dental visit in the last 12 months?: Yes Did you have a dental problem in the last 6 months where you did not have access to dental care?: No Was dental information given to patient?: Patient has dentist HPI not feeling well for 2days HPI Details Patient is a 59-year-old male with a significant past medical history of prediabetes, htn and BPH presenting today for an acute problem visit. He states that on Tuesday he developed nausea, vomiting and diarrhea. He also felt a little achy but that has since resolved. He states his main issue now is the diarrhea. He has had diarrhea for the last few days but today feels better. He has not had a normal bowel movement and states that it is just liquid. No recent travel or known sick contacts. He has taken antibiotics but believes it was about 6 months ago or less. No fever or chills. No abdominal pain but does get diffuse cramping that improves with bowel movements. He states that the diarrhea was awful for a few days and it was many times a day in the last 24 hours he has only gone a couple times. He just ate a burger on his way over here and that was ok. No difficulty drinking water. CV: Blood pressure today in the office is 118 over 76. He is on lisinopril 10 mg. Requests a refill today. [facility] Medical History (Updated 06/13/25 @ 16:49 by Leighann Stone PA-C) Acute phlegmonous appendicitis Sinus arrest Essential hypertension Surgical History (Updated 06/13/25 @ 15:09 by Monica Emery CMA) History of appendectomy S/P right colectomy (~01/18/25) History of pacemaker Deficient knowledge of valve replacement History of open reduction and internal fixation (ORIF) procedure Family History Father CVD (cardiovascular disease) Myocardial infarction Mother Cancer Sister Breast cancer Son No problems noted. Daughter No problems noted. Social History (Updated 06/13/25 @ 15:09 by Monica Emery CMA) Household Members: None Housing: House Are you a primary geriatric care manager to a significant other at home: No Do you presently have visiting nurse or other home services: No Alcohol intake: current Alcohol intake frequency: holidays/special occasions only Comment: counts correct Patient Tobacco Use Status: Current someday Tobacco user Tobacco use type: Cigarette Cigarettes Per Day: 1 Years Smoked: 2 e-Cigarette/Vaping Use: Never Used Second Hand Smoke Exposure: No Substance Use Type: Marijuana service: No Current occupational status: employed Current occupation: [employer] Current occupational exposures/hazards: No Cognitive needs: No Hearing needs: No Vision needs: No Questionnaire Thrive Questionnaire Date Thrive assessed: 02/04/25 I am a: Patient What is your living situation today?: I have a steady place to live Within the past 12 months, did the food you bought not last and you didn't have the money to get more?: I choose not to answer this question Within the past 12 months, did you worry whether your food would run out before you got money to buy more?: Sometimes True Do you have trouble paying for medicines?: I choose not to answer this question Do you have trouble getting transportation to medical appointments?: No Do you have trouble paying your heating and electricity bill?: I choose not to answer this question Do you have trouble taking care of your child, family member or friend?: No Do you have trouble with day-to-day activities such as bathing, preparing meals, shopping, managing finances, etc.?: No Are you currently unemployed and looking for a job?: Yes Are you interested in more education?: I choose not to answer this question Please select the resources that you would like help with: None Currently or been in a relationship where the following occur: I choose not to answer THRIVE Score: 1 AUDIT C Alcohol Use Questionnaire (AUDIT-C) 1. How often do you have a drink containing alcohol?: 2-3 times a week 2. How many drinks containing alcohol do you have on a typical day when you are drinking?: 1 or 2 3. How often do you have six or more drinks on one occasion?: Never Total Score: 3 CANDY-7 AMB Questionnaire CANDY-7 Date CANDY - 7 assessed: 11/03/22 Source: Developed by Drs. Coleman Huerta, Marisela Rachel, Feng Carmichael and colleagues, with an educational tree from [employer]. Physical exam (Primary Care) Tobacco/Smoking Status: Tobacco use Status Tobacco use date assessed 08/10/24 06/13/25 15:07 Patient Tobacco Use Status Current someday Tobacco 06/13/25 15:09 Tobacco use type Cigarette 06/13/25 15:09 e-Cigarette/Vaping Use Never Used 06/13/25 15:09 Thrive Assessment: Date of Thrive Assessment Date Thrive assessed 02/04/25 06/13/25 15:07 Currently or been in a relationship where the following occur: I choose not to answer Const Orientation/consciousness: patient oriented x3 HENMT Ears: hearing grossly normal bilaterally Neck Thyroid: Thyroid normal Lymphatic: no lymphadenopathy noted Resp Auscultation: clear to auscultation bilaterally Cardio Rate: regular rate Rhythm: regular rhythm Heart sounds: S1 normal heart sound present and S2 normal heart sound present GI Inspection: Yes normal to inspection Palpation (GI): Soft to palpation and Other GI palpation findings present (nontender, no cva tenderness) Auscultation: normoactive bowel sounds Rectal Exam - Male: Yes deferred Skin General skin exam: no rashes or lesions noted Neuro General: patient oriented x3, gait normal and no focal motor deficits Coding Level of Care Code Est Pt Level 4 (75700) Complex EM visit Add On G2211 Diagnoses Nausea, vomiting and diarrhea R11.2; R19.7 HTN (hypertension) I10 Pre-diabetes R73.03 Assessment & Plan Assessment & Plan (1) Nausea, vomiting and diarrhea: Code(s): R11.2 - Nausea with vomiting, unspecified; R19.7 - Diarrhea, unspecified Category: Medical Plan: labs ordered abdominal exam is benign. Stool studies ordered Advised very bland diet and slowly advance the diet (2) HTN (hypertension): Code(s): I10 - Essential (primary) hypertension Category: Medical Plan: WNL. Continue current regimen (3) Pre-diabetes: Code(s): R73.03 - Prediabetes Category: Medical Plan: A1c ordered Orders: Orders Complete Blood Count Auto Diff Today R11.2 - Nausea with vomiting, unspecified, R19.7 - Diarrhea, unspecified Comprehensive Met. Panel Today R11.2 - Nausea with vomiting, unspecified, R19.7 - Diarrhea, unspecified Hemoglobin A1c Today R11.2 - Nausea with vomiting, unspecified, R19.7 - Diarrhea, unspecified, R73.01 - Impaired fasting glucose OBSX3 Today R11.2 - Nausea with vomiting, unspecified, R19.7 - Diarrhea, unspecified CDiff Gene PCR Today R11.2 - Nausea with vomiting, unspecified, R19.7 - Diarrhea, unspecified
--- OUTSIDE RECORDS SUMMARY | 2025-06-13 15:05 | XMS_ITS | Clinical Summary ---
Author Organization [facility] Address [address] [place] [address] Phone Care Team Providers Care Prepared Foods Associate Name Role Phone Alan Dowd MD Primary [...] this topic Medical Devices Implanted Type Area Plant Assigner Device Identifier Shelf Expiration Date Model / [...] 54 Admit Type: Outpatient Gender: Male Room: [place] [address] Referring MD: Williams Simental MD Exam Type: [...] 8:18 AM Procedure Code(s): --- Professional --- 72019, Colonoscopy, flexible; with removal of tumor(s), polyp(s), or other lesion(s) by snare technique --- Technical --- 69128, Colonoscopy, flexible; with removal of tumor(s), polyp(s), [...] perforation orabscess without bleeding CPT copyright 2016 [employer]. All rights reserved. The codes documented in this report are preliminary and upon wind turbine service technician reviewmay be revised to meet current compliance requirements. [address] [place] [address] Williams Simental DO GI PROCEDURE ORDERABLES Fi nal Result from Last 3 Months or Most Recently Relevant to Health Maintenance Insurance CIGNA PPO CIGNA PPO CIGNA PPO CIGNA PPO CIGNA PPO CIGNA PPO WORKERS COMPENSATION Care Teams Prepared Foods Associate Relationship Specialty Start Date End Date Alan Dowd MD [address] [place] [address] PCP - General 12/31/19 Additional Source Comments The information contained in this document represents components of the legal health record. It is not the complete legal health record.[facility]
[2025-06-13 15:09] VITALS: BP 118/76; PULSE 74; RESP 12; TEMP 37.1; O2SAT 96; BMI 27.9
== END 2025-06-13 15:26 | disposition home or self-care (01) ==
LOC: HO.HMCFM 14:58
PROVIDERS: PCP Family Medicine; Visit Provider Physician Assistant
DX: R11.2 Nausea with vomiting, unspecified (principal); R19.7 Diarrhea, unspecified; I10 Essential (primary) hypertension; R73.03 Prediabetes

== ENCOUNTER 2025-06-13 15:44 | Outpatient (REF) | payer OTHER, SELFPAY ==
[2025-06-13 17:32] LABS: MANUAL DIFF FLAG NO
[2025-06-13 17:55] LABS: Hematocrit 39.8 % (42.0-52.0); Hemoglobin 13.7 g/dl (14.0-18.0); Imm Gran Abs Auto 0.02 X10*3/uL (0.00-0.03); Imm Gran Pct Auto 0.4 % (0.0-0.4); Lymphocytes Absolute Auto 2.1 X10*3/uL (1.2-4.9); Mean Corpuscular HGB Conc 34.4 g/dl (31.0-36.0); Mean Corpuscular Hemoglobin 29.8 pg (27.0-33.0); Mean Corpuscular Volume 86.5 fL (80.0-98.0); NRBC Abs Auto 0.000 X10*3/uL (0.0-0.012); NRBC Pct Auto 0.0 /100WBC (0.0-0.2); Platelet Count 208 X10*3/uL (160-400); Red Blood Count 4.60 X10*6/uL (4.60-5.80); White Blood Count 5.4 X10*3/uL (4.8-10.8)
[2025-06-13 17:58] LABS: Alanine Aminotransferase 56 U/L (0-40); Albumin Level 4.5 g/dL (3.5-5.0); Alkaline Phosphatase 78 U/L (39-117); Anion Gap 10 (12-20); Aspartate Amino Transferase 27 U/L (5-37); Blood Urea Nitrogen 8 mg/dL (9-16); Calcium 9.2 mg/dL (8.4-10.2); Carbon Dioxide 25 mmol/L (22-29); Chloride 107 mmol/L (96-108); Estimated Glomerular Filt Rate > 60; Potassium 3.3 mmol/L (3.3-5.1); Sodium 139 mmol/L (135-145); Total Protein 7.2 g/dL (6.5-8.0)
[2025-06-13 17:59] LABS: Hemoglobin A1C 137.8221 umol/L; Total Hemoglobin (HGBA1C) 3549.7267 umol/L
[2025-06-14 19:59] LABS: OBS Int Ctl Valid YES; OBS1 NEGATIVE (NEGATIVE)
[2025-06-14 20:29] LABS: CDiff Gene PCR NEGATIVE (Negative)
== END 2025-06-13 15:45 | disposition home or self-care (01) ==
LOC: HO.WFDLDS 15:44
PROVIDERS: Visit Provider Physician Assistant
DX: R11.2 Nausea with vomiting, unspecified (principal); R19.7 Diarrhea, unspecified; R73.01 Impaired fasting glucose
CPT/HCPCS: 36415; 80053; 82272; 83036; 85025; 87493

== ENCOUNTER 2025-06-19 15:57 | Outpatient (AMB) | payer OTHER, SELFPAY ==
--- OUTSIDE RECORDS SUMMARY | 2025-06-15 23:59 | XMS_ITS | Continuity of Care Document ---
Author Organization [facility] Address [address] [address]- Care Team Providers Care Statistical Methods Professor Name Role Phone Williams Simental DO Primary Care Physician [place] [facility] [place] [facility] [place]16/[place] - 06/15/[address] [address] Attending Physician: Alaina Madera Admitting Physician: Alaina Madera Referring Physician: Alaina Madera Encounter Type: Triage Allergies, Adverse Reactions, Alerts No Known Allergies [...] Position: Reference Physician Member Role: PCP Address: [address] [facility] [place] [address]- [place] Telecom: Care Team Related Persons Name: TOI SOTO Name: CHRISTELLE SOTO Insurance Providers Guarantor name: JENA BRITTANY Health Plan Information #: 1 [facility] Payer Identifier: SARITHA Member Number: [id number] Group Number: [id number] Subscriber Identifier: [id number] Relationship to Subscriber: self Coverage Type: Commercial Managed Care - PPO Coverage Verification Date: Telecom: NA Address: NA
--- NOTE | 2025-06-19 15:57 | A.OFFVIS_ITS ---
Intake Visit Reasons: 6m/PSA Intake Note: Patient is present for 6m/PSA * 06/12 PSA:2.07 Urology Medication:TAMSULOSIN Antibiotic Allergy:NONE Blood Thinner:NONE Hydrogen Operator Required: No Allergies No Known Allergies Allergy (Verified 08/01/25 09:03) Medication List - Last Reconciled 06/19/25 by Sangeeta Robledo MD aluminum chloride 20% (Drysol) 1 appl topical 2XW PRN 30 days gabapentin 100 mg PO DAILY 30 days lisinopril 10 mg PO DAILY mecobalamin (vitamin B12) 1,000 mcg sublingual DAILY 90 days tamsulosin 0.4 mg PO DAILY 90 days HPI Comments Details: 06/19/25--Telehealth FU -- PSA screening, on tamsulosin for BPH. 06/12 PSA:2.07 ng/mL. 11/22/24--Mike is a 58 year old male who was treated for epididymo-orchitis with levaquin. Here for 6 week fu, he completed course of antibiotics, states scrotal swelling and pain resolved. Will continue on tamsulosin and PSA screening. Follow-up in 6 months. He states he ran out of his lisinopril and requests a refill. I have refilled a 30 day supply but he is to call the PCP's office for further refills. Review of chart: 08/13/24--Mike is a 58 yo male with PMH of low back pain, HTN, PPM s/p syncope and sinus arrest, being seen in the emergency room on 08/10/24 due to right testicular pain, redness, swelling, that was atraumatic. Scrotal ultrasound was consistent with right epididymo- orchitis. He has been on Levaquin 750 mg daily. He states that the swelling has gone down and the testicle is less painful. On examination there is small improvement in evaluation, right hemiscrotum swelling, less erythema. I have discussed no heavy lifting for 1 week. Will keep him out of work for 1 week. The nurse will call the patient later this week to check on symptoms. Continue tamsulosin, Levaquin, will start naproxen 500 mg b.i.d.. Repeat scrotal ultrasound in 1 month follow-up in 6 weeks [facility] Medical History (Updated 07/15/25 @ 12:13 by FRANKLIN Hercules) Diarrhea Elevated LFTs Mild anemia Obstructive sleep apnea hypopnea, moderate Obstructive sleep apnea hypopnea, mild Numbness of left hand Acute phlegmonous appendicitis Sinus arrest Essential hypertension Surgical History History of appendectomy S/P right colectomy (~01/18/25) History of pacemaker Deficient knowledge of valve replacement History of open reduction and internal fixation (ORIF) procedure Family History Father CVD (cardiovascular disease) Myocardial infarction Mother Cancer Sister Breast cancer Son No problems noted. Daughter No problems noted. Social History (Updated 08/01/25 @ 09:04 by Angela Mercado MA) Household Members: None Housing: House Are you a primary career development engineer to a significant other at home: No Do you presently have visiting nurse or other home services: No Alcohol intake: current Alcohol intake frequency: holidays/special occasions only Comment: counts correct Patient Tobacco Use Status: Current someday Tobacco user Tobacco use type: Cigarette Cigarettes Per Day: 1 Years Smoked: 2 Packs per year/per ci.10 e-Cigarette/Vaping Use: Never Used Second Hand Smoke Exposure: No Use of substances other than those prescribed or required for medical reasons: Yes Substance Use Type: Marijuana service: No Current occupational status: employed Current occupation: [employer] Work Current occupational exposures/hazards: No Cognitive needs: No Hearing needs: No Vision needs: No Review of Systems Const All systems reviewed & are unremarkable except as noted in HPI and below Reports no additional complaints Eyes Reports no additional complaints ENT Reports no additional complaints Card Reports no additional complaints Resp Reports no additional complaints GI Reports no additional complaints Reports as per HPI Musc Reports no additional complaints Skin/Breast Reports system reviewed and no additional complaints, except as documented Neuro Reports no additional complaints Psych Reports no additional complaints Endo Reports no additional complaints Jn/Lymph Reports no additional complaints Aller/Immun Reports no additional complaints Telehealth Telehealth Telehealth Platform: Doximity Location of provider rendering services: practice address Location of patient: address on file Telehealth method: video Patient verbally consented to treatment: Yes Patient verbally consented to billing insurance company: Yes Patient informed of any privacy concerns related to visit: Yes Results Reviewed Results Reviewed: Date of Service: 08/10/24 US SCROTUM CLINICAL INFORMATION: Right-sided testicular pain. COMPARISON: CT abdomen/pelvis 09/03/2015. TECHNIQUE: A sonogram of the scrotum was performed assessing abad-scale appearance and color Doppler flow. Spectral Doppler analysis of the arterial and venous flow were performed in the testes bilaterally. FINDINGS: RIGHT: Right testicle measures 5.3 x 3.5 x 3.4 cm, volume 33.2 mL. No focal testicular parenchymal lesions are visualized. Spectral Doppler analysis of the arterial and venous flow is increased in the right testis. Right epididymal head is increased in size and hyperemic. There is a small simple appearing cyst in the epididymal head measuring 0.7 cm. Moderate size complex hydrocele with multiple septations. No varicocele. Right epididymal Doppler flow is increased. LEFT: Left testicle measures 4.8 x 2.7 x 2.9 cm, volume 19 mL. No focal testicular parenchymal lesions are visualized. Spectral Doppler analysis of the arterial and venous flow is normal in the left testis. Left epididymal head is normal in size. Small simple appearing hydrocele. No varicocele. Left epididymal Doppler flow is normal. IMPRESSION: Findings are most consistent with right-sided epididymoorchitis with a moderate-sized complex right-sided hydrocele possible pyocele. Recommend clinical correlation and short-term follow-up imaging. Assessment & Plan Assessment & Plan (1) BPH loc w urin obs/LUTS: Code(s): N40.1 - Benign prostatic hyperplasia with lower urinary tract symptoms Category: Medical Plan Continue tamsulosin, PSA screening Medications: Refilled tamsulosin 0.4 mg PO DAILY 90 caps 3RF 90 days Patient Instructions: The patient had an opportunity to ask questions regarding treatment plan. The patient expressed understanding and agreement with the above treatment plan. The patient is aware they should contact our office by phone for worsening of their current condition or the appearance of new symptoms. Compliance is encouraged with any medications and followup testing that is ordered. It is a privilege to be allowed the opportunity to participate in the urologic care of your patient. If you have any questions or concerns regarding treatment for the above conditions please do not hesitate to contact me. The office telephone contact is [phone]. This note is constructed in part using voice recognition software. While every effort has been made to ensure accuracy blasting coal miner errors may have been included. Yours sincerely, Sangeeta Robledo MD Coding Level of Care Code Est Pt Level 3 (35175) Diagnoses BPH loc w urin obs/LUTS N40.1
--- OUTSIDE RECORDS SUMMARY | 2025-06-19 16:25 | XMS_ITS | Clinical Summary ---
Author Organization [facility] Address [address] [place] [address] Phone Care Team Providers Care Continuing Education Dean Name Role Phone Alan Dowd MD Primary [...] this topic Medical Devices Implanted Type Area Equipment Engineering Technician Device Identifier Shelf Expiration Date Model / [...] 54 Admit Type: Outpatient Gender: Male Room: [place] [address] Referring MD: Williams Simental MD Exam Type: [...] 8:18 AM Procedure Code(s): --- Professional --- 21830, Colonoscopy, flexible; with removal of tumor(s), polyp(s), or other lesion(s) by snare technique --- Technical --- 13492, Colonoscopy, flexible; with removal of tumor(s), polyp(s), [...] perforation orabscess without bleeding CPT copyright 2016 [employer]. All rights reserved. The codes documented in this report are preliminary and upon county auditor reviewmay be revised to meet current compliance requirements. [address] [place] [address] Williams Simental DO GI PROCEDURE ORDERABLES Fi nal Result from Last 3 Months or Most Recently Relevant to Health Maintenance Insurance CIGNA PPO CIGNA PPO CIGNA PPO CIGNA PPO CIGNA PPO CIGNA PPO WORKERS COMPENSATION Care Teams Continuing Education Dean Relationship Specialty Start Date End Date Alan Dowd MD [address] [place] [address] PCP - General 12/31/19 Additional Source Comments The information contained in this document represents components of the legal health record. It is not the complete legal health record.[facility]
== END 2025-06-19 16:33 | disposition home or self-care (01) ==
LOC: HO.HUSH 15:57
PROVIDERS: PCP Family Medicine; Visit Provider Urology
DX: N40.1 Benign prostatic hyperplasia with lower urinary tract symptoms (principal)
CPT/HCPCS: 99213

== ENCOUNTER 2025-07-11 14:18 | Outpatient (AMB) | payer OTHER, SELFPAY ==
--- NOTE | 2025-07-11 14:21 | MHC.OFFVIS ---
Vital Signs 07/11/25 14:22 Height 5 ft 11 in Weight 212 lb 8 oz BMI 29.6 BP 118/76 Blood Pressure Location Rt brachial Position Sitting Pulse 77 Pulse Source Pulse Oximeter Pulse Oximetry (%) 95 Oxygen Delivery Method Room Air Intake Visit Reasons: INP-Anesthesia of skin Intake Note: Anesthesia of skin Resource Conservation Manager Required: No Accompanied by: Self / Same As Patient Allergies No Known Allergies Allergy (Verified 07/11/25 14:24) Medication List - Last Reconciled 07/11/25 by Meka Restrepo MD gabapentin 100 mg PO DAILY 30 days lisinopril 10 mg PO DAILY mecobalamin (vitamin B12) 1,000 mcg sublingual DAILY 90 days tamsulosin 0.4 mg PO DAILY 90 days HPI Comments Details: 59y/o male comes for evaluation of numbness in the left 4th and 5th fingers and further managemnt of sleep apnea. He had a right colon resection in Dec 2024 - 1 week after the surgery he started having numbness in his left 4th 5th fingers and the ulnar side of the forearm. He had some tingling but no pain. He had mild weakness. the numbness lambert simproved since then and now just has finger numbness. No neck pain or back pain He was diagnosed with sleep apnea in 2019 AHI 17 Supine AHI 30 an doxygen ric was 66. He is on CPAP but unable to use it consistently .He wants to try the new tretamnet for sleep apnea. he rpeorts not being able to sleep with CPAP. [facility] Medical History (Updated 07/11/25 @ 14:46 by Meka Restrepo MD) Obstructive sleep apnea hypopnea, moderate Obstructive sleep apnea hypopnea, mild Numbness of left hand Acute phlegmonous appendicitis Sinus arrest Essential hypertension Surgical History History of appendectomy S/P right colectomy (~01/18/25) History of pacemaker Deficient knowledge of valve replacement History of open reduction and internal fixation (ORIF) procedure Family History Father CVD (cardiovascular disease) Myocardial infarction Mother Cancer Sister Breast cancer Son No problems noted. Daughter No problems noted. Social History Household Members: None Housing: House Are you a primary rn coronary care unit to a significant other at home: No Do you presently have visiting nurse or other home services: No Alcohol intake: current Alcohol intake frequency: holidays/special occasions only Comment: counts correct Patient Tobacco Use Status: Current someday Tobacco user Tobacco use type: Cigarette Cigarettes Per Day: 1 Years Smoked: 2 e-Cigarette/Vaping Use: Never Used Second Hand Smoke Exposure: No Substance Use Type: Marijuana service: No Current occupational status: employed Current occupation: [employer] Current occupational exposures/hazards: No Cognitive needs: No Hearing needs: No Vision needs: No Physical Exam Vital Signs: Last Vital Signs Pulse 77 07/11/25 14:22 BP 118/76 07/11/25 14:22 Pulse Ox 95 07/11/25 14:22 Oxygen Delivery Method Room Air 07/11/25 14:22 BMI result Body Mass Index 29.6 Const General: cooperative, healthy appearing, comfortable and no acute distress Nutritional Appearance: average body habitus Orientation/consciousness: patient oriented x3 Eyes Pupils: Equal, round and reactive pupils present Neuro General: patient oriented x3, gait normal, tone normal, moves all extremities and no focal motor deficits Cranial nerves: Yes Equal, round and reactive pupils present, Yes Bilaterally intact EOM present, Yes Nystagmus not present, Yes Normal facial strength present, Yes Midline tongue present, Yes Normal gag reflex present, Yes Symmetric palate elevation present and Yes Ability to bilaterally elevate shoulders present Cognition (Neuro): normal cognition Gait exam (Neuro): Normal gait present Motor exam (neuro): 5/5 motor strength present throughout and Normal motor muscle tone present throughout Deep tendon reflexes (DTR's): Right triceps reflex intensity grade: 1+, Left triceps reflex intensity grade: 1+, Rt Biceps (C5, C6): 1+, Left biceps reflex intensity grade: 1+, Right brachioradialis reflex intensity grade: 1+, Left brachioradialis reflex intensity grade: 1+, Right patellar reflex intensity grade: 1+ and Left patellar reflex intensity grade: 1+ Coordination: [id number] test normal Assessment & Plan Assessment & Plan (1) Numbness of left hand: Code(s): R20.0 - Anesthesia of skin Category: Medical (2) Obstructive sleep apnea hypopnea, moderate: Code(s): G47.33 - Obstructive sleep apnea (adult) (pediatric) Category: Medical Plan EMG NCS - Left UE Elbow sleeve Home sleep test to reevalaute sleep apnea- Maybe a candidate for INSPIRE Orders: Orders NE nerve conduction velocity Today R20.0 - Anesthesia of skin RT home sleep study Today G47.33 - Obstructive sleep apnea (adult) (pediatric) NE electromyogram (EMG) Today R20.0 - Anesthesia of skin Coding Level of Care Code New Pt Level 4 (46277) Complex EM visit Add On G2211 Diagnoses Numbness of left hand R20.0 Obstructive sleep apnea hypopnea, moderate G47.33
[2025-07-11 14:22] VITALS: BP 118/76; PULSE 77; O2SAT 95; BMI 29.6
--- OUTSIDE RECORDS SUMMARY | 2025-07-11 14:27 | XMS_ITS | Clinical Summary ---
Author Organization [facility] Address [address] [facility] [facility] [address] [place] [address] Phone Care Team Providers Care Cash Van Salesperson Name Role Phone Alan Dowd MD Primary [...] this topic Medical Devices Implanted Type Area Fish Bin Tender Device Identifier Shelf Expiration Date Model / [...] 54 Admit Type: Outpatient Gender: Male Room: [place] [address] Referring MD: Williams Simental MD Exam Type: [...] 8:18 AM Procedure Code(s): --- Professional --- 28340, Colonoscopy, flexible; with removal of tumor(s), polyp(s), or other lesion(s) by snare technique --- Technical --- 35116, Colonoscopy, flexible; with removal of tumor(s), polyp(s), [...] perforation orabscess without bleeding CPT copyright 2016 [employer]. All rights reserved. The codes documented in this report are preliminary and upon fur finisher seamstress reviewmay be revised to meet current compliance requirements. [address] [place] [address] Williams Simental DO GI PROCEDURE ORDERABLES Fi nal Result from Last 3 Months or Most Recently Relevant to Health Maintenance Insurance CIGNA PPO CIGNA PPO CIGNA PPO CIGNA PPO CIGNA PPO CIGNA PPO Member Subscriber Plan / Payer (Ef fective 2023-Present) Name:Mike Soto Relation to Subscriber:Self Name:Mike Soto Payer ID:[id number] ([facility]) Type:PPO Address: [id number] [place], [place] [id number] [employer]ENS[employer] Care Teams Cash Van Salesperson Relationship Specialty Start Date End Date Alan Dowd MD [address] [place] [address] PCP - General 12/31/19 Additional Source Comments The information contained in this document represents components of the legal health record. It is not the complete legal health record.[facility]
== END 2025-07-11 14:54 | disposition home or self-care (01) ==
LOC: HO.HSMS 14:19
PROVIDERS: PCP Family Medicine; Visit Provider Psychiatry & Neurology Neurology
DX: R20.0 Anesthesia of skin (principal); G47.33 Obstructive sleep apnea (adult) (pediatric)
CPT/HCPCS: 99204

== ENCOUNTER 2025-07-15 11:34 | Outpatient (REF) | payer OTHER, SELFPAY ==
[2025-07-15 17:28] LABS: MANUAL DIFF FLAG NO
[2025-07-15 17:31] LABS: Hematocrit 43.5 % (42.0-52.0); Hemoglobin 14.6 g/dl (14.0-18.0); Imm Gran Abs Auto 0.02 X10*3/uL (0.00-0.03); Imm Gran Pct Auto 0.5 % (0.0-0.4); Lymphocytes Absolute Auto 1.3 X10*3/uL (1.2-4.9); Mean Corpuscular HGB Conc 33.6 g/dl (31.0-36.0); Mean Corpuscular Hemoglobin 30.8 pg (27.0-33.0); Mean Corpuscular Volume 91.8 fL (80.0-98.0); NRBC Abs Auto 0.000 X10*3/uL (0.0-0.012); NRBC Pct Auto 0.0 /100WBC (0.0-0.2); Platelet Count 201 X10*3/uL (160-400); Red Blood Count 4.74 X10*6/uL (4.60-5.80); White Blood Count 4.3 X10*3/uL (4.8-10.8)
[2025-07-15 17:52] LABS: Alanine Aminotransferase 37 U/L (0-40); Albumin Level 4.7 g/dL (3.5-5.0); Alkaline Phosphatase 77 U/L (39-117); Amylase 55 U/L (28-100); Anion Gap 13 (12-20); Aspartate Amino Transferase 34 U/L (5-37); Blood Urea Nitrogen 9 mg/dL (9-16); Calcium 9.8 mg/dL (8.4-10.2); Carbon Dioxide 24 mmol/L (22-29); Chloride 106 mmol/L (96-108); Estimated Glomerular Filt Rate > 60; Iron 161 mcg/dL (45-160); Lipase 22 U/L (8-78); Percent Iron Saturation 39 % (15-50); Potassium 3.8 mmol/L (3.3-5.1); Sodium 139 mmol/L (135-145); Total Iron Binding Capacity 408 mcg/dL (228-428); Total Protein 7.3 g/dL (6.5-8.0); Unsaturated Iron Binding 247 ug/dL
[2025-07-15 18:16] LABS: Ferritin 63 ng/mL (20-250)
[2025-07-15 18:27] LABS: Vitamin B12 1121 pg/mL (200-900)
[2025-07-16 04:26] LABS: Hepatitis A Antibody IgM 0.34 Index (0-0.79); ~Hepatitis A Antibody IgM Nonreactive (Nonreactive)
[2025-07-16 04:31] LABS: HBS Num1 53.61 mIU/mL (0-7.99); HBc Num1 0.13 S/CO (0.00-0.79); HBsAGNum1 0.42 S/CO (0.00-0.99); Hepatitis A Antibody IgM 0.35 Index (0-0.79); Hepatitis B Surface Antigen Negative (Negative); ~HepC Num1 0.12 S/CO (0.00-0.79); ~Hepatitis A Antibody IgM Nonreactive (Nonreactive); ~Hepatitis B Surface Antibody REACTIVE (Nonreactive); ~Hepatitis C Antibody Nonreactive (Nonreactive)
[2025-07-17 17:58] LABS: Immunoglobulin A 104 mg/dL (70-320)
== END 2025-07-15 11:35 | disposition home or self-care (01) ==
LOC: HO.WFDLDS 11:34
PROVIDERS: PCP Family Medicine; Visit Provider Physician Assistant Medical
DX: R79.89 Other specified abnormal findings of blood chemistry (principal); R19.7 Diarrhea, unspecified; D64.9 Anemia, unspecified; R11.2 Nausea with vomiting, unspecified; Z91.89 Other specified personal risk factors, not elsewhere classified
CPT/HCPCS: 36415; 80053; 82150; 82607; 82728; 82784; 83540; 83690; 84443; 85025; 85652; 86364; 86704; 86706; 86709; 86803; 87340; 96127

== ENCOUNTER 2025-07-15 11:34 | Outpatient (AMB) | payer OTHER, SELFPAY ==
--- NOTE | 2025-07-15 11:40 | MHC.PC.OV ---
Vital Signs 07/15/25 11:47 Height 5 ft 11 in Weight 205 lb 4 oz BMI 28.6 BP 118/88 Blood Pressure Location Rt brachial Position Sitting Respiration 12 Pulse 64 Pulse Source Pulse Oximeter Temp 98.2 F Temp Source Temporal Artery Scan Pulse Oximetry (%) 95 Oxygen Delivery Method Room Air Intake Visit Reasons: not feeling well for the past 4 days Intake Note: Mike presents in the office today for a sick visit. He has not been feeling well for the past 4 days. Stomach is bloated with a bit of diarrhea and no appetite. Patient states he is depressed. PHQ-9/CANDY-7 completed. Needs a note for work. Was out on Thursday 07/12 and today 07/15. Allergies No Known Allergies Allergy (Verified 07/15/25 11:44) Medication List - Last Reconciled 07/15/25 by FRANKLIN Hercules gabapentin 100 mg PO DAILY 30 days lisinopril 10 mg PO DAILY mecobalamin (vitamin B12) 1,000 mcg sublingual DAILY 90 days tamsulosin 0.4 mg PO DAILY 90 days Tobacco use date assessed: 07/15/25 Dental Screening Dental Screen Date: 07/15/25 Did you have a dental visit in the last 12 months?: Yes Did you have a dental problem in the last 6 months where you did not have access to dental care?: No Was dental information given to patient?: Patient has dentist HPI HPI Comments History of Present Illness Details 59 year old male presents for evaluation for GI symptoms. He endorses symptoms for the past 4 days, but he's been seen several times within the past year for similar events. Endorses nonbloody diarrhea or loose stools twice daily, abdominal bloating and mildly decreased appetite. Patient had appendectomy this year in December. Denies abdominal pain, weight loss, fevers, chills, nausea, vomiting. Denies alcohol abuse. He has not noticed certain food triggers. He had labs in May which demonstrated mild anemia, mild LFT elevation, negative occult blood stool test. No recent medication changes. Patient unsure when he last had colonoscopy. He thinks it was at [facility]. Denies family history of GI disorders and cancer. Endorses mild depression. PHq9 positive. Not interested in treatment currently. ROS: Constitutional: No unexplained weight loss, fever, chills, fatigue or night sweats. Respiratory: No shortness of breath Cardiovascular: No chest pain Gastrointestinal: see HPI Genitourinary: No dysuria, hematuria, urinary frequency. Neurologic: No headache, dizziness Hematologic/Lymphatics: No bleeding or bruising. No painful lymph nodes. Skin: No rash Physical exam: Constitutional: Alert, in no distress. Neck: Supple, Full range of motion. No lymphadenopathy. No palpable thyroid masses. Respiratory: Clear to auscultation. Cardiovascular: S1 S2 regular. No murmurs. Gastrointestinal: Abdomen soft, non-tender, non-distended. Normal bowel sounds. No palpable masses. No rebound or guarding. : no CVA tenderness Skin: No rashes [facility] Medical History (Updated 07/15/25 @ 12:13 by FRANKLIN Hercules) Diarrhea Elevated LFTs Mild anemia Obstructive sleep apnea hypopnea, moderate Obstructive sleep apnea hypopnea, mild Numbness of left hand Acute phlegmonous appendicitis Sinus arrest Essential hypertension Surgical History History of appendectomy S/P right colectomy (~01/18/25) History of pacemaker Deficient knowledge of valve replacement History of open reduction and internal fixation (ORIF) procedure Family History Father CVD (cardiovascular disease) Myocardial infarction Mother Cancer Sister Breast cancer Son No problems noted. Daughter No problems noted. Social History Household Members: None Housing: House Are you a primary director of health care marketing to a significant other at home: No Do you presently have visiting nurse or other home services: No Alcohol intake: current Alcohol intake frequency: holidays/special occasions only Comment: counts correct Patient Tobacco Use Status: Current someday Tobacco user Tobacco use type: Cigarette Cigarettes Per Day: 1 Years Smoked: 2 e-Cigarette/Vaping Use: Never Used Second Hand Smoke Exposure: No Substance Use Type: Marijuana service: No Current occupational status: employed Current occupation: [employer] Current occupational exposures/hazards: No Cognitive needs: No Hearing needs: No Vision needs: No Questionnaire PHQ-9 Over the last 2 weeks, how often have you been bothered by any of the following problems? 1. Little interest or pleasure in doing things: several days 2. Feeling down, depressed, or hopeless: nearly every day 3. Trouble falling or staying asleep, or sleeping too much: several days 4. Feeling tired or having little energy: nearly every day 5. Poor appetite or overeating: nearly every day 6. Feeling bad about yourself - or that you are a failure or have let yourself or your family down: not at all 7. Trouble concentrating on things, such as reading the newspaper or watching television: not at all 8. Moving or speaking so slowly that other people could have noticed. Or the opposite - being so fidgety or restless that you have been moving around a lot more than usual: not at all 9. Thoughts that you would be better off or of hurting yourself in some way: not at all Total score: 11 Depression Screening Interpretation: Positive Depression Screening Follow-up: Declines treatment Depression Screening Done: Yes 83363 - PHQ-9 Billing: Yes Source: Developed by Drs. Coleman Huerta, Marisela Rachel, Feng Carmichael and colleagues, with an educational tree from [employer]. Thrive Questionnaire Date Thrive assessed: 02/04/25 I am a: Patient What is your living situation today?: I have a steady place to live Within the past 12 months, did the food you bought not last and you didn't have the money to get more?: I choose not to answer this question Within the past 12 months, did you worry whether your food would run out before you got money to buy more?: Sometimes True Do you have trouble paying for medicines?: I choose not to answer this question Do you have trouble getting transportation to medical appointments?: No Do you have trouble paying your heating and electricity bill?: I choose not to answer this question Do you have trouble taking care of your child, family member or friend?: No Do you have trouble with day-to-day activities such as bathing, preparing meals, shopping, managing finances, etc.?: No Are you currently unemployed and looking for a job?: Yes Are you interested in more education?: I choose not to answer this question Please select the resources that you would like help with: None Currently or been in a relationship where the following occur: I choose not to answer THRIVE Score: 1 CANDY-7 AMB Questionnaire CANDY-7 Date CANDY - 7 assessed: 07/15/25 Feeling nervous, anxious, or on edge: 1 = Several days Not being able to stop or control worryin = More than half the days Worrying too much about different things: 3 = Nearly every day Trouble relaxin = Not at all Being so restless that it is hard to sit still: 0 = Not at all Becoming easily annoyed or irritable: 3 = Nearly every day Feeling afraid as if something awful might happen: 0 = Not at all Total CANDY-7 score (0-4 normal; 5-9 mild; 10-14 moderate; 15-21 severe): 9 Source: Developed by Drs. Coleman Huerta, Marisela Rachel, Feng Carmichael and colleagues, with an educational tree from [employer]. CANDY-7 Assessment Billing CANDY-7 Assessment Tool: CANDY-7 Assessment 40742 Physical exam (Primary Care) Vital Signs: Last Vital Signs Temp 98.2 F 07/15/25 11:47 Pulse 64 07/15/25 11:47 Resp 12 07/15/25 11:47 BP 118/88 07/15/25 11:47 Pulse Ox 95 07/15/25 11:47 Oxygen Delivery Method Room Air 07/15/25 11:47 BMI result Body Mass Index 28.6 Tobacco/Smoking Status: Tobacco use Status Tobacco use date assessed 07/15/25 07/15/25 11:51 Patient Tobacco Use Status Current someday Tobacco 07/15/25 11:41 Tobacco use type Cigarette 07/15/25 11:41 e-Cigarette/Vaping Use Never Used 07/15/25 11:41 PHQ-9: PHQ-9 Score PHQ-9: Total score 11 07/15/25 12:01 Depression Screening Interpretation: Positive Depression Screening Follow-up: Declines treatment Thrive Assessment: Date of Thrive Assessment Date Thrive assessed 02/04/25 07/15/25 11:41 Currently or been in a relationship where the following occur: I choose not to answer Coding Level of Care Code Est Pt Level 4 (49600) Complex EM visit Add On G2211 Diagnoses Mild anemia D64.9 Elevated LFTs R79.89 Diarrhea R19.7 Additional Codes CANDY-7 Assessment Billing - CANDY-7 Assessment Tool: CANDY-7 Assessment 79568 ([id number]) PHQ-9 - 66016 - PHQ-9 Billing: Yes ([id number]) Assessment & Plan Assessment & Plan (1) Mild anemia: Code(s): D64.9 - Anemia, unspecified Category: Medical (2) Elevated LFTs: Code(s): R79.89 - Other specified abnormal findings of blood chemistry Category: Medical (3) Diarrhea: Code(s): R19.7 - Diarrhea, unspecified Category: Medical Plan Proceed with further evaluation. See detailed lab list. Start probiotic. Refer to GI May need colonoscopy given anemia and ongoing symptoms. He can use Imodium prn diarrhea. Warning signs warranting ED evaluation reviewed. Consider CT abdomen/pelvis based on lab results if anemia persists. Orders: Orders Erythrocyte Sedimentation Rate Today D64.9 - Anemia, unspecified, R19.7 - Diarrhea, unspecified, R79.89 - Other specified abnormal findings of blood chemistry Complete Blood Count Auto Diff Today D64.9 - Anemia, unspecified, R19.7 - Diarrhea, unspecified, R79.89 - Other specified abnormal findings of blood chemistry GI Panel Today D64.9 - Anemia, unspecified, R19.7 - Diarrhea, unspecified, R79.89 - Other specified abnormal findings of blood chemistry Ferritin Today D64.9 - Anemia, unspecified, R19.7 - Diarrhea, unspecified, R79.89 - Other specified abnormal findings of blood chemistry Comprehensive Met. Panel Today D64.9 - Anemia, unspecified, R19.7 - Diarrhea, unspecified, R79.89 - Other specified abnormal findings of blood chemistry Amylase Today D64.9 - Anemia, unspecified, R19.7 - Diarrhea, unspecified, R79.89 - Other specified abnormal findings of blood chemistry Celiac Disease Panel Today D64.9 - Anemia, unspecified, R19.7 - Diarrhea, unspecified, R79.89 - Other specified abnormal findings of blood chemistry Hepatitis A IgM Today D64.9 - Anemia, unspecified, R19.7 - Diarrhea, unspecified, R79.89 - Other specified abnormal findings of blood chemistry Vitamin B12 Today D64.9 - Anemia, unspecified, R19.7 - Diarrhea, unspecified, R79.89 - Other specified abnormal findings of blood chemistry, Z91.89 - Other specified personal risk factors, not elsewhere classified IRON PROFILE Today D64.9 - Anemia, unspecified, R19.7 - Diarrhea, unspecified, R79.89 - Other specified abnormal findings of blood chemistry Lipase Today D64.9 - Anemia, unspecified, R19.7 - Diarrhea, unspecified, R79.89 - Other specified abnormal findings of blood chemistry TSH reflex Free T4 Today D64.9 - Anemia, unspecified, R19.7 - Diarrhea, unspecified, R79.89 - Other specified abnormal findings of blood chemistry Hepatitis A,B,C Profile Today D64.9 - Anemia, unspecified, R19.7 - Diarrhea, unspecified, R79.89 - Other specified abnormal findings of blood chemistry Referrals Gastroenterology Referral D64.9 - Anemia, unspecified, R19.7 - Diarrhea, unspecified
[2025-07-15 11:47] VITALS: BP 118/88; PULSE 64; RESP 12; TEMP 36.8; O2SAT 95; BMI 28.6
== END 2025-07-15 12:17 | disposition home or self-care (01) ==
LOC: HO.HMCFM 11:35
PROVIDERS: PCP Family Medicine; Visit Provider Physician Assistant Medical
DX: D64.9 Anemia, unspecified (principal); R79.89 Other specified abnormal findings of blood chemistry; R19.7 Diarrhea, unspecified

== ENCOUNTER 2025-07-16 14:01 | Outpatient (REF) | payer OTHER, SELFPAY ==
--- OUTSIDE RECORDS SUMMARY | 2025-07-16 14:58 | XMS_ITS | Encounter Summary ---
Author Organization [facility] Address [address] [facility] [address] [place] [address] Phone Care Team Providers Care Integrated Circuit Ic Layout Designer Name Role Phone Williams Simental DO Primary Care Provider [phone] Alan Dowd MD Primary Care Provider Encounter Details Date Type Department Care Team (Late st Contact Info) Description 09/22/2018 Procedure Pass [facility] Endoscopy Admitting Dept Virtual Department [address] [place] [id number] Social History Tobacco Use Types Packs/Day Years Used Date Smoking Tobacco: Former Smokeless Tobacco: Never Alcohol Use Standard Drinks/Week Comments Yes 0 (1 standard drink = 0.6 oz pur e alcohol) 1 beer per day Sex and Gender Information Value Date Recorded Sex Assigned at Male 06/20/2018 6:12 PM EDT Legal Sex Male 9:43 PM EDT Gender Identity Male 06/20/2018 6:12 PM EDT Sexual Orientation Not on file documented as of this encounter Plan of Treatment Not on file documented as of this encounter Visit Diagnoses Not on filedocumented in this encounter Care Teams Integrated Circuit Ic Layout Designer Relationship Specialty Start Date End Date Williams Simental DO [address] [place] [address] PCP - General 09/05/17 12/30/19 Alan Dowd MD [address] [place] [address] PCP - General 12/31/19 documented as of this encounter Additional Source Comments The information contained in this document represents components of the legal health record. It is not the complete legal health record.[facility]
--- OUTSIDE RECORDS SUMMARY | 2025-07-16 14:58 | XMS_ITS | Encounter Summary ---
Author Organization [facility] Address [address] [facility] [address] [place] [address] Phone Care Team Providers Care Media Clerk Name Role Phone Alan Dowd MD Primary Care Provider Encounter Details Date Type Department Care Team (Late st Contact Info) Description 12/31/2019 Transcribe Orders [facility] [address] [place] [address] Jasmin Romero NP [address] [place] [address] [place] [address] Night sweats (Primary Dx); Flushing; Fatigue, unspecified type; Pruritus Social History Tobacco Use Types Packs/Day Years [...] on file documented as of this encounter Results * 5-HIAA, 24 hr urine (12/31/2019 6:00 AM EST) TIMED URINE 5HIAA 4.6 <=9.7 mg/24 h [facility] DPT OF LAB MED AND PAT+ TOTAL VOLUME 2,000 mL [facility] DPT OF LAB MED AND PAT+ Comment: (NOTE) ADDITIONAL INFORMATION Liquid Chromatography-Tandem Mass Spectrometry (LC-MS/MS). Values obtained from different assay methods or kits may be different and cannot be used interchangeably. The results cannot be interpreted as absolute evidence for the presence or absence of malignant disease. This test was developed and its performance characteristics determined by [facility] in a manner consistent with CLIA requirements. This test has not been cleared or approved by the U.S. Food and Drug Administration. COLLECTION DURATION 24 h [facility] DPT OF LAB MED AND PAT+ Urine (Urine) 12/31/2019 6:0 0 AM EST 12/31/2019 4:14 PM EST Jasmin Romero NP URINE ORDERABLES Final [facility] Performing Organization Address [facility] de Phone Number [facility] DPT OF LAB MED AND PAT+ [address] [place] [address] * N-Methylhistamine, 24 hr urine (12/31/2019 6:00 AM EST) N-Methylhistamine/CR E, timed urine 133 30 - 200 mcg/g Cr [facility] Collection duration, urine 24 H [facility] MED[facility] Total Volume, ur 2,000 ML [facility] Comment: (NOTE) ADDITIONAL INFORMATION This test was developed and its performance characteristics determined by [facility] in a manner consistent with CLIA requirements. This test has not been cleared or approved by the U.S. Food and Drug Administration. Creatinine, timed ur (mg/dL) 115 mg/dL [facility] DPT OF LAB MED AND PAT+ Urine (Urine) 12/31/2019 6:0 0 AM EST 12/31/2019 4:14 PM EST Jasmin Romero NP URINE ORDERABLES Final R [facility] Performing Organization Address [facility] de Phone Number [facility] DPT OF LAB MED AND PAT+ [address] [place] [address] [facility] MED/[facility] [address] [place] [address] documented in this encounter Visit Diagnoses Diagnosis Night sweats- Primary Generalized hyperhidrosis Flushing Fatigue, unspecified type Pruritus Unspecified pruritic disorder documented in this encounter Care Teams Media Clerk Relationship Specialty Start Date End Date Alan Dowd MD [address] [place] [address] PCP - General 12/31/19 documented as of this encounter Additional Source Comments The information contained in this document represents components of the legal health record. It is not the complete legal health record.[facility]
--- OUTSIDE RECORDS SUMMARY | 2025-07-16 14:58 | XMS_ITS | Clinical Summary ---
Author Organization [facility] Address [address] [facility] [address] [place] [phone] Phone Care Team Providers Care Replenishment Buyer Name Role Phone Alan Dowd MD Primary [...] years 1-dose series) 2023 COVID-19 VACCINE (3 - 2023-2 5 season) 2024 04/08/2021, 03/11/2021 INFLUENZA VACCINE (#1) 2025 , 09/16/2019, 2018 COLONOSCOPY 09/22/2028 09/22/2018 COLORECTAL CANCER SCREENING 09/22/2028 [...] this topic Medical Devices Implanted Type Area Outside Sales Advertising Executive Device Identifier Shelf Expiration Date Model / Serial / Lot Pacemaker Description:Left chest Procedures Procedure Name Priority Date/Time Associated Diagnosis Comments ENDOSCOPY, COLON 09/22/2018 8:18 AM EDT from Last 3 Months or Most Recently Relevant to Health Maintenance Results * ENDOSCOPY, COLON (09/22/2018 8:18 AM EDT) Narrative Transcriptions Lyndsey Lewis MD - 09/22/2018 8:18 AM EDT Patient Name: Mike Soto Attending MD:: LYNDSEY LEWIS MD Procedure Date: 09/22/2018 8:18 AM Date of : 1965 Age: 52 Admit Type: Outpatient Gender: Male Room: [place] [address] Referring MD: Williams Simental MD Exam Type: [...] 8:18 AM Procedure Code(s): --- Professional --- 98206, Colonoscopy, flexible; with removal of tumor(s), polyp(s), or other lesion(s) by snare technique --- Technical --- 60445, Colonoscopy, flexible; with removal of tumor(s), polyp(s), [...] perforation orabscess without bleeding CPT copyright 2016 [employer]. All rights reserved. The codes documented in this report are preliminary and upon maple products supervisor reviewmay be revised to meet current compliance requirements. [address] [place] [id number] Williams Simental DO GI PROCEDURE ORDERABLES Fi nal Result from Last 3 Months or Most Recently Relevant to Health Maintenance Insurance [employer] PPO CIGNA PPO CIGNA PPO CIGNA PPO CIG PPO [facility] PPO WORKERS COMPENSATION Care Teams Replenishment Buyer Relationship Specialty Start Date End Date Alan Dowd MD [address] [place] [address] PCP - General 12/31/19 Additional Source Comments The information contained in this document represents components of the legal health record. It is not the complete legal health record.[facility]
[2025-07-17 11:40] LABS: E. coli EAEC Not Detected (Not Detect.); E. coli EPEC Not Detected (Not Detect.); E. coli ETEC Not Detected (Not Detect.); E. coli STEC Not Detected (Not Detect.); Shigella sp./EIEC Not Detected (Not Detect.)
== END 2025-07-16 14:02 | disposition home or self-care (01) ==
LOC: HO.LNP 14:01
PROVIDERS: Visit Provider Physician Assistant Medical
DX: D64.9 Anemia, unspecified (principal); R79.89 Other specified abnormal findings of blood chemistry; R19.7 Diarrhea, unspecified
CPT/HCPCS: 87507

== ENCOUNTER 2025-07-31 09:56 | Outpatient (AMB) | payer OTHER, SELFPAY ==
--- OUTSIDE RECORDS SUMMARY | 2025-07-30 13:52 | XMS_ITS | Encounter Summary ---
Author Organization [facility] Address [address] [facility] [address] [place] [address] Phone Care Team Providers Care Behavior Analyst Name Role Phone Alan Dowd MD Primary Care Provider Encounter Details Date Type Department Care Team (Latest Contact Info) Description 07/30/2025 1:52 PM EDT - 07/30/2025 11:59 PM EDT Hospital Encounter [facility] [address] [address] Siobhan Denis NP [address] [place] [address] [email or web address] Discharge Disposition: Home or Self Care Social History Tobacco Use Types Packs/Day Years [...] on file documented as of this encounter Medications at Time of Discharge lisinopril (PRINIVIL,ZESTRIL) 20 MG tablet Take 20 mg by mouth daily. 11/18/2020 documented as of this encounter Plan of Treatment Upcoming Encounters Date Type Department Care Team (Late st Contact Info) Description 08/08/2025 Procedure Pass [facility] Endoscopy Admitting Dept Virtual Department [address] [place] [address] 08/08/2025 10:30 AM EDT Hospital Encounter [facility] Endoscopy Admitting Dept Virtual Department [address] [place] [address] Ray Lewis MD [address] [place] [address] 08/08/2025 10:30 AM EDT - 08/08/2025 11:00 AM EDT Surgery [facility] Endoscopy Admitting Dept Virtual Department [address] [place] [address] Ray Lewis MD [address] [place] [phone] [email or web address] COLONOSCOPY Pending Results Name Type Priority Associated Diagnoses Date /Time Tissue transglutaminase IgA Lab Routine Diarrhea, unspecified type Vomiting, unspecified vomiting type, unspecified whether nausea present 07/30/2025 1:53 PM EDT Scheduled Orders Name Type Priority Associated Diagnoses Orde r Schedule Tissue transglutaminase IgA Lab Routine Diarrhea, unspecified type Vomiting, unspecified vomiting type, unspecified whether nausea present As Needed for 1 Occurrences starting 07/30/2025 until 07/30/2025 Scheduled Procedures Name Priority Associated Diagnoses Date/Ti me COLONOSCOPY Diarrhea, unspecified type Vomiting, unspecified vomiting type, unspecified whether nausea present 08/08/2025 10:30 AM EDT documented as of this encounter Procedures Procedure Name Priority Date/Time Associated Diagnosis Comments COMPREHENSIVE METABOLIC PANEL Routine 07/30/2025 1:53 PM EDT Diarrhea, unspecified type Vomiting, unspecified vomiting type, unspecified whether nausea present CBC AND DIFFERENTIAL Routine 07/30/2025 1:53 PM EDT Diarrhea, unspecified type Vomiting, unspecified vomiting type, unspecified whether nausea present C-REACTIVE PROTEIN Routine 07/30/2025 1: 53 PM EDT Diarrhea, unspecified type Vomiting, unspecified vomiting type, unspecified whether nausea present IMMUNOGLOBULIN A Routine 07/30/2025 1:53 PM EDT Diarrhea, unspecified type Vomiting, unspecified vomiting type, unspecified whether nausea present FOLATE Routine 07/30/2025 1:53 PM EDT Diarrhea, unspecified type Vomiting, unspecified vomiting type, unspecified whether nausea present FERRITIN Routine 07/30/2025 1:53 PM EDT Diarrhea, unspecified type Vomiting, unspecified vomiting type, unspecified whether nausea present VITAMIN B12 Routine 07/30/2025 1:53 PM EDT Diarrhea, unspecified type Vomiting, unspecified vomiting type, unspecified whether nausea present documented in this encounter Results * Immunoglobulin A (07/30/2025 1:53 PM EDT) IgA 96 70 - 400 mg/dL [facility] Blood 07/30/2025 1:53 PM EDT 07/30/2025 2:01 PM EDT Siobhan Denis RECREATION MANAGER LAB BLOOD ORDERABLES Final Result [facility] [address] [place] [address] * (ABNORMAL) CBC and differential (07/30/2025 1:53 PM EDT) WBC 5.18 4.00 - 11.00 K/uL [facility] RBC 4.51 4.50 - 5.90 M/uL [facility] HGB 14.2 13.5 - 17.5 g/dL [facility] HCT 41.7 41.0 - 53.0 % [facility] PLT 217 150 - 450 K/uL [facility] MCV 92.5 80.0 - 100.0 fL [facility] MCH 31.5(H) 27.0 - 31.0 pg [facility] MCHC 34.1 32.0 - 36.0 g/dL [facility] RDW 14.6(H) 11.5 - 14.5 % [facility] MPV 9.2 8.4 - 12.0 fL [facility] NRBC 0.00 0.00 /100 WBCs [facility] ABSOLUTE NRBC 0.00 0.00 K/uL [facility] DIFF METHOD Auto [facility] NEUTS 55.2 48.0 - 76.0 % [facility] LYMPHS 33.6 18.0 - 41.0 % [facility] MONOS 7.7 4.0 - 11.0 % [facility] EOS 2.5 0.0 - 5.0 % [facility] BASOS 0.8 0.0 - 1.5 % [facility] Granulocytes, immature (%) 0.2 0.0 - 0.9 % [facility] ABSOLUTE NEUTS 2.86 1.92 - 7.60 K/uL [facility] ABSOLUTE LYMPHS 1.74 0.72 - 4.10 K/uL [facility] ABSOLUTE MONOS 0.40 0.16 - 1.10 K/uL [facility] ABSOLUTE EOS 0.13 0.00 - 0.50 K/uL [facility] ABSOLUTE BASOS 0.04 0.00 - 0.15 K/uL [facility] Granulocytes, immature 0.01 0.00 - 0.09 K/uL [facility] Blood 07/30/2025 1:53 PM EDT 07/30/2025 2:01 PM EDT us Siobhan Denis RECREATION MANAGER LAB BLOOD ORDERABLES Final Result [address] [address] * (ABNORMAL) Comprehensive metabolic panel (07/30/2025 1:53 PM EDT) SODIUM 139 133 - 146 mmol/L [facility] POTASSIUM 3.4 3.3 - 5.1 mmol/L [facility] CHLORIDE 102 96 - 108 mmol/L [facility] CO2 19(L) 21 - 35 mmol/L [facility] BUN 11 6 - 19 mg/dL [facility] CREATININE 0.80 0.5 - 1.5 mg/dL [facility] GLUCOSE 125(H) 70 - 99 mg/dL [facility] ALBUMIN 4.3 3.9 - 4.8 g/dL [facility] TOTAL PROTEIN 7.2 6.5 - 8.0 g/dL [facility] CALCIUM 9.7 8.4 - 10.3 mg/dL [facility] ALKALINE PHOSPHATASE 75 39 - 117 U/L [facility] TOTAL BILIRUBIN 0.4 0.0 - 1.2 mg/dL [facility] AST 25 0 - 37 U/L [facility] ALT 32 0 - 40 U/L [facility] GLOBULIN 2.9 1 - 4.8 g/dL [facility] EGFR 101 >59 mL/min/1.7 3m2 [facility] Comment:Estimated glomerular filtration rate calculated using the CKD-EPI refit equation. ANION GAP 21(H) 10 - 20 mmol/L [facility] Blood 07/30/2025 1:53 PM EDT 07/30/2025 2:01 PM EDT us Siobhan Denis RECREATION MANAGER LAB BLOOD ORDERABLES Final Result [address] [address] * C-Reactive Protein (07/30/2025 1:53 PM EDT) C REACTIVE PROTEIN <3.0 0.0 - 4.0 mg/L [facility] Blood 07/30/2025 1:53 PM EDT 07/30/2025 2:01 PM EDT Siobhan Denis RECREATION MANAGER LAB BLOOD ORDERABLES Final Result [address] [address] * Ferritin (07/30/2025 1:53 PM EDT) Pathologist [facility] FERRITIN 86 30 - 400 ug/L [facility] Blood 07/30/2025 1:53 PM EDT 07/30/2025 2:01 PM EDT Siobhan Denis RECREATION MANAGER LAB BLOOD ORDERABLES Final Result Performing Organization Address [facility]/ZIP Co de Phone Number [address] [phone] * Folate (07/30/2025 1:53 PM EDT) Pathologist [facility] FOLIC ACID 9.6 4.2 - 19.9 ng/mL [facility] Blood 07/30/2025 1:53 PM EDT 07/30/2025 2:01 PM EDT Siobhan Denis RECREATION MANAGER LAB BLOOD ORDERABLES Final Result Performing Organization Address City/[facility]/ZIP Co de Phone Number [address] [phone] * (ABNORMAL) Vitamin B12 (07/30/2025 1:53 PM EDT) VITAMIN B12 >2000(H) 232 - 1245 pg/mL [facility] Blood 07/30/2025 1:53 PM EDT 07/30/2025 2:01 PM EDT us Siobhanakin Hahn Adeel RECREATION MANAGER LAB BLOOD ORDERABLES Final Result [facility] [address] [place] [address] documented in this encounter Visit Diagnoses Diagnosis Diarrhea, unspecified type Vomiting, unspecified vomiting type, unspecified whether nausea present Diarrhea, unspecified type Vomiting, unspecified vomiting type, unspecified whether nausea present documented in this encounter Additional Health Concerns Infection Onset Date Last Indicated Resolved Time CDiff-Risk 07/30/2025 07/30/2025 documented as of this encounter Care Teams Behavior Analyst Relationship Specialty Start Date End Date Alan Dowd MD [address] [place] [address] PCP - General 12/31/19 documented as of this encounter Additional Source Comments The information contained in this document represents components of the legal health record. It is not the complete legal health record.[facility]
[2025-07-31 10:43] VITALS: BP 152/100; PULSE 65; TEMP 36.7; O2SAT 99; BMI 28.6
--- NOTE | 2025-07-31 10:43 | AM.OFFWIN_ITS ---
Intake Vital Signs 07/31/25 10:43 Height 5 ft 11 in Weight 205 lb BMI 28.6 BP 152/100 H Blood Pressure Location Lt brachial Position Sitting Pulse 65 Pulse Source Pulse Oximeter Temp 98.0 F Temp Source Oral Pulse Oximetry (%) 99 Oxygen Delivery Method Room Air Intake Visit Reasons: EP-diarrhea, vomiting Intake Note: pt presents with diarrhea and vomiting for a few days. Colonoscopy scheduled for 08/08/2025. Patient Tobacco Use Status: Current someday Tobacco user Allergies No Known Allergies Allergy (Verified 07/31/25 10:45) Do you need a note to return to daycare/school/sports/work: Yes HPI HPI Comments History of Present Illness Details History of Present Illness - The patient is a 59-year-old male pres enting with diarrhea and nausea and vomiting. - Diarrhea began three days ago and is o ngoing. - He has been having nausea and vomiting as well. - He has not been able to keep anything down. - A viral infection was diagnosed two we eks ago, potentially linked to current symptoms. - Weight loss of 5 pounds noted over a f ew days. - He was seen by GI yesterday and they o rdered stool cultures and a colonoscopy. - Colonoscopy scheduled for next for preventative care. - He denies fever or chills. - He denies abd pain, CP, SOB, weakness, dizziness, dysuria, or hematuria. Physical Exam General: Cooperative, healthy appearing, comfortable, no acute distress and well developed Orientation: Patient oriented x3 Limitations: No limitations Respiratory: Normal respiratory effort and able to speak in complete sentences. Clear to auscultation bilaterally Cardiovascular: Regular rate and rhythm. Normal S1 and S2 GI: Hypoactive bowel sounds noted. Soft, non-tender, non-distended. No TTP of the abd. No guarding noted, no rebound tenderness noted. Skin: No rashes or lesions noted Patient was informed and verbally consented to the use of an ambient scribe for clinic note documentation during this visit. [facility] Medical History (Updated 07/15/25 @ 12:13 by FRANKLIN Hercules) Diarrhea Elevated LFTs Mild anemia Obstructive sleep apnea hypopnea, moderate Obstructive sleep apnea hypopnea, mild Numbness of left hand Acute phlegmonous appendicitis Sinus arrest Essential hypertension Surgical History History of appendectomy S/P right colectomy (~01/18/25) History of pacemaker Deficient knowledge of valve replacement History of open reduction and internal fixation (ORIF) procedure Family History Father CVD (cardiovascular disease) Myocardial infarction Mother Cancer Sister Breast cancer Son No problems noted. Daughter No problems noted. Social History Household Members: None Housing: House Are you a primary pediatric critical care nurse to a significant other at home: No Do you presently have visiting nurse or other home services: No Alcohol intake: current Alcohol intake frequency: holidays/special occasions only Comment: counts correct Patient Tobacco Use Status: Current someday Tobacco user Tobacco use type: Cigarette Cigarettes Per Day: 1 Years Smoked: 2 e-Cigarette/Vaping Use: Never Used Second Hand Smoke Exposure: No Substance Use Type: Marijuana service: No Current occupational status: employed Current occupation: [employer] Current occupational exposures/hazards: No Cognitive needs: No Hearing needs: No Vision needs: No Review of Systems Const All systems reviewed & are unremarkable except as noted in HPI and below Physical Exam Vital Signs: Last Vital Signs Temp 98.0 F 07/31/25 10:43 Pulse 65 07/31/25 10:43 BP 152/100 H 07/31/25 10:43 Pulse Ox 99 07/31/25 10:43 Oxygen Delivery Method Room Air 07/31/25 10:43 BMI result Body Mass Index 28.6 Assessment & Plan Assessment & Plan (1) Nausea, vomiting and diarrhea: Code(s): R11.2 - Nausea with vomiting, unspecified; R19.7 - Diarrhea, unspecified Plan Most likely gastroenteritis vs viral illness plan - Increase fluid intake with electrolytes to prevent dehydration. - Avoid anti-diarrheal medications to allow natural resolution of symptoms. - Adhere to a bland diet including bananas, toast, applesauce, and rice. - Administer Zofran 30 minutes before meals to manage nausea. - Allow the viral infection to resolve naturally without anti-diarrheal intervention. - Proceed with scheduled colonoscopy next for gastrointestinal evaluation. - Will give him a work note - follow up with PCP Medications: New ondansetron 4 mg PO Q8H PRN 10 tabs 0RF nausea and vomiting Coding Level of Care Code Est Pt Level 3 (65167) Diagnoses Nausea, vomiting and diarrhea R11.2; R19.7
--- OUTSIDE RECORDS SUMMARY | 2025-07-31 11:59 | XMS_ITS | Encounter Summary ---
Author Organization [facility] Address [address] [place] [address] Phone Care Team Providers Care Financial Aid Manager Name Role Phone Alan Dowd MD Primary Care Provider Encounter Details Date Type Department Care Team (Late st Contact Info) Description 12/31/2019 Transcribe Orders [facility] [address] [place] [address] Jasmin Romero NP [address] [place] [address] Dr CARREON [address] [place] [phone] Night sweats (Primary Dx); Flushing; Fatigue, unspecified [...] st Contact Info) Description 08/08/2025 Procedure Pass [facility] Endoscopy Admitting Dept Virtual Department [address] [place] [address] 08/08/2025 10:30 AM EDT Hospital Encounter [facility] Admitting Dept Virtual Department [address] [place] [address] Ray Lewis MD 10 [facility] 2 [place] [address] [email or web address] 08/08/2025 10:30 AM EDT - 08/08/2025 11:00 AM EDT Surgery [facility] Endoscopy Admitting Dept Virtual Department [address] [place] [address] Ray Lewis MD [address] [place] [address] [email or web address] COLONOSCOPY Scheduled Procedures Name Priority Associated Diagnoses Date/Ti me COLONOSCOPY Diarrhea, unspecified type Vomiting, unspecified vomiting type, unspecified whether nausea present 08/08/2025 10:30 AM EDT documented as of this encounter Results * 5-HIAA, 24 hr urine (12/31/2019 6:00 AM EST) TIMED URINE 5HIAA 4.6 <=9.7 mg/24 h [facility] DPT OF LAB MED AND PAT+ TOTAL VOLUME 2,000 mL [facility] DPT OF LAB MED AND PAT+ Comment: (NOTE) ADDITIONAL INFORMATION Liquid Chromatography-Tandem Mass Spectrometry (LC-MS/MS). Values obtained from different assay methods or kits may be different and cannot be used interchangeably. The results cannot be interpreted as absolute evidence for the presence or absence of malignant disease. This test was developed and its performance characteristics determined by [facility] in a manner consistent with CLIA requirements. This test has not been cleared or approved by the U.S. Food and Drug Administration. COLLECTION DURATION 24 h [facility] DPT OF LAB MED AND PAT+ Urine (Urine) 12/31/2019 6:0 0 AM EST 12/31/2019 4:14 PM EST us Jasmin Romero NP URINE ORDERABLES Final R esult [facility] DPT OF LAB MED AND PAT+ [address] [place] [address] * N-Methylhistamine, 24 hr urine (12/31/2019 6:00 AM EST) N-Methylhistamine/CR E, timed urine 133 30 - 200 mcg/g Cr [facility] LAB MED/PATH [facility] Collection duration, urine 24 H [facility] LAB MED/PATH [facility] Total Volume, ur 2,000 ML [facility] LAB MED/PATH [facility] Comment: (NOTE) ADDITIONAL INFORMATION This test was developed and its performance characteristics determined by [facility] in a manner consistent with CLIA requirements. This test has not been cleared or approved by the U.S. Food and Drug Administration. Creatinine, timed ur (mg/dL) 115 mg/dL [facility] DPT OF LAB MED AND PAT+ Urine (Urine) 12/31/2019 6:0 0 AM EST 12/31/2019 4:14 PM EST us Jasmin Romero NP URINE ORDERABLES Final R esult [facility] DPT OF LAB MED AND PAT+ [address] [place] [address] [facility] LAB MED/PATH [facility] [address] [place] [address] documented in this encounter Visit Diagnoses Diagnosis Night sweats- Primary Generalized hyperhidrosis Flushing Fatigue, unspecified type Pruritus Unspecified pruritic disorder Diarrhea, unspecified type Vomiting, unspecified vomiting type, unspecified whether nausea present documented in this encounter Additional Health Concerns Infection Onset Date Last Indicated Resolved Time CDiff-Risk 07/30/2025 07/30/2025 documented as of this encounter Care Teams Financial Aid Manager Relationship Specialty Start Date End Date Alan Dowd MD [address] [place] [address] PCP - General 12/31/19 documented as of this encounter Additional Source Comments The information contained in this document represents components of the legal health record. It is not the complete legal health record.[facility]
--- OUTSIDE RECORDS SUMMARY | 2025-07-31 12:00 | XMS_ITS | Clinical Summary ---
Author Organization [facility] Address [address] [facility] [address] [place] [phone] Phone Care Team Providers Care Television Anchor Name Role Phone Alan Dowd MD Primary [...] findings indicative of cardiac pacemaker activity 06/22/2011 Encounters Date Type Department Care Team Description 07/30/2025 1:52 PM EDT - 07/30/2025 11:59 PM EDT Hospital Encounter [facility] Laboratory [address] [address] Siobhan Denis NP Discharge Disposition: Home or Self Care 07/30/2025 Transcribe Orders [facility] Laboratory [address] [address] Siobhan Denis NP Diarrhea, unspecified type (Primary Dx); Vomiting, unspecified vomiting type, unspecified whether nausea present from Last 3 Months Immunizations Immunization Administration Dates Next Due Tdap [...] 03/22/2024 2:47 PM EDT Plan of Treatment Upcoming Encounters Date Type Department Care Team (Late st Contact Info) Description 08/08/2025 Procedure Pass [facility] Endoscopy Admitting Dept Virtual Department [address] [place] [address] 08/08/2025 10:30 AM EDT Hospital Encounter [facility]oscopy Admitting Dept Virtual Department [address] [place] [address] Lyndsey Lewis MD 10 [facility] 2 [place] [address] 08/08/2025 10:30 AM EDT - 08/08/2025 11:00 AM EDT Surgery [facility] Endoscopy Admitting Dept Virtual Department [address] [place] [address] Lyndsey Lewis MD [address] [address] [email or web address] COLONOSCOPY Scheduled Procedures Name Priority Associated Diagnoses Date/Ti me COLONOSCOPY Diarrhea, unspecified type Vomiting, unspecified vomiting type, unspecified whether nausea present 08/08/2025 10:30 AM EDT Health Maintenance Due Date Last Done Comments LIPID PANEL 1965 DEPRESSION SCREENING 1975 SMOKING Hx and SMOKELESS TOBACCO SCREENING 1976 HEPATITIS C SCREENING 1981 HIV ONE-TIME SCREENING (18-6 5 YEARS) 1981 HEPATITIS A VACCINES (1 of 2 - Risk 2-dose series) 1982 COLOGUARD 2008 FIT TEST 2008 FOBT 2008 SIGMOIDOSCOPY 2008 VIRTUAL COLONOSCOPY 2008 ZOSTER VACCINES (1 of 2) 2013 PNEUMOCOCCAL VACCINES (50+ years) (2 of 2 - PCV) 03/25/2018 03/25/2017 RSV VACCINE (1 - Risk 60-74 years 1-dose series) 2023 INFLUENZA VACCINE (#1) 2025 , 09/16/2019, 2018 COVID-19 VACCINE (3 - 2024-2 6 season) 2025 04/08/2021, 03/11/2021 CREATININE LEVEL 07/30/2026 07/30/2025 POTASSIUM LEVEL 07/30/2026 07/30/2025 SCREENING FOR DIABETES 07/30/2028 07/30/2025 COLONOSCOPY 09/22/2028 09/22/2018 COLORECTAL CANCER SCREENING 09/22/2028 [...] this topic Medical Devices Implanted Type Area Educational Aid Device Identifier Shelf Expiration Date Model / Serial / Lot Pacemaker Description:Left chest Procedures Procedure Name Priority Date/Time Associated Diagnosis Comments IMMUNOGLOBULIN A Routine 07/30/2025 1:53 PM EDT Diarrhea, unspecified type Vomiting, unspecified vomiting type, unspecified whether nausea present CBC AND DIFFERENTIAL Routine 07/30/2025 1:53 PM EDT Diarrhea, unspecified type Vomiting, unspecified vomiting type, unspecified whether nausea present COMPREHENSIVE METABOLIC PANEL Routine 07/30/2025 1:53 PM [...] unspecified vomiting type, unspecified whether nausea present ENDOSCOPY, COLON 09/22/2018 8:18 AM EDT from Last 3 Months or Most Recently Relevant to Health Maintenance Results * (ABNORMAL) Comprehensive metabolic panel (07/30/2025 1:53 PM EDT) SODIUM 139 133 - 146 mmol/L [facility] POTASSIUM 3.4 3.3 - 5.1 mmol/L [facility] CHLORIDE 102 96 - 108 mmol/L [facility] CO2 19(L) 21 - 35 mmol/L [facility] BUN 11 6 - 19 mg/dL [facility] CREATININE 0.80 0.5 - 1.5 mg/dL [facility] GLUCOSE 125(H) 70 - 99 mg/dL [facility] ALBUMIN 4.3 3.9 - 4.8 g/dL [facility] TOTAL PROTEIN 7.2 6.5 - 8.0 g/dL [facility] CALCIUM 9.7 8.4 - 10.3 mg/dL [facility] ALKALINE PHOSPHATASE 75 39 - 117 U/L [facility] TOTAL BILIRUBIN 0.4 0.0 - 1.2 mg/dL [facility] AST 25 0 - 37 U/L [facility] ALT 32 0 - 40 U/L [facility] GLOBULIN 2.9 1 - 4.8 g/dL [facility] EGFR 101 >59 mL/min/1.7 3m2 [facility] Comment:Estimated glomerular filtration rate calculated using the CKD-EPI refit equation. ANION GAP 21(H) 10 - 20 mmol/L [facility] Blood 07/30/2025 1:53 PM EDT 07/30/2025 2:01 PM EDT us Siobhan Denis NP LAB BLOOD ORDERABLES Final Result [facility] [address] [place] [address] * (ABNORMAL) CBC and differential (07/30/2025 1:53 PM EDT) WBC 5.18 4.00 - 11.00 K/uL [facility] RBC 4.51 4.50 - 5.90 M/uL [facility] HGB 14.2 13.5 - 17.5 g/dL [facility] HCT 41.7 41.0 - 53.0 % [facility] PLT 217 150 - 450 K/uL [facility] MCV 92.5 80.0 - 100.0 fL [facility] MCH 31.5(H) 27.0 - 31.0 pg [facility] MCHC 34.1 32.0 - 36.0 g/dL [facility] RDW 14.6(H) 11.5 - 14.5 % [facility] MPV 9.2 8.4 - 12.0 fL [facility] NRBC 0.00 0.00 /100 WBCs [facility] ABSOLUTE NRBC 0.00 0.00 K/uL [facility] DIFF METHOD Auto [facility] NEUTS 55.2 48.0 - 76.0 % [facility] LYMPHS 33.6 18.0 - 41.0 % [facility] MONOS 7.7 4.0 - 11.0 % [facility] EOS 2.5 0.0 - 5.0 % [facility] BASOS 0.8 0.0 - 1.5 % [facility] Granulocytes, immature (%) 0.2 0.0 - 0.9 % [facility] ABSOLUTE NEUTS 2.86 1.92 - 7.60 K/uL [facility] ABSOLUTE LYMPHS 1.74 0.72 - 4.10 K/uL [facility] ABSOLUTE MONOS 0.40 0.16 - 1.10 K/uL [facility] ABSOLUTE EOS 0.13 0.00 - 0.50 K/uL [facility] ABSOLUTE BASOS 0.04 0.00 - 0.15 K/uL [facility] Granulocytes, immature 0.01 0.00 - 0.09 K/uL [facility] Blood 07/30/2025 1:53 PM EDT 07/30/2025 2:01 PM EDT us Siobhan Denis NP LAB BLOOD ORDERABLES Final Result [facility] [address] [place] [address] * C-Reactive Protein (07/30/2025 1:53 PM EDT) C REACTIVE PROTEIN <3.0 0.0 - 4.0 mg/L [facility] Blood 07/30/2025 1:5 3 PM EDT 07/30/2025 2:01 PM EDT Siobhan Denis MANAGER PROGRAMS LAB BLOOD ORDERABLES Final Result Performing Organization Address [facility]/ZIP Co de Phone Number [address] [address] * Immunoglobulin A (07/30/2025 1:53 PM EDT) IgA 96 70 - 400 mg/dL [facility] Blood 07/30/2025 1:53 PM EDT 07/30/2025 2:01 PM EDT Siobhan Denis MANAGER PROGRAMS LAB BLOOD ORDERABLES Final Result Performing Organization Address [facility] Co de Phone Number [address] [address] * Folate (07/30/2025 1:53 PM EDT) Pathologist [facility] FOLIC ACID 9.6 4.2 - 19.9 ng/mL [facility] Blood 07/30/2025 1:53 PM EDT 07/30/2025 2:01 PM EDT Siobhan Denis MANAGER PROGRAMS LAB BLOOD ORDERABLES Final Result Performing Organization Address [facility] Co de Phone Number [address] [address] * Ferritin (07/30/2025 1:53 PM EDT) FERRITIN 86 30 - 400 ug/L [facility] Blood 07/30/2025 1:53 PM EDT 07/30/2025 2:01 PM EDT Siobhan Denis MANAGER PROGRAMS LAB BLOOD ORDERABLES Final Result [address] [address] * (ABNORMAL) Vitamin B12 (07/30/2025 1:53 PM EDT) VITAMIN B12 >2000(H) 232 - 1245 pg/mL [facility] Blood 07/30/2025 1:53 PM EDT 07/30/2025 2:01 PM EDT Siobhan Denis MANAGER PROGRAMS LAB BLOOD ORDERABLES Final Result Performing Organization Address [facility] Co de Phone Number [address] [address] * ENDOSCOPY, COLON (09/22/2018 8:18 AM EDT) Narrative Transcriptions Lyndsey Lewis MD - 09/22/2018 8:18 AM EDT Patient Name: Mike Soto Attending MD:: LYNDSEY LEWIS MD Procedure Date: 09/22/2018 8:18 AM Date of : 1965 Age: 52 Admit Type: Outpatient Gender: Male Room: [place] [address] Referring MD: Williams Simental MD Exam Type: [...] 8:18 AM Procedure Code(s): --- Professional --- 55334, Colonoscopy, flexible; with removal of tumor(s), polyp(s), or other lesion(s) by snare technique --- Technical --- 58255, Colonoscopy, flexible; with removal of tumor(s), polyp(s), [...] perforation orabscess without bleeding CPT copyright 2016 [employer]. All rights reserved. The codes documented in this report are preliminary and upon motor and generator brush cutter reviewmay be revised to meet current compliance requirements. [address] [place] [address] Williams Simental DO GI PROCEDURE ORDERABLES Fi nal Result from Last 3 Months or Most Recently Relevant to Health Maintenance Additional Health Concerns Infection Onset Date Last Indicated CDiff-Risk 07/30/2025 07/30/2025 [facility] P[facility] CIGNA PPO CIGNA PPO CIGNA PPO CIGNA PPO WORKERS COMPENSATION Care Teams Television Anchor Relationship Specialty Start Date End Date Alan Dowd MD [address] [place] [address] PCP - General 12/31/19 Additional Source Comments The information contained in this document represents components of the legal health record. It is not the complete legal health record.[facility]
--- OUTSIDE RECORDS SUMMARY | 2025-07-31 12:01 | XMS_ITS | Encounter Summary ---
Author Organization [facility] Address [address] [place] [address] [place] [address] Phone Care Team Providers Care Nurse Esthetician Name Role Phone Williams Simental DO Primary Care Provider [phone]- [phone] Alan Dowd MD Primary Care Provider Encounter Details Date Type Department Care Team (Late st Contact Info) Description 09/22/2018 Procedure Pass [facility] Endoscopy Admitting Dept Virtual Department [address] [place] [phone] Social History Tobacco Use Types Packs/Day Years [...] Pass [facility] Endoscopy Admitting Dept Virtual Department [address] [place] [address] 08/08/2025 10:30 AM EDT Hospital Encounter [facility]oscopy Admitting Dept Virtual Department [address] [place] [address] Ray Lewis MD [address] [place] [address] 08/08/2025 10:30 AM EDT - 08/08/2025 11:00 AM EDT Surgery [facility] Endoscopy Admitting Dept Virtual Department [address] [place] [address] Ray Lewis MD [address] [place] [address] [email or web address] COLONOSCOPY Scheduled Procedures Name Priority Associated Diagnoses Date/Ti me COLONOSCOPY Diarrhea, unspecified type Vomiting, unspecified vomiting type, unspecified whether nausea present 08/08/2025 10:30 AM EDT documented as of this encounter Visit Diagnoses Not on filedocumented in this encounter Additional Health Concerns Infection Onset Date Last Indicated Resolved Time CDiff-Risk 07/30/2025 07/30/2025 documented as of this encounter Care Teams Nurse Esthetician Relationship Specialty Start Date End Date Williams Simental DO [address] [place] [address] PCP - General 09/05/17 12/30/19 Alan Dowd MD [address] [place] [address] PCP - General 12/31/19 documented as of this encounter Additional Source Comments The information contained in this document represents components of the legal health record. It is not the complete legal health record.[facility]
--- OUTSIDE RECORDS SUMMARY | 2025-07-31 12:01 | XMS_ITS | Encounter Summary ---
Author Organization [facility] Address [address] [facility] [address] [place] [phone] Phone Care Team Providers Care Client Delivery Specialist Name Role Phone Alan Dowd MD Primary Care Provider Encounter Details Date Type Department Care Team (Latest Contact Info) Description 07/30/2025 Transcribe Orders [facility] [address] [place] [address] Siobhan Denis NP [address] [place] [address] [email or web address] Diarrhea, unspecified type (Primary Dx); Vomiting, unspecified vomiting type, unspecified whether nausea present Social History Tobacco Use Types Packs/Day Years [...] st Contact Info) Description 08/08/2025 Procedure Pass [facility] Endoscopy Admitting Dept Virtual Department [address] [place] [address] 08/08/2025 10:30 AM EDT Hospital Encounter [facility] Endoscopy Admitting Dept Virtual Department [address] [place] [address] Ray Lewis MD [address] [place] [address] 08/08/2025 10:30 AM EDT - 08/08/2025 11:00 AM EDT Surgery [facility] Endoscopy Admitting Dept Virtual Department [address] [place] [address] Ray Lewis MD [address] [place] [phone] [email or web address] COLONOSCOPY Pending Results Name Type Priority Associated Diagnoses Date /Time Tissue transglutaminase IgA Lab Routine Diarrhea, unspecified type Vomiting, unspecified vomiting type, unspecified whether nausea present 07/30/2025 1:53 PM EDT Scheduled Orders Name Type Priority Associated Diagnoses Orde r Schedule Tissue transglutaminase IgA Lab Routine Diarrhea, unspecified type Vomiting, unspecified vomiting type, unspecified whether nausea present Expected: 07/30/2025, Expires: 07/30/2026 Clostridioides (Clostridium) difficile, PCR Microbiology Routine Diarrhea, unspecified type Vomiting, unspecified vomiting type, unspecified whether nausea present Expected: 07/30/2025, Expires: 07/30/2026 Calprotectin, stool Lab Routine Diarrhea, unspecified type Vomiting, unspecified vomiting type, unspecified whether nausea present Expected: 07/30/2025, Expires: 07/30/2026 Fecal leukocyte examination Microbiology Routine Diarrhea, unspecified type Vomiting, unspecified vomiting type, unspecified whether nausea present Expected: 07/30/2025, Expires: 07/30/2026 Giardia and cryptosporidium screen Microbiology Routine Diarrhea, unspecified type Vomiting, unspecified vomiting type, unspecified whether nausea present Expected: 07/30/2025, Expires: 07/30/2026 Ova and parasites, stool Microbiology Routine Diarrhea, unspecified type Vomiting, unspecified vomiting type, unspecified whether nausea present Expected: 07/30/2025, Expires: 07/30/2026 Ova and parasites, stool Microbiology Routine Diarrhea, unspecified type Vomiting, unspecified vomiting type, unspecified whether nausea present Expected: 07/30/2025, Expires: 07/30/2026 Ova and parasites, stool Microbiology Routine Diarrhea, unspecified type Vomiting, unspecified vomiting type, unspecified whether nausea present Expected: 07/30/2025, Expires: 07/30/2026 Stool culture Microbiology Routine Diarrhea, unspecified type Vomiting, unspecified vomiting type, unspecified whether nausea present Expected: 07/30/2025, Expires: 07/30/2026 Scheduled Procedures Name Priority Associated Diagnoses Date/Ti me COLONOSCOPY Diarrhea, unspecified type Vomiting, unspecified vomiting type, unspecified whether nausea present 08/08/2025 10:30 AM EDT documented as of this encounter Results * (ABNORMAL) Vitamin B12 (07/30/2025 1:53 PM EDT) VITAMIN B12 >2000(H) 232 - 1245 pg/mL [facility] Blood 07/30/2025 1:53 PM EDT 07/30/2025 2:01 PM EDT us Siobhan Denis FINISHING LAB TECHNICIAN LAB BLOOD ORDERABLES Final Result [facility] [address] [place] [address] * Folate (07/30/2025 1:53 PM EDT) Pathologist [facility] FOLIC ACID 9.6 4.2 - 19.9 ng/mL [facility] Blood 07/30/2025 1:53 PM EDT 07/30/2025 2:01 PM EDT Siobhan Denis FINISHING LAB TECHNICIAN LAB BLOOD ORDERABLES Final Result [address] [address] * Ferritin (07/30/2025 1:53 PM EDT) [facility] FERRITIN 86 30 - 400 ug/L [facility] Blood 07/30/2025 1:53 PM EDT 07/30/2025 2:01 PM EDT Siobhan Denis FINISHING LAB TECHNICIAN LAB BLOOD ORDERABLES Final Result Performing Organization Address [facility]/ZIP Co de Phone Number [address] [address] * C-Reactive Protein (07/30/2025 1:53 PM EDT) [facility] C REACTIVE PROTEIN <3.0 0.0 - 4.0 mg/L [facility] Blood 07/30/2025 1:53 PM EDT 07/30/2025 2:01 PM EDT Siobhan Denis FINISHING LAB TECHNICIAN LAB BLOOD ORDERABLES Final Result Performing Organization Address [facility]/ZIP Co de Phone Number [address] [address] * (ABNORMAL) Comprehensive metabolic panel (07/30/2025 1:53 PM EDT) [facility] SODIUM 139 133 - 146 mmol/L [facility] POTASSIUM 3.4 3.3 - 5.1 mmol/L [facility] CHLORIDE 102 96 - 108 mmol/L [facility] CO2 19(L) 21 - 35 mmol/L [facility] BUN 11 6 - 19 mg/dL [facility] CREATININE 0.80 0.5 - 1.5 mg/dL [facility] GLUCOSE 125(H) 70 - 99 mg/dL [facility] ALBUMIN 4.3 3.9 - 4.8 g/dL [facility] TOTAL PROTEIN 7.2 6.5 - 8.0 g/dL [facility] CALCIUM 9.7 8.4 - 10.3 mg/dL [facility] ALKALINE PHOSPHATASE 75 39 - 117 U/L [facility] TOTAL BILIRUBIN 0.4 0.0 - 1.2 mg/dL [facility] AST 25 0 - 37 U/L [facility] ALT 32 0 - 40 U/L [facility] GLOBULIN 2.9 1 - 4.8 g/dL [facility] EGFR 101 >59 mL/min/1.7 3m2 [facility] Comment:Estimated glomerular filtration rate calculated using the CKD-EPI refit equation. ANION GAP 21(H) 10 - 20 mmol/L [facility] Blood 07/30/2025 1:53 PM EDT 07/30/2025 2:01 PM EDT us Siobhan Denis NP LAB BLOOD ORDERABLES Final Result Performing Organization Address City/State/[facility] Co de Phone Number [address] [address] * (ABNORMAL) CBC and differential (07/30/2025 1:53 PM EDT) WBC 5.18 4.00 - 11.00 K/uL [facility] RBC 4.51 4.50 - 5.90 M/uL [facility] HGB 14.2 13.5 - 17.5 g/dL [facility] HCT 41.7 41.0 - 53.0 % [facility] PLT 217 150 - 450 K/uL [facility] MCV 92.5 80.0 - 100.0 fL [facility] MCH 31.5(H) 27.0 - 31.0 pg [facility] MCHC 34.1 32.0 - 36.0 g/dL [facility] RDW 14.6(H) 11.5 - 14.5 % [facility] MPV 9.2 8.4 - 12.0 fL [facility] NRBC 0.00 0.00 /100 WBCs [facility] ABSOLUTE NRBC 0.00 0.00 K/uL [facility] DIFF METHOD Auto [facility] NEUTS 55.2 48.0 - 76.0 % [facility] LYMPHS 33.6 18.0 - 41.0 % [facility] MONOS 7.7 4.0 - 11.0 % [facility] EOS 2.5 0.0 - 5.0 % [facility] BASOS 0.8 0.0 - 1.5 % [facility] Granulocytes, immature (%) 0.2 0.0 - 0.9 % [facility] ABSOLUTE NEUTS 2.86 1.92 - 7.60 K/uL [facility] ABSOLUTE LYMPHS 1.74 0.72 - 4.10 K/uL [facility] ABSOLUTE MONOS 0.40 0.16 - 1.10 K/uL [facility] ABSOLUTE EOS 0.13 0.00 - 0.50 K/uL [facility] ABSOLUTE BASOS 0.04 0.00 - 0.15 K/uL [facility] Granulocytes, immature 0.01 0.00 - 0.09 K/uL [facility] Blood 07/30/2025 1:53 PM EDT 07/30/2025 2:01 PM EDT Siobhan Denis NP LAB BLOOD ORDERABLES Final Result Performing Organization Address City/State/[facility] Co de Phone Number [address] [phone] * Immunoglobulin A (07/30/2025 1:53 PM EDT) IgA 96 70 - 400 mg/dL [facility] Blood 07/30/2025 1:53 PM EDT 07/30/2025 2:01 PM EDT Siobhan Denis NP LAB BLOOD ORDERABLES Final Result [facility] [address] [place] [address] documented in this encounter Visit Diagnoses Diagnosis Diarrhea, unspecified type- Primary Vomiting, unspecified vomiting type, unspecified whether nausea present Diarrhea, unspecified type Vomiting, unspecified vomiting type, unspecified whether nausea present documented in this encounter Additional Health Concerns Infection Onset Date Last Indicated Resolved Time CDiff-Risk 07/30/2025 07/30/2025 documented as of this encounter Care Teams Client Delivery Specialist Relationship Specialty Start Date End Date Alan Dowd MD [address] [place] [address] PCP - General 12/31/19 documented as of this encounter Additional Source Comments The information contained in this document represents components of the legal health record. It is not the complete legal health record.[facility]
== END 2025-07-31 11:34 | disposition home or self-care (01) ==
PROVIDERS: PCP Family Medicine; Visit Provider Physician Assistant Medical
DX: R11.2 Nausea with vomiting, unspecified (principal); R19.7 Diarrhea, unspecified

== ENCOUNTER 2025-08-01 08:53 | Outpatient (AMB) | payer OTHER, SELFPAY ==
--- OUTSIDE RECORDS SUMMARY | 2025-07-30 13:52 | XMS_ITS | Encounter Summary ---
Author Organization [facility] Address [address] [facility] [address] [place] [address] Phone Care Team Providers Care Insulation Worker Furnace Installer Name Role Phone Alan Dowd MD Primary Care Provider Encounter Details Date Type Department Care Team (Latest Contact Info) Description 07/30/2025 1:52 PM EDT - 07/30/2025 11:59 PM EDT Hospital Encounter [facility] [address] [address] Siobhan Denis NP [address] [place] [address] [email or web address] Discharge Disposition: Home or Self Care Social [...] st Contact Info) Description 08/08/2025 Procedure Pass [facility] Endoscopy Admitting Dept Virtual Department [address] [place] [address] 08/08/2025 10:30 AM EDT Hospital Encounter [facility] Endoscopy Admitting Dept Virtual Department [address] [place] [address] Ray Lewis MD [address] [place] [address] 08/08/2025 10:30 AM EDT - 08/08/2025 11:00 AM EDT Surgery [facility] Endoscopy Admitting Dept Virtual Department [address] [place] [address] Ray Lewis MD [address] [place] [phone] [email or web address] COLONOSCOPY Pending Results Name Type Priority Associated [...] EDT) IgA 96 70 - 400 mg/dL [facility] Blood 07/30/2025 1:53 PM EDT 07/30/2025 2:01 PM EDT Siobhan Denis EDUCATIONAL AUDIOLOGIST LAB BLOOD ORDERABLES Final Result [facility] [address] [place] [address] * (ABNORMAL) CBC and differential (07/30/2025 1:53 PM EDT) WBC 5.18 4.00 - 11.00 K/uL [facility] RBC 4.51 4.50 - 5.90 M/uL [facility] HGB 14.2 13.5 - 17.5 g/dL [facility] HCT 41.7 41.0 - 53.0 % [facility] PLT 217 150 - 450 K/uL [facility] MCV 92.5 80.0 - 100.0 fL [facility] MCH 31.5(H) 27.0 - 31.0 pg [facility] MCHC 34.1 32.0 - 36.0 g/dL [facility] RDW 14.6(H) 11.5 - 14.5 % [facility] MPV 9.2 8.4 - 12.0 fL [facility] NRBC 0.00 0.00 /100 WBCs [facility] ABSOLUTE NRBC 0.00 0.00 K/uL [facility] DIFF METHOD Auto [facility] NEUTS 55.2 48.0 - 76.0 % [facility] LYMPHS 33.6 18.0 - 41.0 % [facility] MONOS 7.7 4.0 - 11.0 % [facility] EOS 2.5 0.0 - 5.0 % [facility] BASOS 0.8 0.0 - 1.5 % [facility] Granulocytes, immature (%) 0.2 0.0 - 0.9 % [facility] ABSOLUTE NEUTS 2.86 1.92 - 7.60 K/uL [facility] ABSOLUTE LYMPHS 1.74 0.72 - 4.10 K/uL [facility] ABSOLUTE MONOS 0.40 0.16 - 1.10 K/uL [facility] ABSOLUTE EOS 0.13 0.00 - 0.50 K/uL [facility] ABSOLUTE BASOS 0.04 0.00 - 0.15 K/uL [facility] Granulocytes, immature 0.01 0.00 - 0.09 K/uL [facility] Blood 07/30/2025 1:53 PM EDT 07/30/2025 2:01 PM EDT us Siobhan Denis EDUCATIONAL AUDIOLOGIST LAB BLOOD ORDERABLES Final Result [address] [address] * (ABNORMAL) Comprehensive metabolic panel (07/30/2025 1:53 PM EDT) SODIUM 139 133 - 146 mmol/L [facility] POTASSIUM 3.4 3.3 - 5.1 mmol/L [facility] CHLORIDE 102 96 - 108 mmol/L [facility] CO2 19(L) 21 - 35 mmol/L [facility] BUN 11 6 - 19 mg/dL [facility] CREATININE 0.80 0.5 - 1.5 mg/dL [facility] GLUCOSE 125(H) 70 - 99 mg/dL [facility] ALBUMIN 4.3 3.9 - 4.8 g/dL [facility] TOTAL PROTEIN 7.2 6.5 - 8.0 g/dL [facility] CALCIUM 9.7 8.4 - 10.3 mg/dL [facility] ALKALINE PHOSPHATASE 75 39 - 117 U/L [facility] TOTAL BILIRUBIN 0.4 0.0 - 1.2 mg/dL [facility] AST 25 0 - 37 U/L [facility] ALT 32 0 - 40 U/L [facility] GLOBULIN 2.9 1 - 4.8 g/dL [facility] EGFR 101 >59 mL/min/1.7 3m2 [facility] Comment:Estimated glomerular filtration rate calculated using the CKD-EPI refit equation. ANION GAP 21(H) 10 - 20 mmol/L [facility] Blood 07/30/2025 1:53 PM EDT 07/30/2025 2:01 PM EDT us Siobhan Denis EDUCATIONAL AUDIOLOGIST LAB BLOOD ORDERABLES Final Result [address] [address] * C-Reactive Protein (07/30/2025 1:53 PM EDT) C REACTIVE PROTEIN <3.0 0.0 - 4.0 mg/L [facility] Blood 07/30/2025 1:53 PM EDT 07/30/2025 2:01 PM EDT Siobhan Denis EDUCATIONAL AUDIOLOGIST LAB BLOOD ORDERABLES Final Result [address] [address] * Ferritin (07/30/2025 1:53 PM EDT) Pathologist [facility] FERRITIN 86 30 - 400 ug/L [facility] Blood 07/30/2025 1:53 PM EDT 07/30/2025 2:01 PM EDT Siobhan Denis EDUCATIONAL AUDIOLOGIST LAB BLOOD ORDERABLES Final Result Performing Organization Address [facility]/ZIP Co de Phone Number [address] [address] * Folate (07/30/2025 1:53 PM EDT) Pathologist [facility] FOLIC ACID 9.6 4.2 - 19.9 ng/mL [facility] Blood 07/30/2025 1:53 PM EDT 07/30/2025 2:01 PM EDT Siobhan Denis EDUCATIONAL AUDIOLOGIST LAB BLOOD ORDERABLES Final Result Performing Organization Address City/[facility]/ZIP Co de Phone Number [address] [address] * (ABNORMAL) Vitamin B12 (07/30/2025 1:53 PM EDT) VITAMIN B12 >2000(H) 232 - 1245 pg/mL [facility] Blood 07/30/2025 1:53 PM EDT 07/30/2025 2:01 PM EDT us Siobhanakin Hahn Adeel EDUCATIONAL AUDIOLOGIST LAB BLOOD ORDERABLES Final Result [facility] [address] [place] [address] documented in this encounter Visit Diagnoses Diagnosis Diarrhea, unspecified type Vomiting, unspecified vomiting type, unspecified whether nausea present Diarrhea, unspecified type Vomiting, unspecified vomiting type, unspecified whether nausea present documented in this encounter Additional Health Concerns Infection Onset Date Last Indicated Resolved Time CDiff-Risk 07/30/2025 07/30/2025 documented as of this encounter Care Teams Insulation Worker Furnace Installer Relationship Specialty Start Date End Date Alan Dowd MD [address] [place] [address] PCP - General 12/31/19 documented as of this encounter Additional Source Comments The information contained in this document represents components of the legal health record. It is not the complete legal health record.[facility]
--- OUTSIDE RECORDS SUMMARY | 2025-07-31 13:51 | XMS_ITS | Encounter Summary ---
Author Organization [facility] Address [address] [facility] [address] [place] [address] Phone Care Team Providers Care Band Manager Name Role Phone Alan Dowd MD Primary Care Provider Encounter Details Date Type Department Care Team (Latest Contact Info) Description 07/31/2025 1:51 PM EDT - 07/31/2025 11:59 PM EDT Hospital Encounter [facility] [address] [address] Siobhan Denis NP [address] [place] [address] [email or web address] Disposition: Home or Self Care Social [...] st Contact Info) Description 08/08/2025 Procedure Pass [facility] Endoscopy Admitting Dept Virtual Department [address] [place] [address] 08/08/2025 10:30 AM EDT Hospital Encounter [facility] Endoscopy Admitting Dept Virtual Department [address] [place] [address] Ray Lewis MD [address] [place] [address] 08/08/2025 10:30 AM EDT - 08/08/2025 11:00 AM EDT Surgery [facility] Endoscopy Admitting Dept Virtual Department [address] [place] [address] Ray Lewis MD [address] [place] [address] [email or web address] COLONOSCOPY Pending Results Name Type Priority Associated Diagnoses Date /Time Ova and parasites, stool Microbiology Routine Diarrhea, unspecified type Vomiting, unspecified vomiting type, unspecified whether nausea present 07/31/2025 8:00 AM EDT Scheduled Orders Name Type Priority Associated Diagnoses Orde r Schedule Ova and parasites, stool Microbiology Routine Diarrhea, unspecified type Vomiting, unspecified vomiting type, unspecified whether nausea present As Needed for 1 Occurrences starting 07/31/2025 until 07/31/2025 Scheduled Procedures Name Priority Associated Diagnoses Date/Ti me COLONOSCOPY Diarrhea, unspecified type Vomiting, unspecified vomiting type, unspecified whether nausea present 08/08/2025 10:30 AM EDT documented as of this encounter Visit Diagnoses Diagnosis Diarrhea, unspecified type Vomiting, unspecified vomiting type, unspecified whether nausea present Diarrhea, unspecified type Vomiting, unspecified vomiting type, unspecified whether nausea present documented in this encounter Additional Health Concerns Infection Onset Date Last Indicated Resolved Time CDiff-Risk 07/30/2025 07/30/2025 documented as of this encounter Care Teams Band Manager Relationship Specialty Start Date End Date Alan Dowd MD [address] [place] [address] PCP - General 12/31/19 documented as of this encounter Additional Source Comments The information contained in this document represents components of the legal health record. It is not the complete legal health record.[facility]
--- NOTE | 2025-08-01 08:59 | MHC.PC.OV ---
Vital Signs 08/01/25 09:05 Height 5 ft 11 in Weight 204 lb 4 oz BMI 28.5 BP 118/88 Blood Pressure Location Rt brachial Position Sitting Respiration 12 Pulse 73 Pulse Source Pulse Oximeter Temp 97.9 F Temp Source Temporal Artery Scan Pulse Oximetry (%) 95 Oxygen Delivery Method Room Air Intake Visit Reasons: 3 days sick Intake Note: Mike presents in the office for a sick visit. Went to [facility] walk-in clinic yesterday. Did not feel they were thorough. Went to Gastroenterology on Tuesday, needs a colonoscopy. Experiencing diarrhea. Has llost 6 lbs in the past four days. Allergies No Known Allergies Allergy (Verified 08/01/25 09:03) Tobacco use date assessed: 08/01/25 Dental Screening Dental Screen Date: 08/01/25 Did you have a dental visit in the last 12 months?: Yes Did you have a dental problem in the last 6 months where you did not have access to dental care?: No Was dental information given to patient?: Patient has dentist HPI HPI Comments History of Present Illness Details 59 year old male presents for evaluation for GI symptoms. I saw him recently for nonbloody diarrhea, loose stools, bloating and decreased appetite. He subsequently tested positive for norovirus. He has symptoms resolved after about a week. He went to urgent care yesterday because he had recurrent vomiting and diarrhea starting Tuesday this week. He is taking Zofran which helped. He is feeling better today. He ate toast with peanut butter and drank water today. He has not had further episodes of vomiting since Tuesday. Stools are still nonbloody. He has been seen several times within the past year for similar events. I referred him to Gastroenterology, and he has a colonoscopy scheduled next . They also collected stool studies so he is waiting to hear about those results. He has lost about 8 lb since the end of June. Denies abdominal pain. Denies alcohol abuse. He has not noticed certain food triggers. Denies family history of GI disorders and cancer. He needs a note for work. ROS: Constitutional: No fevers, chills. +fatigue. No night sweats. +weight loss. Respiratory: No shortness of breath Cardiovascular: No chest pain Gastrointestinal: see HPI Genitourinary: No dysuria, hematuria, urinary frequency. Neurologic: No headache, dizziness Hematologic/Lymphatics: No bleeding or bruising. No painful lymph nodes. Skin: No rash Physical exam: Constitutional: Alert, in no distress. Neck: Supple, Full range of motion. No lymphadenopathy. No palpable thyroid masses. Respiratory: Clear to auscultation. Cardiovascular: S1 S2 regular. No murmurs. Gastrointestinal: Abdomen soft, non-tender, non-distended. Normal bowel sounds. No palpable masses. No rebound or guarding. : no CVA tenderness Skin: No rashes [facility] Medical History (Updated 07/15/25 @ 12:13 by FRANKLIN Hercules) Diarrhea Elevated LFTs Mild anemia Obstructive sleep apnea hypopnea, moderate Obstructive sleep apnea hypopnea, mild Numbness of left hand Acute phlegmonous appendicitis Sinus arrest Essential hypertension Surgical History History of appendectomy S/P right colectomy (~01/18/25) History of pacemaker Deficient knowledge of valve replacement History of open reduction and internal fixation (ORIF) procedure Family History Father CVD (cardiovascular disease) Myocardial infarction Mother Cancer Sister Breast cancer Son No problems noted. Daughter No problems noted. Social History (Updated 08/01/25 @ 09:04 by Angela Mercado MA) Household Members: None Housing: House Are you a primary continuum of care manager to a significant other at home: No Do you presently have visiting nurse or other home services: No Alcohol intake: current Alcohol intake frequency: holidays/special occasions only Comment: counts correct Patient Tobacco Use Status: Current someday Tobacco user Tobacco use type: Cigarette Cigarettes Per Day: 1 Years Smoked: 2 Packs per year/per ci.10 e-Cigarette/Vaping Use: Never Used Second Hand Smoke Exposure: No Use of substances other than those prescribed or required for medical reasons: Yes Substance Use Type: Marijuana service: No Current occupational status: employed Current occupation: [employer] Work Current occupational exposures/hazards: No Cognitive needs: No Hearing needs: No Vision needs: No Questionnaire Thrive Questionnaire Date Thrive assessed: 02/04/25 I am a: Patient What is your living situation today?: I have a steady place to live Within the past 12 months, did the food you bought not last and you didn't have the money to get more?: I choose not to answer this question Within the past 12 months, did you worry whether your food would run out before you got money to buy more?: Sometimes True Do you have trouble paying for medicines?: I choose not to answer this question Do you have trouble getting transportation to medical appointments?: No Do you have trouble paying your heating and electricity bill?: I choose not to answer this question Do you have trouble taking care of your child, family member or friend?: No Do you have trouble with day-to-day activities such as bathing, preparing meals, shopping, managing finances, etc.?: No Are you currently unemployed and looking for a job?: Yes Are you interested in more education?: I choose not to answer this question Please select the resources that you would like help with: None Currently or been in a relationship where the following occur: I choose not to answer THRIVE Score: 1 CANDY-7 AMB Questionnaire CANDY-7 Date CANDY - 7 assessed: 07/15/25 Source: Developed by Drs. Coleman Huerta, Marisela Rachel, Feng Carmichael and colleagues, with an educational tree from [employer]. Physical exam (Primary Care) Vital Signs: Last Vital Signs Temp 97.9 F 08/01/25 09:05 Pulse 73 08/01/25 09:05 Resp 12 08/01/25 09:05 BP 118/88 08/01/25 09:05 Pulse Ox 95 08/01/25 09:05 Oxygen Delivery Method Room Air 08/01/25 09:05 BMI result Body Mass Index 28.5 Tobacco/Smoking Status: Tobacco use Status Tobacco use date assessed 08/01/25 08/01/25 09:09 Patient Tobacco Use Status Current someday Tobacco 08/01/25 09:04 Tobacco use type Cigarette 08/01/25 09:04 e-Cigarette/Vaping Use Never Used 08/01/25 09:04 Thrive Assessment: Date of Thrive Assessment Date Thrive assessed 02/04/25 08/01/25 09:00 Currently or been in a relationship where the following occur: I choose not to answer Coding Level of Care Code Est Pt Level 4 (10656) Complex EM visit Add On G2211 Diagnoses Nausea, vomiting and diarrhea R11.2; R19.7 Assessment & Plan Assessment & Plan (1) Nausea, vomiting and diarrhea: Code(s): R11.2 - Nausea with vomiting, unspecified; R19.7 - Diarrhea, unspecified Category: Medical Plan Symptoms are improving. He was recently diagnosed with norovirus. 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 Start probiotic. Continue Zofran as needed. Advanced diet as tolerated. Warning signs warranting ER evaluation reviewed. He saw Gastroenterology, and he has a colonoscopy scheduled in a week. He has a follow up with his primary care provider scheduled in August. He will contact the office sooner if needed. I provided him with a note for work. Medications: New Lactobac. rhamnosus GG-inulin 10 billion cell -200 mg (Cloud 66) 1 cap PO DAILY 90 caps 0RF
[2025-08-01 09:05] VITALS: BP 118/88; PULSE 73; RESP 12; TEMP 36.6; O2SAT 95; BMI 28.5
--- OUTSIDE RECORDS SUMMARY | 2025-08-01 10:04 | XMS_ITS | Encounter Summary ---
Author Organization [facility] Address [address] [place] [address] [place] [address] Phone Care Team Providers Care Chief Lock Tender Operator Name Role Phone Williams Simental DO Primary Care Provider [phone] Alan Dowd MD Primary Care Provider Encounter Details Date Type Department Care Team (Late st Contact Info) Description 09/22/2018 Procedure Pass [facility] Endoscopy Admitting Dept Virtual Department [address] [place] [phone] Social History Tobacco Use Types Packs/Day Years [...] Pass [facility] Endoscopy Admitting Dept Virtual Department [address] [place] [address] 08/08/2025 10:30 AM EDT Hospital Encounter [facility] Endoscopy Admitting Dept Virtual Department [address] [place] [address] Ray Lewis MD [address] [place] [address] 08/08/2025 10:30 AM EDT - 08/08/2025 11:00 AM EDT Surgery [facility] Endoscopy Admitting Dept Virtual Department [address] [place] [address] Ray Lewis MD [address] [place] [address] [email or web address] COLONOSCOPY Scheduled Procedures Name Priority Associated Diagnoses Date/Ti me COLONOSCOPY Diarrhea, unspecified type Vomiting, unspecified vomiting type, unspecified whether nausea present 08/08/2025 10:30 AM EDT documented as of this encounter Visit Diagnoses Not on filedocumented in this encounter Additional Health Concerns Infection Onset Date Last Indicated Resolved Time CDiff-Risk 07/30/2025 07/30/2025 documented as of this encounter Care Teams Chief Lock Tender Operator Relationship Specialty Start Date End Date Williams Simental DO [address] [place] [address] PCP - General 09/05/17 12/30/19 Alan Dowd MD [address] [place] [address] PCP - General 12/31/19 documented as of this encounter Additional Source Comments The information contained in this document represents components of the legal health record. It is not the complete legal health record.[facility]
--- OUTSIDE RECORDS SUMMARY | 2025-08-01 10:04 | XMS_ITS | Clinical Summary ---
Author Organization [facility] Address [address] [place] [phone] Phone Care Team Providers Care Supervisor Ditching Name Role Phone Alan Dowd MD Primary [...] Encounters Date Type Department Care Team Description 07/31/2025 1:51 PM EDT - 07/31/2025 11:59 PM EDT Hospital Encounter [facility] Laboratory [address] [address] Siobhan Densi NP Discharge Disposition: Home or Self Care 07/30/2025 1:53 PM EDT - 07/30/2025 11:59 PM EDT Hospital Encounter [facility] Laboratory [address] [address] Siobhan Denis NP Discharge Disposition: Home or Self Care 07/30/2025 1:52 PM EDT - 07/30/2025 11:59 PM EDT Hospital Encounter [facility] Laboratory [address] [address] Siobhan Denis NP Discharge Disposition: Home or Self Care 07/30/2025 Transcribe Orders [facility] Laboratory [address] [place] [address] Siobhan Denis NP Diarrhea, unspecified type (Primary [...] st Contact Info) Description 08/08/2025 Procedure Pass [facility] Endoscopy Admitting Dept Virtual Department [address] [place] [address] 08/08/2025 10:30 AM EDT Hospital Encounter [facility] Endoscopy Admitting Dept Virtual Department [address] [place] [address] Lyndsey Lewis MD [address] [address] 08/08/2025 10:30 AM EDT - 08/08/2025 11:00 AM EDT Surgery [facility] Endoscopy Admitting Dept Virtual Department [address] [place] [address] Lyndsey Lewis MD [address] [address] [email or web address] COLONOSCOPY Scheduled Procedures Name Priority Associated Diagnoses [...] this topic Medical Devices Implanted Type Area Canal Driver Device Identifier Shelf Expiration Date Model / [...] EDT) SODIUM 139 133 - 146 mmol/L [facility] POTASSIUM 3.4 3.3 - 5.1 mmol/L [facility] CHLORIDE 102 96 - 108 mmol/L [facility] CO2 19(L) 21 - 35 mmol/L [facility] BUN 11 6 - 19 mg/dL [facility] CREATININE 0.80 0.5 - 1.5 mg/dL [facility] GLUCOSE 125(H) 70 - 99 mg/dL [facility] ALBUMIN 4.3 3.9 - 4.8 g/dL [facility] TOTAL PROTEIN 7.2 6.5 - 8.0 g/dL [facility] CALCIUM 9.7 8.4 - 10.3 mg/dL [facility] ALKALINE PHOSPHATASE 75 39 - 117 U/L [facility] TOTAL BILIRUBIN 0.4 0.0 - 1.2 mg/dL [facility] AST 25 0 - 37 U/L [facility] ALT 32 0 - 40 U/L [facility] GLOBULIN 2.9 1 - 4.8 g/dL [facility] EGFR 101 >59 mL/min/1.7 3m2 [facility] Comment:Estimated glomerular filtration rate calculated using the CKD-EPI refit equation. ANION GAP 21(H) 10 - 20 mmol/L [facility] Blood 07/30/2025 1:53 PM EDT 07/30/2025 2:01 PM EDT us Siobhan Denis NP LAB BLOOD ORDERABLES Final Result [facility] [address] [place] [address] * (ABNORMAL) CBC and differential (07/30/2025 1:53 PM EDT) WBC 5.18 4.00 - 11.00 K/uL [facility] RBC 4.51 4.50 - 5.90 M/uL [facility] HGB 14.2 13.5 - 17.5 g/dL [facility] HCT 41.7 41.0 - 53.0 % [facility] PLT 217 150 - 450 K/uL [facility] MCV 92.5 80.0 - 100.0 fL [facility] MCH 31.5(H) 27.0 - 31.0 pg [facility] MCHC 34.1 32.0 - 36.0 g/dL [facility] RDW 14.6(H) 11.5 - 14.5 % [facility] MPV 9.2 8.4 - 12.0 fL [facility] NRBC 0.00 0.00 /100 WBCs [facility] ABSOLUTE NRBC 0.00 0.00 K/uL [facility] DIFF METHOD Auto [facility] NEUTS 55.2 48.0 - 76.0 % [facility] LYMPHS 33.6 18.0 - 41.0 % [facility] MONOS 7.7 4.0 - 11.0 % [facility] EOS 2.5 0.0 - 5.0 % [facility] BASOS 0.8 0.0 - 1.5 % [facility] Granulocytes, immature (%) 0.2 0.0 - 0.9 % [facility] ABSOLUTE NEUTS 2.86 1.92 - 7.60 K/uL [facility] ABSOLUTE LYMPHS 1.74 0.72 - 4.10 K/uL [facility] ABSOLUTE MONOS 0.40 0.16 - 1.10 K/uL [facility] ABSOLUTE EOS 0.13 0.00 - 0.50 K/uL [facility] ABSOLUTE BASOS 0.04 0.00 - 0.15 K/uL [facility] Granulocytes, immature 0.01 0.00 - 0.09 K/uL [facility] Blood 07/30/2025 1:53 PM EDT 07/30/2025 2:01 PM EDT us Siobhan Denis PLUMBING ENGINEER LAB BLOOD ORDERABLES Final Result Performing Organization Address [facility] Co de Phone Number [address] [address] * C-Reactive Protein (07/30/2025 1:53 PM EDT) C REACTIVE PROTEIN <3.0 0.0 - 4.0 mg/L [facility] Blood 07/30/2025 1:53 PM EDT 07/30/2025 2:01 PM EDT Siobhan Denis PLUMBING ENGINEER LAB BLOOD ORDERABLES Final Result Performing Organization Address [facility] Co de Phone Number [address] [address] * Immunoglobulin A (07/30/2025 1:53 PM EDT) IgA 96 70 - 400 mg/dL [facility] Blood 07/30/2025 1:53 PM EDT 07/30/2025 2:01 PM EDT Siobhan Denis PLUMBING ENGINEER LAB BLOOD ORDERABLES Final Result Performing Organization Address [facility] Co de Phone Number [address] [address] * Folate (07/30/2025 1:53 PM EDT) FOLIC ACID 9.6 4.2 - 19.9 ng/mL [facility] Blood 07/30/2025 1:53 PM EDT 07/30/2025 2:01 PM EDT Siobhan Denis PLUMBING ENGINEER LAB BLOOD ORDERABLES Final Result Performing Organization Address [facility]/ZIP Co de Phone Number [address] [address] * Ferritin (07/30/2025 1:53 PM EDT) FERRITIN 86 30 - 400 ug/L [facility] Blood 07/30/2025 1:53 PM EDT 07/30/2025 2:01 PM EDT Siobhanakin Hahn Adeel PLUMBING ENGINEER LAB BLOOD ORDERABLES Final Result Performing Organization Address [facility] Co de Phone Number [address] [address] * (ABNORMAL) Vitamin B12 (07/30/2025 1:53 PM EDT) VITAMIN B12 >2000(H) 232 - 1245 pg/mL [facility] Blood 07/30/2025 1:53 PM EDT 07/30/2025 2:01 PM EDT Siobhan Denis PLUMBING ENGINEER LAB BLOOD ORDERABLES Final Result Performing Organization Address [facility] de Phone Number [address] [address] * ENDOSCOPY, COLON (09/22/2018 8:18 AM EDT) Narrative Transcriptions Lyndsey Lewis MD - 09/22/2018 8:18 AM EDT Patient Name: Mike Hua MD:: LYNDSEY LEWIS MD Procedure Date: 09/22/2018 8:18 AM Date of : 1965 Age: 52 Admit Type: Outpatient Gender: Male Room: [facility] 04 Referring MD: Williams Simental MD Exam Type: [...] 8:18 AM Procedure Code(s): --- Professional --- 03604, Colonoscopy, flexible; with removal of tumor(s), polyp(s), or other lesion(s) by snare technique --- Technical --- 66291, Colonoscopy, flexible; with removal of tumor(s), polyp(s), [...] perforation orabscess without bleeding CPT copyright 2016 [employer]. All rights reserved. The codes documented in this report are preliminary and upon circulation man reviewmay be revised to meet current compliance requirements. [address] [place] [address] Williams Simental DO GI PROCEDURE ORDERABLES Fi nal Result from Last 3 Months or Most Recently Relevant to Health Maintenance Additional Health Concerns Infection Onset Date Last Indicated CDiff-Risk 07/30/2025 07/30/2025 Insurance CIGNA PPO CIGNA PPO CIGNA PPO [id number] PPO WORKERS COMPENSATION Care Teams Supervisor Ditching Relationship Specialty Start Date End Date Alan Dowd MD [address] [place] [address] PCP - General 12/31/19 Additional Source Comments The information contained in this document represents components of the legal health record. It is not the complete legal health record.[facility]
--- OUTSIDE RECORDS SUMMARY | 2025-08-01 10:04 | XMS_ITS | Encounter Summary ---
Author Organization [facility] Address [address] [place] [phone] Phone Care Team Providers Care Cut Out Machine Operator Name Role Phone Alan Dowd MD Primary Care Provider Encounter Details Date Type Department Care Team (Latest Contact Info) Description 07/30/2025 Transcribe Orders [facility] [address] [place] [address] Siobhan Denis NP [address] [place] [address] [email or web address] [facility] Diarrhea, unspecified type (Primary Dx); Vomiting, unspecified [...] st Contact Info) Description 08/08/2025 Procedure Pass [facility] Endoscopy Admitting Dept Virtual Department [address] [place] [address] 08/08/2025 10:30 AM EDT Hospital Encounter [facility] Endoscopy Admitting Dept Virtual Department [address] [place] [address] Ray Lewis MD [address] [place] [address] 08/08/2025 10:30 AM EDT - 08/08/2025 11:00 AM EDT Surgery [facility] Endoscopy Admitting Dept Virtual Department [address] [place] [address] Ray Lewis MD [address] [place] [address] [email or web address] COLONOSCOPY Pending Results Name Type Priority Associated Diagnoses Date /Time Tissue transglutaminase IgA Lab Routine Diarrhea, unspecified type Vomiting, unspecified vomiting type, unspecified whether nausea present 07/30/2025 1:53 PM EDT Ova and parasites, stool Microbiology Routine Diarrhea, unspecified type Vomiting, unspecified vomiting type, unspecified whether nausea present 07/30/2025 1:30 PM EDT Ova and parasites, stool Microbiology Routine Diarrhea, [...] VITAMIN B12 >2000(H) 232 - 1245 pg/mL [facility] Blood 07/30/2025 1:53 PM EDT 07/30/2025 2:01 PM EDT us Siobhan Denis EARLY CHILDHOOD EDUCATION INSTRUCTOR LAB BLOOD ORDERABLES Final Result [address] [address] * Folate (07/30/2025 1:53 PM EDT) FOLIC ACID 9.6 4.2 - 19.9 ng/mL [facility] Blood 07/30/2025 1:53 PM EDT 07/30/2025 2:01 PM EDT us Siobhan Denis EARLY CHILDHOOD EDUCATION INSTRUCTOR LAB BLOOD ORDERABLES Final Result Performing Organization Address [facility]/ZIP Co de Phone Number [address] [address] * Ferritin (07/30/2025 1:53 PM EDT) FERRITIN 86 30 - 400 ug/L [facility] Blood 07/30/2025 1:53 PM EDT 07/30/2025 2:01 PM EDT us Siobhan Denis EARLY CHILDHOOD EDUCATION INSTRUCTOR LAB BLOOD ORDERABLES Final Result Performing Organization Address [facility]/ZIP Co de Phone Number [address] [address] * C-Reactive Protein (07/30/2025 1:53 PM EDT) C REACTIVE PROTEIN <3.0 0.0 - 4.0 mg/L [facility] Blood 07/30/2025 1:53 PM EDT 07/30/2025 2:01 PM EDT us Siobhan Denis EARLY CHILDHOOD EDUCATION INSTRUCTOR LAB BLOOD ORDERABLES Final Result Performing Organization Address City/[facility]/ZIP Co de Phone Number [address] [address] * (ABNORMAL) Comprehensive metabolic panel (07/30/2025 1:53 PM EDT) Pathologist [facility] SODIUM 139 133 - 146 mmol/L [facility] POTASSIUM 3.4 3.3 - 5.1 mmol/L [facility] CHLORIDE 102 96 - 108 mmol/L [facility] CO2 19(L) 21 - 35 mmol/L [facility] BUN 11 6 - 19 mg/dL [facility] CREATININE 0.80 0.5 - 1.5 mg/dL [facility] GLUCOSE 125(H) 70 - 99 mg/dL [facility] ALBUMIN 4.3 3.9 - 4.8 g/dL [facility] TOTAL PROTEIN 7.2 6.5 - 8.0 g/dL [facility] CALCIUM 9.7 8.4 - 10.3 mg/dL [facility] ALKALINE PHOSPHATASE 75 39 - 117 U/L [facility] TOTAL BILIRUBIN 0.4 0.0 - 1.2 mg/dL [facility] AST 25 0 - 37 U/L [facility] ALT 32 0 - 40 U/L [facility] GLOBULIN 2.9 1 - 4.8 g/dL [facility] EGFR 101 >59 mL/min/1.7 3m2 [facility] Comment:Estimated glomerular filtration rate calculated using the CKD-EPI refit equation. ANION GAP 21(H) 10 - 20 mmol/L [facility] Blood 07/30/2025 1:53 PM EDT 07/30/2025 2:01 PM EDT us Siobhan Denis EARLY CHILDHOOD EDUCATION INSTRUCTOR LAB BLOOD ORDERABLES Final Result [facility] [address] [place] [address] * (ABNORMAL) CBC and differential (07/30/2025 1:53 PM EDT) Pathologist [facility] WBC 5.18 4.00 - 11.00 K/uL [facility] RBC 4.51 4.50 - 5.90 M/uL [facility] HGB 14.2 13.5 - 17.5 g/dL [facility] HCT 41.7 41.0 - 53.0 % [facility] PLT 217 150 - 450 K/uL [facility] MCV 92.5 80.0 - 100.0 fL [facility] MCH 31.5(H) 27.0 - 31.0 pg [facility] MCHC 34.1 32.0 - 36.0 g/dL [facility] RDW 14.6(H) 11.5 - 14.5 % [facility] MPV 9.2 8.4 - 12.0 fL [facility] NRBC 0.00 0.00 /100 WBCs [facility] ABSOLUTE NRBC 0.00 0.00 K/uL [facility] DIFF METHOD Auto [facility] NEUTS 55.2 48.0 - 76.0 % [facility] LYMPHS 33.6 18.0 - 41.0 % [facility] MONOS 7.7 4.0 - 11.0 % [facility] EOS 2.5 0.0 - 5.0 % [facility] BASOS 0.8 0.0 - 1.5 % [facility] Granulocytes, immature (%) 0.2 0.0 - 0.9 % [facility] ABSOLUTE NEUTS 2.86 1.92 - 7.60 K/uL [facility] ABSOLUTE LYMPHS 1.74 0.72 - 4.10 K/uL [facility] ABSOLUTE MONOS 0.40 0.16 - 1.10 K/uL [facility] ABSOLUTE EOS 0.13 0.00 - 0.50 K/uL [facility] ABSOLUTE BASOS 0.04 0.00 - 0.15 K/uL [facility] Granulocytes, immature 0.01 0.00 - 0.09 K/uL [facility] Blood 07/30/2025 1:53 PM EDT 07/30/2025 2:01 PM EDT us Siobhan Denis NP LAB BLOOD ORDERABLES Final Result [facility] [address] [place] [address] * Immunoglobulin A (07/30/2025 1:53 PM EDT) IgA 96 70 - 400 mg/dL [facility] Blood 07/30/2025 1:53 PM EDT 07/30/2025 2:01 PM EDT us Siobhanakin Hahn Adeel EARLY CHILDHOOD EDUCATION INSTRUCTOR LAB BLOOD ORDERABLES Final Result Performing Organization Address City/State/[facility] Co de Phone Number [facility] [address] [place] [address] documented in this encounter Visit Diagnoses Diagnosis Diarrhea, unspecified type- Primary Vomiting, unspecified vomiting type, unspecified whether nausea present Diarrhea, unspecified type Vomiting, unspecified vomiting type, unspecified whether nausea present documented in this encounter Additional Health Concerns Infection Onset Date Last Indicated Resolved Time CDiff-Risk 07/30/2025 07/30/2025 documented as of this encounter Care Teams Cut Out Machine Operator Relationship Specialty Start Date End Date Alan Dowd MD [address] [place] [address] PCP - General 12/31/19 documented as of this encounter Additional Source Comments The information contained in this document represents components of the legal health record. It is not the complete legal health record.[facility]
--- OUTSIDE RECORDS SUMMARY | 2025-08-01 10:04 | XMS_ITS | Encounter Summary ---
Author Organization [facility] Address [address] [place] [address] Phone Care Team Providers Care Pump Installation And Servicer Name Role Phone Alan Dowd MD Primary Care Provider Encounter Details Date Type Department Care Team (Late st Contact Info) Description 12/31/2019 Transcribe Orders [facility] [address] [place] [address] Jasmin Romero NP [address] [place] [address] Dr CARREON [address] [place] [phone] Night sweats (Primary Dx); Flushing; Fatigue, unspecified [...] [facility] Endoscopy Admitting Dept Virtual Department [address] [place] [address] 08/08/2025 10:30 AM EDT Hospital Encounter [facility] Endoscopy Admitting Dept Virtual Department [address] [place] [address] Ray Lewis MD 10 [facility] [address] [place] [address] 08/08/2025 10:30 AM EDT - 08/08/2025 11:00 AM EDT Surgery [facility] Endoscopy Admitting Dept Virtual Department [address] [place] [address] Ray Lewis MD [address] [place] [address] [email or web address] COLONOSCOPY Scheduled Procedures Name Priority Associated Diagnoses Date/Ti me COLONOSCOPY Diarrhea, unspecified type Vomiting, unspecified vomiting type, unspecified whether nausea present 08/08/2025 10:30 AM EDT documented as of this encounter Results * 5-HIAA, 24 hr urine (12/31/2019 6:00 AM EST) TIMED URINE 5HIAA 4.6 <=9.7 mg/24 h [facility] DPT OF LAB MED AND PAT+ TOTAL VOLUME 2,000 mL [facility] DPT OF LAB MED AND PAT+ Comment: (NOTE) ADDITIONAL INFORMATION Liquid Chromatography-Tandem Mass Spectrometry (LC-MS/MS). Values obtained from different assay methods or kits may be different and cannot be used interchangeably. The results cannot be interpreted as absolute evidence for the presence or absence of malignant disease. This test was developed and its performance characteristics determined by [facility] in a manner consistent with CLIA requirements. This test has not been cleared or approved by the U.S. Food and Drug Administration. COLLECTION DURATION 24 h [facility] DPT OF LAB MED AND PAT+ Urine (Urine) 12/31/2019 6:0 0 AM EST 12/31/2019 4:14 PM EST us Jasmin Romero NP URINE ORDERABLES Final R esult [facility] DPT OF LAB MED AND PAT+ [address] [place] [address] * N-Methylhistamine, 24 hr urine (12/31/2019 6:00 AM EST) N-Methylhistamine/CR E, timed urine 133 30 - 200 mcg/g Cr [facility] Collection duration, urine 24 H [facility] Total Volume, ur 2,000 ML [facility] MED/[facility] Comment: (NOTE) ADDITIONAL INFORMATION This test was developed and its performance characteristics determined by [facility] in a manner consistent with CLIA requirements. This test has not been cleared or approved by the U.S. Food and Drug Administration. Creatinine, timed ur (mg/dL) 115 mg/dL [facility] DPT OF LAB MED AND PAT+ Urine (Urine) 12/31/2019 6:0 0 AM EST 12/31/2019 4:14 PM EST us Jasmin Romero NP URINE ORDERABLES Final R esult [facility] DPT OF LAB MED AND PAT+ [address] [place] [address] [facility] [address] [place] [address] documented in this encounter Visit Diagnoses Diagnosis Night sweats- Primary Generalized hyperhidrosis Flushing Fatigue, unspecified type Pruritus Unspecified pruritic disorder Diarrhea, unspecified type Vomiting, unspecified vomiting type, unspecified whether nausea present documented in this encounter Additional Health Concerns Infection Onset Date Last Indicated Resolved Time CDiff-Risk 07/30/2025 07/30/2025 documented as of this encounter Care Teams Pump Installation And Servicer Relationship Specialty Start Date End Date Alan Dowd MD [address] [place] [address] PCP - General 12/31/19 documented as of this encounter Additional Source Comments The information contained in this document represents components of the legal health record. It is not the complete legal health record.[facility]
== END 2025-08-01 09:37 | disposition home or self-care (01) ==
LOC: HO.HMCFM 08:54
PROVIDERS: PCP Family Medicine; Visit Provider Physician Assistant Medical
DX: R11.2 Nausea with vomiting, unspecified (principal); R19.7 Diarrhea, unspecified

== ENCOUNTER → 2025-10-02 15:14 | Outpatient (REF) | payer OTHER, SELFPAY ==
--- NOTE | 2025-10-02 15:40 | EMG_ITS ---
Chief complaint: Duane Bales surgeon December 2024, 1 week after noted numbness in left 4th and 5th digits. Reason for referral: Evaluate for ulnar neuropathy Referred by: Dr. Restrepo Procedure done: Left upper extremity NCS/EMG Precautions and/or limitations: Pacemaker The limb temperature was monitored continuously and remained between 32-36 degrees C during the performance of the NCS. Ulnar motor NCS was performed with moderate elbow flexion between 70-90 degrees, with across-elbow distance of 10 cm. Nerve Conduction Studies Anti Sensory Summary Table ?Stim Site NR Onset (ms) Norm Onset (ms) Peak (ms) Norm Peak (ms) O-P Amp (?V) Norm O-P Amp Site1 Site2 Delta-0 (ms) Dist (cm) Marcelo (m/s) Norm Marcelo (m/s) Left DorsCutan Anti Sensory (Dorsum 5th MC) Wrist NR Wrist Dorsum 5th MC 0.0 Left Med Ante Brach Cutan Anti Sensory (Med Forearm) Elbow ? 0.9 1.1 3.2 Elbow Med Forearm 0.9 0.0 Left Median Anti Sensory (2nd Digit) Wrist ? 3.5 4.6 <3.6 12.7 >10 Wrist 2nd Digit 3.5 14.0 40 Left Radial Anti Sensory (Thumb) Forearm ? 1.9 2.7 <3.1 17.0 Forearm Thumb 1.9 10.0 53 Left Ulnar Anti Sensory (5th Digit) Wrist NR <3.7 >15.0 Wrist 5th Digit 14.0 Motor Summary Table ?Stim Site NR Onset (ms) Norm Onset (ms) O-P Amp (mV) Norm O-P Amp iAmp (mV) Amp (1st) (%) Site1 Site2 Delta-0 (ms) Dist (cm) Marcelo (m/s) Norm Marcelo (m/s) Left Median Motor (Abd Poll Brev) Wrist ? 4.1 <3.9 11.2 >4.5 14.1 100.0 Elbow Wrist 4.4 23.5 53 >45 Elbow ? 8.5 11.1 14.0 99.1 Left Ulnar Motor (Abd Dig Minimi) Wrist NR <3.0 >5 B Elbow Wrist 22.0 >45 B Elbow NR A Elbow B Elbow 10.0 >45 A Elbow ? 9.8 4.3 4.9 Left Ulnar (FDI) Motor (FDI) Wrist NR <3.0 >5 B Elbow Wrist 0.0 >45 B Elbow NR A Elbow B Elbow 0.0 >45 A Elbow ? 11.7 2.4 2.9 EMG ?Side Muscle Nerve Root Ins Act Fibs Psw Amp Dur Poly Recrt Int Pat Comment Left 1stDorInt Ulnar C8-T1 Incr 1+ 1+ Nml Nml 0 Nml Complete Left FlexCarpiUln Ulnar C8,T1 Nml Nml Nml Nml Nml 0 Nml Complete Left Biceps Musculocut C5-6 Nml Nml Nml Nml Nml 0 Nml Complete Left Triceps Radial C6-7-8 Nml Nml Nml Nml Nml 0 Nml Complete Left Deltoid Axillary C5-6 Nml Nml Nml Nml Nml 0 Nml Complete Paraspinal EMG ?Side Muscle Nerve Root Ins Act Fibs Psw Comment Left Cervical Upper Rami Nml Nml Nml Left Cervical Mid Rami Nml Nml Nml Left Cervical Lower Rami Nml Nml Nml FINDINGS: Left ulnar motor nerve, recording at either ADM or FDI, absent response wrist and below elbow. Left median motor nerve showed prolonged distal latency, normal amplitude and normal conduction velocity. Left ulnar sensory nerves showed absent response. Left DUCS showed absent response. Left median sensory nerve showed prolonged peak latency. All other nerves tested were within normal. Concentric needle EMG was performed in selected muscles of the left upper extremity and cervical paraspinals. Study revealed signs of electric abnormalities as shown in the table above. Left FDI showed increased insertional activity, PSWs and fibrillations. IMPRESSION: 1. This is an abnormal study. 2. 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 3. There is electrodiagnostic evidence for left moderate-severe median motor neuropathy at the wrist, consistent with Carpal Tunnel Syndrome. 4. There is no electrodiagnostic evidence for brachial plexopathy or cervical radiculopathy. CLINICAL COMMENT: Ulnar neuropathy at the elbow would explain his symptoms and would be consistent with history. Incidental finding of left Carpal Tunnel Syndrome. Thank you for your kind referral. Inés Tello MD, LISBETH Board Certified, [place] [employer] and [employer] (ABPMR) Board Certified, [place] [employer] Electrodiagnostic [employer] (ABEM) CODIN [address] x 1 extremity MTDD
--- OUTSIDE RECORDS SUMMARY | 2025-10-02 18:28 | XMS_ITS | Encounter Summary ---
Author Organization [facility] Address [address] [facility] [address] [place] [phone] Phone Care Team Providers Care Stave Machine Tender Name Role Phone Williams Simental DO Primary Care Provider [phone] Alan Dowd MD Primary Care Provider Encounter Details Date Type Department Care Team (Late st Contact Info) Description 09/22/2018 Procedure Pass [facility] Endoscopy Admitting Dept Virtual Department [address] [place] [id number] Social History Tobacco Use Types Packs/Day Years [...] Care Team (Late st Contact Info) Description 12/27/2025 2:00 PM EST Office Visit [facility] [address] [place] [phone] Unknown, Unknown, Siobhan Miranda, RECORDS TECH [address] [place] [address] [email or web address] documented as of this encounter Visit Diagnoses Not on filedocumented in this encounter Additional Health Concerns Infection Onset Date Last Indicated Resolved Time CDiff-Risk 07/30/2025 08/03/2025 08/03/2025 12:5 3 PM EDT C. diff 08/03/2025 08/03/2025 09/02/2025 1:21 AM EDT documented as of this encounter Care Teams Stave Machine Tender Relationship Specialty Start Date End Date Williams Simental DO [address] [place] [address] PCP - General 09/05/17 12/30/19 Alan Dowd MD [address] [place] [address] PCP - General 12/31/19 documented as of this encounter Additional Source Comments The information contained in this document represents components of the legal health record. It is not the complete legal health record.[facility]
--- OUTSIDE RECORDS SUMMARY | 2025-10-02 18:28 | XMS_ITS | Encounter Summary ---
Author Organization [facility] Address [address] [facility] [address] [place] [address] Phone Care Team Providers Care Pipe Caulker Name Role Phone Alan Dowd MD Primary Care Provider Encounter Details Date Type Department Care Team (Late st Contact Info) Description 08/08/2025 Procedure Pass [facility] Endoscopy Admitting Dept Virtual Department [address] [place] [address] Social History Tobacco Use Types Packs/Day Years Used Date Smoking Tobacco: Former Cigarettes Q uit: 2021 Smokeless Tobacco: Never Alcohol Use Standard Drinks/Week Comments Yes 0 (1 standard drink = 0.6 oz pur e alcohol) marguerita every other day Education Answer Date Recorded Are you [...] as food, clothing, or medical care? No 08/02/2025 In the past 12 months have y ou been in a relationship with a person who hurts, threatens, or tries to control you? No 08/02/2025 Are you denied basic needs s uch as food, clothing, or medical care? No 08/02/2025 In the past 12 months have y ou been in a relationship with a person who hurts, threatens, or tries to control you? No 08/02/2025 Sex and Gender Information Value Date Recorded Sex Assigned at Male 06/20/2018 6:12 PM EDT Legal Sex Male 9:43 PM EDT Gender Identity Male 06/20/2018 6:12 PM EDT Sexual Orientation Not on file documented as of this encounter Plan of Treatment Upcoming Encounters Date Type Department Care Team (Late st Contact Info) Description 12/27/2025 2:00 PM EST Office Visit [facility] [address] [place] [address] Unknown, Unknown, Siobhan Miranda, REAL ESTATE SALES ASSOCIATE [address] [place] [address] [email or web address] documented as of this encounter Visit Diagnoses Not on filedocumented in this encounter Additional Health Concerns Infection Onset Date Last Indicated Resolved Time C. diff 08/03/2025 08/03/2025 09/02/2025 1:21 AM EDT documented as of this encounter Care Teams Pipe Caulker Relationship Specialty Start Date End Date Alan Dowd MD PCP - General 12/31/19 documented as of this encounter Additional Source Comments The information contained in this document represents components of the legal health record. It is not the complete legal health record.[facility]
--- OUTSIDE RECORDS SUMMARY | 2025-10-02 18:28 | XMS_ITS | Encounter Summary ---
Author Organization [facility] Address [address] [facility] [place] [phone] Phone Care Team Providers Care Binder Caser Name Role Phone Alan Dowd MD Primary Care Provider Encounter Details Date Type Department Care Team (Late st Contact Info) Description 12/31/2019 Transcribe Orders [facility] Phleb [address] [id number] Jasmin Romero, [place] [address] [place] [address] [place] [address] Night sweats (Primary Dx); Flushing; Fatigue, unspecified [...] Description 12/27/2025 2:00 PM EST Office Visit [facility] [address] [place], [place] [id number] Unknown, Unknown, Siobhan Miranda, PROFESSIONAL SKATEBOARDER [address] [place], [place] [phone] documented as of this encounter Results * 5-HIAA, 24 hr urine (12/31/2019 6:00 AM EST) TIMED URINE 5HIAA 4.6 <=9.7 mg/24 h [facility] DPT OF LAB MED AND PAT+ TOTAL VOLUME 2,000 mL [facility] IN DPT OF LAB MED AND PAT+ Comment: (NOTE) ADDITIONAL INFORMATION Liquid Chromatography-Tandem Mass Spectrometry (LC-MS/MS). Values obtained from different assay methods or kits may be different and cannot be used interchangeably. The results cannot be interpreted as absolute evidence for the presence or absence of malignant disease. This test was developed and its performance characteristics determined by [facility] in a manner consistent with CLIA requirements. [...] DPT OF LAB MED AND PAT+ [address] [place] [address] * N-Methylhistamine, 24 hr urine (12/31/2019 6:00 AM EST) N-Methylhistamine/CR E, timed urine 133 30 - 200 mcg/g Cr [facility] LAB MED/PATH [place] Collection duration, urine 24 H [facility] LAB MED/PATH [place] Total Volume, ur 2,000 ML [facility] LAB MED/PATH [place] Comment: (NOTE) ADDITIONAL INFORMATION This test was developed and its performance characteristics determined by [facility] in a manner consistent with CLIA requirements. This test has not been cleared or approved by the U.S. Food and Drug Administration. Creatinine, timed ur (mg/dL) 115 mg/dL [facility] DPT OF LAB MED AND PAT+ Urine (Urine) 12/31/2019 6:0 0 AM EST 12/31/2019 4:14 PM EST us Jasmin Romero BELLMAN CAPTAIN URINE ORDERABLES Final R esult [facility] DPT OF LAB MED AND PAT+ [address] [place] [address] [facility] LAB MED/PATH [facility] [address] [place] [place] [address] documented in this encounter Visit Diagnoses Diagnosis Night sweats- Primary Generalized hyperhidrosis Flushing Fatigue, unspecified type Pruritus Unspecified pruritic disorder documented in this encounter Additional Health Concerns Infection Onset Date Last Indicated Resolved Time CDiff-Risk 07/30/2025 08/03/2025 08/03/2025 12:5 3 PM EDT C. diff 08/03/2025 08/03/2025 09/02/2025 1:21 AM EDT documented as of this encounter Care Teams Binder Caser Relationship Specialty Start Date End Date Alan Dowd MD PCP - General 12/31/19 documented as of this encounter Additional Source Comments The information contained in this document represents components of the legal health record. It is not the complete legal health record.[facility]
--- OUTSIDE RECORDS SUMMARY | 2025-10-02 18:28 | XMS_ITS | Clinical Summary ---
Author Organization [facility] Address [address] [facility] [facility] [address] [place] [phone] Phone Care Team Providers Care Compliance Mgr Name Role Phone Alan Dowd MD Primary Care Provider Allergies No known active allergies Medications lisinopril (PRINIVIL,ZESTRIL) 20 MG tablet Take 20 mg by mouth daily. 0 Active DRYSOL DAB-O-MATIC 20 % external solution APPLY TO AFFECTED AREA TOPICALLY 2 TIMES A WEEK NEEDED FOR EXCESSIVE SWEATING FOR 30 DAYS 5 Active gabapentin (NEURONTIN) 100 MG capsule 5 Active ondansetron (ZOFRAN-ODT) 4 MG disintegrating tablet 5 Active tamsulosin (FLOMAX) 0.4 mg Cap Take 1 capsule by mouth every morning. 5 Active lisinopril (PRINIVIL,ZESTRIL) 10 MG tablet Take 1 tablet by mouth every morning. 5 Active Active Problems Problem Noted Date Diagnosed Date Fatty liver, alcoholic 12/25/2022 Incomplete right bundle branch block 12/25/2022 Obstructive sleep apnea 12/25/2022 Sick sinus syndrome 12/25/2022 Pes cavus 12/05/2020 Neuroma of left lower extremity 12/05/2020 Electrocardiography findings indicative of cardiac pacemaker activity 06/22/2011 Encounters Date Type Department Care Team Description 08/08/2025 11:22 AM EDT Anesthesia Event [facility] Admitting Dept Virtual Department [address] [place] [address] Monty Rachel MD, LISBETH 08/08/2025 10:30 AM EDT - 08/08/2025 11:00 AM EDT Surgery [facility] Admitting Dept Virtual Department [address] [place] [address] Lyndsey Lewis MD COLONOSCOPY 08/08/2025 9:00 AM EDT - 08/08/2025 12:17 PM EDT Hospital Encounter [facility] Ad[facility] Virtual Department [address] [place] [address] Lyndsey Lewis MD Discharge Disposition: Home or Self Care 08/08/2025 Procedure Pass [facility] Admitting Dept Virtual Department [address] [place] [address] 08/03/2025 10:43 AM EDT - 08/03/2025 11:59 PM EDT Hospital Encounter [facility] [address] [place] [address] Siobhan Denis CNP Discharge Disposition: Home or Self Care 08/02/2025 10:47 AM EDT - 08/02/2025 11:59 PM EDT Hospital Encounter [facility] [place] [address] [address] Lyndsey Lewis MD Discharge Disposition: Home or Self Care 08/02/2025 9:30 AM EDT Pre-Admission Testing Pre Procedure Evaluation [address] [place] [address] Lyndsey Lewis MD 08/01/2025 10:57 AM EDT - 08/01/2025 11:59 PM EDT Hospital Encounter [facility] [place] [address] [address] Lyndsey Lewis MD Discharge Disposition: Home or Self Care 07/31/2025 1:51 PM EDT - 07/31/2025 11:59 PM EDT Hospital Encounter [facility] [place] [address] [address] Siobhan Denis CNP Discharge Disposition: Home or Self Care 07/30/2025 1:53 PM EDT - 07/30/2025 11:59 PM EDT Hospital Encounter [facility] [place] [address] [address] Siobhan Denis CNP Discharge Disposition: Home or Self Care 07/30/2025 1:52 PM EDT - 07/30/2025 11:59 PM EDT Hospital Encounter [facility] [address] [place] [address] Siobhan Denis CNP Discharge Disposition: Home or Self Care 07/30/2025 Transcribe Orders [facility] [address] [place] [address] Siobhan Denis CNP Diarrhea, unspecified type (Primary Dx); Vomiting, unspecified vomiting type, unspecified whether nausea present from Last 3 Months Immunizations Immunization Administration Dates Next Due Tdap 03/13/2024,06/20/2018 Social History Tobacco Use Types Packs/Day Years Used Date Smoking Tobacco: Former Cigarettes Q uit: 2021 Smokeless Tobacco: Never Tobacco Cessation:Counseling Given: Not Answered Alcohol Use Standard Drinks/Week Comments Yes 0 [...] Sign Reading Time Taken Comments Blood Pressure 141/95 08/08/2025 12:00 PM EDT Pulse 62 08/08/2025 12:00 PM EDT Temperature 36.2 C (97.2 F) 08/08/2025 11:45 AM EDT Respiratory Rate 20 08/08/2025 12:00 PM EDT Oxygen Saturation 100% 08/08/2025 12:00 PM EDT Inhaled Oxygen Concentration - - Weight 95.3 kg (210 lb) 08/02/2025 12:08 PM EDT Height 180.3 cm (5' 11 ) 08/02/2025 12:08 PM EDT Body Mass Index 29.29 08/02/2025 12:08 PM EDT Plan of Treatment Upcoming Encounters Date Type Department Care Team (Late st Contact Info) Description 12/27/2025 2:00 PM EST Office Visit [facility] [address] [place] [phone] Unknown, Unknown, Siobhan Miranda, SENIOR ONLINE MARKETING MANAGER [address] [place] [address] [email or web address] Health Maintenance Due Date Last Done Comments LIPID PANEL 1965 DEPRESSION SCREENING 1975 SMOKING Hx and SMOKELESS TOBACCO SCREENING 1976 HEPATITIS C SCREENING 1981 HIV ONE-TIME SCREENING (18-65 YEARS) 1981 HEPATITIS A VACCINES (1 of 2 - Risk 2-dose series) 1982 COLOGUARD 2008 FIT TEST 2008 FOBT 2008 SIGMOIDOSCOPY 2008 VIRTUAL COLONOSCOPY 2008 RSV VACCINE (1 - Risk 50-74 years 1-dose series) 2013 PNEUMOCOCCAL VACCINES (50+ years) (2 of 2 - PCV) 03/25/2018 03/25/2017 INFLUENZA VACCINE (#1) 2025 4, 08/16/2023, 11/25/2021, Additional history exists COVID-19 VACCINE ( - season) 2025 09/12/2024, 04/24/2023, 04/08/2021, Additional history exists CREATININE LEVEL 07/30/2026 07/30/2025 POTASSIUM LEVEL 07/30/2026 07/30/2025 SCREENING FOR DIABETES 07/30/2028 07/30/2025 Adult Td,Tdap Booster 03/13/2034 03/13/2024 , 06/20/2018, 03/01/2017 COLONOSCOPY 08/08/2035 08/08/2025, 09/22/2018 COLORECTAL CANCER SCREENING 08/08/2035 ZOSTER VACCINES Completed 08/16/2023, 04/24/2023 HIB VACCINES Aged Out No longer eligi ble based on patient's age to complete this topic IPV VACCINES Aged Out No longer eligi ble based on patient's age to complete this topic MENINGOCOCCAL VACCINES (ACWY) Aged Out No longer eligible based on patient's age to complete this topic MENINGOCOCCAL VACCINES (B) Aged Out N o longer eligible based on patient's age to complete this topic Medical Devices Implanted Type Area Emergency Medical Technician/Driver Device Identifier Shelf Expiration Date Model / Serial / Lot Pacemaker Description:Left chest Rigth Leg Hardware Procedures Procedure Name Priority Date/Time Associated Diagnosis Comments MD COLSC FLX W/RMVL OF TUMOR POLYP LESION SNARE TQ 08/08/2025 11:18 AM EDT Diarrhea, unspecified type Vomiting, unspecified vomiting type, unspecified whether nausea present Special Needs SSS-has pacemaker MD COLONOSCOPY W/BIOPSY SINGLE/MULTIPLE 08/08/2025 11:18 AM EDT Diarrhea, unspecified type Vomiting, unspecified vomiting type, unspecified whether nausea present Special Needs SSS-has pacemaker MD COLONOSCOPY FLX DX W/COLLJ SPEC WHEN PFRMD 08/08/2025 11:18 AM EDT Diarrhea, unspecified type Vomiting, unspecified vomiting type, unspecified whether nausea present Special Needs SSS-has pacemaker ENDOSCOPY, COLON 08/08/2025 11:15 AM EDT CALPROTECTIN, STOOL Routine 08/03/2025 8 :30 AM EDT Diarrhea, unspecified type Vomiting, unspecified vomiting type, unspecified whether nausea present CLOSTRIDIOIDES (CLOSTRIDIUM) DIFFICILE ANTIGEN/TOXIN ASSAY Routine 08/03/2025 8:30 AM EDT CLOSTRIDIOIDES (CLOSTRIDIUM) DIFFICILE, PCR Routine 08/03/2025 8:30 AM EDT Diarrhea, unspecified type Vomiting, unspecified vomiting type, unspecified whether nausea present FECAL LEUKOCYTE EXAMINATION Routine 08/03/2025 8:30 AM EDT Diarrhea, unspecified type Vomiting, unspecified vomiting type, unspecified whether nausea present GIARDIA CRYPTOSPORIDIUM SCREEN Routine 08/03/2025 8:30 AM EDT Diarrhea, unspecified type Vomiting, unspecified vomiting type, unspecified whether nausea present STOOL CULTURE Routine 08/03/2025 8:30 AM EDT Diarrhea, unspecified type Vomiting, unspecified vomiting type, unspecified whether nausea present OVA AND PARASITES, STOOL Routine 08/01/2025 10:57 AM EDT Diarrhea, unspecified type Vomiting, unspecified vomiting type, unspecified whether nausea present OVA AND PARASITES, STOOL Routine 07/31/2025 8:00 AM EDT Diarrhea, unspecified type Vomiting, unspecified vomiting type, unspecified whether nausea present TISSUE TRANSGLUTAMINASE IGA Routine 07/30/2025 1:53 PM EDT Diarrhea, unspecified type Vomiting, unspecified vomiting type, unspecified whether nausea present IMMUNOGLOBULIN A Routine 07/30/2025 1:53 PM EDT Diarrhea, unspecified type Vomiting, unspecified vomiting type, unspecified whether nausea present CBC AND DIFFERENTIAL Routine 07/30/2025 1:53 PM EDT Diarrhea, unspecified type Vomiting, unspecified vomiting type, unspecified whether nausea present COMPREHENSIVE METABOLIC PANEL (CMP) Routine 07/30/2025 1:53 PM EDT Diarrhea, unspecified type Vomiting, unspecified vomiting type, unspecified whether nausea present C-REACTIVE PROTEIN (CRP) Routine 07/30/2025 1:53 PM EDT Diarrhea, unspecified [...] unspecified vomiting type, unspecified whether nausea present OVA AND PARASITES, STOOL Routine 07/30/2025 1:30 PM EDT Diarrhea, unspecified type Vomiting, unspecified vomiting type, unspecified whether nausea present from Last 3 Months Results * ENDOSCOPY, COLON (08/08/2025 11:15 AM EDT) Narrative Transcriptions Lyndsey Lewis MD - 08/08/2025 11:15 AM EDT [facility] Patient Name: Jena Rohith Attending MD:: LYNDSEY LEWIS MD, Procedure Date: 08/08/2025 11:15 AM Date of : 1965 Age: 59 Admit Type: Outpatient Gender: Male Room: [place] [address] Referring MD: Alan Dowd Exam Type: Colonoscopy Indications: High risk colon cancer surveillance: Personalhistory of colonic polyps, Last colonoscopy: September2018 Medications: Propofol per Anesthesia Procedure: Informed consent was obtained from the patientafter discussion of the indications, limitations, alternatives, benefits, and risks of the procedure. Risks specifically discussed include but are not limited to medication reactions, missed lesions, bleeding, perforation, or the need for emergent surgery. Throughout the procedure, the patient's blood pressure, pulse, end-tidal CO2, and oxygensaturations were monitored continuously. The Olympus adult variable colonoscope [id number] #4 was introduced through the anus and advanced to the ileocolonic anastomosis. The colonoscopy wasperformed without difficulty. The patient tolerated the procedure well. The quality of the bowelpreparation was good. The bowel preparation used was GoLYTELYvia split dose instruction. Complications: No immediate complications. Estimated blood loss:None. Findings: The perianal and digital rectal examinations were normal. Pertinent negatives include normal prostate (size, shape, and consistency). The retroflexed view of the distal rectum and anal verge was normal and showed no anal or rectal abnormalities. Many medium-mouthed diverticula were found in the entire colon. There was evidence of a prior functional end-to-end ileo-colonic anastomosis in the distal ascending colon. This was patent. [Traversed]. The terminal ileum appeared normal. Appears to be s/p R colectomy,not noted in H and P. Post procedure, he reports ppendectomy earlier this year. Report not available but it does appear tohave at least included a portion of cecum or proximal ascending colon. Impression: - The distal rectum and anal verge are normal on retroflexion view. - Diverticulosis in the entire examined colon. - Patent functional end-to-end ileo-colonic anastomosis, or at least extended appendectomy. - The examined portion of the ileum was normal. - No specimens collected. Recommendation: - High fiber diet. - Repeat colonoscopy in 5 years for surveillance. LYNDSEY LEWIS MD 08/08/2025 11:43:07 AM This report has been signed electronically. Number of Addenda: 0 Note Initiated On: 08/08/2025 11:15 AM Procedure Date: 08/08/2025 11:15:[address] [place] [id number] Alan Dowd MD GI PROCEDURE ORDERABL ES Edited Result - Final * Fecal leukocyte examination (08/03/2025 8:30 AM EDT) Special Requests None 08/03/2025 10:45 AM EDT [facility] GRAM STAIN No WBC seen on smear. 08/04/2025 8:46 AM EDT [facility] Stool (Stool) 08/03/2025 8:3 0 AM EDT 08/03/2025 10:47 AM EDT Siobhan Denis CNP LAB BODY FLUIDS AND STOOL ORDERABLES Final Result Performing Organization Address [facility]/ZIP Co de Phone Number [address] [address] * Giardia and cryptosporidium screen (08/03/2025 8:30 AM EDT) Pathologist [facility] GIARDIA AG Negative Negative [facility] Cryptosporidiu m, stool Negative Negative [facility] Stool (Stool) 08/03/2025 8:3 0 AM EDT 08/03/2025 10:47 AM EDT Siobhan Denis SENIOR ONLINE MARKETING MANAGER NON CULTURE MICROBIOLOGY F inal Result Performing Organization Address City/[facility]/ZIP Co de Phone Number [address] [address] * (ABNORMAL) Calprotectin, stool (08/03/2025 8:30 AM EDT) STOOL CALPROTECTIN 133(H) mcg/g [facility] Comment: (NOTE) Reference Range: <50 Normal 50-120 Borderline >120 Elevated Calprotectin in Crohn's disease and ulcerative colitis can be five to several thousand times above the reference population (50 mcg/g or less). Levels are usually 50 mcg/g or less in healthy patients and with irritable bowel syndrome. Repeat testing in 4-6 weeks is suggested for borderline values. Stool (Stool) 08/03/2025 8:3 0 AM EDT 08/03/2025 10:47 AM EDT Siobhan Hahn [facility] LAB BODY FLUIDS AND STOOL ORDERABLES Final Result Performing Organization Address City/[facility] Co de Phone Number [employer] [address] [place] [address], [facility] [phone] * (ABNORMAL) C. DIFFICILE PCR (08/03/2025 8:30 AM EDT) C.DIFFICILE PCR Positive(A) Negative [facility] Comment:C.difficile gene was detected. C.difficile toxin assay has been reflexed. See separate report. C.DIFFICILE STRAIN PRESUMPTIVE NEGATIVE PRESUMPTIVE NEGATIVE [facility] Comment:Detection of 027/NAP 1/BI strains of C.difficile is presumptive and is solely for epidemiological purposes and is not intended to guide or monitor treatment of infections. Stool (Stool) 08/03/2025 8:3 0 AM EDT 08/03/2025 10:47 AM EDT [facility] LAB BODY FLUIDS AND STOOL ORDERABLES Final Result Performing Organization Address [facility] Co de Phone Number [facility] [address] [place] [address] * (ABNORMAL) Clostridioides (Clostridium) difficile Antigen/Toxin Assay (08/03/2025 8:30 AM EDT) C. diff GDH Positive(A) Negative [facility] C. DIFFICILE TOXIN NEGATIVE for Clostridium difficile toxin. NEGATIVE for Clostridium difficile toxin. [facility] Comment:The C.diff antigen t est does not distinguish between asymptomatic colonization and clinical disease. The negative toxin assay makes active C.difficile disease unlikely. 08/03/2025 8:30 AM EDT 08/03/2025 10:47 AM EDT Siobhan Denis [facility] LAB BODY FLUIDS AND STOOL ORDERABLES Final Result Performing Organization Address [facility] Co de Phone Number [address] [address] * Stool culture (08/03/2025 8:30 AM EDT) Special Requests None 08/03/2025 10:45 AM EDT [facility] Stool Culture NO SALMONELLA, SHIGELLA OR CAMPYLOBACTER ISOLATED 08/04/2025 8:49 AM EDT [facility] Stool (Stool) 08/03/2025 8: 30 AM EDT 08/03/2025 10:47 AM EDT Siobhan Denis [facility] LAB MICROBIOLOGY CULTURE O RDERABLES Final Result Performing Organization Address [facility] de Phone Number [address] [phone] * Ova and parasites, stool (08/01/2025 10:57 AM EDT) Only the most recent of3 resultswithin the time period is included. Parasitic exam FINAL 5 [address]19 [facility] DPT OF LAB MED AND PAT+ Comment: (NOTE) SOURCE: STOOL, STLP OVA AND PARASITE, MICROSCOPY, F FINAL No parasites seen. Cryptosporidium, Cyclospora, and microsporidia are not readily detected by this method. Single negative specimen does not rule out parasitic infection. Stool (Stool) 08/01/2025 10: 57 AM EDT 08/02/2025 10:59 AM EDT Siobhan Denis [facility] LAB BODY FLUIDS AND STOOL ORDERABLES Final Result Performing Organization Address [facility] Co de Phone Number [facility] DPT OF LAB MED AND PAT+ [address] [place] [address] * (ABNORMAL) Comprehensive metabolic panel (07/30/2025 1:53 PM EDT) SODIUM 139 133 - 146 mmol/L [facility] POTASSIUM 3.4 3.3 - 5.1 mmol/L [facility] CHLORIDE 102 96 - 108 mmol/L [facility] CO2 19(L) 21 - 35 mmol/L [facility] BUN 11 6 - 19 mg/dL [facility] CREATININE 0.80 0.5 - 1.5 mg/dL [facility] GLUCOSE 125(H) 70 - 99 mg/dL [facility] ALBUMIN 4.3 3.9 - 4.8 g/dL [facility] TOTAL PROTEIN 7.2 6.5 - 8.0 g/dL [facility] CALCIUM 9.7 8.4 - 10.3 mg/dL [facility] ALKALINE PHOSPHATASE 75 39 - 117 U/L [facility] TOTAL BILIRUBIN 0.4 0.0 - 1.2 mg/dL [facility] AST 25 0 - 37 U/L [facility] ALT 32 0 - 40 U/L [facility] GLOBULIN 2.9 1 - 4.8 g/dL [facility] EGFR 101 >59 mL/min/1.7 3m2 [facility] Comment:Estimated glomerular filtration rate calculated using the CKD-EPI refit equation. ANION GAP 21(H) 10 - 20 mmol/L [facility] Blood 07/30/2025 1:53 PM EDT 07/30/2025 2:01 PM EDT Siobhan Denis [facility] LAB BLOOD BKR ORDERABLES F inal Result [facility] [address] [place] [address] * Tissue transglutaminase IgA (07/30/2025 1:53 PM EDT) TTG IGA ANTIBODY <1.2 <4.0 (Negative) U/mL [facility] [address] Blood 07/30/2025 1:53 PM EDT 07/30/2025 2:01 PM EDT us Siobhan Denis SENIOR ONLINE MARKETING MANAGER LAB BLOOD BKR ORDERABLES F inal Result [facility] [address] [place] [address] * (ABNORMAL) CBC and differential (07/30/2025 1:53 PM EDT) WBC 5.18 4.00 - 11.00 K/uL [facility] RBC 4.51 4.50 - 5.90 M/uL [facility] HGB 14.2 13.5 - 17.5 g/dL [facility] HCT 41.7 41.0 - 53.0 % [facility] PLT 217 150 - 450 K/uL [facility] MCV 92.5 80.0 - 100.0 fL [facility] MCH 31.5(H) 27.0 - 31.0 pg [facility] MCHC 34.1 32.0 - 36.0 g/dL [facility] RDW 14.6(H) 11.5 - 14.5 % [facility] MPV 9.2 8.4 - 12.0 fL [facility] NRBC 0.00 0.00 /100 WBCs [facility] ABSOLUTE NRBC 0.00 0.00 K/uL [facility] DIFF METHOD Auto [facility] NEUTS 55.2 48.0 - 76.0 % [facility] LYMPHS 33.6 18.0 - 41.0 % [facility] MONOS 7.7 4.0 - 11.0 % [facility] EOS 2.5 0.0 - 5.0 % [facility] BASOS 0.8 0.0 - 1.5 % [facility] Granulocytes, immature (%) 0.2 0.0 - 0.9 % [facility] ABSOLUTE NEUTS 2.86 1.92 - 7.60 K/uL [facility] ABSOLUTE LYMPHS 1.74 0.72 - 4.10 K/uL [facility] ABSOLUTE MONOS 0.40 0.16 - 1.10 K/uL [facility] ABSOLUTE EOS 0.13 0.00 - 0.50 K/uL [facility] ABSOLUTE BASOS 0.04 0.00 - 0.15 K/uL [facility] Granulocytes, immature 0.01 0.00 - 0.09 K/uL [facility] Blood 07/30/2025 1:53 PM EDT 07/30/2025 2:01 PM EDT Siobhan Denis [facility] LAB BLOOD BKR ORDERABLES F inal Result Performing Organization Address City/[facility]/ZIP Co de Phone Number [address] [address] * C-Reactive Protein (07/30/2025 1:53 PM EDT) C REACTIVE PROTEIN <3.0 0.0 - 4.0 mg/L [facility] Blood 07/30/2025 1:53 PM EDT 07/30/2025 2:01 PM EDT Siobhan Denis [facility] LAB BLOOD BKR ORDERABLES F inal Result Performing Organization Address City/[facility]/ZIP Co de Phone Number [address] [address] * Immunoglobulin A (07/30/2025 1:53 PM EDT) IgA 96 70 - 400 mg/dL [facility] Blood 07/30/2025 1:53 PM EDT 07/30/2025 2:01 PM EDT Siobhan Denis [facility] LAB BLOOD BKR ORDERABLES F inal Result Performing Organization Address City/[facility]/ZIP Co de Phone Number [address] [address] * Folate (07/30/2025 1:53 PM EDT) FOLIC ACID 9.6 4.2 - 19.9 ng/mL [facility] Blood 07/30/2025 1:53 PM EDT 07/30/2025 2:01 PM EDT Siobhan Denis [facility] LAB BLOOD BKR ORDERABLES F inal Result [address] [address] * Ferritin (07/30/2025 1:53 PM EDT) FERRITIN 86 30 - 400 ug/L [facility] Blood 07/30/2025 1:53 PM EDT 07/30/2025 2:01 PM EDT Siobhan Denis [facility] LAB BLOOD BKR ORDERABLES F inal Result Performing Organization Address City/[facility]/ZIP Co de Phone Number [address] [address] * (ABNORMAL) Vitamin B12 (07/30/2025 1:53 PM EDT) VITAMIN B12 >2000(H) 232 - 1245 pg/mL [facility] Blood 07/30/2025 1:53 PM EDT 07/30/2025 2:01 PM EDT Siobhan Denis [facility] LAB BLOOD BKR ORDERABLES F inal Result [address] [address] from Last 3 Months Insurance [employer] PPO CIG[employer] PPO [employer]IG[employer] PPO [employer]IG[employer] PPO [employer] PPO [employer] PPO [employer] COMPENSATION Care Teams Compliance Mgr Relationship Specialty Start Date End Date Alan Dowd MD PCP - General 12/31/19 Additional Source Comments The information contained in this document represents components of the legal health record. It is not the complete legal health record.[facility]
== END ==
LOC: HO.SL 15:14
PROVIDERS: PCP Family Medicine; Visit Provider Psychiatry & Neurology Neurology
DX: G47.33 Obstructive sleep apnea (adult) (pediatric) (principal); R20.0 Anesthesia of skin
CPT/HCPCS: 95886; 95910

== ENCOUNTER → 2025-10-02 15:40 | Outpatient (BNV) | payer OTHER, SELFPAY | PROVIDERS: PCP Family Medicine; Visit Provider Physical Medicine & Rehabilitation | DX: G56.22 Lesion of ulnar nerve, left upper limb (principal); G56.12 Other lesions of median nerve, left upper limb | CPT/HCPCS: 95886; 95910 ==